=== PATIENT | male | born 1980 | race African-American/Black ===

== ENCOUNTER → 2019-05-28 | Outpatient (CLI) | payer OTHER ==
[2019-05-28 18:33] LABS: HCT 40.6 % (39.0-53.0); HGB 12.8 gm/dL (13.0-17.5); Hypochromasia Slight; MCH 25.4 pg (25.0-35.0); MCHC 31.5 g/dL (31.0-37.0); MCV 80.6 fL (80.0-100.0); Mean Platelet Volume 7.9; Platelet Count 157 k/uL (150-450); RBC 5.04 m/uL (4.30-5.90); RDW 15.6 % (11.5-15.5); WBC 9.8 k/uL (3.8-10.6)
[2019-05-28 18:41] LABS: Albumin 4.3 g/dL (3.5-5.0); Calcium 9.7 mg/dL (8.4-10.2); Potassium 4.4 mmol/L (3.5-5.1); Total Bilirubin 0.4 mg/dL (0.2-1.3); Total Protein 7.7 g/dL (6.3-8.2)
== END | disposition home or self-care (01) ==
LOC: RADXRMAIN 17:43
PROVIDERS: ATTEND Family Medicine
DX: I10 Essential (primary) hypertension (principal)
CPT/HCPCS: 80053; 85027

== ENCOUNTER → 2019-06-06 | Outpatient (CLI) | payer OTHER ==
[2019-06-07 00:27] LABS: African American GFR (CKD) 20.9 (60.0-200.0); Albumin 4.1 g/dL (3.80-4.90); Albumin/Globulin Ratio 1.46 (1.60-3.17); Anion Gap 10.1 mmol/L (4.00-12.00); Carbon Dioxide 28.9 mmol/L (21.6-31.8); Globulin 2.8 g/dL (1.6-3.3); Potassium 4.2 mmol/L (3.5-5.5); Total Bilirubin 0.3 mg/dL (0.2-1.2); Total Protein 6.9 g/dL (6.2-8.2)
== END | disposition home or self-care (01) ==
LOC: LABWHC1 16:53
PROVIDERS: ATTEND Family Medicine
DX: I12.9 Hypertensive chronic kidney disease with stage 1 through stage 4 chronic kidney disease, or unspecified chronic kidney disease (principal); N18.4 Chronic kidney disease, stage 4 (severe)
CPT/HCPCS: 36415; 80053

== ENCOUNTER 2021-06-01 04:24 | Inpatient (IN) | payer MEDICARE, OTHER ==
[2021-06-01] MEDS ORDERED: NITROGLYCERIN-D5W PMX 50 MG in DEXTROSE/WATER 1 250ML.BAG IV ONE (04:45)
[2021-06-01] MEDS ORDERED: hydrALAZINE HCL 20 MG/ML 1 ML VIAL IVP STA ×2 (04:50→07:28)
--- NOTE | 2021-06-01 04:56 | ED ---
Chest Pain HPI - General Chief Complaint: Chest Pain Stated Complaint: Chest Pain Time Seen by Provider: 06/01/21 04:32 Source: patient Mode of arrival: ambulatory Limitations: no limitations - History of Present Illness Initial Comments: This patient is a 40-year-old man who presents to be evaluated for substernal chest pressure and dyspnea. The patient states that he has noticed the pain going back up to a couple weeks. Shortness of breath is been getting worse over the past day or so. Patient states she is a dialysis patient dialyzing Sunday W and Sunday. His last dialysis session was one week ago today. MD Complaint: chest pain Onset/Timin -: week(s) Onset: during rest Pain Location: substernal Pain Radiation: none Severity: moderate Quality: heaviness Consistency: constant Improves With: nothing Worsens With: nothing Anginal Symptoms: dyspnea - Related Data Home Medications Medication Instructions Recorded Confirmed Carvedilol [Coreg] 12.5 mg PO DAILY 06/01/21 06/01/21 Folic Acid 1 mg PO DAILY 06/01/21 06/01/21 Losartan [Cozaar] 25 mg PO DAILY 06/01/21 06/01/21 Sevelamer [Renvela] 800 mg PO DIRECTED 06/01/21 06/01/21 hydrALAZINE HCL [Apresoline] 50 mg PO DAILY 06/01/21 06/01/21 Allergies Allergy/AdvReac Type Severity Reaction Status Date / Time amlodipine Allergy Rash/Hives/ Verified 06/01/21 06:40 Itchy Review of Systems ROS Statement: Those systems with pertinent positive or pertinent negative responses have been documented in the HPI. ROS Other: All systems not noted in ROS Statement are negative. Constitutional: Denies: fever, chills Respiratory: Reports: as per HPI, dyspnea. Denies: cough, hemoptysis Cardiovascular: Reports: as per HPI, chest pain, orthopnea, edema. Denies: palpitations, syncope Gastrointestinal: Denies: abdominal pain, nausea, vomiting, diarrhea Musculoskeletal: Denies: back pain Skin: Denies: rash Neurological: Denies: headache, weakness, paresthesias EKG Findings - EKG Results: EKG: interpreted by ERMD, sinus rhythm, normal axis EKG shows: tachycardia (Rate 116 bpm) - AZ, Pacemaker, Normal: Myocardial infarction: anterior AZ (old age or indeterminate) (Possible old anterior infarct.) Past Medical History Past Medical History: Dialysis, Hypertension History of Any Multi-Drug Resistant Organisms: None Reported Past Surgical History: No Surgical Hx Reported Past Psychological History: No Psychological Hx Reported Smoking Status: Never smoker Past Alcohol Use History: Abuse, Daily, Heavy Past Drug Use History: None Reported General Exam Limitations: no limitations General appearance: alert, in distress Head exam: Present: atraumatic, normocephalic Eye exam: Present: normal appearance ENT exam: Present: mucous membranes dry Neck exam: Present: normal inspection, full ROM Respiratory exam: Present: respiratory distress, rales. Absent: wheezes, rhonchi, accessory muscle use Cardiovascular Exam: Present: normal rhythm, tachycardia, gallop. Absent: systolic murmur, diastolic murmur, rubs GI/Abdominal exam: Present: soft. Absent: distended, tenderness, guarding, rebound, rigid Extremities exam: Present: normal inspection, normal capillary refill, pedal edema. Absent: calf tenderness Back exam: Present: normal inspection. Absent: CVA tenderness (L) Neurological exam: Present: alert Skin exam: Present: warm, dry, intact, normal color. Absent: rash Course Vital Signs 06/01/21 06/01/21 06/01/21 04:28 05:00 05:15 Temperature 98 F Pulse Rate 120 H 111 H 112 H Respiratory 32 H 26 H Rate Blood Pressure 228/150 187/121 188/125 O2 Sat by Pulse 98 98 100 Oximetry 06/01/21 06/01/21 06/01/21 05:30 05:45 05:58 Temperature Pulse Rate 112 H 108 H Respiratory 26 H 30 H 30 H Rate Blood Pressure 191/120 177/114 O2 Sat by Pulse 100 100 Oximetry 06/01/21 06/01/21 06/01/21 06:00 06:15 06:30 Temperature Pulse Rate 109 H 113 H 89 Respiratory 21 20 20 Rate Blood Pressure 172/105 167/85 176/108 O2 Sat by Pulse Oximetry 06/01/21 06/01/21 06:35 07:28 Temperature Pulse Rate 109 H 107 H Respiratory 18 20 Rate Blood Pressure 170/109 162/103 O2 Sat by Pulse 100 Oximetry Disposition Clinical Impression: Elevated troponin, Hypertensive urgency, End stage renal disease, Alcohol intoxication Disposition: ADMITTED IP TO THIS HOSP Condition: Fair Is patient prescribed a controlled substance at d/c from ED?: No
[2021-06-01 05:21] LABS: Basophils % (A) 0 %; Eosinophils # (A) 0.1 k/uL (0-0.7); Eosinophils % (A) 1 %; HCT 37.5 % (39.0-53.0); HGB 11.5 gm/dL (13.0-17.5); Hypochromasia Moderate; Lymphocytes # (A) 2.7 k/uL (1.0-4.8); Lymphocytes % (A) 30 %; MCH 25.3 pg (25.0-35.0); MCHC 30.6 g/dL (31.0-37.0); MCV 82.5 fL (80.0-100.0); Monocytes # (A) 0.5 k/uL (0-1.0); Monocytes % (A) 6 %; Neutrophils # (A) 5.4 k/uL (1.3-7.7); Neutrophils % (A) 61 %; Platelet Count 187 k/uL (150-450); RBC 4.54 m/uL (4.30-5.90); RDW 15.4 % (11.5-15.5); WBC 8.9 k/uL (3.8-10.6)
[2021-06-01 05:22] LABS: Potassium 5.3 mmol/L (3.5-5.1)
[2021-06-01 05:24] LABS: Albumin 4.4 g/dL (3.5-5.0); Calcium 8.6 mg/dL (8.4-10.2); Total Bilirubin 0.7 mg/dL (0.2-1.3); Total Protein 8.1 g/dL (6.3-8.2)
--- NOTE | 2021-06-01 05:26 | XR ---
EXAMINATION TYPE: XR chest 1V portable DATE OF EXAM: 06/01/2021 COMPARISON: NONE HISTORY: Short of breath TECHNIQUE: Single view FINDINGS: There is no heart failure nor confluent pneumonic infiltrate. Costophrenic angles are clear . There are chest leads. Bony thorax is intact. IMPRESSION: No active cardiopulmonary disease.
[2021-06-01 05:33] LABS: Partial Thromboplastin Time 25.4 sec (22.0-30.0)
[2021-06-01] MEDS ORDERED: MORPHINE SULFATE 4 MG/ML SYRINGE IV STA (05:47)
[2021-06-01] MEDS ORDERED: NITROGLYCERIN SL TABS 0.4 MG TAB SUBLINGUAL PRN (07:02)
[2021-06-01] MEDS ORDERED: MORPHINE SULFATE 4 MG/ML SYRINGE IV PRN (07:02)
[2021-06-01] MEDS: hydrALAZINE HCL 50 MG TAB PO SCH (07:58)
[2021-06-01] MEDS: SEVELAMER 800 MG TAB PO SCH ×3 (08:20→18:15)
[2021-06-01] MEDS: carvediloL 12.5 MG TAB PO SCH (08:20)
[2021-06-01] MEDS: FOLIC ACID 1 MG TAB PO SCH (08:20)
--- NOTE | 2021-06-01 08:55 | P.HPIM ---
History of Present Illness H&P Date: 06/01/21 HISTORY OF PRESENT ILLNESS This is a 40-year-old male patient with past medical history of hypertension, end-stage renal disease on hemodialysis Sunday and Sunday. His last hemodialysis session was May 23. Patient started binge drinking on mostly with vodka and he had last intake yesterday morning. Patient has been missing some of his counseling meetings. He also complains of lower extremity edema bilaterally and a little pain in his legs. No shakiness noted. He complains of headache, chest pain that comes and goes without radiation. Patient presented to [facility] emergency center for evaluation. Patient was found to be afebrile, heart rate 120s, respiratory rate 32, initial blood pressure 228/150. This morning blood pressure remains elevated at 162/103. Heart rate is in the low 100s. WBC 8.9, hemoglobin 11.5, platelet count 187. INR 1.0. Sodium 143, potassium 5.3, chloride 107, CO2 19, BUN 62 creatinine 9.98. Glucose 118. Lactic acid 2.5. Total bilirubin 0.7, AST 53, ALT 17, a phosphatase 107. Troponin 0.242. Serum alcohol level 233. Chest x-ray rate reveals no acute cardio pulmonary disease. Patient was started on nitroglycerin drip and received 1 dose of IV hydralazine on the home medications will be resumed, consult in place with nephrology, pulmonary medicine and cardiology REVIEW OF SYSTEMS Constitutional: No fever, no chills, no night sweats. Reports weight change. No weakness, fatigue or lethargy. No daytime sleepiness. EENT: Reports headache. No blurred vision or double vision, no loss of vision. No loss of Hearing, no ringing in the ears, no dizziness. No nasal drainage or congestion. No epistaxis. No sore throat. Lungs: No shortness of breath, cough, no sputum production. No wheezing. Cardiovascular: Reports chest pain, no lower extremity edema. No palpitations. No paroxysmal nocturnal dyspnea. No orthopnea. No lightheadedness or dizz iness. No syncopal episodes. Abdominal: No abdominal pain. No nausea, reports vomiting. No diarrhea. No constipation. No bloody or tarry stools. No loss of appetite. Genitourinary: No dysuria, increased frequency, urgency. No urinary retention. Musculoskeletal: No myalgias. No muscle weakness, no gait dysfunction, no frequent falls. No back pain. No neck pain. Integumentary: No wounds, no lesions. No rash or pruritus. No unusual bruising. No change in hair or nails. Neurologic: No aphasia. No facial droop. No change in mentation. No head injury. No headache. No paralysis. No paresthesia. Psychiatric: Reports depression. Reports anxiety. No mood swings. Endocrine: No abnormal blood sugars. Reports weight change. No excessive sweating or thirst. No cold intolerance. MEDICAL HISTORY End-stage renal disease on hemodialysis Hypertension Paroxysmal atrial fibrillation, single episode Secondary hyperparathyroidism Diabetes mellitus type 2 SURGICAL HISTORY AV fistula right upper extremity SOCIAL HISTORY Patient is a nonsmoker, history of alcohol abuse and patient has been binging since last . FAMILY HISTORY Father at age 36 from a motor vehicle accident. Mother at age 37 from breast cancer. Patient has a brother that at 26 from a gunshot wound. PHYSICAL EXAMINATION Gen: This is a morbidly obese black male sitting in a chair in the emergency center, appears to be in no acute distress. Friend is at bedside HEENT: Head is atraumatic, normocephalic. Pupils equal, round. Sclerae is anicteric. NECK: Supple. No JVD. No lymphadenopathy. No thyromegaly. LUNGS: Clear to auscultation. No wheezes or rhonchi. No intercostal retractions. HEART: First heart sound is depressed, second heart sound is normal, 2/6 syst olic ejection murmur at the left sternal border, no S3, no S4. ABDOMEN: Soft. Bowel sounds are present. No masses. No tenderness. EXTREMITIES: No pedal edema. No calf tenderness. Dorsalis pedis +2 bilaterally. NEUROLOGICAL: Patient is awake, alert and oriented x3. Cranial nerves 2 through 12 are grossly intact. ASSESSMENT AND PLAN 1. Acute hypertensive emergency. Patient was started on nitroglycerin drip in the emergency center, we will resume his home medications and plan to wean off nitroglycerin drip. Patient resumed on Coreg 12.5 mg daily, losartan 25 mg d aily. 2. End-stage renal disease on hemodialysis Sunday. Patient has missed 3 dialysis treatments. Consult with nephrology for dialysis today. 3. Chest pain most likely secondary to fluid overload from missed dialysis. Cardiology consult. 4. Alcohol abuse. Last intake was yesterday morning. Monitor closely for DTs. 5. Morbid obesity with BMI of 41. 6. Metabolic acidosis secondary to renal failure. 7. Secondary hyperparathyroidism. Continue Renvela. 8. GI prophylaxis. Protonix. 9. DVT prophylaxis. Heparin subcu. Patient will be admitted to the hospital for a minimum of 2 night stay. DISCHARGE PLAN Home. Impression and plan of care have been directed as dictated by the signing physician. Daylin Iverson nurse practitioner acting as scribe for signing physician. Past Medical History Past Medical History: Dialysis, Hypertension History of Any Multi-Drug Resistant Organisms: None Reported Past Surgical History: No Surgical Hx Reported Past Psychological History: No Psychological Hx Reported Smoking Status: Never smoker Past Alcohol Use History: Abuse, Daily, Heavy Past Drug Use History: None Reported - Past Family History Father Additional Family Medical History / Comment(s): Father in a MVA. Mother Family Medical History: Cancer Additional Family Medical History / Comment(s): Mother from breast cancer. Medications and Allergies Home Medications Medication Instructions Recorded Confirmed Type Carvedilol [Coreg] 12.5 mg PO DAILY 06/01/21 06/01/21 History Folic Acid 1 mg PO DAILY 06/01/21 06/01/21 History Losartan [Cozaar] 25 mg PO DAILY 06/01/21 06/01/21 History Sevelamer [Renvela] 800 mg PO DIRECTED 06/01/21 06/01/21 History hydrALAZINE HCL [Apresoline] 50 mg PO DAILY 06/01/21 06/01/21 History Allergies Allergy/AdvReac Type Severity Reaction Status Date / Time amlodipine Allergy Rash/Hives/ Verified 06/01/21 06:40 Itchy Physical Exam Vitals: Vital Signs Temp Pulse Resp BP Pulse Ox 06/01/21 07:28 107 H 20 162/103 100 06/01/21 06:35 109 H 18 170/109 06/01/21 06:30 89 20 176/108 06/01/21 06:15 113 H 20 167/85 06/01/21 06:00 109 H 21 172/105 06/01/21 05:58 30 H 06/01/21 05:45 108 H 30 H 177/114 100 06/01/21 05:30 112 H 26 H 191/120 100 06/01/21 05:15 112 H 26 H 188/125 100 06/01/21 05:00 111 H 187/121 98 06/01/21 04:28 98 F 120 H 32 H 228/150 98 Intake and Output 05/31/21 06/01/21 06/01/21 22:59 06:59 14:59 Intake Total 14.525 11.7 Balance 14.525 11.7 Intake: Intake, IV Titration 14.525 11.7 Amount Nitroglycerin-D5w Pmx 50 14.525 11.7 mg In Dextrose/Water 1 250ml.bag @ 20 MCG/MIN 6 mls/hr IV .Q24H ONE Rx#: [id number] Other: Weight 127.006 kg Results CBC & Chem 7: 06/01/21 04:38 06/01/21 04:38 Labs: Abnormal Lab Results - Last 24 Hours (Table) 06/01/21 06/01/21 06/01/21 Range/Units 04:38 04:38 04:38 Hgb 11.5 L (13.0-17.5) gm/dL Hct 37.5 L (39.0-53.0) % MCHC 30.6 L (31.0-37.0) g/dL Potassium 5.3 H (3.5-5.1) mmol/L Carbon Dioxide 19 L (22-30) mmol/L BUN 62 H (9-20) mg/dL Creatinine 9.98 H* (0.66-1.25) mg/dL Glucose 118 H (74-99) mg/dL Plasma Lactic Acid George 2.5 H* (0.7-2.0) mmol/L Troponin I (0.000-0.034) ng/mL Serum Alcohol mg/dL 06/01/21 06/01/21 Range/Units 04:38 06:05 Hgb (13.0-17.5) gm/dL Hct (39.0-53.0) % MCHC (31.0-37.0) g/dL Potassium (3.5-5.1) mmol/L Carbon Dioxide (22-30) mmol/L BUN (9-20) mg/dL Creatinine (0.66-1.25) mg/dL Glucose (74-99) mg/dL Plasma Lactic Acid George (0.7-2.0) mmol/L Troponin I 0.242 H* (0.000-0.034) ng/mL Serum Alcohol 233 H* mg/dL
[2021-06-01] MEDS ORDERED: LOSARTAN 25 MG TAB PO SCH (09:00)
[2021-06-01] MEDS ORDERED: hydrALAZINE HCL 50 MG TAB PO SCH ×2 (09:00→22:00)
--- NOTE | 2021-06-01 10:25 | P.NPCON ---
History of Present Illness - Reason for Consult end stage renal disease - History of Present Illness Reason for consultation: End-stage renal disease History of present illness: Patient is a 40-year-old male seen in renal consultation for end-stage renal disease. He is maintained on hemodialysis on Sunday schedule. Right upper extremity AV fistula. Patient missed the last 2 treatments of hemodialysis. Patient states his last he's been binge drinking vodka. Yesterday evening he developed chest pain which didn't improve overnight and came to the hospital. No vomiting or diarrhea. Blood pressure was high on admission but most recent reading was 114/51. He does make urine. Chest x-ray showed no evidence of fluid overload. Patient's serum alcohol level was 233. Lactic acid level was also high. Vital signs are stable. General: The patient appeared well nourished and normally developed. HEENT: Head exam is unremarkable. LUNGS: Breath sounds decreased. HEART: Rate and Rhythm are regular. ABDOMEN: Soft, obese. EXTREMITITES: No edema. Past Medical History Past Medical History: Dialysis, Hypertension History of Any Multi-Drug Resistant Organisms: None Reported Past Surgical History: No Surgical Hx Reported Past Psychological History: No Psychological Hx Reported Smoking Status: Never smoker Past Alcohol Use History: Abuse, Daily, Heavy Past Drug Use History: None Reported Medications and Allergies Home Medications Medication Instructions Recorded Confirmed Type Carvedilol [Coreg] 12.5 mg PO DAILY 06/01/21 06/01/21 History Folic Acid 1 mg PO DAILY 06/01/21 06/01/21 History Losartan [Cozaar] 25 mg PO DAILY 06/01/21 06/01/21 History Sevelamer [Renvela] 800 mg PO DIRECTED 06/01/21 06/01/21 History hydrALAZINE HCL [Apresoline] 50 mg PO DAILY 06/01/21 06/01/21 History Allergies Allergy/AdvReac Type Severity Reaction Status Date / Time amlodipine Allergy Rash/Hives/ Verified 06/01/21 06:40 Itchy Physical Exam Vitals: Vital Signs Temp Pulse Resp BP Pulse Ox 06/01/21 09:45 81 22 114/51 95 06/01/21 08:22 110 H 24 146/99 96 06/01/21 07:28 107 H 20 162/103 100 06/01/21 06:35 109 H 18 170/109 06/01/21 06:30 89 20 176/108 06/01/21 06:15 113 H 20 167/85 06/01/21 06:00 109 H 21 172/105 06/01/21 05:58 30 H 06/01/21 05:45 108 H 30 H 177/114 100 06/01/21 05:30 112 H 26 H 191/120 100 06/01/21 05:15 112 H 26 H 188/125 100 06/01/21 05:00 111 H 187/121 98 06/01/21 04:28 98 F 120 H 32 H 228/150 98 Intake and Output 05/31/21 06/01/21 06/01/21 22:59 06:59 14:59 Intake Total 14.525 46.175 Balance 14.525 46.175 Intake: Intake, IV Titration 14.525 46.175 Amount Nitroglycerin-D5w Pmx 50 14.525 46.175 mg In Dextrose/Water 1 250ml.bag @ 20 MCG/MIN 6 mls/hr IV .Q24H ONE Rx#: [id number] Other: Weight 127.006 kg Results - Lab Results Most recent lab results Calcium 8.6 mg/dL (8.4-10.2) 06/01/21 04:38 06/01/21 04:38 06/01/21 04:38 Assessment and Plan Plan: Assessment: 1. End-stage renal disease maintained on hemodialysis on Sunday schedule. Rate approximately AV fistula. 2. Metabolic acidosis secondary to chronic kidney disease, lactic acidosis and missed hemodialysis treatments. 3. Mild hyperkalemia secondary to missed dialysis treatments. 4. Chronic kidney disease mineral bone disease maintained on Renvela. 5. Hypertension with chronic kidney disease. Now controlled. 6. Alcohol intoxication. Plan: Hemodialysis today. Hold losartan for systolic blood pressure less than 120 Thank you for the consultation. I will continue to follow the patient with you during his hospital stay.
--- NOTE | 2021-06-01 12:01 | P.CRDCN ---
History of Present Illness Consult date: 06/01/21 History of present illness: HISTORY OF PRESENT ILLNESS: This is a 40-year-old male with a past medical history significant for hypertension and end-stage renal disease on hemodialysis Sunday and Sunday. 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 We have been asked to see the patient in consultation for chest pain. Patient examined at the bedside. Patient reports she has been having left-sided chest pain for approximately 2 weeks. He denies any radiation of the pain. He denies any shortness of breath. Patient's blood pressure was found to be significantly elevated over 200 when he came to the hospital. Patient was started on a nitro drip. Patient's blood pressure has since improved. Patient does report he has not been taking his medications regularly. He also reports he has been missing dialysis sessions recently as well. Patient also reports he has been drinking Vodka at home. Patient's serum alcohol level was found to be 233 on admission. * EKG reveals sinus tachycardia * Chest xray negative for acute process * Laboratory data: WBC 8.9. Hemoglobin 11.5. Platelet count 187. Sodium 143. Potassium 5.3. BUN 62. Creatinine 9.98. Lactic acid 3.0. Troponin 0.242. 0.200. 0.193. * Current home cardiac medications include carvedilol 12.5 mg daily, hydralazine 50 mg daily and losartan 25 mg daily REVIEW OF SYSTEMS: At the time of my exam: CONSTITUTIONAL: Denies fever or chills. HEENT: Denies blurred vision, vision changes, or eye pain. Denies hemoptysis CARDIOVASCULAR: Denies chest pain. Denies orthopnea. Denies PND. Denies palpitations RESPIRATORY: Denies shortness of breath. GASTROINTESTINAL: Denies abdominal pain. Denies nausea or vomiting. HEMATOLOGIC: Denies bleeding disorders. GENITOURINARY: Denies any blood in urine. SKIN: Denies pruitis. Denies rash. PHYSICAL EXAM: VITAL SIGNS: Reviewed. GENERAL: Well-developed in no acute distress. HEENT: Head is normocephalic. Pupils are equal, round. Sclerae anicteric. Mucous membranes of the mouth are moist. Neck supple. No JVD or thyromegaly LUNGS: Respirations even and unlabored. Lungs diminished bilaterally. HEART: Regular rate and rhythm. S1 and S2 heard. ABDOMEN: Soft. Nondistended. Nontender. EXTREMITIES: Normal range of motion. No clubbing or cyanosis. Peripheral pulses intact. No lower extremity edema NEUROLOGIC: Awake and alert. Oriented x 3. ASSESSMENT: Chest pain, atypical End stage renal disease with hemodialysis on Sunday Noncompliance with hemodialysis Medication noncompliance Hypertensive urgency, since improved Abnormal troponins, secondary to end-stage renal disease, no evidence of acute coronary syndrome Acute alcohol intoxication PLAN: An acute coronary event has been ruled out Obtain 2D echo to assess cardiac structure and function Resume home cardiac medications Hemodialysis per nephrology Continue to monitor blood pressure Further recommendations pending patient's course Nurse practitioner note has been reviewed by physician. Signing provider agrees with the documented findings, assessment, and plan of care. Past Medical History Past Medical History: Dialysis, Hypertension History of Any Multi-Drug Resistant Organisms: None Reported Past Surgical History: No Surgical Hx Reported Past Psychological History: No Psychological Hx Reported Smoking Status: Never smoker Past Alcohol Use History: Abuse, Daily, Heavy Past Drug Use History: None Reported Medications and Allergies Home Medications Medication Instructions Recorded Confirmed Type Carvedilol [Coreg] 12.5 mg PO DAILY 06/01/21 06/01/21 History Folic Acid 1 mg PO DAILY 06/01/21 06/01/21 History Losartan [Cozaar] 25 mg PO DAILY 06/01/21 06/01/21 History Sevelamer [Renvela] 800 mg PO DIRECTED 06/01/21 06/01/21 History hydrALAZINE HCL [Apresoline] 50 mg PO DAILY 06/01/21 06/01/21 History Allergies Allergy/AdvReac Type Severity Reaction Status Date / Time amlodipine Allergy Rash/Hives/ Verified 06/01/21 06:40 Itchy Physical Exam Vitals: Vital Signs Temp Pulse Resp BP Pulse Ox 06/01/21 09:45 81 22 114/51 95 06/01/21 08:22 110 H 24 146/99 96 06/01/21 07:28 107 H 20 162/103 100 06/01/21 06:35 109 H 18 170/109 06/01/21 06:30 89 20 176/108 06/01/21 06:15 113 H 20 167/85 06/01/21 06:00 109 H 21 172/105 06/01/21 05:58 30 H 06/01/21 05:45 108 H 30 H 177/114 100 06/01/21 05:30 112 H 26 H 191/120 100 06/01/21 05:15 112 H 26 H 188/125 100 06/01/21 05:00 111 H 187/121 98 06/01/21 04:28 98 F 120 H 32 H 228/150 98 Intake and Output 05/31/21 06/01/21 06/01/21 22:59 06:59 14:59 Intake Total 14.525 46.175 Balance 14.525 46.175 Intake: Intake, IV Titration 14.525 46.175 Amount Nitroglycerin-D5w Pmx 50 14.525 46.175 mg In Dextrose/Water 1 250ml.bag @ 20 MCG/MIN 6 mls/hr IV .Q24H ONE Rx#: [id number] Other: Weight 127.006 kg Results 06/01/21 04:38 06/01/21 04:38 Cardiac Enzymes 06/01/21 06/01/21 06/01/21 Range/Units 04:38 04:38 07:44 AST 53 (17-59) U/L Troponin I 0.242 H* 0.200 H* (0.000-0.034) ng/mL 06/01/21 Range/Units 10:40 AST (17-59) U/L Troponin I 0.193 H* (0.000-0.034) ng/mL Coagulation 06/01/21 Range/Units 04:38 PT 11.0 (9.0-12.0) sec APTT 25.4 (22.0-30.0) sec CBC 06/01/21 Range/Units 04:38 WBC 8.9 (3.8-10.6) k/uL RBC 4.54 (4.30-5.90) m/uL Hgb 11.5 L (13.0-17.5) gm/dL Hct 37.5 L (39.0-53.0) % Plt Count 187 (150-450) k/uL Comprehensive Metabolic Panel 06/01/21 Range/Units 04:38 Sodium 143 (137-145) mmol/L Potassium 5.3 H (3.5-5.1) mmol/L Chloride 107 (98-107) mmol/L Carbon Dioxide 19 L (22-30) mmol/L BUN 62 H (9-20) mg/dL Creatinine 9.98 H* (0.66-1.25) mg/dL Glucose 118 H (74-99) mg/dL Calcium 8.6 (8.4-10.2) mg/dL AST 53 (17-59) U/L ALT 17 (4-49) U/L Alkaline Phosphatase 107 (38-126) U/L Total Protein 8.1 (6.3-8.2) g/dL Albumin 4.4 (3.5-5.0) g/dL Current Medications Generic Name Dose Route Start Last Admin Trade Name Freq PRN Reason Stop Dose Admin Carvedilol 12.5 mg 06/01/21 09:00 06/01/21 08:20 Carvedilol 12.5 Mg Tab PO 12.5 mg DAILY [facility] Administration Folic Acid 1 mg 06/01/21 09:00 06/01/21 08:20 Folic Acid 1 Mg Tab PO 1 mg DAILY [facility] Administration Losartan Potassium 25 mg 06/01/21 09:00 06/01/21 08:20 Losartan 25 Mg Tab PO 25 mg DAILY [facility] Administration Morphine Sulfate 4 mg 06/01/21 07:02 06/01/21 09:37 Morphine Sulfate 4 Mg/Ml Syringe IV 4 mg Q5M PRN Administration Chest Pain Nitroglycerin 0.4 mg 06/01/21 07:02 Nitroglycerin Sl Tabs 0.4 Mg Tab SUBLINGUAL Q5M PRN Chest Pain Sevelamer Carbonate 800 mg 06/01/21 08:00 06/01/21 08:20 Sevelamer 800 Mg Tab PO 800 mg TID-W/MEALS [facility] Administration Intake and Output 05/31/21 06/01/21 06/01/21 22:59 06:59 14:59 Intake Total 14.525 46.175 Balance 14.525 46.175 Intake: Intake, IV Titration 14.525 46.175 Amount Nitroglycerin-D5w Pmx 50 14.525 46.175 mg In Dextrose/Water 1 250ml.bag @ 20 MCG/MIN 6 mls/hr IV .Q24H ONE Rx#: [id number] Other: Weight 127.006 kg 06/01/21 04:38 06/01/21 04:38
--- NOTE | 2021-06-01 12:32 | P.CNPUL ---
History of Present Illness Consult date: 06/01/21 Reason for consult: chest pain History of present illness: 40-year-old -Iranian male patient, morbidly obese with a incisional disease due to hypertensive kidney disease/nephropathy. The patient has been on dialysis 3 times a week MW. The patient is less mydriasis session was on 05/23/2021. Since then, the patient has been binge drinking alcohol and his last intake of alcohol was yesterday morning. The patient has been also missing some of his counseling meetings. He urinates, he presented to [facility] department, having increased chest pain, hypertensive in acute hypertensive emergency, and he was also complaining of some limited shortness of breath and increased lower extremity edema. No altered mentation. No focal neurological deficit. He was found to be afebrile. He was tachycardic and tachypneic and the recent blood pressure was 228/150. He was started on nitroglycerin drip with subsequent improvement in his blood pressure. Chest x-ray showed some mild pulmonary vascular congestion and cardiomegaly. Nitroglycerin drip was initiated and it was running as high as 40 g per minute. The patient accordingly was admitted to the hospital. The initial white count is at 8.9 with a hemoglobin 11.5 and a platelet count of 187. Normal coagulation profile, BUN is 62 with a creatinine of 9.9, potassium level is at 5.3, lactic acid level of 3.0, glucose 118, troponins of 0.242, 0.2 and 0.193 respectively 3. Serum alcohol at time of admission was 233. EKG was noted and the patient had sinus tachycardia, old Q waves over the anterior leads along with some hyperacute T waves. No significant ST segment elevation or depression. By the time of my arrival to the emergency department, the patient was started on Cozaar 25 mg once a day Coreg 12.5 mg once a day. He was taken off the nitroglycerin drip. He was calm and comfortable. He denied having any active chest pain. He was also seen by cardiology. A 2-D echocardiogram was ordered. Home medications were resumed. Nephrology also saw the patient and patient will be started on hemodialysis today. His chest pain was labeled to be atypical by cardiology. No altered mentation. No agitation. No signs of any delirium tremens. Review of Systems Constitutional: Reports fatigue, Reports weakness, Reports weight gain Eyes: denies as per HPI, denies blurred vision, denies bulging eye, denies decreased vision, denies diplopia, denies discharge, denies dry eye, denies irritation, denies itching, denies pain, denies photophobia, denies loss of peripheral vision, denies loss of vision, denies tunnel vision/blind spots Ears: deny: decreased hearing, ear discharge, earache, tinnitus Ears, nose, mouth and throat: Reports as per HPI Breasts: absent: as per HPI, gynecomastia Cardiovascular: Reports chest pain, Reports decreased exercise tolerance Respiratory: Reports dyspnea Gastrointestinal: Reports as per HPI Genitourinary: Reports as per HPI Musculoskeletal: Reports as per HPI Musculoskeletal: bilateral: ankle swelling, absent: ankle pain, ankle stiffness Integumentary: Reports as per HPI Neurological: Reports as per HPI Psychiatric: Reports as per HPI Endocrine: Reports as per HPI Hematologic/Lymphatic: Reports as per HPI Allergic/Immunologic: Reports as per HPI Past Medical History Past Medical History: Dialysis, Hypertension, Renal Disease History of Any Multi-Drug Resistant Organisms: None Reported Past Surgical History: No Surgical Hx Reported Past Psychological History: No Psychological Hx Reported Smoking Status: Never smoker Past Alcohol Use History: Abuse, Daily, Heavy Past Drug Use History: None Reported Medications and Allergies Home Medications Medication Instructions Recorded Confirmed Type Carvedilol [Coreg] 12.5 mg PO DAILY 06/01/21 06/01/21 History Folic Acid 1 mg PO DAILY 06/01/21 06/01/21 History Losartan [Cozaar] 25 mg PO DAILY 06/01/21 06/01/21 History Sevelamer [Renvela] 800 mg PO DIRECTED 06/01/21 06/01/21 History hydrALAZINE HCL [Apresoline] 50 mg PO DAILY 06/01/21 06/01/21 History Allergies Allergy/AdvReac Type Severity Reaction Status Date / Time amlodipine Allergy Rash/Hives/ Verified 06/01/21 06:40 Itchy Physical Exam Vitals: Vital Signs Temp Pulse Resp BP Pulse Ox 06/01/21 09:45 81 22 114/51 95 06/01/21 08:22 110 H 24 146/99 96 06/01/21 07:28 107 H 20 162/103 100 06/01/21 06:35 109 H 18 170/109 06/01/21 06:30 89 20 176/108 06/01/21 06:15 113 H 20 167/85 06/01/21 06:00 109 H 21 172/105 06/01/21 05:58 30 H 06/01/21 05:45 108 H 30 H 177/114 100 06/01/21 05:30 112 H 26 H 191/120 100 06/01/21 05:15 112 H 26 H 188/125 100 06/01/21 05:00 111 H 187/121 98 06/01/21 04:28 98 F 120 H 32 H 228/150 98 Intake and Output 05/31/21 06/01/21 06/01/21 22:59 06:59 14:59 Intake Total 14.525 46.175 Balance 14.525 46.175 Intake: Intake, IV Titration 14.525 46.175 Amount Nitroglycerin-D5w Pmx 50 14.525 46.175 mg In Dextrose/Water 1 250ml.bag @ 20 MCG/MIN 6 mls/hr IV .Q24H ONE Rx#: [id number] Other: Weight 127.006 kg Gen. appearance, morbidly obese, comfortable no acute distress, BMI 41.3 Head exam was generally normal. There was no scleral icterus or corneal arcus. Mucous membranes were moist. HEENT: Head is atraumatic, normocephalic. Pupils equal, round. Sclerae is anicteric. NECK: Supple. No JVD. No lymphadenopathy. No thyromegaly. LUNGS: Clear to auscultation. No wheezes or rhonchi. No intercostal retractions. Cardiac exam revealed the PMI to be normally situated and sized. The rhythm was regular and no extrasystoles were noted during several minutes of auscultation. The first and second heart sounds were normal and physiologic splitting of the second heart sound was noted. There were no murmurs, rubs, clicks, or gallops. ABDOMEN: Soft. Bowel sounds are present. No masses. No tenderness. EXTREMITIES: No pedal edema. No calf tenderness. There is +1 pitting edema and there is no cyanosis or clubbing NEUROLOGICAL: Patient is awake, alert and oriented x3. Cranial nerves 2 through 12 are grossly intact. Results - Laboratory Findings CBC and BMP: 06/01/21 04:38 06/01/21 04:38 PT/INR, D-dimer PT 11.0 sec (9.0-12.0) 06/01/21 04:38 INR 1.0 (<1.2) 06/01/21 04:38 Abnormal lab findings: Abnormal Labs 06/01/21 06/01/21 06/01/21 04:38 04:38 04:38 Hgb 11.5 L Hct 37.5 L MCHC 30.6 L Potassium 5.3 H Carbon Dioxide 19 L BUN 62 H Creatinine 9.98 H* Glucose 118 H Plasma Lactic Acid George 2.5 H* Troponin I Serum Alcohol 06/01/21 06/01/21 06/01/21 04:38 06:05 07:44 Hgb Hct MCHC Potassium Carbon Dioxide BUN Creatinine Glucose Plasma Lactic Acid George Troponin I 0.242 H* 0.200 H* Serum Alcohol 233 H* 06/01/21 06/01/21 06/01/21 07:44 10:40 10:40 Hgb Hct MCHC Potassium Carbon Dioxide BUN Creatinine Glucose Plasma Lactic Acid George 4.8 H* 3.0 H* Troponin I 0.193 H* Serum Alcohol - Diagnostic Findings Chest x-ray: image reviewed Assessment and Plan Plan: 1 acute hypertensive urgency/emergency, improved and the patient was started on nitroglycerin drip in the emergency department and after starting his oral antihypertensive medication, the blood pressure normalizes and the patient is currently off the nitroglycerin drip. Hemodialysis to follow as the patient has missed hemodialysis for more than a week. 2 End stage renal disease on hemodialysis 3 times a week, his last hemodialysis session was on 05/23/2021 3 hypertension 4 chest pain, atypical with limited the troponin leaks, no acute ischemic changes on the EKG 5 alcoholism with acute alcohol intoxication 6 obesity with BMI of 41.3, possibility of obstructive sleep apnea 7 mild lactic acidosis Plan Proceed with hemodialysis Monitor blood pressure and resume Coreg and losartan Nitroglycerin drip has been discontinued 2-D echocardiogram Watch for any signs of delirium tremens We'll continue to follow
[2021-06-01] MEDS ORDERED: LIDOCAINE 1% INJ 10MG/ML (20 ML MDV) ONE (14:00)
[2021-06-01] MEDS: HEPARIN SODIUM,PORCINE/PF 5,000 UNIT/0.5 ML SYRINGE SQ SCH ×2 (18:04→23:06)
[2021-06-01] MEDS ORDERED: hydrALAZINE HCL 20 MG/ML 1 ML VIAL IVP PRN (20:31)
[2021-06-02] MEDS ORDERED: cloNIDine HCL 0.1 MG TAB PO STA (00:47)
[2021-06-02] MEDS: PANTOPRAZOLE 40 MG TABLET PO SCH (06:41)
[2021-06-02] MEDS: hydrALAZINE HCL 50 MG TAB PO SCH ×3 (06:42→21:42)
[2021-06-02] MEDS: SEVELAMER 800 MG TAB PO SCH ×3 (06:42→18:05)
[2021-06-02] MEDS: cloNIDine HCL 0.1 MG TAB PO SCH ×3 (08:53→21:42)
[2021-06-02] MEDS: FOLIC ACID 1 MG TAB PO SCH (08:53)
[2021-06-02] MEDS: HEPARIN SODIUM,PORCINE/PF 5,000 UNIT/0.5 ML SYRINGE SQ SCH ×3 (08:53→22:53)
[2021-06-02] MEDS: LOSARTAN 50 MG TAB PO SCH (08:53)
[2021-06-02] MEDS: carvediloL 12.5 MG TAB PO SCH (08:53)
[2021-06-02] MEDS ORDERED: LOSARTAN 25 MG TAB PO SCH (09:00)
[2021-06-02] MEDS ORDERED: ASPIRIN 325 MG TAB PO SCH (09:00)
[2021-06-02] MEDS ORDERED: LOSARTAN 50 MG TAB PO SCH (09:00)
--- NOTE | 2021-06-02 09:18 | P.PN ---
Subjective Patient is seen in follow-up for end-stage renal disease. He is maintained on hemodialysis on Sunday schedule. No problems with dialysis yesterday. Awake and alert. No active complaints. Vital signs are stable. General: The patient appeared well nourished and normally developed. HEENT: Head exam is unremarkable. LUNGS: Breath sounds decreased. HEART: Rate and Rhythm are regular. ABDOMEN: Soft, obese. EXTREMITITES: No edema. Objective - Vital Signs Vital signs: Vital Signs Temp 98.0 F 06/02/21 07:40 Pulse 89 06/02/21 07:40 Resp 16 06/02/21 07:40 BP 184/96 06/02/21 07:40 Pulse Ox 100 06/02/21 08:07 Intake & Output 06/01/21 06/02/21 06/02/21 18:59 06:59 18:59 Intake Total 346.175 10 Output Total 1500 Balance -1153.825 10 Weight 127.006 kg 133.4 kg Intake: IV 10 0.9 10 Intake, IV Titration 46.175 Amount Nitroglycerin-D5w Pmx 50 46.175 mg In Dextrose/Water 1 250ml.bag @ 20 MCG/MIN 6 mls/hr IV .Q24H ONE Rx#: [id number] Hemodialysis 300 Output: Hemodialysis 1500 Other: Voiding Method Toilet # Voids 0 1 # Bowel Movements 0 - Labs CBC & Chem 7: 06/01/21 04:38 06/01/21 04:38 Labs: Abnormal Lab Results - Last 24 Hours (Table) 06/01/21 06/01/21 Range/Units 10:40 10:40 Plasma Lactic Acid George 3.0 H* (0.7-2.0) mmol/L Troponin I 0.193 H* (0.000-0.034) ng/mL Assessment and Plan Plan: Assessment: 1. End-stage renal disease maintained on hemodialysis on Sunday schedule. Has AV fistula. 2. Metabolic acidosis secondary to chronic kidney disease, lactic acidosis and missed hemodialysis treatments. Improved. 3. Mild hyperkalemia secondary to missed dialysis treatments. 4. Chronic kidney disease mineral bone disease maintained on Renvela. 5. Hypertension with chronic kidney disease. 6. Alcohol intoxication. Plan: Hemodialysis tomorrow. Antihypertensives adjusted. Hydralazine and clonidine added. Dose of losartan was also increased. Follow-up echocardiogram.
[2021-06-02 09:25] LABS: Chol/HDL Ratio 3.83 Ratio; LDL Cholesterol,Calculated 56.2 mg/dL (0.0-131.0)
--- NOTE | 2021-06-02 09:26 | P.PN ---
Subjective Progress Note Date: 06/02/21 HISTORY OF PRESENT ILLNESS This is a 40-year-old male patient with past medical history of hypertension, end-stage renal disease on hemodialysis Sunday and Sunday. His last hemodialysis session was May 23. Patient started binge drinking on mostly with vodka and he had last intake yesterday morning. Patient has been missing some of his counseling meetings. He also complains of lower extremity edema bilaterally and a little pain in his legs. No shakiness noted. He complains of headache, chest pain that comes and goes without radiation. Patient presented to [facility] emergency center for evaluation. Patient was found to be afebrile, heart rate 120s, respiratory rate 32, initial blood pressure 228/150. This morning blood pressure remains elevated at 162/103. Heart rate is in the low 100s. WBC 8.9, hemoglobin 11.5, platelet count 187. INR 1.0. Sodium 143, potassium 5.3, chloride 107, CO2 19, BUN 62 creatinine 9.98. Glucose 118. Lactic acid 2.5. Total bilirubin 0.7, AST 53, ALT 17, a phosphatase 107. Troponin 0.242. Serum alcohol level 233. Chest x-ray rate reveals no acute cardio pulmonary disease. Patient was started on nitroglycerin drip and received 1 dose of IV hydralazine on the home medications will be resumed, consult in place with nephrology, pulmonary medicine and cardiology 3/3: Patient is seen today on the cardiac stepdown unit. Patient is followed closely by nephrology and underwent hemodialysis yesterday. Patient states that he was having leg cramps during procedure, edema in the lower extremities is improved. Blood pressure is remaining high at 171/102. Patient is off nitroglycerin drip. Hydralazine was increased 100 mg 3 times daily and Losartan will be increased to 50 mg daily and clonidine 0.1 mg 3 times daily added. Lactic acid is 1.1. TSH 0.874. No indication of impending DTs. REVIEW OF SYSTEMS Constitutional: No fever, no chills, no night sweats. Reports weight change. No weakness, fatigue or lethargy. No daytime sleepiness. EENT: Reports headache. No blurred vision or double vision, no loss of vision. No loss of Hearing, no ringing in the ears, no dizziness. No nasal drainage or congestion. No epistaxis. No sore throat. Lungs: No shortness of breath, cough, no sputum production. No wheezing. Cardiovascular: Reports chest pain, no lower extremity edema. No palpitations. No paroxysmal nocturnal dyspnea. No orthopnea. No lightheadedness or dizziness. No syncopal episodes. Abdominal: No abdominal pain. No nausea, reports vomiting. No diarrhea. No constipation. No bloody or tarry stools. No loss of appetite. Genitourinary: No dysuria, increased frequency, urgency. No urinary retention. Musculoskeletal: No myalgias. No muscle weakness, no gait dysfunction, no frequent falls. No back pain. No neck pain. Integumentary: No wounds, no lesions. No rash or pruritus. No unusual bruising. No change in hair or nails. Neurologic: No aphasia. No facial droop. No change in mentation. No head injury. No headache. No paralysis. No paresthesia. Psychiatric: Reports depression. Reports anxiety. No mood swings. Endocrine: No abnormal blood sugars. Reports weight change. No excessive sweating or thirst. No cold intolerance. PHYSICAL EXAMINATION Gen: This is a morbidly obese black male sitting in a chair, appears to be in no acute distress. HEENT: Head is atraumatic, normocephalic. Pupils equal, round. Sclerae is anicteric. NECK: Supple. No JVD. No lymphadenopathy. No thyromegaly. LUNGS: Clear to auscultation. No wheezes or rhonchi. No intercostal retractions. HEART: First heart sound is depressed, second heart sound is normal, 2/6 systolic ejection murmur at the left sternal border, no S3, no S4. ABDOMEN: Soft. Bowel sounds are present. No masses. No tenderness. EXTREMITIES: 1+ pedal edema. No calf tenderness. Dorsalis pedis +2 bilaterally. NEUROLOGICAL: Patient is awake, alert and oriented x3. Cranial nerves 2 through 12 are grossly intact. ASSESSMENT AND PLAN 1. Acute hypertensive emergency. Patient continued on Coreg 12.5 mg daily, losartan increased to 50 mg daily, hydralazine increased to 100 mg 3 times daily, clonidine 0.1 mg 3 times daily added. 2. End-stage renal disease on hemodialysis Sunday. Patient has missed 3 dialysis treatments. Consult with nephrology for dialysis today. 3. Chest pain most likely secondary to fluid overload from missed dialysis. Cardiology consult. 4. Alcohol abuse. Last intake was yesterday morning. Monitor closely for DTs. 5. Morbid obesity with BMI of 41. 6. Metabolic acidosis secondary to renal failure. 7. Secondary hyperparathyroidism. Continue Renvela. 8. GI prophylaxis. Protonix. 9. DVT prophylaxis. Heparin subcu. DISCHARGE PLAN Home. Impression and plan of care have been directed as dictated by the signing physician. Daylin Iverson nurse practitioner acting as scribe for signing physician. Objective - Vital Signs Vital signs: Vital Signs Temp 98.5 F 06/02/21 04:00 Pulse 60 06/02/21 04:00 Resp 18 06/02/21 04:00 BP 171/102 06/02/21 04:00 Pulse Ox 98 06/02/21 05:27 Intake & Output 06/01/21 06/02/21 06/02/21 18:59 06:59 18:59 Intake Total 346.175 10 Output Total 1500 Balance -1153.825 10 Weight 127.006 kg 133.4 kg Intake: IV 10 0.9 10 Intake, IV Titration 46.175 Amount Nitroglycerin-D5w Pmx 50 46.175 mg In Dextrose/Water 1 250ml.bag @ 20 MCG/MIN 6 mls/hr IV .Q24H ONE Rx#: [id number] Hemodialysis 300 Output: Hemodialysis 1500 Other: Voiding Method Toilet # Voids 0 1 # Bowel Movements 0 - Labs CBC & Chem 7: 06/01/21 04:38 06/01/21 04:38 Labs: Abnormal Lab Results - Last 24 Hours (Table) 06/01/21 06/01/21 06/01/21 Range/Units 07:44 07:44 10:40 Plasma Lactic Acid George 4.8 H* (0.7-2.0) mmol/L Troponin I 0.200 H* 0.193 H* (0.000-0.034) ng/mL 06/01/21 Range/Units 10:40 Plasma Lactic Acid George 3.0 H* (0.7-2.0) mmol/L Troponin I (0.000-0.034) ng/mL
--- NOTE | 2021-06-02 10:00 | ECHOF ---
Referral Reason:lv function MEASUREMENTS -------- HEIGHT: 172.7 cm WEIGHT: 131.5 kg BP: RVIDd: 3.9 cm (< 3.3) IVSd: 2.0 cm (0.6 - 1.1) LVIDd: 5.3 cm (3.9 - 5.3) LVPWd: 2.1 cm (0.6 - 1.1) IVSs: 2.2 cm LVIDs: 3.6 cm LVPWs: 2.4 cm LA Diam: 4.6 cm (2.7 - 3.8) Ao Diam: 3.4 cm (2.0 - 3.7) AV Cusp: 2.4 cm (1.5 - 2.6) LA Diam: 4.9 cm (2.7 - 3.8) MV EXCURSION: 17.570 mm (> 18.000) MV EF SLOPE: 67 mm/s (70 - 150) EPSS: 1.0 cm MV E Francisco Javier: 1.14 m/s MV DecT: 212 ms MV A Francisco Javier: 0.63 m/s MV E/A Ratio: 1.82 RAP: 5.00 mmHg RVSP: 78.97 mmHg FINDINGS -------- Sinus rhythm. Morbid Obesity The left ventricular size is normal. There is severe concentric left ventricular hypertrophy. Ove rall left ventricular systolic function is low-normal with, an EF between 50 - 55 %. The right ventricle is moderately enlarged. The left atrium is moderately dilated. The right atrial size is normal. There is mild aortic valve sclerosis. There is no evidence of aortic regurgitation. Mild mitral regurgitation is present. Moderate tricuspid regurgitation present. There is moderate to severe pulmonary hypertension. The right ventricular systolic pressure, as measured by Doppler, is 78.97mmHg. Trace/mild (physiologic) pulmonic regurgitation. There is no pericardial effusion. CONCLUSIONS -------- 1. Morbid Obesity 2. The left ventricular size is normal. 3. There is severe concentric left ventricular hypertrophy. 4. Overall left ventricular systolic function is low-normal with, an EF between 50 - 55 %. 5. The right ventricle is moderately enlarged. 6. The left atrium is moderately dilated. 7. The right atrial size is normal. 8. There is mild aortic valve sclerosis. 9. Mild mitral regurgitation is present. 10. Moderate tricuspid regurgitation present. 11. There is moderate to severe pulmonary hypertension. 12. The right ventricular systolic pressure, as measured by Doppler, is 78.97mmHg. 13. Trace/mild (physiologic) pulmonic regurgitation. 14. There is no pericardial effusion. NUCLEAR WASTE MANAGEMENT ENGINEER: Lay Ellsworth RDCS
--- NOTE | 2021-06-02 13:09 | P.PN ---
Subjective Progress Note Date: 06/02/21 HISTORY OF PRESENT ILLNESS: This is a 40-year-old male with a past medical history significant for hypertension and end-stage renal disease on hemodialysis Sunday and Sunday. Patient does not follow with a independent living instructor. We have been asked to see the patient in consultation for chest pain. Patient examined at the bedside. Patient reports she has been having left-sided chest pain for approximately 2 weeks. He denies any radiation of the pain. He denies any shortness of breath. Patient's blood pressure was found to be significantly elevated over 200 when he came to the hospital. Patient was started on a nitro drip. Patient's blood pressure has since improved. Patient does report he has not been taking his medications regularly. He also reports he has been missing dialysis sessions recently as well. Patient also reports he has been drinking Vodka at home. Patient's serum alcohol level was found to be 233 on admission. * EKG reveals sinus tachycardia * Chest xray negative for acute process * Laboratory data: WBC 8.9. Hemoglobin 11.5. Platelet count 187. Sodium 143. Potassium 5.3. BUN 62. Creatinine 9.98. Lactic acid 3.0. Troponin 0.242. 0.200. 0.193. * Current home cardiac medications include carvedilol 12.5 mg daily, hydralazine 50 mg daily and losartan 25 mg daily 06/02/2021 Patient examined at the bedside. Patient denies chest pain or pressure. Denies shortness of breath. Echocardiogram completed revealing ejection fraction 50- 55%, mild MR, moderate TR, moderate to severe pulmonary hypertension. Patient underwent dialysis yesterday. BP elevated this morning. I drowsing and losartan were increased per internal medicine. Patient was also added on Catapres. Telemetry reveals sinus pauses around 2-3 seconds. Patient did have a longer pause of 7 seconds. Per nursing, the patient stated he was sleeping at this time and denied any symptoms. PHYSICAL EXAM: VITAL SIGNS: Reviewed. GENERAL: Well-developed in no acute distress. HEENT: Head is normocephalic. Pupils are equal, round. Sclerae anicteric. Mucous membranes of the mouth are moist. Neck supple. No JVD or thyromegaly LUNGS: Respirations even and unlabored. Lungs diminished bilaterally. HEART: Regular rate and rhythm. S1 and S2 heard. ABDOMEN: Soft. Nondistended. Nontender. EXTREMITIES: Normal range of motion. No clubbing or cyanosis. Peripheral pulses intact. Trace lower extremity edema NEUROLOGIC: Awake and alert. Oriented x 3. ASSESSMENT: Chest pain, atypical End stage renal disease with hemodialysis on Sunday Noncompliance with hemodialysis Medication noncompliance Hypertensive urgency, since improved Abnormal troponins, secondary to end-stage renal disease, no evidence of acute coronary syndrome Acute alcohol intoxication PLAN: Continue to monitor BP Continue current BP medications Decrease Coreg to 6.25mg Continue telemetry monitoring to assess for further sinus pauses Further recommendations pending patient's course Nurse practitioner note has been reviewed by physician. Signing provider agrees with the documented findings, assessment, and plan of care. Objective - Vital Signs Vital signs: Vital Signs Temp 97.6 F 06/02/21 11:48 Pulse 77 06/02/21 11:48 Resp 16 06/02/21 11:48 BP 147/88 06/02/21 11:48 Pulse Ox 97 06/02/21 11:48 Intake & Output 06/01/21 06/02/21 06/02/21 18:59 06:59 18:59 Intake Total 346.175 10 760 Output Total 1500 Balance -1153.825 10 760 Weight 127.006 kg 133.4 kg Intake: IV 10 0.9 10 Intake, IV Titration 46.175 Amount Nitroglycerin-D5w Pmx 50 46.175 mg In Dextrose/Water 1 250ml.bag @ 20 MCG/MIN 6 mls/hr IV .Q24H ONE Rx#: [id number] Oral 760 Hemodialysis 300 Output: Hemodialysis 1500 Other: Voiding Method Toilet Toilet # Voids 0 1 1 # Bowel Movements 0 - Labs CBC & Chem 7: 06/01/21 04:38 06/01/21 04:38 Labs: Abnormal Lab Results - Last 24 Hours (Table) 06/01/21 Range/Units 10:40 Triglycerides 266.00 H (0.00-149.00) mg/dL VLDL Cholesterol, Calc 53.20 H (5.00-40.00) mg/dL HDL Cholesterol 38.60 L (40.00-60.00) mg/dL
--- NOTE | 2021-06-02 15:47 | P.PN ---
Subjective Progress Note Date: 06/02/21 40-year-old -[place] male patient, morbidly obese with a incisional disease due to hypertensive kidney disease/nephropathy. The patient has been on dialysis 3 times a week MWF. The patient is less mydriasis session was on 05/23/2021. Since then, the patient has been binge drinking alcohol and his last intake of alcohol was yesterday morning. The patient has been also missing some of his counseling meetings. He urinates, he presented to [facility] department, having increased chest pain, hypertensive in acute hypertensive emergency, and he was also complaining of some limited shortness of breath and increased lower extremity edema. No altered mentation. No focal neurological deficit. He was found to be afebrile. He was tachycardic and tachypneic and the recent blood pressure was 228/150. He was started on nitroglycerin drip with subsequent improvement in his blood pressure. Chest x-ray showed some mild pulmonary vascular congestion and cardiomegaly. Nitroglycerin drip was initiated and it was running as high as 40 g per minute. The patient accordingly was admitted to the hospital. The initial white count is at 8.9 with a hemoglobin 11.5 and a platelet count of 187. Normal coagulation profile, BUN is 62 with a creatinine of 9.9, potassium level is at 5.3, lactic acid level of 3.0, glucose 118, troponins of 0.242, 0.2 and 0.193 respectively 3. Serum alcohol at time of admission was 233. EKG was noted and the patient had sinus tachycardia, old Q waves over the anterior leads along with some hyperacute T waves. No significant ST segment elevation or depression. By the time of my arrival to the emergency department, the patient was started on Cozaar 25 mg once a day Coreg 12.5 mg once a day. He was taken off the nitroglycerin drip. He was calm and comfortable. He denied having any active chest pain. He was also seen by cardiology. A 2-D echocardiogram was ordered. Home medications were resumed. Nephrology also saw the patient and patient will be started on hemodialysis today. His chest pain was labeled to be atypical by cardiology. No altered mentation. No agitation. No signs of any delirium tremens. 06/02/2021, the patient's free of any chest pain. The patient is on a medical floor rule out oxygen. Underwent hemodialysis yesterday and a second session will be done tomorrow. BP was noted to be elevated and the appropriate blood p ressure medication adjustments were done. The patient was started hydralazine 100 mg 3 times a day and her losartan dose has been increased up to 50 mg and the patient was started on clonidine 0.1 mg 3 times a day. He denies having any chest pain. No signs of any confusion or delirium tremens. No signs of any alcohol withdrawal symptoms. No nausea. No vomiting. No diarrhea. No abdominal pain. No chest pain. His blood work from today is essentially pending. Meanwhile, the patient's lactic acid level is down to 1.1. Objective - Vital Signs Vital signs: Vital Signs Temp 97.6 F 06/02/21 11:48 Pulse 77 06/02/21 11:48 Resp 16 06/02/21 11:48 BP 147/88 06/02/21 11:48 Pulse Ox 97 06/02/21 11:48 Intake & Output 06/01/21 06/02/21 06/02/21 18:59 06:59 18:59 Intake Total 346.175 10 880 Output Total 1500 Balance -1153.825 10 880 Weight 127.006 kg 133.4 kg Intake: IV 10 0.9 10 Intake, IV Titration 46.175 Amount Nitroglycerin-D5w Pmx 50 46.175 mg In Dextrose/Water 1 250ml.bag @ 20 MCG/MIN 6 mls/hr IV .Q24H ONE Rx#: [id number] Oral 880 Hemodialysis 300 Output: Hemodialysis 1500 Other: Voiding Method Toilet Toilet # Voids 0 1 1 # Bowel Movements 0 - Exam Gen. appearance, morbidly obese, comfortable no acute distress, BMI 41.3 Head exam was generally normal. There was no scleral icterus or corneal arcus. Mucous membranes were moist. HEENT: Head is atraumatic, normocephalic. Pupils equal, round. Sclerae is anicteric. NECK: Supple. No JVD. No lymphadenopathy. No thyromegaly. LUNGS: Clear to auscultation. No wheezes or rhonchi. No intercostal retractions. Cardiac exam revealed the PMI to be normally situated and sized. The rhythm was regular and no extrasystoles were noted during several minutes of auscultation. The first and second heart sounds were normal and physiologic splitting of the second heart sound was noted. There were no murmurs, rubs, clicks, or gallops. ABDOMEN: Soft. Bowel sounds are present. No masses. No tenderness. EXTREMITIES: No pedal edema. No calf tenderness. There is +1 pitting edema and there is no cyanosis or clubbing NEUROLOGICAL: Patient is awake, alert and oriented x3. Cranial nerves 2 through 12 are grossly intact. - Labs CBC & Chem 7: 06/01/21 04:38 06/01/21 04:38 Labs: Abnormal Lab Results - Last 24 Hours (Table) 06/01/21 Range/Units 10:40 Triglycerides 266.00 H (0.00-149.00) mg/dL VLDL Cholesterol, Calc 53.20 H (5.00-40.00) mg/dL HDL Cholesterol 38.60 L (40.00-60.00) mg/dL Assessment and Plan Plan: 1 acute hypertensive urgency/emergency, improved and the patient was started on nitroglycerin drip in the emergency department and after starting his oral antihypertensive medication, the blood pressure normalizes and the patient is currently off the nitroglycerin drip. Hemodialysis to follow as the patient has missed hemodialysis for more than a week. The patient underwent hemodialysis yesterday. No hemodialysis for today. Blood pressure is under better control although still elevated. After having some good results of the blood pressure lowering, this morning the blood pressure is elevated and appropriate blood p ressure medication adjustment was done. Hemodialysis to follow tomorrow. 2 End stage renal disease on hemodialysis 3 times a week, his last hemodialysis session was on 05/23/2021 3 hypertension, see above 4 chest pain, atypical with limited the troponin leaks, no acute ischemic changes on the EKG, free of any chest pain 5 alcoholism with acute alcohol intoxication 6 obesity with BMI of 41.3, possibility of obstructive sleep apnea 7 mild lactic acidosis 8 hypertensive heart disease with severe concentric LVH 9 severe pulmonary hypertension secondary to above Plan Proceed with hemodialysis in a.m. Monitor blood pressure and resume Coreg and losartan Increase his dose of losartan 200 mg and start the patient from the 0.4 mg 3 times a day and start the patient on hydralazine 100 mg 3 times a day 2-D echocardiogram, the patient has ejection fraction of 50-55%. There is severe hypertensive heart disease with concentric LVH and severe degree of pulmonary hypertension which is secondary pulmonary hypertension related to hypertensive heart disease with a PA pressure estimated to be around 78 mmHg. Watch for any signs of delirium tremens We'll continue to follow
[2021-06-02] MEDS: MELATONIN 3 MG TABLET PO SCH (22:03)
[2021-06-03] MEDS: SEVELAMER 800 MG TAB PO SCH ×3 (06:28→18:37)
[2021-06-03] MEDS: PANTOPRAZOLE 40 MG TABLET PO SCH (06:28)
[2021-06-03] MEDS: cloNIDine HCL 0.1 MG TAB PO SCH ×3 (09:26→20:20)
[2021-06-03] MEDS: carvediloL 6.25 MG TAB PO SCH (09:26)
[2021-06-03] MEDS: LOSARTAN 50 MG TAB PO SCH (09:26)
[2021-06-03] MEDS: hydrALAZINE HCL 50 MG TAB PO SCH ×3 (09:26→20:21)
[2021-06-03] MEDS: HEPARIN SODIUM,PORCINE/PF 5,000 UNIT/0.5 ML SYRINGE SQ SCH ×3 (09:26→16:25)
[2021-06-03] MEDS: FOLIC ACID 1 MG TAB PO SCH (09:26)
[2021-06-03 09:28] LABS: Basophils % (A) 0 %; Eosinophils # (A) 0.2 k/uL (0-0.7); Eosinophils % (A) 2 %; HCT 37.9 % (39.0-53.0); HGB 11.4 gm/dL (13.0-17.5); Hypochromasia Marked; Lymphocytes # (A) 2.1 k/uL (1.0-4.8); Lymphocytes % (A) 24 %; MCH 25.4 pg (25.0-35.0); MCHC 30.2 g/dL (31.0-37.0); MCV 84.2 fL (80.0-100.0); Mean Platelet Volume 8.8; Monocytes # (A) 0.7 k/uL (0-1.0); Monocytes % (A) 8 %; Neutrophils # (A) 5.7 k/uL (1.3-7.7); Neutrophils % (A) 64 %; Platelet Count 141 k/uL (150-450); RBC 4.51 m/uL (4.30-5.90); RDW 15.1 % (11.5-15.5)
[2021-06-03 09:43] LABS: Albumin 3.7 g/dL (3.5-5.0); Calcium 8.1 mg/dL (8.4-10.2); Potassium 4.8 mmol/L (3.5-5.1); Total Bilirubin 0.8 mg/dL (0.2-1.3); Total Protein 7.3 g/dL (6.3-8.2)
--- NOTE | 2021-06-03 11:55 | P.PN ---
Subjective Patient is seen in follow-up for end-stage renal disease. He is maintained on hemodialysis on Sunday schedule. Tolerating dialysis well. Awake and alert. No active complaints. Vital signs are stable. General: The patient appeared well nourished and normally developed. HEENT: Head exam is unremarkable. LUNGS: Breath sounds decreased. HEART: Rate and Rhythm are regular. ABDOMEN: Soft, obese. EXTREMITITES: No edema. Objective - Vital Signs Vital signs: Vital Signs Temp 98.3 F 06/03/21 09:19 Pulse 84 06/03/21 11:50 Resp 16 06/03/21 11:50 BP 128/80 06/03/21 11:50 Pulse Ox 99 06/03/21 11:50 Intake & Output 06/02/21 06/03/21 06/03/21 18:59 06:59 18:59 Intake Total 1000 900 120 Balance 1000 900 120 Intake: Oral 1000 900 120 Other: Voiding Method Toilet Toilet Toilet # Voids 1 1 - Labs CBC & Chem 7: 06/03/21 09:00 06/03/21 09:00 Labs: Abnormal Lab Results - Last 24 Hours (Table) 06/03/21 06/03/21 Range/Units 09:00 09:00 Hgb 11.4 L (13.0-17.5) gm/dL Hct 37.9 L (39.0-53.0) % MCHC 30.2 L (31.0-37.0) g/dL Plt Count 141 L (150-450) k/uL Carbon Dioxide 20 L (22-30) mmol/L BUN 72 H (9-20) mg/dL Creatinine 9.22 H* (0.66-1.25) mg/dL Glucose 102 H (74-99) mg/dL Calcium 8.1 L (8.4-10.2) mg/dL Assessment and Plan Plan: Assessment: 1. End-stage renal disease maintained on hemodialysis on Sunday schedule. Has AV fistula. 2. Metabolic acidosis secondary to chronic kidney disease, lactic acidosis and missed hemodialysis treatments. Improved. 3. Mild hyperkalemia secondary to missed dialysis treatments. Improved postdialysis. 4. Chronic kidney disease mineral bone disease maintained on Renvela. 5. Hypertension with chronic kidney disease. 6. Alcohol intoxication. 7. Chronic diastolic CHF with moderate tricuspid regurgitation and moderate to severe pulmonary hypertension. Plan: Currently seen while undergoing hemodialysis. Next treatment on Sunday.
[2021-06-03] MEDS ORDERED: LIDOCAINE 1% INJ 10MG/ML (20 ML MDV) ONE (14:00)
[2021-06-03] MEDS ORDERED: HEPARIN SODIUM 1,000 UN/ML (10ML VL) ONE (14:00)
--- NOTE | 2021-06-03 14:03 | P.PN ---
<Diane Jha - Last Filed: 06/03/21 13:55> Subjective Progress Note Date: 06/03/21 Principal diagnosis: Acute hypertensive urgency/emergency 40-year-old -[place] male patient, morbidly obese with a incisional disease due to hypertensive kidney disease/nephropathy. The patient has been on dialysis 3 times a week MW. The patient is less mydriasis session was on 05/23/2021. Since then, the patient has been binge drinking alcohol and his last intake of alcohol was yesterday morning. The patient has been also missing some of his counseling meetings. He urinates, he presented to [facility] department, having increased chest pain, hypertensive in acute hypertensive emergency, and he was also complaining of some limited shortness of breath and increased lower extremity edema. No altered mentation. No focal neurological deficit. He was found to be afebrile. He was tachycardic and tachypneic and the recent blood pressure was 228/150. He was started on nitroglycerin drip with subsequent improvement in his blood pressure. Chest x-ray showed some mild pulmonary vascular congestion and cardiomegaly. Nitroglycerin drip was initiated and it was running as high as 40 g per minute. The patient accordingly was admitted to the hospital. The initial white count is at 8.9 with a hemoglobin 11.5 and a platelet count of 187. Normal coagulation profile, BUN is 62 with a creatinine of 9.9, potassium level is at 5.3, lactic acid level of 3.0, glucose 118, troponins of 0.242, 0.2 and 0.193 respectively 3. Serum alcohol at time of admission was 233. EKG was noted and the patient had sinus tachycardia, old Q waves over the anterior leads along with some hyperacute T waves. No significant ST segment elevation or depression. By the time of my arrival to the emergency department, the patient was started on Cozaar 25 mg once a day Coreg 12.5 mg once a day. He was taken off the nitroglycerin drip. He was calm and comfortable. He denied having any active chest pain. He was also seen by cardiology. A 2-D echocardiogram was ordered. Home medications were resumed. Nephrology also saw the patient and patient will be started on hemodialysis today. His chest pain was labeled to be atypical by cardiology. No altered mentation. No agitation. No signs of any delirium tremens. 06/02/2021, the patient's free of any chest pain. The patient is on a medical floor rule out oxygen. Underwent hemodialysis yesterday and a second session will be done tomorrow. BP was noted to be elevated and the appropriate blood pressure medication adjustments were done. The patient was started hydralazine 100 mg 3 times a day and her losartan dose has been increased up to 50 mg and the patient was started on clonidine 0.1 mg 3 times a day. He denies having any chest pain. No signs of any confusion or delirium tremens. No signs of any alcohol withdrawal symptoms. No nausea. No vomiting. No diarrhea. No abdominal pain. No chest pain. His blood work from today is essentially pending. Meanwhile, the patient's lactic acid level is down to 1.1. The patient is seen today 06/03/2021 in follow-up on the selective care unit. He is currently sitting up in chair at time. Plan is for hemodialysis again today. Maintaining good O2 saturations in the high 90s on room air. He's been afebrile. Hemodynamically stable. Blood pressure has improved and currently 12 8/80. White count 9.0. Hemoglobin 11.4. Platelets 141. Sodium 138. Potassium 4.8. Bicarb 20. BUN 72. Creatinine 9.2. Blood glucose 102. He is continued on Cozaar, Coreg, Catapres and a hydralazine. His appetite is good. No complaints of chest discomfort, dizziness or lightheadedness. He is on heparin for DVT prophylaxis. Objective - Vital Signs Vital signs: Vital Signs Temp 98.3 F 06/03/21 09:19 Pulse 84 06/03/21 11:50 Resp 16 06/03/21 11:50 BP 128/80 06/03/21 11:50 Pulse Ox 99 06/03/21 11:50 Intake & Output 06/02/21 06/03/21 06/03/21 18:59 06:59 18:59 Intake Total 1000 900 120 Balance 1000 900 120 Intake: Oral 1000 900 120 Other: Voiding Method Toilet Toilet Toilet # Voids 1 1 - Exam GENERAL EXAM: Alert, very pleasant 40-year-old gentleman, on room air, comfortable in no apparent distress. HEAD: Normocephalic. EYES: Normal reaction of pupils, equal size. NOSE: Clear with pink turbinates. THROAT: No erythema or exudates. NECK: No masses, no JVD. CHEST: No chest wall deformity. LUNGS: Equal air entry with no crackles, wheeze, rhonchi or dullness. CVS: S1 and S2 normal with no audible murmur, regular rhythm. ABDOMEN: No hepatosplenomegaly, normal bowel sounds, no guarding or rigidity. SPINE: No scoliosis or deformity SKIN: No rashes CENTRAL NERVOUS SYSTEM: No focal deficits, tone is normal in all 4 extremities. EXTREMITIES: Right upper extremity AV shunt. There is 1+ peripheral edema. No clubbing, no cyanosis. Peripheral pulses are intact. - Labs CBC & Chem 7: 06/03/21 09:00 06/03/21 09:00 Labs: Abnormal Lab Results - Last 24 Hours (Table) 06/03/21 06/03/21 Range/Units 09:00 09:00 Hgb 11.4 L (13.0-17.5) gm/dL Hct 37.9 L (39.0-53.0) % MCHC 30.2 L (31.0-37.0) g/dL Plt Count 141 L (150-450) k/uL Carbon Dioxide 20 L (22-30) mmol/L BUN 72 H (9-20) mg/dL Creatinine 9.22 H* (0.66-1.25) mg/dL Glucose 102 H (74-99) mg/dL Calcium 8.1 L (8.4-10.2) mg/dL Assessment and Plan Assessment: 1 acute hypertensive urgency/emergency, improved and the patient was started on nitroglycerin drip in the emergency department and after starting his oral antihypertensive medication, the blood pressure normalizes and the patient is currently off the nitroglycerin drip. Hemodialysis to follow as the patient has missed hemodialysis for more than a week. The patient underwent hemodialysis yesterday. No hemodialysis for today. Blood pressure is under better control although still elevated. After having some good results of the blood pressure lowering, this morning the blood pressure is elevated and appropriate blood pressure medication adjustment was done. Hemodialysis to follow tomorrow. 2 End stage renal disease on hemodialysis 3 times a week, his last hemodialysis session was on 05/23/2021 3 hypertension, see above 4 chest pain, atypical with limited the troponin leaks, no acute ischemic changes on the EKG, free of any chest pain 5 alcoholism with acute alcohol intoxication 6 obesity with BMI of 41.3, possibility of obstructive sleep apnea 7 mild lactic acidosis 8 hypertensive heart disease with severe concentric LVH 9 severe pulmonary hypertension secondary to above Plan: The patient was seen and evaluated Plan is for hemodialysis today Blood pressure improved Continue the current treatment plan Cleared for discharge from the pulmonary standpoint I, the cosigning physician, performed a history & physical examination of the patient. Lungs sounds are clear. Maintaining good O2 saturations in the 90s on room air. I discussed the assessment and plan of care with my nurse practitio joey, Diane Jha. I attest to the above note as dictated by her. I have personally seen and examined the patient, performed the documentation and the assessment and plan as written. Number of minutes spent on the visit: 10. <Lacey Hernandez - Last Filed: 06/03/21 15:29> Objective - Vital Signs Vital signs: Vital Signs Temp 98 F 06/03/21 14:00 Pulse 84 06/03/21 14:00 Resp 18 06/03/21 14:00 BP 121/81 06/03/21 14:00 Pulse Ox 99 06/03/21 11:50 Intake & Output 06/02/21 06/03/21 06/03/21 18:59 06:59 18:59 Intake Total 1000 900 420 Output Total 1500 Balance 1000 900 -1080 Intake: Oral 1000 900 120 Hemodialysis 300 Output: Hemodialysis 1500 Other: Voiding Method Toilet Toilet Toilet # Voids 1 1 - Labs CBC & Chem 7: 06/03/21 09:00 06/03/21 09:00 Labs: Abnormal Lab Results - Last 24 Hours (Table) 06/03/21 06/03/21 Range/Units 09:00 09:00 Hgb 11.4 L (13.0-17.5) gm/dL Hct 37.9 L (39.0-53.0) % MCHC 30.2 L (31.0-37.0) g/dL Plt Count 141 L (150-450) k/uL Carbon Dioxide 20 L (22-30) mmol/L BUN 72 H (9-20) mg/dL Creatinine 9.22 H* (0.66-1.25) mg/dL Glucose 102 H (74-99) mg/dL Calcium 8.1 L (8.4-10.2) mg/dL Assessment and Plan Assessment: I have personally seen and examined the patient and reviewed the documentation. I performed a joint evaluation with the nurse practitioner in this evaluation was done more than 15 minutes. I fully agree with the documentation above and the plan of CARE.
[2021-06-03] MEDS: MELATONIN 3 MG TABLET PO SCH (20:20)
[2021-06-04] MEDS: HEPARIN SODIUM,PORCINE/PF 5,000 UNIT/0.5 ML SYRINGE SQ SCH ×2 (01:20→07:58)
[2021-06-04] MEDS ORDERED: ACETAMINOPHEN TAB 325 MG TAB PO PRN (02:55)
[2021-06-04] MEDS: SEVELAMER 800 MG TAB PO SCH ×2 (06:29→11:31)
[2021-06-04] MEDS: PANTOPRAZOLE 40 MG TABLET PO SCH (06:29)
[2021-06-04 07:55] VITALS: TEMP 98.2
[2021-06-04] MEDS: LOSARTAN 50 MG TAB PO SCH (07:57)
[2021-06-04] MEDS: FOLIC ACID 1 MG TAB PO SCH (07:58)
[2021-06-04] MEDS: carvediloL 6.25 MG TAB PO SCH (07:58)
[2021-06-04] MEDS: cloNIDine HCL 0.1 MG TAB PO SCH (07:58)
--- NOTE | 2021-06-04 09:26 | P.PN ---
Subjective Patient is seen in follow-up for end-stage renal disease. He is maintained on hemodialysis on Sunday schedule. No problems with dialysis yesterday. Awake and alert. No active complaints. Vital signs are stable. General: The patient appeared well nourished and normally developed. HEENT: Head exam is unremarkable. LUNGS: Breath sounds decreased. HEART: Rate and Rhythm are regular. ABDOMEN: Soft, obese. EXTREMITITES: No edema. Objective - Vital Signs Vital signs: Vital Signs Temp 98.2 F 06/04/21 07:50 Pulse 86 06/04/21 07:50 Resp 19 06/04/21 07:50 BP 136/86 06/04/21 07:50 Pulse Ox 99 06/04/21 08:31 Intake & Output 06/03/21 06/04/21 06/04/21 18:59 06:59 18:59 Intake Total 1080 260 Output Total 1500 Balance -420 260 Intake: Oral 780 260 Hemodialysis 300 Output: Hemodialysis 1500 Other: Voiding Method Toilet Toilet # Voids 1 1 - Labs CBC & Chem 7: 06/03/21 09:00 06/03/21 09:00 Labs: Abnormal Lab Results - Last 24 Hours (Table) 06/03/21 06/03/21 Range/Units 09:00 09:00 Hgb 11.4 L (13.0-17.5) gm/dL Hct 37.9 L (39.0-53.0) % MCHC 30.2 L (31.0-37.0) g/dL Plt Count 141 L (150-450) k/uL Carbon Dioxide 20 L (22-30) mmol/L BUN 72 H (9-20) mg/dL Creatinine 9.22 H* (0.66-1.25) mg/dL Glucose 102 H (74-99) mg/dL Calcium 8.1 L (8.4-10.2) mg/dL Assessment and Plan Plan: Assessment: 1. End-stage renal disease maintained on hemodialysis on Sunday schedule. Has AV fistula. 2. Metabolic acidosis secondary to chronic kidney disease, lactic acidosis and missed hemodialysis treatments. Expect further improvement postdialysis. 3. Mild hyperkalemia secondary to missed dialysis treatments. Improved postdialysis. 4. Chronic kidney disease mineral bone disease maintained on Renvela. 5. Hypertension with chronic kidney disease. Stable. 6. Alcohol intoxication. 7. Chronic diastolic CHF with moderate tricuspid regurgitation and moderate to severe pulmonary hypertension. Plan: Hemodialysis Sunday. Possible discharge home today.
[2021-06-04 09:32] LABS: Albumin 3.6 g/dL (3.5-5.0); Calcium 7.9 mg/dL (8.4-10.2); Potassium 4.7 mmol/L (3.5-5.1); Total Bilirubin 0.6 mg/dL (0.2-1.3); Total Protein 7.2 g/dL (6.3-8.2)
[2021-06-04 09:33] LABS: Basophils % (A) 0 %; Eosinophils # (A) 0.2 k/uL (0-0.7); Eosinophils % (A) 2 %; HCT 38.2 % (39.0-53.0); HGB 11.6 gm/dL (13.0-17.5); Hypochromasia Marked; Lymphocytes # (A) 1.6 k/uL (1.0-4.8); Lymphocytes % (A) 19 %; MCH 25.5 pg (25.0-35.0); MCHC 30.3 g/dL (31.0-37.0); Mean Platelet Volume 9.3; Monocytes # (A) 0.4 k/uL (0-1.0); Monocytes % (A) 5 %; Neutrophils # (A) 5.9 k/uL (1.3-7.7); Neutrophils % (A) 71 %; Platelet Count 136 k/uL (150-450); RBC 4.55 m/uL (4.30-5.90); RDW 15.2 % (11.5-15.5); WBC 8.3 k/uL (3.8-10.6)
--- NOTE | 2021-06-04 10:05 | P.PN ---
Subjective Progress Note Date: 06/03/21 Progress Note Date: 06/02/21 HISTORY OF PRESENT ILLNESS This is a 40-year-old male patient with past medical history of hypertension, end-stage renal disease on hemodialysis Sunday and Sunday. His last hemodialysis session was May 23. Patient started binge drinking on mostly with vodka and he had last intake yesterday morning. Patient has been missing some of his counseling meetings. He also complains of lower extremity edema bilaterally and a little pain in his legs. No shakiness noted. He complains of headache, chest pain that comes and goes without radiation. Patient presented to [facility] emergency center for evaluation. Patient was found to be afebrile, heart rate 120s, respiratory rate 32, initial blood pressure 228/150. This morning blood pressure remains elevated at 162/103. Heart rate is in the low 100s. WBC 8.9, hemoglobin 11.5, platelet count 187. INR 1.0. Sodium 143, potassium 5.3, chloride 107, CO2 19, BUN 62 creatinine 9.98. Glucose 118. Lactic acid 2.5. Total bilirubin 0.7, AST 53, ALT 17, a phosphatase 107. Troponin 0.242. Serum alcohol level 233. Chest x-ray rate reveals no acute cardio pulmonary disease. Patient was started on nitroglycerin drip and received 1 dose of IV hydralazine on the home medications will be resumed, consult in place with nephrology, p [facility] medicine and cardiology 33: Patient is seen today on the cardiac stepdown unit. Patient is followed closely by nephrology and underwent hemodialysis yesterday. Patient states that he was having leg cramps during procedure, edema in the lower extremities is improved. Blood pressure is remaining high at 171/102. Patient is off nitroglycerin drip. Hydralazine was increased 100 mg 3 times daily and Losartan will be increased to 50 mg daily and clonidine 0.1 mg 3 times daily added. L actic acid is 1.1. TSH 0.874. No indication of impending DTs. 3: Patient sitting up in a journal (today, he is eating his dinner, he denies any chest pain, he continues to be somewhat short of breath, he denies any abdominal pain, nausea vomiting or diarrhea, his blood pressures much better, I will give the patient hospital for another 24 hours, but he can be discharged home tomorrow morning, but he follows with dialysis on Sunday and follow-up with me after that. REVIEW OF SYSTEMS Constitutional: No fever, no chills, no night sweats. Reports weight change. No weakness, fatigue or lethargy. No daytime sleepiness. HEENT: Reports headache. No blurred vision or double vision, no loss of vision. No loss of Hearing, no ringing in the ears, no dizziness. No nasal drainage or congestion. No epistaxis. No sore throat. Lungs: No shortness of breath, cough, no sputum production. No wheezing. Cardiovascular: Reports chest pain, no lower extremity edema. No palpitations. No paroxysmal nocturnal dyspnea. No orthopnea. No lightheadedness or dizziness. No syncopal episodes. Abdominal: No abdominal pain. No nausea, reports vomiting. No diarrhea. No c onstipation. No bloody or tarry stools. No loss of appetite. Genitourinary: No dysuria, increased frequency, urgency. No urinary retention. Musculoskeletal: No myalgias. No muscle weakness, no gait dysfunction, no frequent falls. No back pain. No neck pain. Integumentary: No wounds, no lesions. No rash or pruritus. No unusual bruising. No change in hair or nails. Neurologic: No aphasia. No facial droop. No change in mentation. No head injury. No headache. No paralysis. No paresthesia. Psychiatric: Reports depression. Reports anxiety. No mood swings. Endocrine: No abnormal blood sugars. Reports weight change. No excessive sweating or thirst. No cold intolerance. PHYSICAL EXAMINATION Gen: This is a morbidly obese black male sitting in a chair, appears to be in no acute distress. HEENT: Head is atraumatic, normocephalic. Pupils equal, round. Sclerae is anicteric. NECK: Supple. No JVD. No lymphadenopathy. No thyromegaly. LUNGS: Clear to auscultation. No wheezes or rhonchi. No intercostal retractions. HEART: First heart sound is depressed, second heart sound is normal, 2/6 systolic ejection murmur at the left sternal border, no S3, no S4. ABDOMEN: Soft. Bowel sounds are present. No masses. No tenderness. EXTREMITIES: 1+ pedal edema. No calf tenderness. Dorsalis pedis +2 bilaterally. NEUROLOGICAL: Patient is awake, alert and oriented x3. Cranial nerves 2 through 12 are grossly intact. ASSESSMENT AND PLAN 1. Acute hypertensive emergency. Patient continued on Coreg 12.5 mg daily, losartan increased to 50 mg daily, hydralazine increased to 100 mg 3 times daily, clonidine 0.1 mg 3 times daily added. 2. End-stage renal disease on hemodialysis Sunday. Patient has missed 3 dialysis treatments. Consult with nephrology for dialysis today. 3. Chest pain most likely secondary to fluid overload from missed dialysis. Cardiology consult. 4. Alcohol abuse. Last intake was yesterday morning. Monitor closely for DTs. 5. Morbid obesity with BMI of 41. 6. Metabolic acidosis secondary to renal failure. 7. Secondary hyperparathyroidism. Continue Renvela. 8. GI prophylaxis. Protonix. 9. DVT prophylaxis. Heparin subcu. DISCHARGE PLAN Home in AM Objective - Vital Signs Vital signs: Vital Signs Temp 98.2 F 06/03/21 00:00 Pulse 78 06/03/21 03:43 Resp 18 06/03/21 03:43 BP 149/87 06/03/21 03:43 Pulse Ox 100 06/03/21 03:43 Intake & Output 06/02/21 06/03/21 06/03/21 18:59 06:59 18:59 Intake Total 1000 900 Balance 1000 900 Intake: Oral 1000 900 Other: Voiding Method Toilet Toilet # Voids 1 1 - Labs CBC & Chem 7: 06/04/21 08:32 06/04/21 08:32 Labs: Abnormal Lab Results - Last 24 Hours (Table) 06/01/21 Range/Units 10:40 Triglycerides 266.00 H (0.00-149.00) mg/dL VLDL Cholesterol, Calc 53.20 H (5.00-40.00) mg/dL HDL Cholesterol 38.60 L (40.00-60.00) mg/dL
--- NOTE | 2021-06-04 10:06 | P.DS ---
Providers Date of admission: 06/01/21 07:02 Expected date of discharge: 06/04/21 Attending physician: Pamela Granados Consults: 06/01/21 07:02 Consult Physician Urgent Consulting Provider: Dawood Osorio Consult Reason/Comments: Dialysis patient Do you want consulting provider notified?: Yes 06/01/21 07:06 Consult Physician Routine Consulting Provider: Kishore Quinones Consult Reason/Comments: elevated troponin Do you want consulting provider notified?: Yes 06/01/21 07:29 Consult Physician Routine Consulting Provider: Lacey Hernandez Consult Reason/Comments: hypertensive urgency Do you want consulting provider notified?: Yes Primary care physician: Pamela Granados [facility] Course: HISTORY OF PRESENT ILLNESS This is a 40-year-old male patient with past medical history of hypertension, end-stage renal disease on hemodialysis Sunday and Sunday. His last hemodialysis session was May 23. Patient started binge drinking on mostly with vodka and he had last intake yesterday morning. Patient has been missing some of his counseling meetings. He also complains of lower extremity edema bilaterally and a little pain in his legs. No shakiness noted. He complains of headache, chest pain that comes and goes without radiation. Patient presented to [facility] emergency center for evaluation. Patient was found to be afebrile, heart rate 120s, respiratory rate 32, initial blood pressure 228/150. This morning blood pressure remains elevated at 162/103. Heart rate is in the low 100s. WBC 8.9, hemoglobin 11.5, platelet count 187. INR 1.0. Sodium 143, potassium 5.3, chloride 107, CO2 19, BUN 62 creatinine 9.98. Glucose 118. Lactic acid 2.5. Total bilirubin 0.7, AST 53, ALT 17, a phosphatase 107. Troponin 0.242. Serum alcohol level 233. Chest x-ray rate reveals no acute cardio pulmonary disease. Patient was started on nitroglycerin drip and received 1 dose of IV hydralazine on the home medications will be resumed, consult in place with nephrology, pulmonary medicine and cardiology /3: Patient is seen today on the cardiac stepdown unit. Patient is followed closely by nephrology and underwent hemodialysis yesterday. Patient states that he was having leg cramps during procedure, edema in the lower extremities is improved. Blood pressure is remaining high at 171/102. Patient is off nitroglycerin drip. Hydralazine was increased 100 mg 3 times daily and Losartan will be increased to 50 mg daily and clonidine 0.1 mg 3 times daily added. Lactic acid is 1.1. TSH 0.874. No indication of impending DTs. 3: Patient sitting up in a journal (today, he is eating his dinner, he denies any chest pain, he continues to be somewhat short of breath, he denies any abdominal pain, nausea vomiting or diarrhea, his blood pressures much better, I will give the patient hospital for another 24 hours, but he can be discharged home tomorrow morning, but he follows with dialysis on Sunday and follow-up with me after that. Discharge diagnoses: 1. Acute hypertensive emergency. 2. End-stage renal disease on hemodialysis Sunday. 3. Chest pain most likely secondary to fluid overload from missed dialysis. 4. Alcohol abuse. 5. Morbid obesity with BMI of 41. 6. Metabolic acidosis secondary to renal failure. 7. Secondary hyperparathyroidism. Patient Condition at Discharge: Fair Plan - Discharge Summary Discharge Rx Participant: No New Discharge Prescriptions: No Action hydrALAZINE HCL [Apresoline] 50 mg PO DAILY Folic Acid 1 mg PO DAILY Sevelamer [Renvela] 800 mg PO DIRECTED Losartan [Cozaar] 25 mg PO DAILY Carvedilol [Coreg] 12.5 mg PO DAILY Discharge Medication List Carvedilol [Coreg] 12.5 mg PO DAILY 06/01/21 [History] Folic Acid 1 mg PO DAILY 06/01/21 [History] Losartan [Cozaar] 25 mg PO DAILY 06/01/21 [History] Sevelamer [Renvela] 800 mg PO DIRECTED 06/01/21 [History] hydrALAZINE HCL [Apresoline] 50 mg PO DAILY 06/01/21 [History] Follow up Appointment(s)/Referral(s): Pamela Granados MD [Primary Care Provider] - 1-2 days
[2021-06-04 11:29] VITALS: BP 143/89; PULSE 75; RESP 20
--- NOTE | 2021-06-04 13:52 | P.PN ---
<Diane Jha - Last Filed: 06/04/21 13:49> Subjective Progress Note Date: 06/04/21 Principal diagnosis: Acute hypertensive urgency/emergency 40-year-old -[place] Citizen male patient, morbidly obese with a incisional disease due to hypertensive kidney disease/nephropathy. The patient has been on dialysis 3 times a week MW. The patient is less mydriasis session was on 05/23/2021. Since then, the patient has been binge drinking alcohol and his last intake of alcohol was yesterday morning. The patient has been also missing some of his counseling meetings. He urinates, he presented to [facility] department, having increased chest pain, hypertensive in acute hypertensive emergency, and he was also complaining of some limited shortness of breath and increased lower extremity edema. No altered mentation. No focal neurological deficit. He was found to be afebrile. He was tachycardic and tachypneic and the recent blood pressure was 228/150. He was started on nitroglycerin drip with subsequent improvement in his blood pressure. Chest x-ray showed some mild pulmonary vascular congestion and cardiomegaly. Nitroglycerin drip was initiated and it was running as high as 40 g per minute. The patient accordingly was admitted to the hospital. The initial white count is at 8.9 with a hemoglobin 11.5 and a platelet count of 187. Normal coagulation profile, BUN is 62 with a creatinine of 9.9, potassium level is at 5.3, lactic acid level of 3.0, glucose 118, troponins of 0.242, 0.2 and 0.193 respectively 3. Serum alcohol at time of admission was 233. EKG was noted and the patient had sinus tachycardia, old Q waves over the anterior leads along with some hyperacute T waves. No significant ST segment elevation or depression. By the time of my arrival to the emergency department, the patient was started on Cozaar 25 mg once a day Coreg 12.5 mg once a day. He was taken off the nitroglycerin drip. He was calm and comfortable. He denied having any active chest pain. He was also seen by cardiology. A 2-D echocardiogram was ordered. Home medications were resumed. Nephrology also saw the patient and patient will be started on hemodialysis today. His chest pain was labeled to be atypical by cardiology. No altered mentation. No agitation. No signs of any delirium tremens. 06/02/2021, the patient's free of any chest pain. The patient is on a medical floor rule out oxygen. Underwent hemodialysis yesterday and a second session will be done tomorrow. BP was noted to be elevated and the appropriate blood pressure medication adjustments were done. The patient was started hydralazine 100 mg 3 times a day and her losartan dose has been increased up to 50 mg and the patient was started on clonidine 0.1 mg 3 times a day. He denies having any chest pain. No signs of any confusion or delirium tremens. No signs of any alcohol withdrawal symptoms. No nausea. No vomiting. No diarrhea. No abdominal pain. No chest pain. His blood work from today is essentially pending. Meanwhile, the patient's lactic acid level is down to 1.1. The patient is seen today 06/03/2021 in follow-up on the selective care unit. He is currently sitting up in chair at time. Plan is for hemodialysis again today. Maintaining good O2 saturations in the high 90s on room air. He's been afebrile. Hemodynamically stable. Blood pressure has improved and currently 12 8/80. White count 9.0. Hemoglobin 11.4. Platelets 141. Sodium 138. Potassium 4.8. Bicarb 20. BUN 72. Creatinine 9.2. Blood glucose 102. He is continued on Cozaar, Coreg, Catapres and a hydralazine. His appetite is good. No complaints of chest discomfort, dizziness or lightheadedness. He is on heparin for DVT prophylaxis. The patient is seen today 06/04/2021 in follow-up on the selective care unit. Sitting up at the bedside. Awake and alert in no acute distress. He denies any worsening shortness of breath, cough and congestion. He is maintaining good O2 saturations in the 90s on room air. He's been afebrile. Hemodynamically stable. He did receive hemodialysis yesterday. White count 8.3. Hemoglobin 11.6. Platelets 136. Sodium 139. Potassium 4.7. BUN 54. Creatinine 7.18. He is continued on Coreg, Catapres, Apresoline, Cozaar. Heparin for DVT prophylaxis. Objective - Vital Signs Vital signs: Vital Signs Temp 98.2 F 06/04/21 07:50 Pulse 75 06/04/21 11:27 Resp 20 06/04/21 11:27 BP 143/89 06/04/21 11:27 Pulse Ox 99 06/04/21 11:27 Intake & Output 06/03/21 06/04/21 06/04/21 18:59 06:59 18:59 Intake Total 1080 260 Output Total 1500 Balance -420 260 Intake: Oral 780 260 Hemodialysis 300 Output: Hemodialysis 1500 Other: Voiding Method Toilet Toilet Toilet # Voids 1 1 - Exam GENERAL EXAM: Alert, very pleasant 40-year-old gentleman, on room air, comfortable in no apparent distress. HEAD: Normocephalic. EYES: Normal reaction of pupils, equal size. NOSE: Clear with pink turbinates. THROAT: No erythema or exudates. NECK: No masses, no JVD. CHEST: No chest wall deformity. LUNGS: Equal air entry with no crackles, wheeze, rhonchi or dullness. CVS: S1 and S2 normal with no audible murmur, regular rhythm. ABDOMEN: No hepatosplenomegaly, normal bowel sounds, no guarding or rigidity. SPINE: No scoliosis or deformity SKIN: No rashes CENTRAL NERVOUS SYSTEM: No focal deficits, tone is normal in all 4 extremities. EXTREMITIES: Right upper extremity AV shunt. There is 1+ peripheral edema. No clubbing, no cyanosis. Peripheral pulses are intact. - Labs CBC & Chem 7: 06/04/21 08:32 06/04/21 08:32 Labs: Abnormal Lab Results - Last 24 Hours (Table) 06/04/21 06/04/21 Range/Units 08:32 08:32 Hgb 11.6 L (13.0-17.5) gm/dL Hct 38.2 L (39.0-53.0) % MCHC 30.3 L (31.0-37.0) g/dL Plt Count 136 L (150-450) k/uL BUN 54 H (9-20) mg/dL Creatinine 7.18 H* (0.66-1.25) mg/dL Calcium 7.9 L (8.4-10.2) mg/dL Assessment and Plan Assessment: 1 acute hypertensive urgency/emergency, improved and the patient was started on nitroglycerin drip in the emergency department and after starting his oral antihypertensive medication, the blood pressure normalizes and the patient is currently off the nitroglycerin drip. Hemodialysis to follow as the patient has missed hemodialysis for more than a week. The patient underwent hemodialysis yesterday. No hemodialysis for today. 2 End stage renal disease on hemodialysis 3 times a week, his last outpatient hemodialysis session was on 05/23/2021 3 hypertension, see above 4 chest pain, atypical with limited the troponin leaks, no acute ischemic changes on the EKG, free of any chest pain 5 alcoholism with acute alcohol intoxication 6 obesity with BMI of 41.3, possibility of obstructive sleep apnea 7 mild lactic acidosis 8 hypertensive heart disease with severe concentric LVH 9 severe pulmonary hypertension secondary to above Plan: The patient was seen and evaluated Stable from the pulmonary standpoint Educated regarding the importance of medication and hemodialysis compliance Educated regarding the importance of alcohol moderation/cessation Home once cleared by medicine I have personally seen and examined the patient, performed the documentation and the assessment and plan as written. Number of minutes spent on the visit: 10. <Lacey Hernandez - Last Filed: 06/04/21 14:42> Objective - Vital Signs Vital signs: Vital Signs Temp 98.2 F 06/04/21 07:50 Pulse 75 06/04/21 11:27 Resp 20 06/04/21 11:27 BP 143/89 06/04/21 11:27 Pulse Ox 99 06/04/21 11:27 Intake & Output 06/03/21 06/04/21 06/04/21 18:59 06:59 18:59 Intake Total 1080 260 Output Total 1500 Balance -420 260 Intake: Oral 780 260 Hemodialysis 300 Output: Hemodialysis 1500 Other: Voiding Method Toilet Toilet Toilet # Voids 1 1 - Labs CBC & Chem 7: 06/04/21 08:32 06/04/21 08:32 Labs: Abnormal Lab Results - Last 24 Hours (Table) 06/04/21 06/04/21 Range/Units 08:32 08:32 Hgb 11.6 L (13.0-17.5) gm/dL Hct 38.2 L (39.0-53.0) % MCHC 30.3 L (31.0-37.0) g/dL Plt Count 136 L (150-450) k/uL BUN 54 H (9-20) mg/dL Creatinine 7.18 H* (0.66-1.25) mg/dL Calcium 7.9 L (8.4-10.2) mg/dL Assessment and Plan Assessment: I have personally seen and examined the patient and reviewed the documentation. I performed a joint evaluation with the nurse practitioner in this evaluation was done more than 15 minutes. I fully agree with the documentation above and the plan of care.
--- NOTE | 2021-06-04 13:54 | P.PN ---
Subjective Progress Note Date: 06/04/21 The patient states he's been doing well and has no current complaints. He rested well overnight. No chest pain or chest pressure. No difficulty breathing. No orthopnea, palpitations, dizziness, lightheadedness. GENERAL: Well-appearing, well-nourished and in no acute distress. NECK: Supple without JVD or thyromegaly. LUNGS: Breath sounds clear to auscultation bilaterally. Respiration equal and unlabored. No wheezes, rales or rhonchi. HEART: Regular rate and rhythm without murmurs, rubs or gallops. S1 and S2 heard. EXTREMITIES: Normal range of motion. Mild bilateral lower extremity edema. No clubbing or cyanosis. Peripheral pulses intact and strong. VITALS: Blood pressure 136/86, pulse 86, respiratory rate 19, temperature 98.2F, SpO2 99% on room air TELEMETRY: Sinus rhythm. No additional pulses overnight LABS: WBC 8.3, hemoglobin 11.6, hematocrit 30.2, platelet 136, sodium 139, potassium 4.7, BUN 54, creatinine 7.18, AST 35, ALT 14 IMPRESSION: Chest discomfort, resolved Hypertension, improved on current regimen End-stage renal disease, on dialysis Nighttime bradycardia, recommend sleep apnea assessment Obesity History of noncompliance Abnormal troponins, not indicative of ACS PLAN: Patient may be discharged from the cardiac standpoint Recommend sleep study Follow-up with Dr. Wood outpatient thereafter I am dictating on behalf of Dr Jayden Wood's history/physical and assessment/plan.asym Objective - Vital Signs Vital signs: Vital Signs Temp 98.2 F 06/04/21 07:50 Pulse 85 06/04/21 09:57 Resp 19 06/04/21 09:57 BP 136/86 06/04/21 07:50 Pulse Ox 99 06/04/21 08:31 Intake & Output 06/03/21 06/04/21 06/04/21 18:59 06:59 18:59 Intake Total 1080 260 Output Total 1500 Balance -420 260 Intake: Oral 780 260 Hemodialysis 300 Output: Hemodialysis 1500 Other: Voiding Method Toilet Toilet Toilet # Voids 1 1 - Labs CBC & Chem 7: 06/04/21 08:32 06/04/21 08:32 Labs: Abnormal Lab Results - Last 24 Hours (Table) 06/04/21 06/04/21 Range/Units 08:32 08:32 Hgb 11.6 L (13.0-17.5) gm/dL Hct 38.2 L (39.0-53.0) % MCHC 30.3 L (31.0-37.0) g/dL Plt Count 136 L (150-450) k/uL BUN 54 H (9-20) mg/dL Creatinine 7.18 H* (0.66-1.25) mg/dL Calcium 7.9 L (8.4-10.2) mg/dL
== END 2021-06-04 14:21 | disposition home or self-care (01) | DRG 304 ==
LOC: EC 04:24 → 3SCARD 07:02
PROVIDERS: ADMIT Internal Medicine; ATTEND Internal Medicine
PROC: 5A1D70Z Performance of Urinary Filtration, Intermittent, Less than 6 Hours Per Day (ICD-10-PCS; principal; 2021-06-01)
DX: I16.1 Hypertensive emergency (principal); N18.6 End stage renal disease; E87.2 Acidosis; I50.32 Chronic diastolic (congestive) heart failure; N25.81 Secondary hyperparathyroidism of renal origin; Z68.41 Body mass index [BMI] 40.0-44.9, adult; E83.9 Disorder of mineral metabolism, unspecified; F10.229 Alcohol dependence with intoxication, unspecified; R77.8 Other specified abnormalities of plasma proteins; Y90.7 Blood alcohol level of 200-239 mg/100 ml; I48.0 Paroxysmal atrial fibrillation; I13.2 Hypertensive heart and chronic kidney disease with heart failure and with stage 5 chronic kidney disease, or end stage renal disease; E66.01 Morbid (severe) obesity due to excess calories; E87.5 Hyperkalemia; I27.20 Pulmonary hypertension, unspecified; I07.1 Rheumatic tricuspid insufficiency; R25.2 Cramp and spasm; Z80.3 Family history of malignant neoplasm of breast; Z79.899 Other long term (current) drug therapy; Z91.14 Patient's other noncompliance with medication regimen; Z91.15 Patient's noncompliance with renal dialysis; Z91.19 Patient's noncompliance with other medical treatment and regimen; Z99.2 Dependence on renal dialysis
CPT/HCPCS: 36415; 71045; 80053; 80061; 80320; 83605; 83880; 84443; 84484; 85025; 85610; 85730; 90935; 93005; 93306; 94760; 96365; 96366; 96375; 96376; 99285

== ENCOUNTER 2022-11-29 23:56 | Emergency (ER) | payer MEDICARE, OTHER ==
[2022-11-30] MEDS ORDERED: HYDROmorphone 1 MG/ML 1 ML SYRINGE IVP STA (00:24)
--- NOTE | 2022-11-30 00:31 | ED ---
Abdominal Pain HPI - General Chief Complaint: Abdominal Pain Stated Complaint: Abdominal Pain Time Seen by Provider: 11/30/22 00:06 Source: patient, RN notes reviewed Mode of arrival: wheelchair Limitations: no limitations - History of Present Illness Initial Comments: This is a 42-year-old male who presents to the emergency department for abdominal pain. States that this started 5 days ago. It began in the center of his abdomen and has been radiating down towards his groin. Denies any pain in the testicles. He tried taking Pepto-Bismol and Gas-X with no relief in symptoms. Denies any associated nausea or vomiting. Also denies any diarrhea or constipation. He is on hemodialysis Sunday, Sunday, and Sunday. He has tried taking Tylenol, which is not effectively manage his pain. Denies any fevers, chills, sore throat, cough, dyspnea, chest pain, palpitations, nausea, vomiting, diarrhea, back pain, or headaches. MD Complaint: abdominal pain Onset/Timin -: days(s) - Related Data Home Medications Medication Instructions Recorded Confirmed Folic Acid 1 mg PO DAILY 06/01/21 06/01/21 Previous Rx's Medication Instructions Recorded Losartan [Cozaar] 50 mg PO DAILY #90 tab 06/04/21 Sevelamer [Renvela] 800 mg PO TID-W/MEALS #90 tab 06/04/21 carvediloL [Coreg] 6.25 mg PO DAILY #30 tab 06/04/21 cloNIDine HCL [Catapres] 0.1 mg PO TID #90 tab 06/04/21 hydrALAZINE HCL [Apresoline] 100 mg PO TID #90 tab 06/04/21 Amoxic-Pot Clav 875-125Mg 1 tab PO Q12HR 10 Days #20 tab 11/30/22 [Augmentin 875-125] HYDROcodone/APAP 7.5-325MG [Ar[place] 1 tab PO Q6HR PRN 3 Days #12 tab 11/30/22 7.5-325] Allergies Allergy/AdvReac Type Severity Reaction Status Date / Time amlodipine Allergy Rash/Hives/ Verified 06/01/21 06:40 Itchy Review of Systems ROS Statement: Those systems with pertinent positive or pertinent negative responses have been documented in the HPI. ROS Other: All systems not noted in ROS Statement are negative. Past Medical History Past Medical History: Dialysis, Hypertension Additional Past Medical History / Comment(s): ESRD with hemodialysis M/W/F, mineral bone disease, alcohol abuse. History of Any Multi-Drug Resistant Organisms: None Reported Past Surgical History: No Surgical Hx Reported Additional Past Surgical History / Comment(s): R upper arm AV fistula Past Anesthesia/Blood Transfusion Reactions: No Reported Reaction Past Psychological History: No Psychological Hx Reported Smoking Status: Never smoker Past Alcohol Use History: Abuse, Daily, Heavy Past Drug Use History: None Reported - Past Family History Father Additional Family Medical History / Comment(s): Father in a MVA. Mother Family Medical History: Cancer Additional Family Medical History / Comment(s): Mother from breast cancer. General Exam Limitations: no limitations General appearance: alert, in no apparent distress Head exam: Present: atraumatic, normocephalic, normal inspection Respiratory exam: Present: normal lung sounds bilaterally. Absent: respiratory distress, wheezes, rales, rhonchi, stridor Cardiovascular Exam: Present: regular rate, normal rhythm, normal heart sounds. Absent: systolic murmur, diastolic murmur, rubs, gallop, clicks GI/Abdominal exam: Present: soft, tenderness (diffuse), normal bowel sounds. Absent: distended Neurological exam: Present: alert, oriented X3, CN II-XII intact Psychiatric exam: Present: normal affect, normal mood Skin exam: Present: warm, dry, intact, normal color. Absent: rash Course Vital Signs 11/30/22 11/30/22 11/30/22 00:00 01:30 02:20 Temperature 97.6 F 99.2 F 98.2 F Pulse Rate 77 76 79 Respiratory 16 16 18 Rate Blood Pressure 163/92 157/95 174/115 O2 Sat by Pulse 99 98 99 Oximetry Medical Decision Making - Medical Decision Making This is a 42-year-old male who presents to the emergency department for abdominal pain. Was pt. sent in by a medical professional or institution? @ -No Did you speak to anyone other than the patient for history? @ -No Did you review nursing and triage notes? @ -Yes, and I agree, it is accurate with regards to the patient's symptoms. Were old charts reviewed? @ -No Differential Diagnosis? @ -Differential Abdominal Pain Men: Appendicitis, cholecystitis, diverticulosis, ischemic bowel, pancreatitis, hepatitis, UTI, gastroenteritis, AAA, incarcerated hernia, bowel obstruction, constipation, inflammatory bowel, hepatitis, peptic ulcer disease, splenic infarction, perforated viscus, testicular torsion, this is not meant to be an all-inclusive list EKG interpreted by me (3pts min.)? @ -Not obtained X-rays interpreted by me (1pt min.)? @ -Not obtained CT interpreted by me (1pt min.)? @ -Computed tomography scan of the abdomen and pelvis obtained. My interpretation identifies bowel wall thickening of the sigmoid colon. U/S interpreted by me (1pt. min.)? @ -Not obtained What testing was considered but not performed? (CT, X-rays, U/S, labs)? Why? @ -None What meds were considered but not given? Why? @ -None Did you discuss the management of the patient with other professionals? @ -No Did you reconcile home meds? @ -No Was smoking cessation discussed for >3mins.? @ -No Was critical care preformed (if so, how long)? @ -No Were there social determinants of health that impacted care today? How? ([place] elessness, low income, unemployed, alcoholism, drug addiction, transportation, low edu. Level, literacy, decrease access to med. care, senior living, rehab)? @ -No Was there de-escalation of care discussed even if they declined? (Discuss DNR or withdrawal of care, Hospice)? @ -No What co-morbidities impacted this encounter? (DM, HTN, Smoking, COPD, CAD, Cancer, CVA, Hep., AIDS, mental health diagnosis, sleep apnea, morbid obesity)? @ -Renal failure on dialysis, HTN, morbid obesity Was patient admitted / discharged? @ -Discharged. Lab work obtained revealing leukocytosis. Creatinine is also critically elevated, which is consistent with the patient's known history of renal disease. Lab work was otherwise nonactionable. Computed tomography scan of the abdomen and pelvis obtained revealing findings consistent with moderate to severe acute sigmoid diverticulitis. There is no evidence for perforation, abscess, or fistula formation. Findings reviewed with the patient. His pain was well controlled in the emergency department. Given his comorbidities and the severity of the diverticulitis, I did offer admission. However, the patient states that he is comfortable with discharge home at this time. Pain was also well controlled in the emergency department. Prescription for Augmentin provided with dosing instructions reviewed. Given that he is unable to take NSAIDs, and Tylenol has not been effectively managing his pain, he was also given a prescription for Arlington. Advised to take this sparingly when his pain is most severe and otherwise take Tylenol. He is also instructed to have close follow up with his PCP and very strict return parameters were reviewed. Undiagnosed new problem with uncertain prognosis? @ -None Drug Therapy requiring intensive monitoring for toxicity (Heparin, Nitro, Ins ulin, Cardizem)? @ -None Were any procedures done? @ -None Diagnosis/symptom? @ -Sigmoid diverticulitis Acute, or Chronic, or Acute on Chronic? @ -Acute Uncomplicated (without systemic symptoms) or Complicated (systemic symptoms)? @ -Uncomplicated Side effects of treatment? @ -None Exacerbation, Progression, or Severe Exacerbation] @ -Not applicable Poses a threat to life or bodily function? @ -No Return precautions reviewed in depth, the patient is instructed to return to the emergency department with any new, worsening, or concerning symptoms. Patient verbalized understanding. This case was discussed in detail with the attending ED physician, Dr. Kelly. Presentation, findings, and treatment plan discussed in detail as well. - Lab Data Result diagrams: 11/30/22 00:59 11/30/22 00:59 Lab Results 11/30/22 11/30/22 11/30/22 Range/Units 00:59 00:59 00:59 WBC 12.8 H (3.8-10.6) k/uL RBC 4.14 L (4.30-5.90) m/uL Hgb 11.1 L (13.0-17.5) gm/dL Hct 35.4 L (39.0-53.0) % MCV 85.4 (80.0-100.0) fL MCH 26.7 (25.0-35.0) pg MCHC 31.3 (31.0-37.0) g/dL RDW 16.5 H (11.5-15.5) % Plt Count 223 (150-450) k/uL MPV 9.0 Neutrophils % 78 % Lymphocytes % 13 % Monocytes % 4 % Eosinophils % 2 % Basophils % 0 % Neutrophils # 10.0 H (1.3-7.7) k/uL Lymphocytes # 1.7 (1.0-4.8) k/uL Monocytes # 0.5 (0-1.0) k/uL Eosinophils # 0.3 (0-0.7) k/uL Basophils # 0.0 (0-0.2) k/uL Hypochromasia Moderate Anisocytosis Slight Sodium 138 (137-145) mmol/L Potassium 4.3 (3.5-5.1) mmol/L Chloride 95 L (98-107) mmol/L Carbon Dioxide 28 (22-30) mmol/L Anion Gap 15 mmol/L BUN 38 H (9-20) mg/dL Creatinine 9.34 H* (0.66-1.25) mg/dL Est GFR (CKD-EPI)AfAm 7 (>60 ml/min/1.73 sqM) Est GFR (CKD-EPI)NonAf 6 (>60 ml/min/1.73 sqM) Glucose 96 (74-99) mg/dL Plasma Lactic Acid George 1.2 (0.7-2.0) mmol/L Calcium 9.2 (8.4-10.2) mg/dL Total Bilirubin 0.7 (0.2-1.3) mg/dL AST 29 (17-59) U/L ALT 14 (4-49) U/L Alkaline Phosphatase 66 (38-126) U/L Total Protein 8.0 (6.3-8.2) g/dL Albumin 4.4 (3.5-5.0) g/dL Amylase 89 (30-110) U/L Lipase 136 (23-300) U/L - Radiology Data Radiology results: report reviewed, image reviewed Disposition Clinical Impression: Diverticulitis Disposition: HOME SELF-CARE Instructions (If sedation given, give patient instructions): Diverticulitis (ED) Additional Instructions: Return to the emergency department with any new, worsening, or concerning symptoms. Take the antibiotic as prescribed for 10 days. You can take the Arlington up to every 6 hours as needed for pain relief. Try to take this sparingly when your pain is the most severe and otherwise take Tylenol. Follow up with your primary care provider in 1-2 days. Prescriptions: Amoxic-Pot Clav 875-125Mg [Augmentin 875-125] 1 tab PO Q12HR 10 Days #20 tab HYDROcodone/APAP 7.5-325MG [[place] 7.5-325] 1 tab PO Q6HR PRN 3 Days #12 tab PRN Reason: Pain Is patient prescribed a controlled substance at d/c from ED?: Yes When asked, does pt state using other controlled substances?: No If prescribed controlled substance>3 days was MAPS reviewed?: Prescribed <3 Days Referrals: Pamela Granados MD [Primary Care Provider] - 1-2 days
[2022-11-30 01:08] LABS: Anisocytosis Slight; Basophils % (A) 0 %; Eosinophils # (A) 0.3 k/uL (0-0.7); Eosinophils % (A) 2 %; HCT 35.4 % (39.0-53.0); HGB 11.1 gm/dL (13.0-17.5); Hypochromasia Moderate; Lymphocytes # (A) 1.7 k/uL (1.0-4.8); Lymphocytes % (A) 13 %; MCH 26.7 pg (25.0-35.0); MCHC 31.3 g/dL (31.0-37.0); MCV 85.4 fL (80.0-100.0); Monocytes # (A) 0.5 k/uL (0-1.0); Monocytes % (A) 4 %; Neutrophils % (A) 78 %; Platelet Count 223 k/uL (150-450); RBC 4.14 m/uL (4.30-5.90); RDW 16.5 % (11.5-15.5); WBC 12.8 k/uL (3.8-10.6)
[2022-11-30 01:23] LABS: ALT 14 U/L (4-49); AST 29 U/L (17-59); African American GFR (CKD) 7 (>60 ml/min/1.73 sqM); Albumin 4.4 g/dL (3.5-5.0); Alkaline Phosphatase 66 U/L (38-126); Amylase 89 U/L (30-110); Anion Gap 15 mmol/L; Blood Urea Nitrogen 38 mg/dL (9-20); Calcium 9.2 mg/dL (8.4-10.2); Carbon Dioxide 28 mmol/L (22-30); Chloride 95 mmol/L (98-107); Glucose 96 mg/dL (74-99); Lipase 136 U/L (23-300); Non-African American GFR(CKD) 6 (>60 ml/min/1.73 sqM); Potassium 4.3 mmol/L (3.5-5.1); Sodium 138 mmol/L (137-145); Total Bilirubin 0.7 mg/dL (0.2-1.3)
--- NOTE | 2022-11-30 01:30 | CT ---
EXAM: CT Abdomen and Pelvis Without Intravenous Contrast CLINICAL HISTORY: ITS.REASON CT Reason: abdominal pain, acute, nonlocalized TECHNIQUE: Axial computed tomography images of the abdomen and pelvis without intravenous contrast. CTDI is 28.1 mGy and DLP is 1780.9 mGy-cm. This CT exam was performed using one or more of the following dose reduction techniques: automated exposure control, adjustment of the mA and/or kV according to patient size, and/or use of iterative reconstruction technique. Moderate limited detail due to body habitus. COMPARISON: None. FINDINGS: Lung bases: Clear. Mild to moderate cardiomegaly. Liver: Fatty. Gallbladder and bile ducts: Normal gallbladder. No ductal dilation. Pancreas: No ductal dilation. Spleen: Unremarkable. Adrenals: Unremarkable. Kidneys and ureters: No stones or hydronephrosis. Left lower pole hypodensity, probable cyst. Stomach and bowel: Moderate to severe mesenteric edema and wall thickening of the midline sigmoid colon associated with diverticulosis, compatible with acute diverticulitis. Edema inseparable from the dome of the bladder. No obstruction. Appendix: Normal. Intraperitoneal space: No free air or fluid. Bones/joints: No acute fracture. Soft tissues: Unremarkable. Vasculature: No aortic aneurysm. Lymph nodes: No enlarged lymph nodes. Bladder: Fairly collapsed. Wall thickening, concerning for cystitis, given that there is adjacent edema from acute diverticulitis. No bladder air to suggest a fistula. Reproductive: Unremarkable as visualized. IMPRESSION: 1. Moderate to severe, acute sigmoid diverticulitis. 2. Bladder wall thickening, with adjacent acute diverticulitis, concerning for cystitis. Correlate clinically. 3. No perforation, abscess or fistula. <MYCVCSECTION> Communications: 11/30/22 01:55 Verify Receipt Verified receipt with Dr. Aguirre on 11/30 01:55 (-04:00)
[2022-11-30] MEDS ORDERED: ACET/COD 300 MG/30 MG STARTER PACK 6 TAB BTL PO STA (01:53)
[2022-11-30] MEDS ORDERED: AMOXIC-POT CLAV 875MG STARTER PACK 2 TAB BTL PO STA (01:53)
[2022-11-30] MEDS ORDERED: HYDROcodone/APAP 10-325MG 1 EACH TAB PO ONE (01:53)
[2022-11-30] MEDS ORDERED: HYDROmorphone 0.5 MG/0.5 ML SYRINGE IVP STA (01:55)
[2022-11-30 02:23] VITALS: BP 174/115; PULSE 79; RESP 18; TEMP 98.2
== END 2022-11-30 02:31 | disposition home or self-care (01) ==
LOC: EC 23:56
DX: K57.32 Diverticulitis of large intestine without perforation or abscess without bleeding (principal); I12.0 Hypertensive chronic kidney disease with stage 5 chronic kidney disease or end stage renal disease; N18.6 End stage renal disease; Z99.2 Dependence on renal dialysis; Z88.8 Allergy status to other drugs, medicaments and biological substances
CPT/HCPCS: 36415; 80053; 82150; 83605; 83690; 85025; 74176; 99284; 96374; 96376; J1170 ×2

== ENCOUNTER 2023-02-20 10:25 | Day surgery (SDC) | payer MEDICARE, OTHER ==
[2023-02-15 12:39] VITALS: BMI 42.0
[~2023-02-20 10:25] MED LIST: ACETAMINOPHEN TAB 500 MG TAB PO PRN; HEPARIN SODIUM,PORCINE/PF 5,000 UNIT/0.5 ML SYRINGE SQ PRN; HYDROmorphone 0.5 MG/0.5 ML SYRINGE IVP PRN; LACTATED RINGERS 1,000 ML IV SCH; ceFAZolin 3 GM in SODIUM CHLORIDE 0.9% 100 ML IVPB PRN; fentaNYL (PF) 50 MCG/ML 2 ML AMP IV PRN
[2023-02-20] MEDS ORDERED: SODIUM CHLORIDE 0.9% 1,000 ML IV ONE (10:37)
[2023-02-20] MEDS ORDERED: ONDANSETRON 4 MG/2 ML VIAL ONE (10:56)
[2023-02-20 11:30] LABS: Basophils % (A) 0 %; Eosinophils # (A) 0.3 k/uL (0-0.7); Eosinophils % (A) 3 %; HCT 37.1 % (39.0-53.0); HGB 11.7 gm/dL (13.0-17.5); Hypochromasia Slight; Lymphocytes # (A) 2.1 k/uL (1.0-4.8); Lymphocytes % (A) 26 %; MCH 26.6 pg (25.0-35.0); MCHC 31.4 g/dL (31.0-37.0); MCV 84.8 fL (80.0-100.0); Mean Platelet Volume 8.4; Monocytes # (A) 0.4 k/uL (0-1.0); Monocytes % (A) 5 %; Neutrophils # (A) 4.9 k/uL (1.3-7.7); Neutrophils % (A) 62 %; Platelet Count 206 k/uL (150-450); RBC 4.37 m/uL (4.30-5.90); RDW 15.4 % (11.5-15.5); WBC 7.9 k/uL (3.8-10.6)
[2023-02-20 11:44] LABS: ALT 12 U/L (4-49); AST 32 U/L (17-59); African American GFR (CKD) 7 (>60 ml/min/1.73 sqM); Albumin 4.2 g/dL (3.5-5.0); Alkaline Phosphatase 52 U/L (38-126); Anion Gap 11 mmol/L; Blood Urea Nitrogen 33 mg/dL (9-20); Calcium 9.7 mg/dL (8.4-10.2); Carbon Dioxide 29 mmol/L (22-30); Chloride 100 mmol/L (98-107); Glucose 101 mg/dL (74-99); Non-African American GFR(CKD) 6 (>60 ml/min/1.73 sqM); Potassium 4.6 mmol/L (3.5-5.1); Sodium 140 mmol/L (137-145); Total Bilirubin 0.6 mg/dL (0.2-1.3); Total Protein 7.6 g/dL (6.3-8.2)
[2023-02-20] MEDS ORDERED: DEXAMETHASONE SOD PHOSPHATE 4 MG/ML 1 ML VIAL IVP ONE (11:52)
[2023-02-20] MEDS ORDERED: fentaNYL (PF) 50 MCG/ML 2 ML AMP ONE (12:30)
[2023-02-20] MEDS ORDERED: PROPOFOL 10 MG/ML 20 ML VIAL IV ONE (12:30)
[2023-02-20] MEDS ORDERED: LIDOCAINE 1% INJ 10MG/ML (20 ML MDV) ONE (12:30)
[2023-02-20] MEDS ORDERED: MIDAZOLAM 2 MG/2 ML VIAL ONE (12:30)
[2023-02-20] MEDS ORDERED: LIDOCAINE 4% LTA KIT (4 ML) TOPICAL ONE (12:30)
[2023-02-20] MEDS ORDERED: SUCCINYLCHOLINE CHLORIDE 200 MG/10 ML VIAL IV ONE (12:30)
--- NOTE | 2023-02-20 12:39 | P.GSHP ---
History of Present Illness H&P Date: 02/20/23 Chief Complaint: Renal failure 42-year-old male with kidney failure. Currently on hemodialysis. Here today for hemodialysis catheter placement. No known hernias. No prior abdominal surgeries. Past Medical History Past Medical History: Dialysis, Hypertension, Renal Disease Additional Past Medical History / Comment(s): ESRD with hemodialysis M/W/F, mineral bone disease History of Any Multi-Drug Resistant Organisms: None Reported Past Surgical History: No Surgical Hx Reported Additional Past Surgical History / Comment(s): R upper arm AV fistula Past Anesthesia/Blood Transfusion Reactions: No Reported Reaction Past Psychological History: No Psychological Hx Reported Additional Psychological History / Comment(s): . Smoking Status: Former smoker Past Alcohol Use History: None Reported, Occasional Additional Past Alcohol Use History / Comment(s): Pt started smoking in 2000 and quit in 2020. past hx of alcohol abuse-approximately a fifth of vodka a day-pt now drinks occasionally Past Drug Use History: Marijuana - Past Family History Father Additional Family Medical History / Comment(s): Father in a MVA. Mother Family Medical History: Cancer Additional Family Medical History / Comment(s): Mother from breast cancer. Medications and Allergies Home Medications Medication Instructions Recorded Confirmed Type Folic Acid 1 mg PO DAILY 06/01/21 02/20/23 History Losartan [Cozaar] 50 mg PO DAILY #90 tab 06/04/21 02/20/23 Rx Sevelamer [Renvela] 800 mg PO TID-W/MEALS #90 tab 06/04/21 02/20/23 Rx carvediloL [Coreg] 6.25 mg PO DAILY #30 tab 06/04/21 02/20/23 Rx cloNIDine HCL [Catapres] 0.1 mg PO TID #90 tab 06/04/21 02/20/23 Rx hydrALAZINE HCL [Apresoline] 100 mg PO TID #90 tab 06/04/21 02/20/23 Rx Allergies Allergy/AdvReac Type Severity Reaction Status Date / Time amlodipine Allergy Rash/Hives/ Verified 02/20/23 10:39 Itchy Surgical - Exam Vital Signs Temp Pulse Resp BP Pulse Ox 97.5 F L 71 18 166/101 96 02/20/23 10:46 02/20/23 10:46 02/20/23 10:46 02/20/23 10:46 02/20/23 10:46 Physical exam: General: Well-developed, well-nourished HEENT: Normocephalic, sclerae nonicteric Abdomen: Nontender, nondistended Extremities: No edema Neuro: Alert and oriented Results - Labs 02/20/23 11:15 02/20/23 11:15 Abnormal Lab Results - Last 24 Hours (Table) 02/20/23 02/20/23 Range/Units 11:15 11:15 Hgb 11.7 L (13.0-17.5) gm/dL Hct 37.1 L (39.0-53.0) % BUN 33 H (9-20) mg/dL Creatinine 9.13 H* (0.66-1.25) mg/dL Glucose 101 H (74-99) mg/dL Diabetes panel 02/20/23 Range/Units 11:15 Sodium 140 (137-145) mmol/L Potassium 4.6 (3.5-5.1) mmol/L Chloride 100 (98-107) mmol/L Carbon Dioxide 29 (22-30) mmol/L BUN 33 H (9-20) mg/dL Creatinine 9.13 H* (0.66-1.25) mg/dL Glucose 101 H (74-99) mg/dL Calcium 9.7 (8.4-10.2) mg/dL AST 32 (17-59) U/L ALT 12 (4-49) U/L Alkaline Phosphatase 52 (38-126) U/L Total Protein 7.6 (6.3-8.2) g/dL Albumin 4.2 (3.5-5.0) g/dL Calcium panel 02/20/23 Range/Units 11:15 Calcium 9.7 (8.4-10.2) mg/dL Albumin 4.2 (3.5-5.0) g/dL Pituitary panel 02/20/23 Range/Units 11:15 Sodium 140 (137-145) mmol/L Potassium 4.6 (3.5-5.1) mmol/L Chloride 100 (98-107) mmol/L Carbon Dioxide 29 (22-30) mmol/L BUN 33 H (9-20) mg/dL Creatinine 9.13 H* (0.66-1.25) mg/dL Glucose 101 H (74-99) mg/dL Calcium 9.7 (8.4-10.2) mg/dL Adrenal panel 02/20/23 Range/Units 11:15 Sodium 140 (137-145) mmol/L Potassium 4.6 (3.5-5.1) mmol/L Chloride 100 (98-107) mmol/L Carbon Dioxide 29 (22-30) mmol/L BUN 33 H (9-20) mg/dL Creatinine 9.13 H* (0.66-1.25) mg/dL Glucose 101 H (74-99) mg/dL Calcium 9.7 (8.4-10.2) mg/dL Total Bilirubin 0.6 (0.2-1.3) mg/dL AST 32 (17-59) U/L ALT 12 (4-49) U/L Alkaline Phosphatase 52 (38-126) U/L Total Protein 7.6 (6.3-8.2) g/dL Albumin 4.2 (3.5-5.0) g/dL Assessment and Plan (1) End stage renal disease Narrative/Plan: Will proceed with peritoneal dialysis catheter insertion at this time. Risks of bleeding, infection, fluid leak, hernia, peritonitis, bowel injury reviewed. Patient understands and wishes to proceed. Current Visit: No Status: Acute Code(s): N18.6 - END STAGE RENAL DISEASE SNOMED Code(s): 00938909
[2023-02-20] MEDS ORDERED: BUPIVACAINE (PF) 0.25% 30 ML VIAL SQ ONE (12:57)
[2023-02-20] MEDS ORDERED: MINERAL OIL 1 APPLIC/ML OIL MISCELLANE ONE (12:58)
[2023-02-20] MEDS ORDERED: HYDROcodone/APAP 5-325MG 1 EACH TAB PO PRN (13:42)
[2023-02-20] MEDS ORDERED: NALOXONE 0.4 MG/ML 1 ML VIAL IV PRN (13:42)
--- NOTE | 2023-02-20 13:46 | P.OP ---
Date of Procedure: 02/20/23 Procedure(s) Performed: PREOPERATIVE DIAGNOSIS: Renal failure POSTOPERATIVE DIAGNOSIS: Same PROCEDURE: Peritoneal dialysis catheter insertion SURGEON: Sandra EBL: Minimal ANESTHESIA: Sedation plus local COMPLICATIONS: None OPERATIVE PROCEDURE: The patient was placed in the operative table in the supine position. The abdomen was prepped and draped in usual sterile fashion. A small vertical incision was made in the left periumbilical location. Dissection down through the subcutaneous tissues took place using electrocautery. The anterior rectus was divided vertically using the scalpel. The rectus was bluntly. The posterior rectus was visualized. An 0 Vicryl pursestring was placed. A small opening in the posterior rectus fascia and peritoneum took place using a Metzenbaum scissors. There were no adhesions to the suture that was placed. The pigtail catheter was advanced into the pelvis over a stylette. No resistance was met. The inner cuff was secured to the fascia using the 0 Vicryl pursestring that was placed. The catheter was tunneled to an exit site in the right lateral lower quadrant. The catheter was connected to the 1 L bag of saline and approximated 800 mL of saline was easily introduced into the peritoneal cavity. The fluid was then allowed to evacuate. The majority of the fluid was returned. The anterior rectus fascia was then reapproximated using a running 0 Vicryl stitch. The subcutaneous tissues reprepped using 3-0 Vicryl sutures and the skin using 4-0 Monocryl sutures. The outpatient dialysis adapter was applied to the end of the catheter. Sterile dressings were then applied after skin glue was placed over the incision. DISPOSITION: Stable to recovery room
[2023-02-20 13:47] VITALS: TEMP 97
[2023-02-20] MEDS ORDERED: hydrALAZINE HCL 20 MG/ML 1 ML VIAL IVP ONE (14:13)
[2023-02-20] MEDS ORDERED: HYDROcodone/APAP 5-325MG 1 EACH TAB PO ONE (14:36)
[2023-02-20 14:45] VITALS: RESP 18
[2023-02-20 15:14] VITALS: BP 152/97; PULSE 75
== END 2023-02-20 15:23 | disposition home or self-care (01) ==
LOC: OR 10:25
PROVIDERS: ATTEND Surgery
DX: I12.0 Hypertensive chronic kidney disease with stage 5 chronic kidney disease or end stage renal disease (principal); N18.6 End stage renal disease; F12.90 Cannabis use, unspecified, uncomplicated; Z99.2 Dependence on renal dialysis; Z87.891 Personal history of nicotine dependence; Z88.8 Allergy status to other drugs, medicaments and biological substances
CPT/HCPCS: 80053; 85025; 49421; J0360; J1100; J0690; J2405; J1644; J0665

== ENCOUNTER 2023-02-27 10:05 | Emergency (ER) | payer MEDICARE, OTHER ==
--- NOTE | 2023-02-27 10:17 | ED ---
General Adult HPI - General Source: patient, RN notes reviewed Mode of arrival: ambulatory Limitations: no limitations <Jame Lott - Last Filed: 02/27/23 10:16> <Harshad Kelly - Last Filed: 02/27/23 16:02> - General Stated complaint: pd cath keeps bleeding out Time Seen by Provider: 02/27/23 10:16 - History of Present Illness Initial comments: 42-year-old male presents emergency Department with chief complaint of bleeding from his peritoneal dialysis catheter region. He states this was placed by Dr. Flores last week. Patient states that he contacted and then they told him it should not be bleeding at this point. (Jame Lott) Dictation was produced using [employer] dictation software. please excuse any grammatical, word or spelling errors. Chief Complaint: 42-year-old male presents with postoperative bleeding History of Present Illness: Is a 42-year-old male last week he had operative procedure for implantation of peritoneal dialysis catheter. He states that after the procedure he noted there was some bleeding around the exit area of the catheter. Complains of induration and pain over the lower umbilical area. Denies any fever. No nausea vomiting diarrhea. He was having persistent bleeding from the site and home health care nurse told him he should follow come to the ER for evaluation of bleeding. The ROS documented in this emergency department record has been reviewed and confirmed by me. Those systems with pertinent positive or negative responses have been documented in the HPI. All other systems are other negative and/or noncontributory. (Harshad Kelly) - Related Data Home Medications Medication Instructions Recorded Confirmed Calcium Acetate [Phoslo] 667 mg PO BID PRN 02/27/23 02/27/23 Folic Acid 1 mg PO DAILY 02/27/23 02/27/23 Folic Acid/Vit B Complex and C 0.8 mg PO DAILY 02/27/23 02/27/23 [Minda-Jeremiah Tablet] Lidocaine-Prilocaine Cream [Emla 1 applic TOPICAL DAILY PRN 02/27/23 02/27/23 Cream 2.5%/2.5%] carvediloL [Coreg] 6.25 mg PO BID 02/27/23 02/27/23 cloNIDine HCL [Catapres] 0.1 mg PO BID 02/27/23 02/27/23 hydrALAZINE HCL [Apresoline] 100 mg PO TID 02/27/23 02/27/23 levOCARNitine 330 mg PO BID PRN 02/27/23 02/27/23 Previous Rx's Medication Instructions Recorded Losartan [Cozaar] 50 mg PO DAILY #90 tab 06/04/21 Allergies Allergy/AdvReac Type Severity Reaction Status Date / Time amlodipine Allergy Rash/Hives/ Verified 02/27/23 15:44 Itchy Review of Systems ROS Other: All systems not noted in ROS Statement are negative. <Jame Lott - Last Filed: 02/27/23 10:16> ROS Other: All systems not noted in ROS Statement are negative. <Harshad Kelly - Last Filed: 02/27/23 16:02> ROS Statement: Those systems with pertinent positive or pertinent negative responses have been documented in the HPI. Past Medical History Past Medical History: Dialysis, Hypertension, Renal Disease Additional Past Medical History / Comment(s): ESRD with hemodialysis M/W/F, mineral bone disease History of Any Multi-Drug Resistant Organisms: None Reported Past Surgical History: No Surgical Hx Reported Additional Past Surgical History / Comment(s): R upper arm AV fistula Past Anesthesia/Blood Transfusion Reactions: No Reported Reaction Past Psychological History: No Psychological Hx Reported Additional Psychological History / Comment(s): . Smoking Status: Former smoker Past Alcohol Use History: None Reported, Occasional Additional Past Alcohol Use History / Comment(s): Pt started smoking in 2000 and quit in 2020. past hx of alcohol abuse-approximately a fifth of vodka a day-pt now drinks occasionally Past Drug Use History: Marijuana - Past Family History Father Additional Family Medical History / Comment(s): Father in a MVA. Mother Family Medical History: Cancer Additional Family Medical History / Comment(s): Mother from breast cancer. <Jame Lott - Last Filed: 02/27/23 10:16> General Exam <Jame Lott - Last Filed: 02/27/23 10:16> <Harshad Kelly - Last Filed: 02/27/23 16:02> - General Exam Comments Initial Comments: Visual Physical Exam Vital signs reviewed General: Well-appearing, nontoxic, no acute distress. Head: Normocephalic, atraumatic Eyes: PERRLA, EOMI ENT: Airway patent Chest: Nonlabored breathing Skin: No visual rash, normal skin tone Neuro: Alert and oriented 3 Musculoskeletal: No gross abnormalities (Jame Lott) PHYSICAL EXAM: General Impression: Alert and oriented x3, not in acute distress HEENT: Normocephalic atraumatic, extra-ocular movements intact, pupils equal and reactive to light bilaterally, mucous membranes moist. Cardiovascular: Heart regular rate and rhythm Chest: Able to complete full sentences, no retractions, no tachypnea Abdomen: abdomen soft, mild induration and erythema along a 5 x 5 cm area below the umbilicus near a surgical wound. He does appear to be some oozing coming from the catheter exit site, non-distended, no organomegaly Musculoskeletal: Pulses present and equal in all extremities, no peripheral edema Motor: no focal deficits noted Neurological: CN II-XII grossly intact, no focal motor or sensory deficits noted Skin: Intact with no visualized rashes Psych: Normal affect and mood (Harshad Kelly) Course Vital Signs 02/27/23 10:33 Temperature 98.0 F Pulse Rate 88 Respiratory 18 Rate Blood Pressure 184/126 O2 Sat by Pulse 98 Oximetry Medical Decision Making <Jame Lott - Last Filed: 02/27/23 10:16> - Lab Data Result diagrams: 02/27/23 14:39 02/27/23 10:42 <Harshad Kelly - Last Filed: 02/27/23 16:02> - Medical Decision Making I completed the quick note portion of this chart signed Jame Lott PA-C (Jame Lott) Was pt. sent in by a medical professional or institution ([facility], [facility]AC[facility], urgent care, hospital, or care home...) When possible be specific @ -No Did you speak to anyone other than the patient for history (EMS, parent, family, police, friend...)? What history was obtained from this source @ -No Did you review nursing and triage notes (agree or disagree)? Why? @ -I reviewed and agree with nursing and triage notes Were old charts reviewed (outside hosp., previous admission, EMS record, old EKG, old radiological studies, urgent care reports/EKG's, care home records)? Report findings @ -No old charts were reviewed Differential Diagnosis (chest pain, altered mental status, abdominal pain women, abdominal pain men, vaginal bleeding, musculoskeletal, weakness, fever, dyspnea, syncope, headache, dizziness, GI bleed, back pain, seizure, CVA, palpatations, mental health)? @ -Differential Abdominal Pain Men: Appendicitis, cholecystitis, diverticulosis, ischemic bowel, pancreatitis, hepatitis, UTI, gastroenteritis, AAA, incarcerated hernia, bowel obstruction, constipation, inflammatory bowel, hepatitis, peptic ulcer disease, splenic infarction, perforated viscus, testicular torsion, this is not meant to be an al l-inclusive list EKG interpreted by me (3pts min.). @ -None done X-rays interpreted by me (1pt min.). @ -None done CT interpreted by me (1pt min.). @ -Computed tomography scan of the abdomen and pelvis shows subcutaneous hematoma U/S interpreted by me (1pt. min.). @ -None done What testing was considered but not performed or refused? (CT, X-rays, U/S, labs)? Why? @ -None What meds were considered but not given or refused? Why? @ -None Did you discuss the management of the patient with other professionals (professionals i.e. , PA, PHARMACIST CRITICAL CARE, lab, RT, psych nurse, social work therapist, receiving checker, teacher, drug abuse resistance education officer, patient case coordinator)? Give summary @ -Patient case was discussed with primary surgeon, Dr. Flores states that he wants to follow-up the patient on . Dr. Flores reviewed the films Was smoking cessation discussed for >3mins.? @ -No Was critical care preformed (if so, how long)? @ -No Were there social determinants of health that impacted care today? How? (Homelessness, low income, unemployed, alcoholism, drug addiction, pérez sportation, low edu. Level, literacy, decrease access to med. care, snf, rehab)? @ -No Was there de-escalation of care discussed even if they declined (Discuss DNR or withdrawal of care, Hospice)? DNR status @ -No What co-morbidities impacted this encounter? (DM, HTN, Smoking, COPD, CAD, Cancer, CVA, ARF, Chemo, Hep., AIDS, mental health diagnosis, sleep apnea, morbid obesity)? @ -None Was patient admitted / discharged? Hospital course, mention meds given and route, prescriptions, significant lab abnormalities, going to OR and other pertinent info. @ -42 yo Male presents emergency department for postoperative bleeding. He does have some very non-active bleeding coming from the cutaneous site where the catheter exits the skin. Vital signs stable. Labs unremarkable. Patient has no GI symptoms. Imaging study shows hematoma subcutaneously. Case discussed with surgeon who requests patient follow-up on . Patient agreeable plan. Undiagnosed new problem with uncertain prognosis? @ -No Drug Therapy requiring intensive monitoring for toxicity (Heparin, Nitro, Insulin, Cardizem)? @ -No Were any procedures done? @ -No Diagnosis/symptom? Acute, or Chronic, or Acute on Chronic? Uncomplicated (without systemic symptoms) or Complicated (systemic symptoms)? @ -Postoperative hematoma Side effects of treatment? @ -No Exacerbation, Progression, or Severe Exacerbation? @ -No Poses a threat to life or bodily function? How? (Chest pain, [place], [place], pneumonia, PE, COPD, DKA, ARF, appy, cholecystitis, CVA, Diverticulitis, Homicidal, Suicidal, threat to staff... and all critical care pts) @ -No (Harshad Kelly) - Lab Data Lab Results 02/27/23 02/27/23 02/27/23 Range/Units 10:42 10:42 14:26 WBC (3.8-10.6) k/uL RBC (4.30-5.90) m/uL Hgb (13.0-17.5) gm/dL Hct (39.0-53.0) % MCV (80.0-100.0) fL MCH (25.0-35.0) pg MCHC (31.0-37.0) g/dL RDW (11.5-15.5) % Plt Count (150-450) k/uL MPV Neutrophils % % Lymphocytes % % Monocytes % % Eosinophils % % Basophils % % Neutrophils # (1.3-7.7) k/uL Lymphocytes # (1.0-4.8) k/uL Monocytes # (0-1.0) k/uL Eosinophils # (0-0.7) k/uL Basophils # (0-0.2) k/uL Hypochromasia PT 11.1 (10.0-12.5) sec INR 1.0 (<1.2) APTT 26.8 (22.0-30.0) sec Sodium 141 (137-145) mmol/L Potassium 5.9 H (3.5-5.1) mmol/L Chloride 101 (98-107) mmol/L Carbon Dioxide 24 (22-30) mmol/L Anion Gap 16 mmol/L BUN 66 H (9-20) mg/dL Creatinine 10.91 H* (0.66-1.25) mg/dL Est GFR (CKD-EPI)AfAm 6 (>60 ml/min/1.73 sqM) Est GFR (CKD-EPI)NonAf 5 (>60 ml/min/1.73 sqM) Glucose 87 (74-99) mg/dL Calcium 9.8 (8.4-10.2) mg/dL Total Bilirubin 0.9 (0.2-1.3) mg/dL AST 38 (17-59) U/L ALT 13 (4-49) U/L Alkaline Phosphatase 60 (38-126) U/L Total Protein 8.0 (6.3-8.2) g/dL Albumin 4.5 (3.5-5.0) g/dL Lipase 127 (23-300) U/L Blood Type O Positive Blood Type Recheck No Previous Record Bld Type Recheck Status CABO Indicated Antibody Screen NEGATIVE Spec Expiration Date 03/02/2023 - 234102/27/23 Range/Units 14:39 WBC 9.6 (3.8-10.6) k/uL RBC 4.10 L (4.30-5.90) m/uL Hgb 11.0 L (13.0-17.5) gm/dL Hct 35.0 L (39.0-53.0) % MCV 85.4 (80.0-100.0) fL MCH 26.8 (25.0-35.0) pg MCHC 31.4 (31.0-37.0) g/dL RDW 15.5 (11.5-15.5) % Plt Count 218 (150-450) k/uL MPV 8.5 Neutrophils % 67 % Lymphocytes % 23 % Monocytes % 5 % Eosinophils % 3 % Basophils % 0 % Neutrophils # 6.4 (1.3-7.7) k/uL Lymphocytes # 2.2 (1.0-4.8) k/uL Monocytes # 0.5 (0-1.0) k/uL Eosinophils # 0.3 (0-0.7) k/uL Basophils # 0.0 (0-0.2) k/uL Hypochromasia Moderate PT (10.0-12.5) sec INR (<1.2) APTT (22.0-30.0) sec Sodium (137-145) mmol/L Potassium (3.5-5.1) mmol/L Chloride (98-107) mmol/L Carbon Dioxide (22-30) mmol/L Anion Gap mmol/L BUN (9-20) mg/dL Creatinine (0.66-1.25) mg/dL Est GFR (CKD-EPI)AfAm (>60 ml/min/1.73 sqM) Est GFR (CKD-EPI)NonAf (>60 ml/min/1.73 sqM) Glucose (74-99) mg/dL Calcium (8.4-10.2) mg/dL Total Bilirubin (0.2-1.3) mg/dL AST (17-59) U/L ALT (4-49) U/L Alkaline Phosphatase (38-126) U/L Total Protein (6.3-8.2) g/dL Albumin (3.5-5.0) g/dL Lipase (23-300) U/L Blood Type Blood Type Recheck Bld Type Recheck Status Antibody Screen Spec Expiration Date Disposition <Jame Lott - Last Filed: 02/27/23 10:16> Is patient prescribed a controlled substance at d/c from ED?: No Time of Disposition: 16:01 <Harshad Kelly - Last Filed: 02/27/23 16:02> Clinical Impression: Post-op bleeding Disposition: HOME SELF-CARE Condition: Fair Instructions (If sedation given, give patient instructions): Peritoneal Dialysis Catheter Care (ED) Referrals: Rajendra Flores MD [Medical Doctor] - 1-2 days
[2023-02-27 11:02] VITALS: RESP 18; TEMP 98
[2023-02-27 14:49] LABS: Basophils % (A) 0 %; Eosinophils # (A) 0.3 k/uL (0-0.7); Eosinophils % (A) 3 %; Hypochromasia Moderate; Lymphocytes # (A) 2.2 k/uL (1.0-4.8); Lymphocytes % (A) 23 %; MCH 26.8 pg (25.0-35.0); MCHC 31.4 g/dL (31.0-37.0); MCV 85.4 fL (80.0-100.0); Mean Platelet Volume 8.5; Monocytes # (A) 0.5 k/uL (0-1.0); Monocytes % (A) 5 %; Neutrophils # (A) 6.4 k/uL (1.3-7.7); Neutrophils % (A) 67 %; Platelet Count 218 k/uL (150-450); RDW 15.5 % (11.5-15.5); WBC 9.6 k/uL (3.8-10.6)
[2023-02-27 15:06] LABS: Partial Thromboplastin Time 26.8 sec (22.0-30.0); Prothrombin Time 11.1 sec (10.0-12.5)
[2023-02-27 15:10] LABS: ALT 13 U/L (4-49); AST 38 U/L (17-59); African American GFR (CKD) 6 (>60 ml/min/1.73 sqM); Albumin 4.5 g/dL (3.5-5.0); Alkaline Phosphatase 60 U/L (38-126); Anion Gap 16 mmol/L; Blood Urea Nitrogen 66 mg/dL (9-20); Calcium 9.8 mg/dL (8.4-10.2); Carbon Dioxide 24 mmol/L (22-30); Chloride 101 mmol/L (98-107); Glucose 87 mg/dL (74-99); Lipase 127 U/L (23-300); Non-African American GFR(CKD) 5 (>60 ml/min/1.73 sqM); Potassium 5.9 mmol/L (3.5-5.1); Sodium 141 mmol/L (137-145); Total Bilirubin 0.9 mg/dL (0.2-1.3)
--- NOTE | 2023-02-27 15:28 | CT ---
EXAMINATION TYPE: CT abdomen pelvis wo con DATE OF EXAM: 02/27/2023 COMPARISON: 11/30/2022 HISTORY: post op bleeding, abdominal pain CT DLP: 1310.40 mGycm Examination of the solid and hollow viscera is limited given the lack of contrast. FINDINGS: LUNG BASES: No evidence for nodule. No evidence for infiltrate. There appears to be cardiomegaly. LIVER/GB: The gallbladder is unremarkable. No space-occupying hepatic lesion. PANCREAS: No pancreatic mass identified. No inflammatory process seen. SPLEEN: No evidence for splenomegaly. No intrasplenic lesions seen. ADRENALS: No adrenal nodules identified. No evidence for thickening. KIDNEYS: No evidence for renal mass. No nephrolithiasis. No hydronephrosis. BOWEL: Postoperative changes within the pelvis. Correlate surgical history. Drainage catheter is note d to enter the left anterior abdominal wall and coiled distally adjacent to the urinary bladder. At t he entrance of the drainage catheter through the left rectus abdominis musculature there is anterior hematoma noted measuring 7.1 x 5.4 x 6.9 cm. No intra-abdominal hemorrhage seen. No abnormal collecti on evident at this time. Lymph nodes: No evidence for adenopathy greater than 1 cm. Abdominal aorta: Atheromatous changes seen. No evidence for aneurysm. Genital organs: No significant abnormality. Other: No significant abnormality. IMPRESSION: 1.Drainage catheter is noted to enter the left anterior abdominal wall and coiled distally adjacent t o the urinary bladder. At the entrance of the drainage catheter through the left rectus abdominis mus culature there is anterior hematoma noted measuring 7.1 x 5.4 x 6.9 cm. No intra-abdominal hemorrhage seen. 2. Postoperative changes within the pelvis.
[2023-02-27 17:07] VITALS: BP 164/84; PULSE 84
== END 2023-02-27 16:43 | disposition home or self-care (01) ==
LOC: EC 10:05
DX: K91.840 Postprocedural hemorrhage of a digestive system organ or structure following a digestive system procedure (principal); I12.0 Hypertensive chronic kidney disease with stage 5 chronic kidney disease or end stage renal disease; N18.6 End stage renal disease; F12.90 Cannabis use, unspecified, uncomplicated; Z99.2 Dependence on renal dialysis; Z88.8 Allergy status to other drugs, medicaments and biological substances; Z87.891 Personal history of nicotine dependence; Z79.899 Other long term (current) drug therapy
CPT/HCPCS: 36415; 74176; 80053; 83690; 85025; 85610; 85730; 86850; 86900; 86901; 99284

== ENCOUNTER 2023-03-02 10:18 | Day surgery (SDC) | payer MEDICARE, OTHER ==
[2023-03-01 13:03] VITALS: BMI 42.0
[~2023-03-02 10:18] MED LIST changes: -HYDROmorphone 0.5 MG/0.5 ML SYRINGE IVP PRN; -LACTATED RINGERS 1,000 ML IV SCH; +Pre Op ABX Message 1 EACH MISC MISCELLANE ONE; -ceFAZolin 3 GM in SODIUM CHLORIDE 0.9% 100 ML IVPB PRN; -fentaNYL (PF) 50 MCG/ML 2 ML AMP IV PRN
[2023-03-02] MEDS ORDERED: SODIUM CHLORIDE 0.9% 1,000 ML IV ONE ×2 (12:14)
[2023-03-02] MEDS ORDERED: ONDANSETRON 4 MG/2 ML VIAL ONE (12:17)
[2023-03-02] MEDS ORDERED: FAMOTIDINE 20 MG/2 ML VIAL IVP ONE (12:30)
[2023-03-02 12:44] LABS: ALT 15 U/L (4-49); AST 40 U/L (17-59); African American GFR (CKD) 7 (>60 ml/min/1.73 sqM); Albumin 4.2 g/dL (3.5-5.0); Anion Gap 12 mmol/L; Blood Urea Nitrogen 58 mg/dL (9-20); Calcium 9.3 mg/dL (8.4-10.2); Carbon Dioxide 26 mmol/L (22-30); Chloride 103 mmol/L (98-107); Glucose 98 mg/dL (74-99); Non-African American GFR(CKD) 6 (>60 ml/min/1.73 sqM); Potassium 5.9 mmol/L (3.5-5.1); Sodium 141 mmol/L (137-145); Total Bilirubin 0.7 mg/dL (0.2-1.3); Total Protein 7.6 g/dL (6.3-8.2)
[2023-03-02 12:45] LABS: Alkaline Phosphatase 48 U/L (38-126)
[2023-03-02] MEDS ORDERED: KETAMINE HCL IN 0.9 % NACL 50 MG/5 ML SYRINGE ONE (13:03)
[2023-03-02] MEDS ORDERED: MIDAZOLAM 2 MG/2 ML VIAL ONE (13:03)
[2023-03-02] MEDS ORDERED: PROPOFOL 10 MG/ML 20 ML VIAL IV ONE (13:03)
[2023-03-02] MEDS ORDERED: SODIUM CHLORIDE 0.9% 100 ML with ceFAZolin 3,000 MG IV ONE ×2 (13:08)
[2023-03-02] MEDS ORDERED: BUPIVACAINE (PF) 0.25% 30 ML VIAL SQ ONE ×3 (13:30)
[2023-03-02] MEDS ORDERED: NALOXONE 0.4 MG/ML 1 ML VIAL IV PRN (14:11)
[2023-03-02] MEDS ORDERED: HYDROcodone/APAP 5-325MG 1 EACH TAB PO PRN (14:11)
--- NOTE | 2023-03-02 14:16 | P.OP ---
Date of Procedure: 03/02/23 Procedure(s) Performed: PREOPERATIVE DIAGNOSIS: Abdominal wall/Incisional hematoma POSTOPERATIVE DIAGNOSIS: Same PROCEDURE: Evacuation abdominal wall hematoma with drain placement SURGEON: Sandra EBL: 75 mL ANESTHESIA: Local and sedation COMPLICATIONS: None OPERATIVE PROCEDURE: Patient placed in the operative table. The abdomen was prepped and draped sterilely. The dialysis catheter was prepped as well. The previous incision was re-incised after localizing. The subcutaneous tissues were divided bluntly. A hematoma was encountered and evacuated. I would estimate approximately 75 mL of old blood evacuated. No new bleeding was encountered. No active bleeding was seen. The patient's fascia closure with the previous 0 Vicryl looks like it had pulled through. This was reclosed using a #1 Vicryl stitch. A drain was then placed after irrigating that area. Cultures were first taken. The drain exited from the right midabdomen. This was sutured to the skin using a 3-0 nylon stitch. The subcutaneous tissues were closed using inverted 3-0 Vicryl sutures and the skin was closed using a running 4-0 nylon suture. Sterile dressings were applied. DISPOSITION: Stable to recovery room
[2023-03-02 14:32] VITALS: TEMP 97.6
[2023-03-02] MEDS ORDERED: HYDROmorphone 0.5 MG/0.5 ML SYRINGE IVP ONE (14:50)
[2023-03-02 16:15] VITALS: BP 143/89; PULSE 75; RESP 18
== END 2023-03-02 15:57 | disposition home or self-care (01) ==
LOC: OR 10:18
PROVIDERS: ATTEND Surgery
DX: S30.1XXA Contusion of abdominal wall, initial encounter (principal); I10 Essential (primary) hypertension; N18.9 Chronic kidney disease, unspecified; Z88.8 Allergy status to other drugs, medicaments and biological substances; Z87.891 Personal history of nicotine dependence; Z79.899 Other long term (current) drug therapy
CPT/HCPCS: 10140; 80053; 87070; 87205; 87075; J2250; J2405; J0690; J3490; J2704; J1170; J1644; J0665

== ENCOUNTER 2023-04-11 01:02 | Inpatient (IN) | payer MEDICARE, OTHER ==
[2023-04-11] MEDS ORDERED: NITROGLYCERIN OINT 1 INCH/GM PACKET TOPICAL STA (01:11)
[2023-04-11] MEDS ORDERED: NITROGLYCERIN SL TABS 0.4 MG TAB SUBLINGUAL STA (01:11)
[2023-04-11] MEDS ORDERED: hydrALAZINE HCL 20 MG/ML 1 ML VIAL IVP STA (01:12)
[2023-04-11] MEDS ORDERED: LORazepam 2 MG/ML INJ IV STA ×2 (02:22→03:10)
[2023-04-11] MEDS ORDERED: NITROGLYCERIN-D5W PMX 50 MG in DEXTROSE/WATER 1 250ML.BAG IV ONE (02:23)
[2023-04-11 02:24] LABS: Anisocytosis Slight; Basophils # (A) 0.1 k/uL (0-0.2); Basophils % (A) 1 %; Eosinophils # (A) 0.1 k/uL (0-0.7); Eosinophils % (A) 2 %; HCT 38.9 % (39.0-53.0); Hypochromasia Moderate; Lymphocytes # (A) 0.4 k/uL (1.0-4.8); Lymphocytes % (A) 6 %; MCH 27.1 pg (25.0-35.0); MCHC 30.9 g/dL (31.0-37.0); MCV 87.9 fL (80.0-100.0); Mean Platelet Volume 9.1; Monocytes # (A) 0.4 k/uL (0-1.0); Monocytes % (A) 5 %; Neutrophils # (A) 5.7 k/uL (1.3-7.7); Neutrophils % (A) 84 %; Platelet Count 150 k/uL (150-450); RBC 4.43 m/uL (4.30-5.90); RDW 16.6 % (11.5-15.5); WBC 6.8 k/uL (3.8-10.6)
[2023-04-11 02:32] LABS: ALT 21 U/L (4-49); AST 88 U/L (17-59); African American GFR (CKD) 8 (>60 ml/min/1.73 sqM); Albumin 4.8 g/dL (3.5-5.0); Alkaline Phosphatase 37 U/L (38-126); Anion Gap 20 mmol/L; Blood Urea Nitrogen 31 mg/dL (9-20); Calcium 9.1 mg/dL (8.4-10.2); Carbon Dioxide 24 mmol/L (22-30); Chloride 96 mmol/L (98-107); Glucose 90 mg/dL (74-99); Non-African American GFR(CKD) 7 (>60 ml/min/1.73 sqM); Sodium 140 mmol/L (137-145); Total Protein 8.7 g/dL (6.3-8.2)
[2023-04-11 02:33] LABS: Potassium 5.4 mmol/L (3.5-5.1)
[2023-04-11 02:41] LABS: NT-Pro-B-Type Natriuretic Pept 14500 pg/mL
[2023-04-11] MEDS ORDERED: IPRATROPIUM-ALBUTEROL 3 ML NEB INHALATION STA ×2 (02:43→03:46)
[2023-04-11] MEDS ORDERED: ALBUTEROL NEBULIZED 2.5 MG/3 ML INHALATION STA ×2 (02:43→03:47)
[2023-04-11] MEDS ORDERED: ETOMIDATE 2 MG/ML 10 ML VIAL IVP STA (03:06)
[2023-04-11] MEDS ORDERED: MORPHINE SULFATE 4 MG/ML SYRINGE IVP STA (03:11)
[2023-04-11] MEDS ORDERED: MIDAZOLAM 1 MG/ML 5 ML VIAL IV STA (03:15)
--- NOTE | 2023-04-11 03:15 | XR ---
EXAM: XR Chest, 2 Views CLINICAL HISTORY: ITS.REASON XR Reason: dyspnea TECHNIQUE: Frontal and lateral views of the chest. COMPARISON: No relevant prior studies available. FINDINGS: Lungs: No consolidation or mass. Pleural space: No effusion. Heart: Severe cardiomegaly. Bones/joints: No acute findings. Levoscoliosis IMPRESSION: No acute cardiopulmonary process.
[2023-04-11 04:07] LABS: ABG HCO3 27 mmol/L (21-25); ABG PCO2 55 mmHg (35-45); ABG PO2 362 mmHg (83-108); Allen Test Performed? Yes
[2023-04-11 04:08] LABS: ABG Base Excess 0.8 mmol/L; ABG TCO2 29 mmol/L (19-24)
[2023-04-11] MEDS ORDERED: ACETAMINOPHEN SUPPOSITORY 650 MG SUPP RECTAL STA (04:36)
[2023-04-11] MEDS ORDERED: LORazepam Vial 25 MG in DEXTROSE 5% IN WATER 244 ML IV SCH ×2 (04:45)
[2023-04-11 05:47] LABS: Glucose,Whole Blood 78 mg/dL (70-110)
[2023-04-11] MEDS ORDERED: OSELTAMIVIR 60 MG/10 ML ORAL SYRINGE OG-TUBE SCH (06:00)
[2023-04-11] MEDS: fentaNYL (PF). 1,000 MCG in SODIUM CHLORIDE 0.9% 80 ML IV SCH ×2 (06:00→17:51)
[2023-04-11] MEDS: SODIUM CHLORIDE 0.9% 1,000 ML IV SCH (06:01)
--- NOTE | 2023-04-11 06:20 | ED ---
SOB HPI - General Chief Complaint: Shortness of Breath Stated Complaint: KATHI Time Seen by Provider: 04/11/23 01:10 Source: patient, EMS Mode of arrival: EMS Limitations: no limitations - History of Present Illness Initial Comments: 's patient is a 42-year-old man brought by ambulance to evaluation of worsening shortness of breath. EMS reported the patient has asthma exacerbation. The patient states that he did have history of asthma as a child but he had not had any episodes of asthma since graduating high school. The patient does admit to history of dialysis. He states he has been dialyzing Sunday and Sunday and that his last appointment was on Sunday and was normal. He states the shortness of breath is been getting worse since after the game last night. It became much worse tonight. The patient was feeling sweaty at home. He has not noted fevers or chills. No chest pain. He has had mild list of cough with no sputum. He has not noted a change in urination he does continue to urinate. No change in bowel movements. No leg pain or swelling. MD Complaint: shortness of breath Onset/Timin -: hour(s) Severity scale (1-10): 0 Consistency: constant Improves With: oxygen Worsens With: nothing Known History Of: other (Kidney failure, on dialysis) Associated Symptoms: denies other symptoms Treatments Prior to Arrival: oxygen - Related Data Home Oxygen Therapy: No Home Medications Medication Instructions Recorded Confirmed Calcium Acetate [PhosLo] 667 mg PO BID PRN 02/27/23 04/11/23 Folic Acid 1 mg PO DAILY 02/27/23 04/11/23 Folic Acid/Vit B Complex and C 0.8 mg PO DAILY 02/27/23 04/11/23 [Minda-Jeremiah Tablet] Lidocaine-Prilocaine Cream [Emla 1 applic TOPICAL DAILY PRN 02/27/23 04/11/23 Cream 2.5%/2.5%] cloNIDine HCL [Catapres] 0.1 mg PO BID 02/27/23 04/11/23 hydrALAZINE HCL [Apresoline] 100 mg PO TID 02/27/23 04/11/23 levOCARNitine 330 mg PO BID PRN 02/27/23 04/11/23 Losartan [Cozaar] 50 mg PO DAILY 03/01/23 04/11/23 Previous Rx's Medication Instructions Recorded Aspirin 81 mg PO DAILY tab 04/17/23 Benzonatate [Tessalon Perles] 100 mg PO TID PRN #30 cap 04/17/23 Furosemide [Lasix] 60 mg PO BID #60 tab 04/17/23 LORazepam [Ativan] 0.5 mg PO BID PRN #6 tab 04/17/23 Losartan [Cozaar] 100 mg PO DAILY #60 tab 04/17/23 PARoxetine [Paxil] 10 mg PO DAILY #30 tab 04/17/23 carvediloL [Coreg*] 12.5 mg PO AC-BID #60 tab 04/17/23 Allergies Allergy/AdvReac Type Severity Reaction Status Date / Time amlodipine Allergy Rash/Hives/ Verified 04/11/23 08:26 Itchy Review of Systems ROS Statement: Those systems with pertinent positive or pertinent negative responses have been documented in the HPI. ROS Other: All systems not noted in ROS Statement are negative. Constitutional: Denies: chills, weakness Respiratory: Reports: dyspnea. Denies: cough, wheezes, hemoptysis Cardiovascular: Reports: orthopnea. Denies: chest pain, palpitations, edema, syncope Gastrointestinal: Denies: abdominal pain, nausea, vomiting, diarrhea Genitourinary: Denies: dysuria, hematuria Musculoskeletal: Denies: back pain Skin: Denies: rash Neurological: Denies: headache, weakness, numbness Psychiatric: Reports: anxiety Past Medical History Past Medical History: Dialysis, Hypertension, Renal Disease Additional Past Medical History / Comment(s): Hematoma around "belly button area", pt wanting to transition to peritoneal dialysis from hemodialysis,ESRD with hemodialysis M/W/F for 4Hrs, mineral bone disease History of Any Multi-Drug Resistant Organisms: None Reported Past Surgical History: No Surgical Hx Reported Additional Past Surgical History / Comment(s): R upper arm AV fistula,Peritoneal dialysis catheter insertion on 02-20-23 Past Anesthesia/Blood Transfusion Reactions: No Reported Reaction Past Psychological History: No Psychological Hx Reported Smoking Status: Current every day smoker Past Alcohol Use History: None Reported, Occasional Past Drug Use History: Marijuana - Past Family History Father Additional Family Medical History / Comment(s): Father in a MVA. Mother Family Medical History: Cancer Additional Family Medical History / Comment(s): Mother from breast cancer. General Exam Limitations: no limitations General appearance: alert, anxious, in distress Head exam: Present: atraumatic, normocephalic Eye exam: Present: normal appearance. Absent: scleral icterus, conjunctival injection Neck exam: Present: normal inspection Respiratory exam: Present: respiratory distress, wheezes. Absent: rales, rhonchi, stridor, accessory muscle use, decreased breath sounds Cardiovascular Exam: Present: regular rate, normal rhythm, gallop. Absent: systolic murmur, diastolic murmur GI/Abdominal exam: Present: soft. Absent: distended, tenderness, guarding, rebound, rigid, mass Extremities exam: Present: normal inspection, normal capillary refill, other (Right arm dialysis graft with thrill). Absent: pedal edema, calf tenderness Back exam: Present: normal inspection. Absent: CVA tenderness (R), CVA tenderness (L) Neurological exam: Present: alert Skin exam: Present: warm, dry, intact, normal color. Absent: rash Course Vital Signs 04/11/23 04/11/23 04/11/23 01:02 02:23 02:32 Temperature 100.4 F H Pulse Rate 89 103 H Respiratory 22 30 H Rate Blood Pressure 184/124 242/160 O2 Sat by Pulse 88 L 93 L Oximetry Fraction of 100 Inspired Oxygen (FIO2) 04/11/23 04/11/23 04/11/23 02:45 02:51 03:06 Temperature Pulse Rate 108 H 105 H Respiratory 30 H Rate Blood Pressure 170/90 O2 Sat by Pulse 95 Oximetry Fraction of 100 Inspired Oxygen (FIO2) 04/11/23 04/11/23 04/11/23 03:49 03:52 04:09 Temperature Pulse Rate 105 H 105 H Respiratory 22 Rate Blood Pressure 165/88 O2 Sat by Pulse 100 Oximetry Fraction of 50 Inspired Oxygen (FIO2) 04/11/23 04/11/23 04:26 05:19 Temperature 102.9 F H Pulse Rate 89 88 Respiratory 22 22 Rate Blood Pressure 105/64 134/68 O2 Sat by Pulse 95 95 Oximetry Fraction of Inspired Oxygen (FIO2) Procedures - Intubation Sedative: Etomidate Paralytic: Succinylcholine Laryngoscope: Cristela Size: 3 ET Tube Size: 8 ET Tube Uncuffed: No Tube Secured Depth (cm): 22 Tube Secured Location: lips Tube Placement Confirmation: visualized tube passing through cords, equal breath sounds bilaterally, no breath sounds over epigastrium, confirmation by capnometry Patient Tolerated Procedure: no complications Intubation Complications: none Medical Decision Making - Medical Decision Making Patient is a 42-year-old man with history of end-stage renal disease on hemodialysis, presenting with worsening respiratory status. The patient does have marked hypertension and has a gallop. His initial x-ray not overtly manifesting heart failure though there is cardiomegaly, by my interpretation. Glycerin is ordered but when the patient was in x-ray he became acutely more dyspneic. We did start nitroglycerin drip, morphine ordered, Ativan ordered, but patient continued to become more dyspneic and anxious. After discussion of risks and benefits, patient states she is feeling tired and intubation recommended. Patient is moved to the resuscitation room where he was intubated without complication, see the note. The patient then began to have a rapid response to nitroglycerin and sedative medication and his blood pressure began to improve. Case discussed with Dr. Roberta rosenberg and intensive care consult placed. A she will also have consultation to nephrology and cardiology. Chest x-ray is obtained post intubation and does show ET tube placement, no pneumothorax. gastric tube present. My interpretation Was pt. sent in by a medical professional or institution (, PA, TRIM CREW SUPERVISOR, urgent care, hospital, or jail...) When possible be specific @ -[No] Did you speak to anyone other than the patient for history (EMS, parent, family, police, friend...)? What history was obtained from this source @ -[No] Did you review nursing and triage notes (agree or disagree)? Why? @ -[I reviewed and agree with nursing and triage notes] Were old charts reviewed (outside hosp., previous admission, EMS record, old EKG, old radiological studies, urgent care reports/EKG's, jail records)? Report findings @ -[yes, old charts were reviewed] Differential Diagnosis (chest pain, altered mental status, abdominal pain women, abdominal pain men, vaginal bleeding, weakness, fever, dyspnea, syncope, headache, dizziness, GI bleed, back pain, seizure, CVA, palpatations, mental health, musculoskeletal)? @ -[Differential Dyspnea: Coronary syndrome, arrhythmia, tamponade, asthma, COPD, pulmonary embolism, pneumonia, pneumothorax, pulmonary effusion, anaphylaxis, diabetic ketoacidosis, flailed chest, pulmonary contusion, diaphragmatic rupture, anemia, neuromuscular, this is not meant to be an all-inclusive list. EKG interpreted by me (3pts min.). @ -[I interpreted As above] X-rays interpreted by me (1pt min.). @ -[I interpreted as above CT interpreted by me (1pt min.). @ -[None done] U/S interpreted by me (1pt. min.). @ -[None done] What testing was considered but not performed or refused? (CT, X-rays, U/S, labs)? Why? @ -[None] What meds were considered but not given or refused? Why? @ -[None] Did you discuss the management of the patient with other professionals (professionals i.e. , PA, TRIM CREW SUPERVISOR, lab, RT, psych nurse, psychosocial rehabilitation counselor, sales support administrator, teacher, air crew officer, bottle caser)? Give summary @ -[The case is discussed with the admitting physician and also with the pulmonology and nephrology consultants and treatment recommendations are incorporated. Was smoking cessation discussed for >3mins.? @ -[No] Was critical care preformed (if so, how long)? @ -[Yes, 45 minutes Were there social determinants of health that impacted care today? How? (Homelessness, low income, unemployed, alcoholism, drug addiction, transporta tion, low edu. Level, literacy, decrease access to med. care, [place] [facility], rehab)? @ -[No] Was there de-escalation of care discussed even if they declined (Discuss DNR or withdrawal of care, Hospice)? DNR status @ -[No] What co-morbidities impacted this encounter? (DM, HTN, Smoking, COPD, CAD, Cancer, CVA, ARF, Chemo, Hep., AIDS, mental health diagnosis, sleep apnea, morbid obesity)? @ -[None] Was patient admitted / discharged? Hospital course, mention meds given and route, prescriptions, significant lab abnormalities, going to OR and other pertinent info. @ -[Patient admitted, see the note above. Undiagnosed new problem with uncertain prognosis? @ -[No] Drug Therapy requiring intensive monitoring for toxicity (Heparin, Nitro, Insulin, Cardizem)? @ -[No] Were any procedures done? @ -[Endotracheal intubation performed by myself, see the note Diagnosis/symptom? @ -[Dyspnea. Hypoxic respiratory failure Hypertensive urgency End-stage kidney disease with fluid overload. Influenza A Possible developing withdrawal syndrome Acute, or Chronic, or Acute on Chronic? @ -[Acute dyspnea Acute on chronic hypertension and kidney condition Uncomplicated (without systemic symptoms) or Complicated (systemic symptoms)? @ -[Complicated by severe dyspnea Side effects of treatment? @ -[No] Exacerbation, Progression, or Severe Exacerbation? @ -[No] Poses a threat to life or bodily function? How? (Chest pain, USA, DC, pneumonia, PE, COPD, DKA, ARF, appy, cholecystitis, CVA, Diverticulitis, Homicidal, Suicidal, threat to staff... and all critical care pts) @ -[Yes respiratory failure represents significant risk of morbidity and m ortality. - Lab Data Result diagrams: 04/16/23 14:07 04/17/23 05:52 Lab Results 04/11/23 04/11/23 04/11/23 Range/Units 01:25 01:57 01:57 WBC 6.8 (3.8-10.6) k/uL RBC 4.43 (4.30-5.90) m/uL Hgb 12.0 L (13.0-17.5) gm/dL Hct 38.9 L (39.0-53.0) % MCV 87.9 (80.0-100.0) fL MCH 27.1 (25.0-35.0) pg MCHC 30.9 L (31.0-37.0) g/dL RDW 16.6 H (11.5-15.5) % Plt Count 150 (150-450) k/uL MPV 9.1 Neutrophils % 84 % Lymphocytes % 6 % Monocytes % 5 % Eosinophils % 2 % Basophils % 1 % Neutrophils # 5.7 (1.3-7.7) k/uL Lymphocytes # 0.4 L (1.0-4.8) k/uL Monocytes # 0.4 (0-1.0) k/uL Eosinophils # 0.1 (0-0.7) k/uL Basophils # 0.1 (0-0.2) k/uL Hypochromasia Moderate Anisocytosis Slight Sample Site ABG pH (7.35-7.45) ABG pCO2 (35-45) mmHg ABG pO2 (83-108) mmHg ABG HCO3 (21-25) mmol/L ABG Total CO2 (19-24) mmol/L ABG O2 Saturation (94-97) % ABG Base Excess mmol/L Kristian Test FiO2 % Sodium 140 (137-145) mmol/L Potassium 5.4 H (3.5-5.1) mmol/L Chloride 96 L (98-107) mmol/L Carbon Dioxide 24 (22-30) mmol/L Anion Gap 20 mmol/L BUN 31 H (9-20) mg/dL Creatinine 8.79 H* (0.66-1.25) mg/dL Est GFR (CKD-EPI)AfAm 8 (>60 ml/min/1.73 sqM) Est GFR (CKD-EPI)NonAf 7 (>60 ml/min/1.73 sqM) Glucose 90 (74-99) mg/dL Calcium 9.1 (8.4-10.2) mg/dL Total Bilirubin 1.0 (0.2-1.3) mg/dL AST 88 H (17-59) U/L ALT 21 (4-49) U/L Alkaline Phosphatase 37 L (38-126) U/L Troponin I (0.000-0.034) ng/mL NT-Pro-B Natriuret Pep 74381 pg/mL Total Protein 8.7 H (6.3-8.2) g/dL Albumin 4.8 (3.5-5.0) g/dL Influenza Type A (PCR) Detected A (Not Detectd) Influenza Type B (PCR) Not Detected (Not Detectd) RSV (PCR) Not Detected (Not Detectd) SARS-CoV-2 (PCR) Not Detected (Not Detectd) 04/11/23 04/11/23 Range/Units 01:57 03:57 WBC (3.8-10.6) k/uL RBC (4.30-5.90) m/uL Hgb (13.0-17.5) gm/dL Hct (39.0-53.0) % MCV (80.0-100.0) fL MCH (25.0-35.0) pg MCHC (31.0-37.0) g/dL RDW (11.5-15.5) % Plt Count (150-450) k/uL MPV Neutrophils % % Lymphocytes % % Monocytes % % Eosinophils % % Basophils % % Neutrophils # (1.3-7.7) k/uL Lymphocytes # (1.0-4.8) k/uL Monocytes # (0-1.0) k/uL Eosinophils # (0-0.7) k/uL Basophils # (0-0.2) k/uL Hypochromasia Anisocytosis Sample Site lrad ABG pH 7.30 L (7.35-7.45) ABG pCO2 55 H (35-45) mmHg ABG pO2 362 H (83-108) mmHg ABG HCO3 27 H (21-25) mmol/L ABG Total CO2 29 H (19-24) mmol/L ABG O2 Saturation 100.0 H (94-97) % ABG Base Excess 0.8 mmol/L Kristian Test Yes FiO2 100 % Sodium (137-145) mmol/L Potassium (3.5-5.1) mmol/L Chloride (98-107) mmol/L Carbon Dioxide (22-30) mmol/L Anion Gap mmol/L BUN (9-20) mg/dL Creatinine (0.66-1.25) mg/dL Est GFR (CKD-EPI)AfAm (>60 ml/min/1.73 sqM) Est GFR (CKD-EPI)NonAf (>60 ml/min/1.73 sqM) Glucose (74-99) mg/dL Calcium (8.4-10.2) mg/dL Total Bilirubin (0.2-1.3) mg/dL AST (17-59) U/L ALT (4-49) U/L Alkaline Phosphatase (38-126) U/L Troponin I 0.079 H* (0.000-0.034) ng/mL NT-Pro-B Natriuret Pep pg/mL Total Protein (6.3-8.2) g/dL Albumin (3.5-5.0) g/dL Influenza Type A (PCR) (Not Detectd) Influenza Type B (PCR) (Not Detectd) RSV (PCR) (Not Detectd) SARS-CoV-2 (PCR) (Not Detectd) - EKG Data -: EKG Interpreted by Me EKG shows normal: sinus rhythm, axis (Normal), intervals, QRS complexes Rate: normal (Rate 88 bpm) Interpretation: nonspecific ST-T wave changes Critical Care Time Critical Care Time: Yes (45 minutes) Disposition Clinical Impression: Elevated troponin, Hypertensive urgency, End stage renal disease, Influenza A Disposition: ADMITTED IP TO THIS HOSP Condition: Critical
--- NOTE | 2023-04-11 06:30 | XR ---
EXAM: XR Chest, 1 View CLINICAL HISTORY: tube placement TECHNIQUE: Frontal view of the chest. COMPARISON: April 11, 2023 FINDINGS: Lungs: Unremarkable. No acute infiltration, atelectasis or mass. Pleural space: Unremarkable. No pneumothorax or pleural fluid. Heart: Heart appears enlarged. Mediastinum: Unremarkable. Normal mediastinal contour. Bones/joints: No acute findings. Tubes, lines and devices: Interval placement of an endotracheal tube with the tip measuring 4.3 cm above the per on the image. Gastric tube placed into stomach. IMPRESSION: 1. Interval placement of an endotracheal tube with the tip measuring 4.3 cm above the per on the image. 2. Gastric tube placed into stomach.
[2023-04-11] MEDS ORDERED: NALOXONE 0.4 MG/ML 1 ML VIAL IV PRN (06:42)
--- NOTE | 2023-04-11 06:42 | P.CNPUL ---
History of Present Illness Consult date: 04/11/23 Requesting physician: Richard De La Rosa Reason for consult: other Chief complaint: Acute hypoxemic and hypercapnic respiratory failure requiring intubation History of present illness: I am seeing this patient in new consultation today 04/11/2023 in the emergency room trauma [place] 1 after presenting with acute shortness of breath eventually requiring intubation by the ER physician and admission to the intensive care unit.. Patient is a 42-year-old male -[place] male with past medical history significant for end-stage renal disease and hemodialysis ([facility] schedule), hypertension, obesity, alcoholism. Patient is currently intubated on mechanical ventilator. History obtained mostly from chart review. We're unable to get a hold of the patient's family at this time. Apparently, the patient presented to the emergency room early this morning and was in respiratory distress. Attempt was made to put the patient on BiPAP, however, he did not tolerate this. He was eventually intubated by the ER physician. He was also severely hypertensive on arrival, and started on a nitroglycerin infusion. Patient reportedly has not missed any sessions of hemodialysis. Normally maintained on Sunday schedule. Currently, the patient is intubated on mechanical ventilator. He is sedated on propofol which is infusing at 50 mcg/kg/m. He is occasionally synchronous with the ventilator. He does not follow any commands. Postintubation chest x-ray shows the endotracheal tube approximately 3 cm above the per. There is an orogastric tube coursing below the diaphragm, could be advanced 5-10 cm. There is cardiomegaly and vascular congestion. No significant focal infiltrates. Postintubation ABG shows pO2 of 362, pCO2 of 55, pH of 7.3. Appropriate ventilator changes were made. Current settings are assist control, respiratory rate 26, total in 500, FiO2 of 50%, PEEP of 5. Peak airway pressures are 32 and static airway pressure is 25. No significant secretions. Patient did test positive for influenza A on arrival. CBC on admission: WBC count of 6.8, hemoglobin 12, hematocrit 38.9, platelets 150. BMP on admission: Sodium 140, potassium 5.4, chloride 96, serum bicarb 24, BUN 31, creatinine 8.79, glucose 90. Troponin elevated at 0.079. NT proBNP 14,500. He does have right upper arm fistula with positive thrill and bruit. He does have an indwelling urinary catheter with minimal amount of urine. Patient also has what appears to be a peritoneal dialysis catheter. Abdomen is soft and nondistended. Patient is afebrile with a T-max of 103F. Blood pressure is still fairly hypertensive, currently nitroglycerin is infusing at 25 mcg/m. Prognosis is guarded. He will be monitored in the intensive care unit once bed available. Review of Systems ROS unobtainable: due to endotracheal tube Past Medical History Past Medical History: Dialysis, Hypertension, Renal Disease Additional Past Medical History / Comment(s): Hematoma around "belly button are a", pt wanting to transition to peritoneal dialysis from hemodialysis,ESRD with hemodialysis M/W/F for 4Hrs, mineral bone disease History of Any Multi-Drug Resistant Organisms: None Reported Past Surgical History: No Surgical Hx Reported Additional Past Surgical History / Comment(s): R upper arm AV fistula,Peritoneal dialysis catheter insertion on 02-20-23 Past Anesthesia/Blood Transfusion Reactions: No Reported Reaction Past Psychological History: No Psychological Hx Reported Smoking Status: Current every day smoker Past Alcohol Use History: None Reported, Occasional Past Drug Use History: Marijuana - Past Family History Father Additional Family Medical History / Comment(s): Father in a MVA. Mother Family Medical History: Cancer Additional Family Medical History / Comment(s): Mother from breast cancer. Medications and Allergies Home Medications Medication Instructions Recorded Confirmed Type Calcium Acetate [Phoslo] 667 mg PO BID PRN 02/27/23 03/01/23 History Folic Acid/Vit B Complex and C 0.8 mg PO DAILY 02/27/23 03/01/23 History [Minda-Jeremiah Tablet] Lidocaine-Prilocaine Cream [Emla 1 applic TOPICAL DAILY PRN 02/27/23 03/01/23 History Cream 2.5%/2.5%] RX: Folic Acid 1 mg PO DAILY 02/27/23 03/01/23 History RX: carvediloL [Coreg] 6.25 mg PO BID 02/27/23 03/01/23 History RX: cloNIDine HCL [Catapres] 0.1 mg PO BID 02/27/23 03/01/23 History RX: levOCARNitine 330 mg PO BID PRN 02/27/23 03/01/23 History hydrALAZINE HCL [Apresoline] 100 mg PO TID 02/27/23 03/01/23 History RX: Losartan [Cozaar] 50 mg PO QAM 03/01/23 03/01/23 History HYDROcodone/APAP 5-325MG [[place] 1 tab PO Q6HR PRN 3 Days #10 tab 03/02/23 Rx 5-325] Allergies Allergy/AdvReac Type Severity Reaction Status Date / Time amlodipine Allergy Rash/Hives/ Verified 03/01/23 11:39 Itchy Physical Exam Vitals: Vital Signs Temp Pulse Resp BP Pulse Ox FiO2 04/11/23 05:19 88 22 134/68 95 04/11/23 04:26 102.9 F H 89 22 105/64 95 04/11/23 04:09 50 04/11/23 03:52 105 H 04/11/23 03:49 105 H 22 165/88 100 04/11/23 03:17 100 04/11/23 03:06 100 04/11/23 02:51 105 H 30 H 170/90 95 04/11/23 02:45 108 H 04/11/23 02:32 100 04/11/23 02:23 103 H 30 H 242/160 93 L 04/11/23 01:02 100.4 F H 89 22 184/124 88 L Intake and Output 04/10/23 04/10/23 04/11/23 14:59 22:59 06:59 Intake Total 78.125 Balance 78.125 Intake: Intake, IV Titration 78.125 Amount Nitroglycerin-D5w Pmx 50 31.750 mg In Dextrose/Water 1 250ml.bag @ 20 MCG/MIN 6 mls/hr IV .Q24H [facility] Rx#: [id number] propofoL 1,000 mg In 46.375 Empty Bag 1 bag @ 15 MCG/ KG/MIN 11.79 mls/hr IV . Q8H29M [facility] Rx#:[id number] Other: Weight 131 kg GENERAL EXAM: Sedated 42-year-old morbidly obese -[place] male, occasionally asynchronous with mechanical ventilator, currently not following any commands HEAD: Normocephalic and atraumatic EYES: Normal reaction of pupils, equal size. NOSE: Clear with pink turbinates. THROAT: No erythema or exudates. NECK: No masses, no JVD. CHEST: No chest wall deformity. LUNGS: Equal air entry with no crackles, wheeze, rhonchi or dullness. Intubated to the mechanical ventilator. CVS: S1 and S2 normal with no audible murmur, regular rhythm. No extra heart sounds ABDOMEN: Obese abdomen, no hepatosplenomegaly, active bowel sounds, no guarding or rigidity. Peritoneal dialysis catheter noted SPINE: No scoliosis or deformity SKIN: No rashes CENTRAL NERVOUS SYSTEM: Sedated on propofol. Not following any commands. No focal deficits, tone is flaccid in all 4 extremities.. EXTREMITIES: There is no peripheral edema, clubbing, or cyanosis. Peripheral pulses are intact. Right upper arm fistula/graft with positive thrill and bruit Results - Laboratory Findings CBC and BMP: 04/11/23 01:57 04/11/23 01:57 ABG ABG pH 7.30 (7.35-7.45) L 04/11/23 03:57 ABG pCO2 55 mmHg (35-45) H 04/11/23 03:57 ABG pO2 362 mmHg (83-108) H 04/11/23 03:57 ABG O2 Saturation 100.0 % (94-97) H 04/11/23 03:57 Abnormal lab findings: Abnormal Labs 04/11/23 04/11/23 04/11/23 01:25 01:57 01:57 Hgb 12.0 L Hct 38.9 L MCHC 30.9 L RDW 16.6 H Lymphocytes # 0.4 L ABG pH ABG pCO2 ABG pO2 ABG HCO3 ABG Total CO2 ABG O2 Saturation Potassium 5.4 H Chloride 96 L BUN 31 H Creatinine 8.79 H* AST 88 H Alkaline Phosphatase 37 L Troponin I Total Protein 8.7 H Influenza Type A (PCR) Detected A 04/11/23 04/11/23 01:57 03:57 Hgb Hct MCHC RDW Lymphocytes # ABG pH 7.30 L ABG pCO2 55 H ABG pO2 362 H ABG HCO3 27 H ABG Total CO2 29 H ABG O2 Saturation 100.0 H Potassium Chloride BUN Creatinine AST Alkaline Phosphatase Troponin I 0.079 H* Total Protein Influenza Type A (PCR) - Diagnostic Findings Chest x-ray: image reviewed Assessment and Plan Assessment: Acute hypoxemic respiratory failure requiring intubation to the mechanical ventilator, possibly multifactorial, secondary to acute influenza A infection and fluid overload. Chest x-ray demonstrates cardiomegaly with mild pulmonary vascular congestion. No focal consolidations are evidence of superimposed pneumonia. Acute hypertensive urgency/emergency, requiring nitroglycerin infusion End-stage renal disease, requiring hemodialysis 3 times a week. Patient also has a peritoneal dialysis catheter, unclear whether the patient is transitioning to hemodialysis. Elevated tropoinins, rule out NSTEMI History of alcoholism Morbid obesity, with a BMI 42.6 kg/m Plan: Patient's medications, labs, chest x-ray were reviewed. Continue on the mechanical ventilator with current settings. Add ventilator bundle. Propofol for sedation. May add fentanyl if trouble maintaining ventilator synchrony Start patient on Tamiflu, renal dosing Add emperic antibiotics, check procalcitonin level. Blood and sputum cultures are pending. Continue nitroglycerin infusion for hypertension We have reached out to nephrology, plan is for hemodialysis today Potassium level 5.4, no hyperacute T-waves or ECG changes. Cardiology also consulted Heparin for DVT prophylaxis and Protonix for GI prophylaxis. Overall prognosis is guarded related to above mentioned comorbidities. He will be monitored in the ICU. Time statement: I have personally seen and examined the patient, performed the documentation and the assessment and plan as written. Number of minutes spent on the visit:20 Time with Patient: Greater than 30
--- NOTE | 2023-04-11 06:52 | P.CRDCN ---
History of Present Illness Consult date: 04/11/23 Chief complaint: Shortness of breath History of present illness: The patient is a pleasant 42-year-old -[place] gentleman with a past med ical history significant for end stage renal disease currently the patient on hemodialysis and before that he was on peritoneal dialysis as well as systemic hypertension and obesity and obstructive sleep apnea as well as multiple comorbid conditions was admitted to the hospital with increasing shortness of breath and he was intubated in the emergency department. We are asked to see the patient as a bedside consult here in the intensive. Currently the patient is intubated and he is on mechanical ventilation. The history was taken from the chart as well as from the nurse taking care of the patient as well as from the family at bedside. Apparently the patient was experiencing increasing ashley rtness of breath for the last 24 hours with no associated chest pain or chest discomfort associated dizziness and lightheadedness or any feeling of heart racing or fluttering or any presyncope or syncope his pressure was extremely elevated when he presented to the emergency department and he was educated and asked to be intubated at that point. Currently he is on Nitrol drip with improvement in the blood pressure. He underwent further workup including troponin came in to be mildly elevated. EKG is in process to be done. The chest x-ray did not show any acute abnormalities. Nephrology consult was placed and the patient is in process to be seen. He was seen by our service in 2021 with a chest discomfort and at that point he underwent an echo which revealed normal LV systolic function with severe pulmonary hypertension and moderate tricuspid regurgitation. On examination today he is intubated. The blood pressure is 111/64 with a heart rate of 85 bpm and heart examination reveals r egular rhythm with distant heart sounds and chest examination revealed diminished breathing sounds bilaterally and no lower extremity edema noted the abdomen is soft and nontender Assessment Hypertension emergency Shortness of breath secondary to hypertension emergency End stage renal disease on dialysis History of noncompliance Obstructive sleep apnea Obesity Severe pulmonary hypertension Plan Wean the patient from nitroglycerin Reinitiate his oral blood pressure medications Obtain an echocardiogram was Doppler 2 more sets of serial cardiac enzymes 12 please EKG Further recommendation to follow Past Medical History Past Medical History: Dialysis, Hypertension, Renal Disease Additional Past Medical History / Comment(s): Hematoma around "belly button area", pt wanting to transition to peritoneal dialysis from hemodialysis,ESRD with hemodialysis M/W/F for 4Hrs, mineral bone disease History of Any Multi-Drug Resistant Organisms: None Reported Past Surgical History: No Surgical Hx Reported Additional Past Surgical History / Comment(s): R upper arm AV fistula,Peritoneal dialysis catheter insertion on 02-20-23 Past Anesthesia/Blood Transfusion Reactions: No Reported Reaction Past Psychological History: No Psychological Hx Reported Smoking Status: Current every day smoker Past Alcohol Use History: None Reported, Occasional Past Drug Use History: Marijuana - Past Family History Father Additional Family Medical History / Comment(s): Father in a MVA. Mother Family Medical History: Cancer Additional Family Medical History / Comment(s): Mother from breast cancer. Medications and Allergies Home Medications Medication Instructions Recorded Confirmed Type Calcium Acetate [Phoslo] 667 mg PO BID PRN 02/27/23 03/01/23 History Folic Acid 1 mg PO DAILY 02/27/23 03/01/23 History Folic Acid/Vit B Complex and C 0.8 mg PO DAILY 02/27/23 03/01/23 History [Minda-Jeremiah Tablet] Lidocaine-Prilocaine Cream [Emla 1 applic TOPICAL DAILY PRN 02/27/23 03/01/23 History Cream 2.5%/2.5%] carvediloL [Coreg] 6.25 mg PO BID 02/27/23 03/01/23 History cloNIDine HCL [Catapres] 0.1 mg PO BID 02/27/23 03/01/23 History hydrALAZINE HCL [Apresoline] 100 mg PO TID 02/27/23 03/01/23 History levOCARNitine 330 mg PO BID PRN 02/27/23 03/01/23 History Losartan [Cozaar] 50 mg PO QAM 03/01/23 03/01/23 History HYDROcodone/APAP 5-325MG [[place] 1 tab PO Q6HR PRN 3 Days #10 tab 03/02/23 Rx 5-325] Allergies Allergy/AdvReac Type Severity Reaction Status Date / Time amlodipine Allergy Rash/Hives/ Verified 03/01/23 11:39 Itchy Physical Exam Vitals: Vital Signs Temp Pulse Resp BP Pulse Ox FiO2 04/11/23 06:23 50 04/11/23 06:00 92 26 H 167/87 96 04/11/23 05:50 103 F H 87 26 H 145/68 99 50 04/11/23 05:19 88 22 134/68 95 04/11/23 04:26 102.9 F H 89 22 105/64 95 04/11/23 04:09 50 04/11/23 03:52 105 H 04/11/23 03:49 105 H 22 165/88 100 04/11/23 03:06 100 04/11/23 02:51 105 H 30 H 170/90 95 04/11/23 02:45 108 H 04/11/23 02:32 100 04/11/23 02:23 103 H 30 H 242/160 93 L 04/11/23 01:02 100.4 F H 89 22 184/124 88 L Intake and Output 04/10/23 04/10/23 04/11/23 14:59 22:59 06:59 Intake Total 98.125 Output Total 10 Balance 88.125 Intake: IV 20 Sodium Chloride 0.9% 1, 20 000 ml @ 20 mls/hr IV . Q24H [facility] Rx#:[id number] Intake, IV Titration 78.125 Amount Nitroglycerin-D5w Pmx 50 31.750 mg In Dextrose/Water 1 250ml.bag @ 20 MCG/MIN 6 mls/hr IV .Q24H [facility] Rx#: [id number] propofoL 1,000 mg In 46.375 Empty Bag 1 bag @ 15 MCG/ KG/MIN 11.79 mls/hr IV . Q8H29M [facility] Rx#:[id number] Output: Urine 10 Other: Weight 131 kg Results 04/11/23 01:57 04/11/23 01:57 Cardiac Enzymes 04/11/23 04/11/23 Range/Units 01:57 01:57 AST 88 H (17-59) U/L Troponin I 0.079 H* (0.000-0.034) ng/mL CBC 04/11/23 Range/Units 01:57 WBC 6.8 (3.8-10.6) k/uL RBC 4.43 (4.30-5.90) m/uL Hgb 12.0 L (13.0-17.5) gm/dL Hct 38.9 L (39.0-53.0) % Plt Count 150 (150-450) k/uL Comprehensive Metabolic Panel 04/11/23 Range/Units 01:57 Sodium 140 (137-145) mmol/L Potassium 5.4 H (3.5-5.1) mmol/L Chloride 96 L (98-107) mmol/L Carbon Dioxide 24 (22-30) mmol/L BUN 31 H (9-20) mg/dL Creatinine 8.79 H* (0.66-1.25) mg/dL Glucose 90 (74-99) mg/dL Calcium 9.1 (8.4-10.2) mg/dL AST 88 H (17-59) U/L ALT 21 (4-49) U/L Alkaline Phosphatase 37 L (38-126) U/L Total Protein 8.7 H (6.3-8.2) g/dL Albumin 4.8 (3.5-5.0) g/dL Current Medications Generic Name Dose Route Start Last Admin Trade Name Freq PRN Reason Stop Dose Admin Chlorhexidine Gluconate 15 ml 04/11/23 09:00 Chlorhexidine Gluconate 15 Ml Cup MUCOUS MEM BID [facility] Heparin Sodium (Porcine) 5,000 unit 04/11/23 08:00 Heparin Sodium,Porcine 5,000 Unit/Ml 1 Ml Vial SQ Q8HR [facility] Nitroglycerin/Dextrose 50 mg/ 250 mls @ 6 mls/hr 04/11/23 02:23 04/11/23 04:59 IV Solution IV 04/12/23 02:22 25 mcg/min .Q24H [facility] 7.5 mls/hr Titration Protocol 20 MCG/MIN Propofol 1,000 mg/ IV Solution 100 mls @ 11.79 mls/hr 04/11/23 03:15 04/11/23 04:45 IV 50 mcg/kg/min .Q8H29M [facility] 39.3 mls/hr Administration Protocol 15 MCG/KG/MIN Fentanyl Citrate 1,000 mcg/ 100 mls @ 6.55 mls/hr 04/11/23 03:45 04/11/23 06:00 Sodium Chloride IV 0.5 mcg/kg/hr .[id number] [facility] 6.55 mls/hr Administration Protocol 0.5 MCG/KG/HR Lorazepam 25 mg/ Dextrose/ 250 mls @ 0 mls/hr 04/11/23 04:45 Water IV .Q0M [facility] Protocol Per Protocol Sodium Chloride 1,000 mls @ 20 mls/hr 04/11/23 04:45 04/11/23 06:01 Saline 0.9% IV 20 mls/hr .Q24H [facility] Administration Acetaminophen 1,000 mg/ IV 100 mls @ 400 mls/hr 04/11/23 06:00 Solution IVPB 04/12/23 00:01 Q6HR [facility] Propofol 1,000 mg/ IV Solution 100 mls @ 11.79 mls/hr 04/11/23 06:30 IV .Q8H29M [facility] Protocol 15 MCG/KG/MIN Azithromycin 500 mg/ Sodium 250 mls @ 250 mls/hr 04/11/23 09:00 Chloride IVPB 04/13/23 09:59 DAILY [facility] Protocol Ceftriaxone Sodium 2 gm/ 50 mls @ 100 mls/hr 04/11/23 09:00 Sodium Chloride IVPB Q24HR [facility] Protocol Naloxone HCl 0.2 mg 04/11/23 06:42 Naloxone 0.4 Mg/Ml 1 Ml Vial IV Q2M PRN Opioid Reversal Oseltamivir Phosphate 30 mg 04/11/23 09:00 Oseltamivir 60 Mg/10 Ml Oral Syringe OG-TUBE 04/20/23 09:01 DAILY [facility] Protocol Pantoprazole Sodium 40 mg 04/11/23 09:00 Pantoprazole 40 Mg/10 Ml Vial IV DAILY [facility] Intake and Output 04/10/23 04/10/23 04/11/23 14:59 22:59 06:59 Intake Total 98.125 Output Total 10 Balance 88.125 Intake: IV 20 Sodium Chloride 0.9% 1, 20 000 ml @ 20 mls/hr IV . Q24H [facility] Rx#:[id number] Intake, IV Titration 78.125 Amount Nitroglycerin-D5w Pmx 50 31.750 mg In Dextrose/Water 1 250ml.bag @ 20 MCG/MIN 6 mls/hr IV .Q24H [facility] Rx#: [id number] propofoL 1,000 mg In 46.375 Empty Bag 1 bag @ 15 MCG/ KG/MIN 11.79 mls/hr IV . Q8H29M [facility] Rx#:[id number] Output: Urine 10 Other: Weight 131 kg Patient Weight 04/11/23 06:59 Weight 131 kg 04/11/23 01:57 04/11/23 01:57
[2023-04-11] MEDS: ACETAMINOPHEN IV (For NPO) 1,000 MG in EMPTY BAG 1 BAG IVPB SCH ×3 (07:07→20:12)
[2023-04-11] MEDS ORDERED: HEPARIN SODIUM,PORCINE 5,000 UNIT/ML 1 ML VIAL SQ SCH (08:00)
[2023-04-11] MEDS: IPRATROPIUM-ALBUTEROL 3 ML NEB INHALATION PRN (08:20)
[2023-04-11] MEDS: AZITHROMYCIN 500 MG in SODIUM CHLORIDE 0.9% 250 ML IVPB SCH (08:26)
[2023-04-11] MEDS: OSELTAMIVIR 60 MG/10 ML ORAL SYRINGE OG-TUBE SCH (08:26)
[2023-04-11] MEDS: CHLORHEXIDINE GLUCONATE 15 ML CUP MUCOUS MEM SCH ×2 (08:26→20:12)
[2023-04-11] MEDS: PANTOPRAZOLE 40 MG/10 ML VIAL IV SCH (08:27)
[2023-04-11] MEDS ORDERED: CISATRACURIUM 2 MG/ML 5 ML VIAL IV ONE (09:03)
--- NOTE | 2023-04-11 10:15 | XR ---
EXAMINATION TYPE: XR chest 1V confirm line plcmt DATE OF EXAM: 04/11/2023 COMPARISON: 04/11/2023 HISTORY: 42 year-old male post central line insertion TECHNIQUE: Single frontal view of the chest is obtained. FINDINGS: ET tube tip at the level of the medial clavicular heads. Left CVC tip at the lower SVC. NG tube courses below the diaphragm. Heart normal size. There is focal retrocardiac and left basilar op acity with blunted left costophrenic angle. Mild interstitial prominence is unchanged. No appreciable pneumothorax. IMPRESSION: 1. Left CVC tip at the lower SVC. 2. Small left effusion with adjacent atelectasis and/or consolidation.
--- NOTE | 2023-04-11 10:48 | PCN ---
PROCEDURE NOTE PROCEDURE: Left radial art line. DIRECTOR DESIGN: Dr. Dominguez. FIRST HISTORIC CLOTHING AND COSTUME MAKER: Dr. Diane Jha. PREOPERATIVE DIAGNOSES: Hypotension, administration of fluids, administration of vasopressors, frequent blood draws, and blood gas monitoring. POSTOPERATIVE DIAGNOSES: Hypotension, administration of fluids, administration of vasopressors, frequent blood draws, and blood gas monitoring. ARTERIAL LINE PLACEMENT: Indications: Hemodynamic monitoring. A time-out was completed verifying correct patient, procedure, site, positioning, and implant(s) or special equipment if applicable. Kristian's test was performed to ensure adequate perfusion. The patient's left wrist or left groin was prepped and draped in sterile fashion. 1% Lidocaine was used to anesthetize the area. An 18G Arrow arterial line was introduced into the radial artery. The catheter was threaded over the guide wire and the needle was removed with appropriate pulsatile blood return. Blood loss was minimal. The catheter was then sutured in place to the skin and a sterile dressing applied. Perfusion to the extremity distal to the point of catheter insertion was checked and found to be adequate. The patient tolerated the procedure well. The catheter was sutured in place. There was good blood return and waveform. The patient tolerated the procedure very well. A sterile dressing was applied by the nurse. There was no immediate complication. MMODL / IJN: [id number] /
[2023-04-11 10:55] LABS: Anisocytosis Slight; Basophils % (A) 0 %; Eosinophils % (A) 1 %; HCT 32.7 % (39.0-53.0); HGB 10.4 gm/dL (13.0-17.5); Hypochromasia Slight; Lymphocytes # (A) 0.7 k/uL (1.0-4.8); Lymphocytes % (A) 13 %; MCH 27.4 pg (25.0-35.0); MCHC 31.8 g/dL (31.0-37.0); MCV 86.2 fL (80.0-100.0); Mean Platelet Volume 9.7; Monocytes # (A) 0.4 k/uL (0-1.0); Monocytes % (A) 7 %; Neutrophils # (A) 4.4 k/uL (1.3-7.7); Neutrophils % (A) 77 %; Platelet Count 127 k/uL (150-450); RBC 3.79 m/uL (4.30-5.90); RDW 16.5 % (11.5-15.5); WBC 5.7 k/uL (3.8-10.6)
--- NOTE | 2023-04-11 11:03 | PCN ---
PROCEDURE NOTE PROCEDURE PERFORMED: Left internal jugular triple-lumen catheter. PREOPERATIVE DIAGNOSES: Hypotension, administration of pressors, fluid overload, renal failure. POSTOPERATIVE DIAGNOSES: Hypotension, administration of pressors, fluid overload, renal failure. BLENDER / COOK: Dr. Dominguez. SANDBLASTER PAINT SPRAYER: First web marketing assistant, Dr. Diane Jha. INDICATIONS: Hemodynamic monitoring/Intravenous access. A time-out was completed verifying correct patient, procedure, site, positioning, and implant(s) or special equipment if applicable. DESCRIPTION OF PROCEDURE: The patient was placed in a dependent position appropriate for triple lumen catheter placement based on the vein to be cannulated. The patient's left neck was prepped and draped in sterile fashion. 1% Lidocaine was used to anesthetize the surrounding skin area. A triple lumen 9F Cordis catheter was introduced into the left internal jugular vein using Seldinger technique. The catheter was threaded smoothly over the guide wire and appropriate blood return was obtained. Each lumen of the catheter was evacuated of air and flushed with sterile saline. We went via the posterior approach. Perfusion to the extremity distal to the point of catheter insertion was checked and found to be adequate. There was good blood return from all 3 ports. The catheter was sutured in place. A sterile dressing was applied by the nurse. The tip of the catheter was seen at the junction of the superior vena cava in right atrium. There was no immediate complication. Chest x-ray was ordered. The patient tolerated the procedure well without difficulty. MMODL / IJN: [id number] /
[2023-04-11 11:15] LABS: African American GFR (CKD) 7 (>60 ml/min/1.73 sqM); Alcohol <10 mg/dL; Anion Gap 16 mmol/L; Blood Urea Nitrogen 35 mg/dL (9-20); Calcium 8.4 mg/dL (8.4-10.2); Carbon Dioxide 23 mmol/L (22-30); Chloride 98 mmol/L (98-107); Glucose 87 mg/dL (74-99); Magnesium 1.7 mg/dL (1.6-2.3); Non-African American GFR(CKD) 6 (>60 ml/min/1.73 sqM); Potassium 4.2 mmol/L (3.5-5.1); Sodium 137 mmol/L (137-145)
[2023-04-11] MEDS: LOSARTAN 50 MG TAB PO SCH (11:39)
[2023-04-11] MEDS: carvediloL 6.25 MG TAB PO SCH ×2 (11:39→18:45)
[2023-04-11] MEDS: IPRATROPIUM-ALBUTEROL 3 ML NEB INHALATION SCH ×3 (11:43→19:40)
--- NOTE | 2023-04-11 11:45 | CA ---
Transthoracic Echo Report Name: Jeremy Vides Age: 42 Gender: M : 1980 Exam Date: 04/11/2023 08:45 Exam Location: [place] Echo Ht (in): 69 Wt (lb): 288 Ordering Physician: Kishore Quinones MD ([id number]) Attending/Referring Phys: Financial Engineer Jeff Davis Procedure CPT: Indications: HTN Emergency Cardiac Hx: Technical Quality: Fair Contrast 1: Total Dose (mL): Contrast 2: Total Dose (mL): MEASUREMENTS (Male / Female) Normal Values 2D ECHO LV Diastolic Diameter PLAX 4.6 cm 4.2 - 5.9 / 3.9 - 5.3 cm IVS Diastolic Thickness 1.6 cm 0.6 - 1.0 / 0.6 - 0.9 cm LVPW Diastolic Thickness 1.9 cm 0.6 - 1.0 / 0.6 - 0.9 cm LV Relative Wall Thickness 0.8 RV Internal Dim ED PLAX 3.6 cm LVOT Diameter 2.5 cm Aortic Root Diameter 3.4 cm LA Systolic Diameter LX 2.9 cm 3.0 - 4.0 / 2.7 - 3.8 cm DOPPLER AV Peak Velocity 146.4 cm/s AV Peak Gradient 8.6 mmHg AI Peak Velocity 357.5 cm/s AI Peak Gradient 51.1 mmHg AI Pressure Half Time 793.8 ms MV Peak Velocity 65.7 cm/s MV Peak Gradient 1.7 mmHg MV Mean Velocity 37.3 cm/s MV Mean Gradient 0.7 mmHg MV Velocity Time Integral 20.4 cm Mitral E Point Velocity 75.6 cm/s Mitral A Point Velocity 47.1 cm/s Mitral E to A Ratio 1.6 MV Deceleration Time 234.5 ms TR Peak Velocity 325.8 cm/s TR Peak Gradient 42.5 mmHg Right Ventricular Systolic Press 47.5 mmHg PV Peak Velocity 116.3 cm/s PV Peak Gradient 5.4 mmHg FINDINGS Left Ventricle Normal LV size. Moderate concentric LVH. Right Ventricle Normal right ventricular size. RVSP= 47mmHg. Right Atrium Normal right atrial size. Left Atrium Normal left atrial size. Mitral Valve Structurally normal mitral valve. No mitral stenosis. No mitral regurgitation. Aortic Valve Trileaflet aortic valve. Mild AI. Tricuspid Valve Structurally normal tricuspid valve. Modrate TR. Pulmonic Valve Pulmonic valve not well visualized. No pulmonic regurgitation. Pericardium Not well visualized however grossly normal. Aorta Normal size aortic root CONCLUSIONS Concentric left ventricular hypertrophy with normal LV function Moderate pulmonary hypertension Mild aortic regurgitation Moderate tricuspid regurgitation Previewed by: Dr. Jarrell Lopez MD (Electronically Signed) Final Date: 11 April 2023 11:45
--- NOTE | 2023-04-11 11:59 | P.NPCON ---
History of Present Illness - Reason for Consult end stage renal disease - History of Present Illness Patient is a 42-year-old male with end-stage renal disease on hemodialysis and is being switched to peritoneal dialysis. Patient is admitted to the hospital with complaints of shortness of breath. Patient had severe hypoxic respiratory failure and was eventually intubated. He is noted to have fever of 10 1F. Patient tested positive for influenza A. Blood pressure was significantly elevated with systolic in the 200 range on initial admission. Chest x-ray shows left basilar opacity and focal retrocardiac shadow. Currently seen in the ICU. Patient is on the vent. Review of Systems As per HPI Past Medical History Past Medical History: Dialysis, Hypertension, Renal Disease Additional Past Medical History / Comment(s): Hematoma around "belly button area", pt wanting to transition to peritoneal dialysis from hemodialysis,ESRD with hemodialysis M/W/F for 4Hrs, mineral bone disease History of Any Multi-Drug Resistant Organisms: None Reported Past Surgical History: No Surgical Hx Reported Additional Past Surgical History / Comment(s): R upper arm AV fistula,Peritoneal dialysis catheter insertion on 02-20-23 Past Anesthesia/Blood Transfusion Reactions: No Reported Reaction Past Psychological History: No Psychological Hx Reported Smoking Status: Current every day smoker Past Alcohol Use History: None Reported, Occasional Past Drug Use History: Marijuana - Past Family History Father Additional Family Medical History / Comment(s): Father in a MVA. Mother Family Medical History: Cancer Additional Family Medical History / Comment(s): Mother from breast cancer. Medications and Allergies Home Medications Medication Instructions Recorded Confirmed Type Calcium Acetate [Phoslo] 667 mg PO BID PRN 02/27/23 04/11/23 History Folic Acid 1 mg PO DAILY 02/27/23 04/11/23 History Folic Acid/Vit B Complex and C 0.8 mg PO DAILY 02/27/23 04/11/23 History [Minda-Jeremiah Tablet] Lidocaine-Prilocaine Cream [Emla 1 applic TOPICAL DAILY PRN 02/27/23 04/11/23 History Cream 2.5%/2.5%] carvediloL [Coreg] 6.25 mg PO BID 02/27/23 04/11/23 History cloNIDine HCL [Catapres] 0.1 mg PO BID 02/27/23 04/11/23 History hydrALAZINE HCL [Apresoline] 100 mg PO TID 02/27/23 04/11/23 History levOCARNitine 330 mg PO BID PRN 02/27/23 04/11/23 History Losartan [Cozaar] 50 mg PO DAILY 03/01/23 04/11/23 History HYDROcodone/APAP 5-325MG [[place] 1 tab PO Q6HR PRN 3 Days #10 tab 03/02/23 04/11/23 Rx 5-325] Allergies Allergy/AdvReac Type Severity Reaction Status Date / Time amlodipine Allergy Rash/Hives/ Verified 04/11/23 08:26 Itchy Physical Exam Vitals: Vital Signs Temp Pulse Resp BP Pulse Ox FiO2 04/11/23 11:51 83 04/11/23 11:49 50 04/11/23 11:43 80 04/11/23 10:30 80 26 H 100 04/11/23 10:15 80 26 H 100 04/11/23 10:00 80 26 H 100 04/11/23 09:45 77 26 H 100 04/11/23 09:30 76 26 H 115/64 99 04/11/23 09:15 75 26 H 110/68 100 04/11/23 09:00 78 26 H 116/69 99 04/11/23 08:45 76 26 H 118/70 100 04/11/23 08:30 78 26 H 133/95 95 04/11/23 08:20 81 04/11/23 08:15 80 26 H 105/68 98 04/11/23 08:13 80 04/11/23 08:00 101.5 F H 80 26 H 103/63 97 100 04/11/23 07:57 50 04/11/23 07:45 81 26 H 111/67 98 04/11/23 07:30 81 26 H 110/69 99 04/11/23 07:15 82 26 H 109/68 97 04/11/23 07:00 82 26 H 118/72 97 50 04/11/23 06:45 85 26 H 111/64 96 04/11/23 06:30 87 26 H 119/66 96 04/11/23 06:23 50 04/11/23 06:15 87 26 H 167/87 94 L 04/11/23 06:00 92 26 H 167/87 96 04/11/23 05:50 103 F H 87 26 H 145/68 99 50 04/11/23 05:19 88 22 134/68 95 04/11/23 04:26 102.9 F H 89 22 105/64 95 04/11/23 04:09 50 04/11/23 03:52 105 H 04/11/23 03:49 105 H 22 165/88 100 04/11/23 03:06 100 04/11/23 02:51 105 H 30 H 170/90 95 04/11/23 02:45 108 H 04/11/23 02:32 100 04/11/23 02:23 103 H 30 H 242/160 93 L 04/11/23 01:02 100.4 F H 89 22 184/124 88 L Intake and Output 04/10/23 04/11/23 04/11/23 22:59 06:59 14:59 Intake Total 112.500 347.33 Output Total 10 15 Balance 102.500 332.33 Intake: IV 20 60 Sodium Chloride 0.9% 1, 20 60 000 ml @ 20 mls/hr IV . Q24H [facility] Rx#:[id number] Intake, IV Titration 92.500 287.33 Amount Nitroglycerin-D5w Pmx 50 46.125 mg In Dextrose/Water 1 250ml.bag @ 20 MCG/MIN 6 mls/hr IV .Q24H [facility] Rx#: [id number] cefTRIAXone 2 gm In 100 Sodium Chloride 0.9% 50 ml @ 100 mls/hr IVPB Q24HR [facility] Rx#:[id number] propofoL 1,000 mg In 46.375 187.33 Empty Bag 1 bag @ 15 MCG/ KG/MIN 11.79 mls/hr IV . 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 Results - Lab Results Most recent lab results ABG pH 7.30 (7.35-7.45) L 04/11/23 03:57 ABG pCO2 55 mmHg (35-45) H 04/11/23 03:57 ABG pO2 362 mmHg (83-108) H 04/11/23 03:57 ABG HCO3 27 mmol/L (21-25) H 04/11/23 03:57 ABG O2 Saturation 100.0 % (94-97) H 04/11/23 03:57 Calcium 8.4 mg/dL (8.4-10.2) 04/11/23 10:08 Magnesium 1.7 mg/dL (1.6-2.3) 04/11/23 10:08 04/11/23 10:08 04/11/23 10:08 Assessment and Plan Assessment: 1. End-stage renal disease on hemodialysis and being switched to peritoneal dialysis as outpatient. At this time we will continue to maintain hemodialysis on a Sunday schedule. 2. Acute hypoxic respiratory failure associated with pneumonia and element of volume overload as well 3. Moderate pulmonary hypertension and moderate tricuspid regurgitation noted on echocardiogram 4. CK D mineral bone disorder 5. Influenza A infection Plan: Hemodialysis today with UF off 1-2 L as tolerated. Blood pressure is currently not too high with systolic noted in the 120 range. Continue antibiotics Continue current antihypertensive regimen Continue Tamiflu Thank you for the consultation. We will continue to follow the patient with you during his hospitalization.
[2023-04-11] MEDS ORDERED: DEXTROSE 50% SYRINGE 50 ML IVP ONE (12:51)
[2023-04-11 12:52] LABS: Glucose,Whole Blood 62 mg/dL (70-110)
[2023-04-11 13:18] LABS: Glucose,Whole Blood 141 mg/dL (70-110)
[2023-04-11] MEDS: hydrALAZINE HCL 50 MG TAB PO SCH ×3 (14:20→21:03)
[2023-04-11] MEDS ORDERED: HEPARIN SODIUM 1,000 UN/ML (10ML VL) IV ONE (15:02)
[2023-04-11] MEDS ORDERED: HEPARIN SODIUM 1,000 UN/ML (10ML VL) IV PRN (15:02)
[2023-04-11] MEDS: cloNIDine HCL 0.1 MG TAB PO SCH ×2 (15:41→21:03)
[2023-04-11 15:42] LABS: Hepatitis B Surface Antigen Nonreactive
[2023-04-11 16:00] LABS: Anisocytosis Slight; Basophils % (A) 0 %; Eosinophils % (A) 1 %; HCT 31.1 % (39.0-53.0); Hypochromasia Slight; Lymphocytes # (A) 0.6 k/uL (1.0-4.8); Lymphocytes % (A) 13 %; MCH 27.5 pg (25.0-35.0); MCV 85.9 fL (80.0-100.0); Mean Platelet Volume 10.3; Monocytes # (A) 0.5 k/uL (0-1.0); Monocytes % (A) 11 %; Neutrophils # (A) 3.5 k/uL (1.3-7.7); Neutrophils % (A) 72 %; Platelet Count 113 k/uL (150-450); RBC 3.62 m/uL (4.30-5.90); RDW 16.6 % (11.5-15.5); WBC 4.9 k/uL (3.8-10.6)
[2023-04-11 16:15] LABS: INR 1.1 (<1.2); Partial Thromboplastin Time 28.8 sec (22.0-30.0); Prothrombin Time 11.8 sec (10.0-12.5)
[2023-04-11] MEDS: HEPARIN SOD,PORK IN 0.45% NACL 25,000 UNIT in 0.45% NACL 1 250ML.BAG IV SCH (17:22)
[2023-04-11 18:25] LABS: Glucose,Whole Blood 97 mg/dL (70-110)
[2023-04-11 23:51] LABS: Glucose,Whole Blood 92 mg/dL (70-110)
[2023-04-12] MEDS: IPRATROPIUM-ALBUTEROL 3 ML NEB INHALATION SCH ×4 (00:01→11:40)
[2023-04-12] MEDS: ACETAMINOPHEN IV (For NPO) 1,000 MG in EMPTY BAG 1 BAG IVPB SCH (04:37)
[2023-04-12 04:42] LABS: Anisocytosis Slight; Basophils % (A) 1 %; Eosinophils % (A) 1 %; HCT 30.8 % (39.0-53.0); HGB 9.9 gm/dL (13.0-17.5); Hypochromasia Slight; Lymphocytes % (A) 26 %; MCH 27.5 pg (25.0-35.0); MCHC 32.2 g/dL (31.0-37.0); MCV 85.3 fL (80.0-100.0); Mean Platelet Volume 9.9; Monocytes # (A) 0.3 k/uL (0-1.0); Monocytes % (A) 7 %; Neutrophils # (A) 2.5 k/uL (1.3-7.7); Neutrophils % (A) 62 %; Platelet Count 111 k/uL (150-450); RBC 3.62 m/uL (4.30-5.90); RDW 16.6 % (11.5-15.5)
[2023-04-12 04:51] LABS: Appearance,Urine Clear (Clear); Bacteria,Urine Rare /hpf; Bilirubin,Urine Negative (Negative); Blood,Urine Large (Negative); Color,Urine Light Yellow; Glucose,Urine (UA) Negative (Negative); Ketones,Urine Negative (Negative); Leukocyte Esterase,Urine Trace (Negative); Nitrite,Urine Negative (Negative); Protein,Urine 2+ (Negative); RBC,Urine 8 /hpf (0-5); Specific Gravity,Urine 1.014 (1.001-1.035); Urobilinogen,Urine <2.0 mg/dL (<2.0); WBC,Urine 5 /hpf (0-5)
[2023-04-12 04:56] LABS: African American GFR (CKD) 8 (>60 ml/min/1.73 sqM); Anion Gap 13 mmol/L; Blood Urea Nitrogen 28 mg/dL (9-20); Carbon Dioxide 22 mmol/L (22-30); Chloride 95 mmol/L (98-107); Glucose 84 mg/dL (74-99); Non-African American GFR(CKD) 7 (>60 ml/min/1.73 sqM); Potassium 3.5 mmol/L (3.5-5.1); Sodium 130 mmol/L (137-145)
[2023-04-12] MEDS ORDERED: Potassium Replacement Protocol 1 EACH MISC MISCELLANE PRN (05:10)
[2023-04-12 05:15] LABS: INR 1.1 (<1.2); Partial Thromboplastin Time 51.9 sec (22.0-30.0); Prothrombin Time 11.4 sec (10.0-12.5)
[2023-04-12] MEDS: POTASSIUM CHLORIDE 20 MEQ in WATER FOR INJECTION 1 100ML.BAG IVPB SCH ×2 (05:27→09:39)
[2023-04-12] MEDS ORDERED: MAGNESIUM SULFATE-D5W PMX 1 GM in DEXTROSE/WATER 1 100ML.BAG IVPB ONE (05:57)
[2023-04-12] MEDS ORDERED: Magnesium Replacement Protocol 1 EACH MISC MISCELLANE PRN (05:57)
[2023-04-12 06:01] LABS: ABG Base Excess 1.8 mmol/L; ABG HCO3 25 mmol/L (21-25); ABG Oxygen Saturation 98.7 % (94-97); ABG PCO2 32 mmHg (35-45); ABG PO2 114 mmHg (83-108); ABG TCO2 26 mmol/L (19-24); Allen Test Performed? Yes
[2023-04-12 06:24] LABS: Glucose,Whole Blood 70 mg/dL (70-110)
[2023-04-12] MEDS ORDERED: DEXTROSE 50% SYRINGE 50 ML IVP ONE (06:25)
[2023-04-12] MEDS ORDERED: DEXTROSE 50% SYRINGE 50 ML IVP STA (06:27)
[2023-04-12] MEDS: fentaNYL (PF). 1,000 MCG in SODIUM CHLORIDE 0.9% 80 ML IV SCH (06:56)
--- NOTE | 2023-04-12 07:02 | P.PN ---
Subjective Progress Note Date: 04/12/23 Principal diagnosis: Hypertension emergency The patient is a pleasant 42-year-old -[place] gentleman with a past medical history significant for end stage renal disease currently the patient on hemodialysis and before that he was on peritoneal dialysis as well as systemic hypertension and obesity and obstructive sleep apnea as well as multiple comorbid conditions was admitted to the hospital with increasing shortness of breath and he was intubated in the emergency department. We are asked to see the patient as a bedside consult here in the intensive. Currently the patient is intubated and he is on mechanical ventilation. The history was taken from the chart as well as from the nurse taking care of the patient as well as from the family at bedside. Apparently the patient was experiencing increasing shortness of breath for the last 24 hours with no associated chest pain or chest discomfort associated dizziness and lightheadedness or any feeling of heart r acing or fluttering or any presyncope or syncope his pressure was extremely elevated when he presented to the emergency department and he was educated and asked to be intubated at that point. Currently he is on Nitrol drip with improvement in the blood pressure. He underwent further workup including troponin came in to be mildly elevated. EKG is in process to be done. The chest x-ray did not show any acute abnormalities. Nephrology consult was placed and the patient is in process to be seen. He was seen by our service in 2021 with a chest discomfort and at that point he underwent an echo which revealed normal LV systolic function with severe pulmonary hypertension and moderate tricuspid regurgitation. On examination today he is intubated. The blood pressure is 111/64 with a heart rate of 85 bpm and heart examination reveals regular rhythm with distant heart sounds and chest examination revealed diminished breathing sounds bilaterally and no lower extremity edema noted the abdomen is soft and nontender April [id number] The patient was seen and evaluated this morning. He still intubated on mechanical ventilation. His pressure has improved significantly and currently is not on any Nitrol drip. The troponin came in to be slightly elevated could be related to renal failure and elevated blood pressure he is on heparin I would continue heparin for a total of 48 hours and add aspirin to the current medical regimen. He comes be on a statin because of elevated liver function tests. I would consider adding statin once the liver function test improved. He is on beta court we'll continue that. The echo showed normal LV systolic function was moderate pulmonary hypertension and moderate tricuspid regurgitation. He underwent dialysis yesterday with removal of 1.5 L. The examination is remarkable for an intubated gentleman on mechanical ventilation with stable vi dmitri signs and diminished breathing sounds bilaterally and no edema in the lower extremities Assessment Hypertension emergency Shortness of breath secondary to hypertension emergency End stage renal disease on dialysis History of noncompliance Obstructive sleep apnea Obesity Severe pulmonary hypertension Elevated cardiac enzymes Plan Add aspirin to the current medical regimen Heparin to be continued for additional 24 hours and total of 48 hours The echo was reviewed and described above Consider adding statin once the liver function test improved Follow-up with the patient Objective - Vital Signs Vital signs: Vital Signs Temp 99.5 F 04/12/23 05:00 Pulse 67 04/12/23 05:00 Resp 26 H 04/12/23 05:00 BP 126/81 04/11/23 14:00 Pulse Ox 99 04/12/23 05:00 FiO2 50 04/12/23 05:00 Intake & Output 04/11/23 04/12/23 04/12/23 18:59 06:59 18:59 Intake Total 1980.481 806.135 Output Total 1859 110 Balance 121.481 696.135 Weight 132.7 kg Intake: IV 608 263 0.9 NS 18 33 ACETAMINOPHEN IV (For NPO 100 100 ) 1,000 mg In Empty Bag 1 bag @ 400 mls/hr IVPB Q6HR [facility] Rx#:[id number] Azithromycin 500 mg In 250 Sodium Chloride 0.9% 250 ml @ 250 mls/hr IVPB DAILY [facility] Rx#:[id number] Sodium Chloride 0.9% 1, 240 130 000 ml @ 20 mls/hr IV . Q24H [facility] Rx#:[id number] Intake, IV Titration 972.481 363.135 Amount ACETAMINOPHEN IV (For NPO 400 ) 1,000 mg In Empty Bag 1 bag @ 400 mls/hr IVPB Q6HR [facility] Rx#:[id number] cefTRIAXone 2 gm In 100 Sodium Chloride 0.9% 50 ml @ 100 mls/hr IVPB Q24HR [facility] Rx#:[id number] fentaNYL (PF). 1,000 mcg 85.151 85.696 In Sodium Chloride 0.9% 80 ml @ 0.5 MCG/KG/HR 6. 55 mls/hr IV .[id number] [facility] Rx#:[id number] propofoL 1,000 mg In 387.33 277.439 Empty Bag 1 bag @ 15 MCG/ KG/MIN 11.79 mls/hr IV . Q8H29M [facility] Rx#:[id number] Tube Feeding 90 Hemodialysis 400 Other 90 Output: Urine 159 110 Hemodialysis 1700 Other: Voiding Method Indwelling Catheter Indwelling Catheter ABP, PAP, CO, CI - Last Documented Arterial Blood Pressure 120/62 - Labs CBC & Chem 7: 04/12/23 04:00 04/12/23 04:00 Labs: Abnormal Lab Results - Last 24 Hours (Table) 04/11/23 04/11/23 04/11/23 Range/Units 08:45 10:08 10:08 RBC (4.30-5.90) m/uL Hgb (13.0-17.5) gm/dL Hct (39.0-53.0) % RDW (11.5-15.5) % Plt Count (150-450) k/uL Lymphocytes # (1.0-4.8) k/uL APTT (22.0-30.0) sec ABG pH (7.35-7.45) ABG pCO2 (35-45) mmHg ABG pO2 (83-108) mmHg ABG Total CO2 (19-24) mmol/L ABG O2 Saturation (94-97) % Sodium (137-145) mmol/L Chloride (98-107) mmol/L BUN 35 H (9-20) mg/dL Creatinine 9.94 H* (0.66-1.25) mg/dL POC Glucose (mg/dL) (70-110) mg/dL Calcium (8.4-10.2) mg/dL Troponin I 0.130 H* (0.000-0.034) ng/mL Procalcitonin 2.92 H (0.02-0.09) ng/mL Urine Protein (Negative) Urine Blood (Negative) Ur Leukocyte Esterase (Negative) Urine RBC (0-5) /hpf Urine Bacteria (None) /hpf Hep Bs Antibody (Negative) 04/11/23 04/11/23 04/11/23 Range/Units 10:08 10:08 12:10 RBC 3.79 L (4.30-5.90) m/uL Hgb 10.4 L (13.0-17.5) gm/dL Hct 32.7 L (39.0-53.0) % RDW 16.5 H (11.5-15.5) % Plt Count 127 L (150-450) k/uL Lymphocytes # 0.7 L (1.0-4.8) k/uL APTT (22.0-30.0) sec ABG pH (7.35-7.45) ABG pCO2 (35-45) mmHg ABG pO2 (83-108) mmHg ABG Total CO2 (19-24) mmol/L ABG O2 Saturation (94-97) % Sodium (137-145) mmol/L Chloride (98-107) mmol/L BUN (9-20) mg/dL Creatinine (0.66-1.25) mg/dL POC Glucose (mg/dL) (70-110) mg/dL Calcium (8.4-10.2) mg/dL Troponin I 0.179 H* (0.000-0.034) ng/mL Procalcitonin (0.02-0.09) ng/mL Urine Protein (Negative) Urine Blood (Negative) Ur Leukocyte Esterase (Negative) Urine RBC (0-5) /hpf Urine Bacteria (None) /hpf Hep Bs Antibody A (Negative) 04/11/23 04/11/23 04/11/23 Range/Units 12:50 13:14 15:25 RBC 3.62 L (4.30-5.90) m/uL Hgb 10.0 L (13.0-17.5) gm/dL Hct 31.1 L (39.0-53.0) % RDW 16.6 H (11.5-15.5) % Plt Count 113 L (150-450) k/uL Lymphocytes # 0.6 L (1.0-4.8) k/uL APTT (22.0-30.0) sec ABG pH (7.35-7.45) ABG pCO2 (35-45) mmHg ABG pO2 (83-108) mmHg ABG Total CO2 (19-24) mmol/L ABG O2 Saturation (94-97) % Sodium (137-145) mmol/L Chloride (98-107) mmol/L BUN (9-20) mg/dL Creatinine (0.66-1.25) mg/dL POC Glucose (mg/dL) 62 L 141 H (70-110) mg/dL Calcium (8.4-10.2) mg/dL Troponin I (0.000-0.034) ng/mL Procalcitonin (0.02-0.09) ng/mL Urine Protein (Negative) Urine Blood (Negative) Ur Leukocyte Esterase (Negative) Urine RBC (0-5) /hpf Urine Bacteria (None) /hpf Hep Bs Antibody (Negative) 04/11/23 04/12/23 04/12/23 Range/Units 23:45 04:00 04:00 RBC 3.62 L (4.30-5.90) m/uL Hgb 9.9 L (13.0-17.5) gm/dL Hct 30.8 L (39.0-53.0) % RDW 16.6 H (11.5-15.5) % Plt Count 111 L (150-450) k/uL Lymphocytes # (1.0-4.8) k/uL APTT 58.6 H (22.0-30.0) sec ABG pH (7.35-7.45) ABG pCO2 (35-45) mmHg ABG pO2 (83-108) mmHg ABG Total CO2 (19-24) mmol/L ABG O2 Saturation (94-97) % Sodium (137-145) mmol/L Chloride (98-107) mmol/L BUN (9-20) mg/dL Creatinine (0.66-1.25) mg/dL POC Glucose (mg/dL) (70-110) mg/dL Calcium (8.4-10.2) mg/dL Troponin I (0.000-0.034) ng/mL Procalcitonin (0.02-0.09) ng/mL Urine Protein 2+ H (Negative) Urine Blood Large H (Negative) Ur Leukocyte Esterase Trace H (Negative) Urine RBC 8 H (0-5) /hpf Urine Bacteria Rare H (None) /hpf Hep Bs Antibody (Negative) 04/12/23 04/12/23 04/12/23 Range/Units 04:00 04:00 05:58 RBC (4.30-5.90) m/uL Hgb (13.0-17.5) gm/dL Hct (39.0-53.0) % RDW (11.5-15.5) % Plt Count (150-450) k/uL Lymphocytes # (1.0-4.8) k/uL APTT 51.9 H (22.0-30.0) sec ABG pH 7.50 H (7.35-7.45) ABG pCO2 32 L (35-45) mmHg ABG pO2 114 H (83-108) mmHg ABG Total CO2 26 H (19-24) mmol/L ABG O2 Saturation 98.7 H (94-97) % Sodium 130 L (137-145) mmol/L Chloride 95 L (98-107) mmol/L BUN 28 H (9-20) mg/dL Creatinine 8.67 H* (0.66-1.25) mg/dL POC Glucose (mg/dL) (70-110) mg/dL Calcium 8.0 L (8.4-10.2) mg/dL Troponin I (0.000-0.034) ng/mL Procalcitonin (0.02-0.09) ng/mL Urine Protein (Negative) Urine Blood (Negative) Ur Leukocyte Esterase (Negative) Urine RBC (0-5) /hpf Urine Bacteria (None) /hpf Hep Bs Antibody (Negative) Microbiology - Last 24 Hours (Table) 04/11/23 03:39 Gram Stain - Preliminary Sputum
[2023-04-12] MEDS: CHLORHEXIDINE GLUCONATE 15 ML CUP MUCOUS MEM SCH (09:38)
[2023-04-12] MEDS: cloNIDine HCL 0.1 MG TAB PO SCH ×2 (09:38→21:00)
[2023-04-12] MEDS: hydrALAZINE HCL 50 MG TAB PO SCH ×3 (09:38→21:00)
[2023-04-12] MEDS: LOSARTAN 50 MG TAB PO SCH (09:38)
[2023-04-12] MEDS: carvediloL 6.25 MG TAB PO SCH (09:38)
[2023-04-12] MEDS: AZITHROMYCIN 500 MG in SODIUM CHLORIDE 0.9% 250 ML IVPB SCH (09:39)
[2023-04-12] MEDS: ASPIRIN 81 MG PO SCH (09:39)
[2023-04-12] MEDS: PANTOPRAZOLE 40 MG/10 ML VIAL IV SCH (09:40)
[2023-04-12] MEDS: OSELTAMIVIR 60 MG/10 ML ORAL SYRINGE OG-TUBE SCH (11:11)
[2023-04-12 11:44] LABS: Glucose,Whole Blood 83 mg/dL (70-110)
--- NOTE | 2023-04-12 11:51 | P.PN ---
Subjective Patient is seen for follow-up for end-stage renal disease. Status post hemodialysis yesterday with UF of 1.7 L. Blood pressure this morning was low. Sedation has been off. Patient remains on the vent FiO2 is at 50%. Objective - Vital Signs Vital signs: Vital Signs Temp 99.0 F 04/12/23 09:00 Pulse 68 04/12/23 11:48 Resp 26 H 04/12/23 11:48 BP 126/81 04/11/23 14:00 Pulse Ox 100 04/12/23 10:30 FiO2 50 04/12/23 11:33 Intake & Output 04/11/23 04/12/23 04/12/23 18:59 06:59 18:59 Intake Total 1980.481 979.135 838.692 Output Total 1859 130 105 Balance 121.481 849.135 733.692 Weight 132.7 kg 132.7 kg Intake: IV 608 276 449 0.9 NS 18 36 9 ACETAMINOPHEN IV (For NPO 100 100 ) 1,000 mg In Empty Bag 1 bag @ 400 mls/hr IVPB Q6HR [facility] Rx#:[id number] Azithromycin 500 mg In 250 250 Sodium Chloride 0.9% 250 ml @ 250 mls/hr IVPB DAILY [facility] Rx#:[id number] Potassium Chloride 20 meq 100 In Water For Injection 1 100ml.bag @ 50 mls/hr IVPB Q2H [facility] Rx#: [id number] Sodium Chloride 0.9% 1, 240 140 40 000 ml @ 20 mls/hr IV . Q24H [facility] Rx#:[id number] cefTRIAXone 2 gm In 50 Sodium Chloride 0.9% 50 ml @ 100 mls/hr IVPB Q24HR [facility] Rx#:[id number] Intake, IV Titration 972.481 513.135 279.692 Amount ACETAMINOPHEN IV (For NPO 400 ) 1,000 mg In Empty Bag 1 bag @ 400 mls/hr IVPB Q6HR [facility] Rx#:[id number] Magnesium Sulfate-D5w Pmx 100 1 gm In Dextrose/Water 1 100ml.bag @ 100 mls/hr IVPB ONCE [facility] Rx#: [id number] Potassium Chloride 20 meq 50 50 In Water For Injection 1 100ml.bag @ 50 mls/hr IVPB Q2H [facility] Rx#: [id number] cefTRIAXone 2 gm In 100 Sodium Chloride 0.9% 50 ml @ 100 mls/hr IVPB Q24HR [facility] Rx#:[id number] fentaNYL (PF). 1,000 mcg 85.151 85.696 In Sodium Chloride 0.9% 80 ml @ 0.5 MCG/KG/HR 6. 55 mls/hr IV .[id number] [facility] Rx#:[id number] propofoL 1,000 mg In 387.33 277.439 229.692 Empty Bag 1 bag @ 15 MCG/ KG/MIN 11.79 mls/hr IV . 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 - Labs CBC & Chem 7: 04/12/23 04:00 04/12/23 04:00 Labs: Abnormal Lab Results - Last 24 Hours (Table) 04/11/23 04/11/23 04/11/23 Range/Units 10:08 10:08 12:10 RBC (4.30-5.90) m/uL Hgb (13.0-17.5) gm/dL Hct (39.0-53.0) % RDW (11.5-15.5) % Plt Count (150-450) k/uL Lymphocytes # (1.0-4.8) k/uL APTT (22.0-30.0) sec ABG pH (7.35-7.45) ABG pCO2 (35-45) mmHg ABG pO2 (83-108) mmHg ABG Total CO2 (19-24) mmol/L ABG O2 Saturation (94-97) % Sodium (137-145) mmol/L Chloride (98-107) mmol/L BUN (9-20) mg/dL Creatinine (0.66-1.25) mg/dL POC Glucose (mg/dL) (70-110) mg/dL Calcium (8.4-10.2) mg/dL Troponin I 0.179 H* (0.000-0.034) ng/mL Procalcitonin 2.92 H (0.02-0.09) ng/mL Urine Protein (Negative) Urine Blood (Negative) Ur Leukocyte Esterase (Negative) Urine RBC (0-5) /hpf Urine Bacteria (None) /hpf Hep Bs Antibody A (Negative) 04/11/23 04/11/23 04/11/23 Range/Units 12:50 13:14 15:25 RBC 3.62 L (4.30-5.90) m/uL Hgb 10.0 L (13.0-17.5) gm/dL Hct 31.1 L (39.0-53.0) % RDW 16.6 H (11.5-15.5) % Plt Count 113 L (150-450) k/uL Lymphocytes # 0.6 L (1.0-4.8) k/uL APTT (22.0-30.0) sec ABG pH (7.35-7.45) ABG pCO2 (35-45) mmHg ABG pO2 (83-108) mmHg ABG Total CO2 (19-24) mmol/L ABG O2 Saturation (94-97) % Sodium (137-145) mmol/L Chloride (98-107) mmol/L BUN (9-20) mg/dL Creatinine (0.66-1.25) mg/dL POC Glucose (mg/dL) 62 L 141 H (70-110) mg/dL Calcium (8.4-10.2) mg/dL Troponin I (0.000-0.034) ng/mL Procalcitonin (0.02-0.09) ng/mL Urine Protein (Negative) Urine Blood (Negative) Ur Leukocyte Esterase (Negative) Urine RBC (0-5) /hpf Urine Bacteria (None) /hpf Hep Bs Antibody (Negative) 04/11/23 04/12/23 04/12/23 Range/Units 23:45 04:00 04:00 RBC 3.62 L (4.30-5.90) m/uL Hgb 9.9 L (13.0-17.5) gm/dL Hct 30.8 L (39.0-53.0) % RDW 16.6 H (11.5-15.5) % Plt Count 111 L (150-450) k/uL Lymphocytes # (1.0-4.8) k/uL APTT 58.6 H (22.0-30.0) sec ABG pH (7.35-7.45) ABG pCO2 (35-45) mmHg ABG pO2 (83-108) mmHg ABG Total CO2 (19-24) mmol/L ABG O2 Saturation (94-97) % Sodium (137-145) mmol/L Chloride (98-107) mmol/L BUN (9-20) mg/dL Creatinine (0.66-1.25) mg/dL POC Glucose (mg/dL) (70-110) mg/dL Calcium (8.4-10.2) mg/dL Troponin I (0.000-0.034) ng/mL Procalcitonin (0.02-0.09) ng/mL Urine Protein 2+ H (Negative) Urine Blood Large H (Negative) Ur Leukocyte Esterase Trace H (Negative) Urine RBC 8 H (0-5) /hpf Urine Bacteria Rare H (None) /hpf Hep Bs Antibody (Negative) 04/12/23 04/12/23 04/12/23 Range/Units 04:00 04:00 05:58 RBC (4.30-5.90) m/uL Hgb (13.0-17.5) gm/dL Hct (39.0-53.0) % RDW (11.5-15.5) % Plt Count (150-450) k/uL Lymphocytes # (1.0-4.8) k/uL APTT 51.9 H (22.0-30.0) sec ABG pH 7.50 H (7.35-7.45) ABG pCO2 32 L (35-45) mmHg ABG pO2 114 H (83-108) mmHg ABG Total CO2 26 H (19-24) mmol/L ABG O2 Saturation 98.7 H (94-97) % Sodium 130 L (137-145) mmol/L Chloride 95 L (98-107) mmol/L BUN 28 H (9-20) mg/dL Creatinine 8.67 H* (0.66-1.25) mg/dL POC Glucose (mg/dL) (70-110) mg/dL Calcium 8.0 L (8.4-10.2) mg/dL Troponin I (0.000-0.034) ng/mL Procalcitonin (0.02-0.09) ng/mL Urine Protein (Negative) Urine Blood (Negative) Ur Leukocyte Esterase (Negative) Urine RBC (0-5) /hpf Urine Bacteria (None) /hpf Hep Bs Antibody (Negative) Microbiology - Last 24 Hours (Table) 04/11/23 03:39 Gram Stain - Preliminary Sputum Assessment and Plan Assessment: 1. End-stage renal disease on hemodialysis and being switched to peritoneal dialysis as outpatient. At this time we will continue to maintain hemodialysis on a Sunday schedule. 2. Acute hypoxic respiratory failure associated with pneumonia and element of volume overload as well 3. Moderate pulmonary hypertension and moderate tricuspid regurgitation noted on echocardiogram 4. CK D mineral bone disorder 5. Influenza A infection Plan: Hemodialysis in a.m. Decrease blood pressure meds if blood pressure remains low.
--- NOTE | 2023-04-12 12:14 | XR ---
EXAMINATION TYPE: XR chest 1V portable DATE OF EXAM: 04/12/2023 Comparison: 04/11/2023 Clinical History: 42-year-old male Tube placement Findings: ET tube satisfactory. NG tube courses below the diaphragm. Heart upper limits of normal in size. Ther e may be a meniscus at the periphery of the left base suggesting underlying effusion. Mild interstiti al prominence may be technical from body habitus and portable technique. Left CVC tip at the lower SV C level. Impression: Appearance of a small left pleural effusion. Limited by portable technique and body habitus.
--- NOTE | 2023-04-12 12:20 | P.PN ---
Subjective Progress Note Date: 04/12/23 Principal diagnosis: Respiratory failure. I am seeing this patient in new consultation today 04/11/2023 in the emergency room trauma [facility] after presenting with acute shortness of breath eventually requiring intubation by the ER physician and admission to the intensive care unit.. Patient is a 42-year-old male -[place] male with past medical history significant for end-stage renal disease and hemodialysis ([facility] schedule), hypertension, obesity, alcoholism. Patient is currently intubated on mechanical ventilator. History obtained mostly from chart review. We're unable to get a hold of the patient's family at this time. Apparently, the patient presented to the emergency room early this morning and was in respiratory distress. Attempt was made to put the patient on BiPAP, however, he did not tolerate this. He was eventually intubated by the ER physician. He was also severely hypertensive on arrival, and started on a nitroglycerin infusion. Patient reportedly has not missed any sessions of hemodialysis. Normally maintained on Sunday schedule. Currently, the patient is intubated on mechanical ventilator. He is sedated on propofol which is infusing at 50 mcg/kg/m. He is occasionally synchronous with the ventilator. He does not follow any commands. Postintubation chest x-ray shows the endotracheal tube approximately 3 cm above the per. There is an orogastric tube coursing below the diaphragm, could be advanced 5-10 cm. There is cardiomegaly and vascular congestion. No significant focal infiltrates. Postintubation ABG shows pO2 of 362, pCO2 of 55, pH of 7.3. Appropriate ventilator changes were made. Current settings are assist control, respiratory rate 26, total in 500, FiO2 of 50%, PEEP of 5. Peak airway pressures are 32 and static airway pressure is 25. No significant secretions. Patient did test positive for influenza A on arrival. CBC on admission: WBC count of 6.8, hemoglobin 12, hematocrit 38.9, platelets 150. BMP on admission: Sodium 140, potassium 5.4, chloride 96, serum bicarb 24, BUN 31, creatinine 8.79, glucose 90. Troponin elevated at 0.079. NT proBNP 14,500. He does have right upper arm fistula with positive thrill and bruit. He does have an indwelling urinary catheter with minimal amount of urine. Patient also has what appears to be a peritoneal dialysis catheter. Abdomen is soft and nondistended. Patient is afebrile with a T-max of 103F. Blood pressure is still fairly hypertensive, currently nitroglycerin is infusing at 25 mcg/m. Prognosis is guarded. He will be monitored in the intensive care unit once bed available. Progress note dated 04/12/2023. 42-year-old black male seen in the intensive care unit, room 254. We placed a central line, and an arterial line yesterday. The patient remains on the mechanical ventilator. He had hemodialysis yesterday, was 1.3 L of fluid removed. He is on file assist control, rate 26, tidal volume 500, FiO2 50%, PEEP of 5. Blood gases show pO2 114, pCO2 32, and a pH is 7.50. These blood gases are consistent with a mild respiratory alkalosis. The patient's on fentanyl at 0.5 mcg/kg/h, propofol at 50 mics per kilogram per minute, and heparin via weightbase protocol. The patient's also getting saline at 20 mL an hour, and tube feedings with Nepro at 10 mL an hour. His pro-calcitonin level is 2.92. Today, the patient will have a daily interruption of sedation, and possibly, a spontaneous breathing trial. White count is 4, hemoglobin 9.9, hematocrit 30.8, and platelet count 111,000. PTT is 51.9. Sodium 1:30, potassium 3.5, chlorides 95, CO2 22, BUN 28, creatinine 8.67. Calcium is 8. Chest x-ray shows cardiomegaly, with a small left-sided pleural effusion. Objective - Vital Signs Vital signs: Vital Signs Temp 99.0 F 04/12/23 09:00 Pulse 69 04/12/23 11:55 Resp 26 H 04/12/23 11:55 BP 126/81 04/11/23 14:00 Pulse Ox 100 04/12/23 11:30 FiO2 50 04/12/23 11:58 Intake & Output 04/11/23 04/12/23 04/12/23 18:59 06:59 18:59 Intake Total 1980.481 979.135 842.556 Output Total 1859 130 105 Balance 121.481 849.135 737.556 Weight 132.7 kg 132.7 kg Intake: IV 608 276 449 0.9 NS 18 36 9 ACETAMINOPHEN IV (For NPO 100 100 ) 1,000 mg In Empty Bag 1 bag @ 400 mls/hr IVPB Q6HR [facility] Rx#:[id number] Azithromycin 500 mg In 250 250 Sodium Chloride 0.9% 250 ml @ 250 mls/hr IVPB DAILY [facility] Rx#:[id number] Potassium Chloride 20 meq 100 In Water For Injection 1 100ml.bag @ 50 mls/hr IVPB Q2H [facility] Rx#: [id number] Sodium Chloride 0.9% 1, 240 140 40 000 ml @ 20 mls/hr IV . Q24H [facility] Rx#:[id number] cefTRIAXone 2 gm In 50 Sodium Chloride 0.9% 50 ml @ 100 mls/hr IVPB Q24HR [facility] Rx#:[id number] Intake, IV Titration 972.481 513.135 283.556 Amount ACETAMINOPHEN IV (For NPO 400 ) 1,000 mg In Empty Bag 1 bag @ 400 mls/hr IVPB Q6HR [facility] Rx#:[id number] Magnesium Sulfate-D5w Pmx 100 1 gm In Dextrose/Water 1 100ml.bag @ 100 mls/hr IVPB ONCE ONE Rx#: [id number] Potassium Chloride 20 meq 50 50 In Water For Injection 1 100ml.bag @ 50 mls/hr IVPB Q2H [facility] Rx#: [id number] cefTRIAXone 2 gm In 100 Sodium Chloride 0.9% 50 ml @ 100 mls/hr IVPB Q24HR [facility] Rx#:[id number] fentaNYL (PF). 1,000 mcg 85.151 85.696 In Sodium Chloride 0.9% 80 ml @ 0.5 MCG/KG/HR 6. 55 mls/hr IV .[id number] [facility] Rx#:[id number] propofoL 1,000 mg In 387.33 277.439 233.556 Empty Bag 1 bag @ 15 MCG/ KG/MIN 11.79 mls/hr IV . Q8H29M [facility] Rx#:[id number] Tube Feeding 100 50 Hemodialysis 400 Other 90 60 Output: Urine 159 130 105 Hemodialysis 1700 Other: Voiding Method Indwelling Catheter Indwelling Catheter ABP, PAP, CO, CI - Last Documented Arterial Blood Pressure 89/53 - Exam No acute distress, sedated, with an orally placed endotracheal tube and NG tube. HEENT examination is grossly unremarkable. Neck supple. Full range of motion. No adenopathy thyromegaly or neck vein distention. Cardiovascular examination reveals regular rhythm rate. S1-S2 normal. No S3 or S4. No discernible murmur noted. Heart rate 69 bpm. Lungs reveal scattered bilateral rhonchi. No wheezes or crackles. Breath sounds equal bilaterally. Abdomen soft bowel sounds are heard. No masses or tenderness. Extremities are intact. No cyanosis clubbing or edema. Skin is without rash or lesion. Neurologic examination cannot be assessed at this time. - Labs CBC & Chem 7: 04/12/23 04:00 04/12/23 04:00 Labs: Abnormal Lab Results - Last 24 Hours (Table) 04/11/23 04/11/23 04/11/23 Range/Units 10:08 10:08 12:10 RBC (4.30-5.90) m/uL Hgb (13.0-17.5) gm/dL Hct (39.0-53.0) % RDW (11.5-15.5) % Plt Count (150-450) k/uL Lymphocytes # (1.0-4.8) k/uL APTT (22.0-30.0) sec ABG pH (7.35-7.45) ABG pCO2 (35-45) mmHg ABG pO2 (83-108) mmHg ABG Total CO2 (19-24) mmol/L ABG O2 Saturation (94-97) % Sodium (137-145) mmol/L Chloride (98-107) mmol/L BUN (9-20) mg/dL Creatinine (0.66-1.25) mg/dL POC Glucose (mg/dL) (70-110) mg/dL Calcium (8.4-10.2) mg/dL Troponin I 0.179 H* (0.000-0.034) ng/mL Procalcitonin 2.92 H (0.02-0.09) ng/mL Urine Protein (Negative) Urine Blood (Negative) Ur Leukocyte Esterase (Negative) Urine RBC (0-5) /hpf Urine Bacteria (None) /hpf Hep Bs Antibody A (Negative) 04/11/23 04/11/23 04/11/23 Range/Units 12:50 13:14 15:25 RBC 3.62 L (4.30-5.90) m/uL Hgb 10.0 L (13.0-17.5) gm/dL Hct 31.1 L (39.0-53.0) % RDW 16.6 H (11.5-15.5) % Plt Count 113 L (150-450) k/uL Lymphocytes # 0.6 L (1.0-4.8) k/uL APTT (22.0-30.0) sec ABG pH (7.35-7.45) ABG pCO2 (35-45) mmHg ABG pO2 (83-108) mmHg ABG Total CO2 (19-24) mmol/L ABG O2 Saturation (94-97) % Sodium (137-145) mmol/L Chloride (98-107) mmol/L BUN (9-20) mg/dL Creatinine (0.66-1.25) mg/dL POC Glucose (mg/dL) 62 L 141 H (70-110) mg/dL Calcium (8.4-10.2) mg/dL Troponin I (0.000-0.034) ng/mL Procalcitonin (0.02-0.09) ng/mL Urine Protein (Negative) Urine Blood (Negative) Ur Leukocyte Esterase (Negative) Urine RBC (0-5) /hpf Urine Bacteria (None) /hpf Hep Bs Antibody (Negative) 04/11/23 04/12/23 04/12/23 Range/Units 23:45 04:00 04:00 RBC 3.62 L (4.30-5.90) m/uL Hgb 9.9 L (13.0-17.5) gm/dL Hct 30.8 L (39.0-53.0) % RDW 16.6 H (11.5-15.5) % Plt Count 111 L (150-450) k/uL Lymphocytes # (1.0-4.8) k/uL APTT 58.6 H (22.0-30.0) sec ABG pH (7.35-7.45) ABG pCO2 (35-45) mmHg ABG pO2 (83-108) mmHg ABG Total CO2 (19-24) mmol/L ABG O2 Saturation (94-97) % Sodium (137-145) mmol/L Chloride (98-107) mmol/L BUN (9-20) mg/dL Creatinine (0.66-1.25) mg/dL POC Glucose (mg/dL) (70-110) mg/dL Calcium (8.4-10.2) mg/dL Troponin I (0.000-0.034) ng/mL Procalcitonin (0.02-0.09) ng/mL Urine Protein 2+ H (Negative) Urine Blood Large H (Negative) Ur Leukocyte Esterase Trace H (Negative) Urine RBC 8 H (0-5) /hpf Urine Bacteria Rare H (None) /hpf Hep Bs Antibody (Negative) 04/12/23 04/12/23 04/12/23 Range/Units 04:00 04:00 05:58 RBC (4.30-5.90) m/uL Hgb (13.0-17.5) gm/dL Hct (39.0-53.0) % RDW (11.5-15.5) % Plt Count (150-450) k/uL Lymphocytes # (1.0-4.8) k/uL APTT 51.9 H (22.0-30.0) sec ABG pH 7.50 H (7.35-7.45) ABG pCO2 32 L (35-45) mmHg ABG pO2 114 H (83-108) mmHg ABG Total CO2 26 H (19-24) mmol/L ABG O2 Saturation 98.7 H (94-97) % Sodium 130 L (137-145) mmol/L Chloride 95 L (98-107) mmol/L BUN 28 H (9-20) mg/dL Creatinine 8.67 H* (0.66-1.25) mg/dL POC Glucose (mg/dL) (70-110) mg/dL Calcium 8.0 L (8.4-10.2) mg/dL Troponin I (0.000-0.034) ng/mL Procalcitonin (0.02-0.09) ng/mL Urine Protein (Negative) Urine Blood (Negative) Ur Leukocyte Esterase (Negative) Urine RBC (0-5) /hpf Urine Bacteria (None) /hpf Hep Bs Antibody (Negative) Microbiology - Last 24 Hours (Table) 04/11/23 03:39 Gram Stain - Preliminary Sputum Assessment and Plan Assessment: Acute hypoxemic respiratory failure requiring intubation and mechanical ventilation 04/11/2023, likely multifactorial, secondary to acute influenza A infection and fluid overload. Acute influenza A infection. Acute hypertensive urgency/emergency. End-stage renal disease, requiring hemodialysis 3 times a week. Patient also has a peritoneal dialysis catheter, unclear whether the patient is transitioning to hemodialysis. Elevated tropoinins, rule out NSTEMI. History of alcoholism. Morbid obesity, with a BMI 42.6 kg/m. Plan: Plan dated 04/12/2023. Yesterday, we place an arterial line, and a central line. The arterial line was in the left radial artery, and a central line was in the left internal jugular vein. Currently, the patient remains on the mechanical ventilator. Yesterday, he did have hemodialysis was 1.3 L of fluid removed. He continues on propofol, fentanyl, and heparin. He does have tube feedings hanging. Today we will attempt a daily interruption of sedation and possibly a spontaneous breathing trial. The patient's pro-calcitonin level was 2.92. He remains on azithromycin, and Rocephin. Prognosis is guarded. Time with Patient: Greater than 30
[2023-04-12 12:39] LABS: ABG Base Excess -0.7 mmol/L; ABG HCO3 26 mmol/L (21-25); ABG Oxygen Saturation 98.3 % (94-97); ABG PCO2 53 mmHg (35-45); ABG PO2 122 mmHg (83-108); ABG TCO2 27 mmol/L (19-24)
[2023-04-12] MEDS ORDERED: LOSARTAN 50 MG TAB PO STA (13:00)
[2023-04-12] MEDS: LABETALOL 5 MG/ML VIAL MDV IVP PRN (13:41)
[2023-04-12 13:49] LABS: Amphetamine Screen,Urine Not Detected (NotDetected); Barbiturate Screen,Urine Not Detected (NotDetected); Benzodiazepines Screen,Urine Detected (NotDetected); Cocaine Screen,Urine Detected (NotDetected); Methadone Screen, Urine Not Detected (NotDetected); Opiate Screen,Urine Detected (NotDetected); Oxycodone Screen, Urine Not Detected (NotDetected); Phencyclidine Screen,Urine Not Detected (NotDetected); Tricyclic Antidepressant,Urine Not Detected (NotDetected); Urn Cannabinoid Scrn Not Detected (NotDetected)
[2023-04-12] MEDS: HEPARIN SOD,PORK IN 0.45% NACL 25,000 UNIT in 0.45% NACL 1 250ML.BAG IV SCH (16:50)
[2023-04-12] MEDS: carvediloL 12.5 MG TAB PO SCH (16:54)
[2023-04-12 20:01] LABS: Glucose,Whole Blood 85 mg/dL (70-110)
[2023-04-12] MEDS: SODIUM CHLORIDE 0.9% 1,000 ML IV SCH (21:00)
[2023-04-12 23:49] LABS: Glucose,Whole Blood 86 mg/dL (70-110)
[2023-04-13 04:22] LABS: Glucose,Whole Blood 91 mg/dL (70-110)
[2023-04-13 04:34] LABS: Anisocytosis Slight; Basophils % (A) 0 %; Eosinophils # (A) 0.1 k/uL (0-0.7); Eosinophils % (A) 1 %; HGB 10.8 gm/dL (13.0-17.5); Hypochromasia Moderate; Lymphocytes # (A) 1.3 k/uL (1.0-4.8); Lymphocytes % (A) 22 %; MCHC 30.8 g/dL (31.0-37.0); MCV 87.6 fL (80.0-100.0); Mean Platelet Volume 10.6; Monocytes # (A) 0.3 k/uL (0-1.0); Monocytes % (A) 5 %; Neutrophils # (A) 4.2 k/uL (1.3-7.7); Neutrophils % (A) 68 %; Platelet Count 105 k/uL (150-450); RDW 16.7 % (11.5-15.5); WBC 6.1 k/uL (3.8-10.6)
[2023-04-13 04:56] LABS: African American GFR (CKD) 6 (>60 ml/min/1.73 sqM); Anion Gap 20 mmol/L; Blood Urea Nitrogen 40 mg/dL (9-20); Calcium 8.7 mg/dL (8.4-10.2); Carbon Dioxide 20 mmol/L (22-30); Chloride 96 mmol/L (98-107); Glucose 87 mg/dL (74-99); Magnesium 2.4 mg/dL (1.6-2.3); Non-African American GFR(CKD) 6 (>60 ml/min/1.73 sqM); Potassium 4.4 mmol/L (3.5-5.1); Sodium 136 mmol/L (137-145)
[2023-04-13] MEDS: carvediloL 12.5 MG TAB PO SCH ×2 (06:45→17:40)
--- NOTE | 2023-04-13 07:24 | P.PN ---
Subjective Progress Note Date: 04/13/23 Principal diagnosis: Hypertension emergency The patient is a pleasant 42-year-old -[place] gentleman with a past medical history significant for end stage renal disease currently the patient on hemodialysis and before that he was on peritoneal dialysis as well as systemic hypertension and obesity and obstructive sleep apnea as well as multiple comorbid conditions was admitted to the hospital with increasing shortness of breath and he was intubated in the emergency department. We are asked to see the patient as a bedside consult here in the intensive. Currently the patient is intubated and he is on mechanical ventilation. The history was taken from the chart as well as from the nurse taking care of the patient as well as from the family at bedside. Apparently the patient was experiencing increasing shortness of breath for the last 24 hours with no associated chest pain or chest discomfort associated dizziness and lightheadedness or any feeling of heart r acing or fluttering or any presyncope or syncope his pressure was extremely elevated when he presented to the emergency department and he was educated and asked to be intubated at that point. Currently he is on Nitrol drip with improvement in the blood pressure. He underwent further workup including troponin came in to be mildly elevated. EKG is in process to be done. The chest x-ray did not show any acute abnormalities. Nephrology consult was placed and the patient is in process to be seen. He was seen by our service in 2021 with a chest discomfort and at that point he underwent an echo which revealed normal LV systolic function with severe pulmonary hypertension and moderate tricuspid regurgitation. On examination today he is intubated. The blood pressure is 111/64 with a heart rate of 85 bpm and heart examination reveals regular rhythm with distant heart sounds and chest examination revealed diminished breathing sounds bilaterally and no lower extremity edema noted the abdomen is soft and nontender April [id number] The patient was seen and evaluated this morning. He still intubated on mechanical ventilation. His pressure has improved significantly and currently is not on any Nitrol drip. The troponin came in to be slightly elevated could be related to renal failure and elevated blood pressure he is on heparin I would continue heparin for a total of 48 hours and add aspirin to the current medical regimen. He comes be on a statin because of elevated liver function tests. I would consider adding statin once the liver function test improved. He is on beta court we'll continue that. The echo showed normal LV systolic function was moderate pulmonary hypertension and moderate tricuspid regurgitation. He underwent dialysis yesterday with removal of 1.5 L. The examination is remarkable for an intubated gentleman on mechanical ventilation with stable vi dmitri signs and diminished breathing sounds bilaterally and no edema in the lower extremities 04/13/2023 The patient was seen and evaluated this morning. He was extubated. The pressure has been better. Currently he reports no pain in chest or shortness of breath. He is on aspirin. He is not on statin because of elevated liver function tests. The troponin was mildly elevated and likely secondary to renal failure for severe underlying coronary artery disease to be ruled out and the patient need to undergo a heart catheterization but unfortunately cannot lay flat and will consider doing that on Sunday was more fluid would be taking out by dialysis. Meanwhile continue the current medical regimen. The examination is remarkable for bilateral rhonchi. Assessment Hypertension emergency Shortness of breath secondary to hypertension emergency End stage renal disease on dialysis History of noncompliance Obstructive sleep apnea Obesity Severe pulmonary hypertension Elevated cardiac enzymes Plan Consider stopping the heparin at 48 hours exactly since it was started Continue aspirin Hold on statin to liver function test improved Proceed with coronary angiogram tentatively this coming Sunday Objective - Vital Signs Vital signs: Vital Signs Temp 98.1 F 04/13/23 03:00 Pulse 73 04/13/23 07:00 Resp 21 04/13/23 07:00 BP 160/89 04/13/23 06:30 Pulse Ox 96 04/13/23 07:00 FiO2 50 04/12/23 12:30 Intake & Output 04/12/23 04/13/23 04/13/23 18:59 06:59 18:59 Intake Total 1256.983 480 20 Output Total 470 800 Balance 786.983 -320 20 Weight 134.8 kg Intake: IV 589 240 20 0.9 NS 149 240 20 Azithromycin 500 mg In 250 Sodium Chloride 0.9% 250 ml @ 250 mls/hr IVPB DAILY [facility] Rx#:[id number] Potassium Chloride 20 meq 100 In Water For Injection 1 100ml.bag @ 50 mls/hr IVPB Q2H [facility] Rx#: [id number] Sodium Chloride 0.9% 1, 40 000 ml @ 20 mls/hr IV . Q24H [facility] Rx#:[id number] cefTRIAXone 2 gm In 50 Sodium Chloride 0.9% 50 ml @ 100 mls/hr IVPB Q24HR [facility] Rx#:[id number] Intake, IV Titration 557.983 Amount Heparin Sod,Pork in 0.45% 234.69 NaCl 25,000 unit In 0.45 % NaCl 1 250ml.bag @ 7. 634 UNITS/KG/HR 10.001 mls/hr IV .Q24H [facility] Rx#: [id number] Potassium Chloride 20 meq 50 In Water For Injection 1 100ml.bag @ 50 mls/hr IVPB Q2H [facility] Rx#: [id number] fentaNYL (PF). 1,000 mcg 39.737 In Sodium Chloride 0.9% 80 ml @ 0.5 MCG/KG/HR 6. 55 mls/hr IV .[id number] [facility] Rx#:[id number] propofoL 1,000 mg In 233.556 Empty Bag 1 bag @ 15 MCG/ KG/MIN 11.79 mls/hr IV . Q8H29M [facility] Rx#:[id number] Oral 240 Tube Feeding 50 Other 60 Output: Urine 470 800 Other: Voiding Method Indwelling Catheter Indwelling Catheter ABP, PAP, CO, CI - Last Documented Arterial Blood Pressure 139/70 - Labs CBC & Chem 7: 04/13/23 04:15 04/13/23 04:15 Labs: Abnormal Lab Results - Last 24 Hours (Table) 04/12/23 04/12/23 04/13/23 Range/Units 04:00 12:37 04:15 RBC 4.00 L (4.30-5.90) m/uL Hgb 10.8 L (13.0-17.5) gm/dL Hct 35.0 L (39.0-53.0) % MCHC 30.8 L (31.0-37.0) g/dL RDW 16.7 H (11.5-15.5) % Plt Count 105 L (150-450) k/uL APTT (22.0-30.0) sec ABG pH 7.30 L (7.35-7.45) ABG pCO2 53 H (35-45) mmHg ABG pO2 122 H (83-108) mmHg ABG HCO3 26 H (21-25) mmol/L ABG Total CO2 27 H (19-24) mmol/L ABG O2 Saturation 98.3 H (94-97) % Sodium (137-145) mmol/L Chloride (98-107) mmol/L Carbon Dioxide (22-30) mmol/L BUN (9-20) mg/dL Creatinine (0.66-1.25) mg/dL Magnesium (1.6-2.3) mg/dL Urine Opiates Screen Detected H (NotDetected) U Benzodiazepines Scrn Detected H (NotDetected) Urine Cocaine Screen Detected H (NotDetected) 04/13/23 04/13/23 Range/Units 04:15 04:15 RBC (4.30-5.90) m/uL Hgb (13.0-17.5) gm/dL Hct (39.0-53.0) % MCHC (31.0-37.0) g/dL RDW (11.5-15.5) % Plt Count (150-450) k/uL APTT 46.7 H (22.0-30.0) sec ABG pH (7.35-7.45) ABG pCO2 (35-45) mmHg ABG pO2 (83-108) mmHg ABG HCO3 (21-25) mmol/L ABG Total CO2 (19-24) mmol/L ABG O2 Saturation (94-97) % Sodium 136 L (137-145) mmol/L Chloride 96 L (98-107) mmol/L Carbon Dioxide 20 L (22-30) mmol/L BUN 40 H (9-20) mg/dL Creatinine 10.38 H* (0.66-1.25) mg/dL Magnesium 2.4 H (1.6-2.3) mg/dL Urine Opiates Screen (NotDetected) U Benzodiazepines Scrn (NotDetected) Urine Cocaine Screen (NotDetected) Microbiology - Last 24 Hours (Table) 04/11/23 10:13 Blood Culture - Preliminary Blood 04/11/23 10:13 Blood Culture - Preliminary Blood
--- NOTE | 2023-04-13 09:56 | P.PN ---
Subjective Progress Note Date: 04/13/23 Principal diagnosis: Respiratory failure. I am seeing this patient in new consultation today 04/11/2023 in the emergency room trauma [facility] 1 after presenting with acute shortness of breath eventually requiring intubation by the ER physician and admission to the intensive care unit.. Patient is a 42-year-old male -[place] male with past medical history significant for end-stage renal disease and hemodialysis ([facility] schedule), hypertension, obesity, alcoholism. Patient is currently intubated on mechanical ventilator. History obtained mostly from chart review. We're unable to get a hold of the patient's family at this time. Apparently, the patient presented to the emergency room early this morning and was in respiratory distress. Attempt was made to put the patient on BiPAP, however, he did not tolerate this. He was eventually intubated by the ER physician. He was also severely hypertensive on arrival, and started on a nitroglycerin infusion. Patient reportedly has not missed any sessions of hemodialysis. Normally maintained on Sunday schedule. Currently, the patient is intubated on mechanical ventilator. He is sedated on propofol which is infusing at 50 mcg/kg/m. He is occasionally synchronous with the ventilator. He does not follow any commands. Postintubation chest x-ray shows the endotracheal tube approximately 3 cm above the per. There is an orogastric tube coursing below the diaphragm, could be advanced 5-10 cm. There is cardiomegaly and vascular congestion. No significant focal infiltrates. Postintubation ABG shows pO2 of 362, pCO2 of 55, pH of 7.3. Appropriate ventilator changes were made. Current settings are assist control, respiratory rate 26, total in 500, FiO2 of 50%, PEEP of 5. Peak airway pressures are 32 and static airway pressure is 25. No significant secretions. Patient did test positive for influenza A on arrival. CBC on admission: WBC count of 6.8, hemoglobin 12, hematocrit 38.9, platelets 150. BMP on admission: Sodium 140, potassium 5.4, chloride 96, serum bicarb 24, BUN 31, creatinine 8.79, glucose 90. Troponin elevated at 0.079. NT proBNP 14,500. He does have right upper arm fistula with positive thrill and bruit. He does have an indwelling urinary catheter with minimal amount of urine. Patient also has what appears to be a peritoneal dialysis catheter. Abdomen is soft and nondistended. Patient is afebrile with a T-max of 103F. Blood pressure is still fairly hypertensive, currently nitroglycerin is infusing at 25 mcg/m. Prognosis is guarded. He will be monitored in the intensive care unit once bed available. Progress note dated 04/12/2023. 42-year-old black male seen in the intensive care unit, room 254. We placed a central line, and an arterial line yesterday. The patient remains on the mechanical ventilator. He had hemodialysis yesterday, was 1.3 L of fluid removed. He is on file assist control, rate 26, tidal volume 500, FiO2 50%, PEEP of 5. Blood gases show pO2 114, pCO2 32, and a pH is 7.50. These blood gases are consistent with a mild respiratory alkalosis. The patient's on fentanyl at 0.5 mcg/kg/h, propofol at 50 mics per kilogram per minute, and heparin via weightbase protocol. The patient's also getting saline at 20 mL an hour, and tube feedings with Nepro at 10 mL an hour. His pro-calcitonin level is 2.92. Today, the patient will have a daily interruption of sedation, and possibly, a spontaneous breathing trial. White count is 4, hemoglobin 9.9, hematocrit 30.8, and platelet count 111,000. PTT is 51.9. Sodium 1:30, potassium 3.5, chlorides 95, CO2 22, BUN 28, creatinine 8.67. Calcium is 8. Chest x-ray shows cardiomegaly, with a small left-sided pleural effusion. Progress note dated 04/13/2023. 42-year-old white male seen today in room 254, intensive care unit. The patient is sitting in a chair next to his hospital bed. He is on 3 L of oxygen. He is getting saline at 20 mL an hour and IV heparin. The patient was extubated successfully yesterday. Today is a dialysis today for the patient. White count 6.1, hemoglobin 10.8, hematocrit 35, and platelet count of 105,000. PTT is 46.7. Sodium 136, potassium 4.4, chlorides 96, CO2 20, anion gap 20, BUN 40, creatinine 10.4. Microbiology is currently negative. Chest x-ray shows cardiomegaly, and a small left-sided effusion. Objective - Vital Signs Vital signs: Vital Signs Temp 98.1 F 04/13/23 03:00 Pulse 73 04/13/23 07:00 Resp 21 04/13/23 07:00 BP 160/89 04/13/23 06:30 Pulse Ox 96 04/13/23 07:00 FiO2 50 04/12/23 12:30 Intake & Output 04/12/23 04/13/23 04/13/23 18:59 06:59 18:59 Intake Total 1256.983 480 20 Output Total 470 800 Balance 786.983 -320 20 Weight 134.8 kg 134.8 kg Intake: IV 589 240 20 0.9 NS 149 240 20 Azithromycin 500 mg In 250 Sodium Chloride 0.9% 250 ml @ 250 mls/hr IVPB DAILY [facility] Rx#:[id number] Potassium Chloride 20 meq 100 In Water For Injection 1 100ml.bag @ 50 mls/hr IVPB Q2H [facility] Rx#: [id number] Sodium Chloride 0.9% 1, 40 000 ml @ 20 mls/hr IV . Q24H [facility] Rx#:[id number] cefTRIAXone 2 gm In 50 Sodium Chloride 0.9% 50 ml @ 100 mls/hr IVPB Q24HR [facility] Rx#:[id number] Intake, IV Titration 557.983 Amount Heparin Sod,Pork in 0.45% 234.69 NaCl 25,000 unit In 0.45 % NaCl 1 250ml.bag @ 7. 634 UNITS/KG/HR 10.001 mls/hr IV .Q24H [facility] Rx#: [id number] Potassium Chloride 20 meq 50 In Water For Injection 1 100ml.bag @ 50 mls/hr IVPB Q2H [facility] Rx#: [id number] fentaNYL (PF). 1,000 mcg 39.737 In Sodium Chloride 0.9% 80 ml @ 0.5 MCG/KG/HR 6. 55 mls/hr IV .[id number] [facility] Rx#:[id number] propofoL 1,000 mg In 233.556 Empty Bag 1 bag @ 15 MCG/ KG/MIN 11.79 mls/hr IV . Q8H29M [facility] Rx#:[id number] Oral 240 Tube Feeding 50 Other 60 Output: Urine 470 800 Other: Voiding Method Indwelling Catheter Indwelling Catheter ABP, PAP, CO, CI - Last Documented Arterial Blood Pressure 139/70 - Exam No acute distress, awake and alert, currently on 3 L of oxygen. HEENT examination is grossly unremarkable. Neck supple. Full range of motion. No adenopathy thyromegaly or neck vein distention. Cardiovascular examination reveals regular rhythm rate. S1-S2 normal. No S3 or S4. No discernible murmur noted. Heart rate 73 bpm. Lungs reveal scattered bilateral rhonchi. No wheezes or crackles. Breath sounds equal bilaterally. Abdomen soft bowel sounds are heard. No masses or tenderness. Extremities are intact. No cyanosis clubbing or edema. Skin is without rash or lesion. Neurologic examination is brief but nonfocal. - Labs CBC & Chem 7: 04/13/23 04:15 04/13/23 04:15 Labs: Abnormal Lab Results - Last 24 Hours (Table) 04/12/23 04/12/23 04/13/23 Range/Units 04:00 12:37 04:15 RBC 4.00 L (4.30-5.90) m/uL Hgb 10.8 L (13.0-17.5) gm/dL Hct 35.0 L (39.0-53.0) % MCHC 30.8 L (31.0-37.0) g/dL RDW 16.7 H (11.5-15.5) % Plt Count 105 L (150-450) k/uL APTT (22.0-30.0) sec ABG pH 7.30 L (7.35-7.45) ABG pCO2 53 H (35-45) mmHg ABG pO2 122 H (83-108) mmHg ABG HCO3 26 H (21-25) mmol/L ABG Total CO2 27 H (19-24) mmol/L ABG O2 Saturation 98.3 H (94-97) % Sodium (137-145) mmol/L Chloride (98-107) mmol/L Carbon Dioxide (22-30) mmol/L BUN (9-20) mg/dL Creatinine (0.66-1.25) mg/dL Magnesium (1.6-2.3) mg/dL Urine Opiates Screen Detected H (NotDetected) U Benzodiazepines Scrn Detected H (NotDetected) Urine Cocaine Screen Detected H (NotDetected) 04/13/23 04/13/23 Range/Units 04:15 04:15 RBC (4.30-5.90) m/uL Hgb (13.0-17.5) gm/dL Hct (39.0-53.0) % MCHC (31.0-37.0) g/dL RDW (11.5-15.5) % Plt Count (150-450) k/uL APTT 46.7 H (22.0-30.0) sec ABG pH (7.35-7.45) ABG pCO2 (35-45) mmHg ABG pO2 (83-108) mmHg ABG HCO3 (21-25) mmol/L ABG Total CO2 (19-24) mmol/L ABG O2 Saturation (94-97) % Sodium 136 L (137-145) mmol/L Chloride 96 L (98-107) mmol/L Carbon Dioxide 20 L (22-30) mmol/L BUN 40 H (9-20) mg/dL Creatinine 10.38 H* (0.66-1.25) mg/dL Magnesium 2.4 H (1.6-2.3) mg/dL Urine Opiates Screen (NotDetected) U Benzodiazepines Scrn (NotDetected) Urine Cocaine Screen (NotDetected) Microbiology - Last 24 Hours (Table) 04/11/23 03:39 Gram Stain - Final Sputum Sputum Culture - Final 04/11/23 10:13 Blood Culture - Preliminary Blood 04/11/23 10:13 Blood Culture - Preliminary Blood Assessment and Plan Assessment: Acute hypoxemic respiratory failure requiring intubation and mechanical ventilation 04/11/2023, likely multifactorial, secondary to acute influenza A infection and fluid overload. S/P successful extubation, 04/12/2023. Acute influenza A infection. Acute hypertensive urgency/emergency. End-stage renal disease, requiring hemodialysis 3 times a week. Patient also has a peritoneal dialysis catheter, unclear whether the patient is transitioning to hemodialysis. Elevated tropoinins, rule out NSTEMI. History of alcoholism. Morbid obesity, with a BMI 42.6 kg/m. Plan: Plan dated 04/12/2023. Yesterday, we place an arterial line, and a central line. The arterial line was in the left radial artery, and a central line was in the left internal jugular vein. Currently, the patient remains on the mechanical ventilator. Yesterday, he did have hemodialysis was 1.3 L of fluid removed. He continues on propofol, fentanyl, and heparin. He does have tube feedings hanging. Today we will attempt a daily interruption of sedation and possibly a spontaneous breathing trial. The patient's pro-calcitonin level was 2.92. He remains on azithromycin, and Rocephin. Prognosis is guarded. Plan dated 04/13/2023. The patient was successfully extubated yesterday. He is currently on 3 L. Sitting at the bedside. Today's today for hemodialysis. The patient continues on IV heparin. He is getting saline at 20 mL an hour. Labs, x-rays, and medications are all reviewed. The patient apparently is going to have a cardiac catheterization, sometime over the next few days. No additional recommendations are made. He continues on antibiotics. His pro-calcitonin level was 2.92. Prognosis is guarded. We will continue to follow the patient, and make recommendations. Time with Patient: Greater than 30
[2023-04-13] MEDS: AZITHROMYCIN 500 MG in SODIUM CHLORIDE 0.9% 250 ML IVPB SCH (10:47)
[2023-04-13] MEDS: fentaNYL (PF). 1,000 MCG in SODIUM CHLORIDE 0.9% 80 ML IV SCH (10:48)
[2023-04-13] MEDS: ASPIRIN 81 MG PO SCH (10:55)
[2023-04-13] MEDS: PANTOPRAZOLE 40 MG/10 ML VIAL IV SCH (10:55)
[2023-04-13] MEDS: OSELTAMIVIR 60 MG/10 ML ORAL SYRINGE OG-TUBE SCH (10:55)
--- NOTE | 2023-04-13 11:59 | P.PN ---
Subjective Patient is seen for follow-up for end-stage renal disease. Patient was extubated yesterday He is currently sitting out of bed. Patient is comfortable. Scheduled for hemodialysis today. No significant complaints. Tolerating oral intake. Objective - Vital Signs Vital signs: Vital Signs Temp 98.1 F 04/13/23 03:00 Pulse 72 04/13/23 11:00 Resp 30 H 04/13/23 11:00 BP 160/89 04/13/23 10:30 Pulse Ox 100 04/13/23 11:00 FiO2 50 04/12/23 12:30 Intake & Output 04/12/23 04/13/23 04/13/23 18:59 06:59 18:59 Intake Total 1256.983 480 660 Output Total 470 800 0 Balance 786.983 -320 660 Weight 134.8 kg 134.8 kg Intake: IV 589 240 420 0.9 NS 149 240 100 Azithromycin 500 mg In 250 250 Sodium Chloride 0.9% 250 ml @ 250 mls/hr IVPB DAILY [facility] Rx#:[id number] Potassium Chloride 20 meq 100 In Water For Injection 1 100ml.bag @ 50 mls/hr IVPB Q2H [facility] Rx#: [id number] Sodium Chloride 0.9% 1, 40 20 000 ml @ 20 mls/hr IV . Q24H [facility] Rx#:[id number] cefTRIAXone 2 gm In 50 50 Sodium Chloride 0.9% 50 ml @ 100 mls/hr IVPB Q24HR [facility] Rx#:[id number] Intake, IV Titration 557.983 Amount Heparin Sod,Pork in 0.45% 234.69 NaCl 25,000 unit In 0.45 % NaCl 1 250ml.bag @ 7. 634 UNITS/KG/HR 10.001 mls/hr IV .Q24H [facility] Rx#: [id number] Potassium Chloride 20 meq 50 In Water For Injection 1 100ml.bag @ 50 mls/hr IVPB Q2H [facility] Rx#: [id number] fentaNYL (PF). 1,000 mcg 39.737 In Sodium Chloride 0.9% 80 ml @ 0.5 MCG/KG/HR 6. 55 mls/hr IV .[id number] [facility] Rx#:[id number] propofoL 1,000 mg In 233.556 Empty Bag 1 bag @ 15 MCG/ KG/MIN 11.79 mls/hr IV . Q8H29M [facility] Rx#:[id number] Oral 240 240 Tube Feeding 50 Other 60 Output: Urine 470 800 0 Other: Voiding Method Indwelling Catheter Indwelling Catheter ABP, PAP, CO, CI - Last Documented Arterial Blood Pressure 117/72 - Exam Patient is awake, comfortable, alert oriented 3. Examination of the heart S1 and S2 Examination lungs shows decreased breath sounds bilateral bases Abdomen is soft nontender Examination of lower extremities shows trace edema [employer] exam is grossly intact - Labs CBC & Chem 7: 04/13/23 04:15 04/13/23 04:15 Labs: Abnormal Lab Results - Last 24 Hours (Table) 04/12/23 04/12/23 04/13/23 Range/Units 04:00 12:37 04:15 RBC 4.00 L (4.30-5.90) m/uL Hgb 10.8 L (13.0-17.5) gm/dL Hct 35.0 L (39.0-53.0) % MCHC 30.8 L (31.0-37.0) g/dL RDW 16.7 H (11.5-15.5) % Plt Count 105 L (150-450) k/uL APTT (22.0-30.0) sec ABG pH 7.30 L (7.35-7.45) ABG pCO2 53 H (35-45) mmHg ABG pO2 122 H (83-108) mmHg ABG HCO3 26 H (21-25) mmol/L ABG Total CO2 27 H (19-24) mmol/L ABG O2 Saturation 98.3 H (94-97) % Sodium (137-145) mmol/L Chloride (98-107) mmol/L Carbon Dioxide (22-30) mmol/L BUN (9-20) mg/dL Creatinine (0.66-1.25) mg/dL Magnesium (1.6-2.3) mg/dL Urine Opiates Screen Detected H (NotDetected) U Benzodiazepines Scrn Detected H (NotDetected) Urine Cocaine Screen Detected H (NotDetected) 04/13/23 04/13/23 Range/Units 04:15 04:15 RBC (4.30-5.90) m/uL Hgb (13.0-17.5) gm/dL Hct (39.0-53.0) % MCHC (31.0-37.0) g/dL RDW (11.5-15.5) % Plt Count (150-450) k/uL APTT 46.7 H (22.0-30.0) sec ABG pH (7.35-7.45) ABG pCO2 (35-45) mmHg ABG pO2 (83-108) mmHg ABG HCO3 (21-25) mmol/L ABG Total CO2 (19-24) mmol/L ABG O2 Saturation (94-97) % Sodium 136 L (137-145) mmol/L Chloride 96 L (98-107) mmol/L Carbon Dioxide 20 L (22-30) mmol/L BUN 40 H (9-20) mg/dL Creatinine 10.38 H* (0.66-1.25) mg/dL Magnesium 2.4 H (1.6-2.3) mg/dL Urine Opiates Screen (NotDetected) U Benzodiazepines Scrn (NotDetected) Urine Cocaine Screen (NotDetected) Microbiology - Last 24 Hours (Table) 04/11/23 03:39 Gram Stain - Final Sputum Sputum Culture - Final 04/11/23 10:13 Blood Culture - Preliminary Blood 04/11/23 10:13 Blood Culture - Preliminary Blood Assessment and Plan Assessment: 1. End-stage renal disease on hemodialysis and being switched to peritoneal dialysis as outpatient. At this time we will continue to maintain hemodialysis on a Sunday schedule. 2. Acute hypoxic respiratory failure associated with pneumonia and element of volume overload as well. Status post extubation 3. Moderate pulmonary hypertension and moderate tricuspid regurgitation noted on echocardiogram 4. CK D mineral bone disorder 5. Influenza A infection Plan: Hemodialysis today with UF of about 1-2 L Hold antihypertensive medications predialysis as blood pressure is on the lower side.
--- NOTE | 2023-04-13 12:09 | XR ---
EXAMINATION TYPE: XR chest 1V portable DATE OF EXAM: 04/13/2023 Comparison: 04/12/2023 Clinical History: 42-year-old male tube placement Findings: Interval extubation and removal of NG tube. Left CVC tip remains in place, catheter tip lower SVC. He art remains borderline to mildly enlarged. Mild interstitial density is similar to slightly improved. Left base remains underpenetrated and not well assessed. No other diana consolidation. Impression: Mild interstitial density is similar to slightly improved. Left base remains underpenetrated and not well assessed.
[2023-04-13 12:19] LABS: Glucose,Whole Blood 99 mg/dL (70-110)
[2023-04-13] MEDS: hydrALAZINE HCL 50 MG TAB PO SCH ×3 (13:36→20:35)
[2023-04-13] MEDS: cloNIDine HCL 0.1 MG TAB PO SCH ×2 (13:37→20:35)
[2023-04-13] MEDS: LOSARTAN 50 MG TAB PO SCH (16:19)
[2023-04-13] MEDS: IPRATROPIUM-ALBUTEROL 3 ML NEB INHALATION PRN (17:34)
[2023-04-13 18:17] LABS: Glucose,Whole Blood 91 mg/dL (70-110)
[2023-04-13] MEDS ORDERED: LOPERAMIDE 2 MG CAP PO PRN (18:17)
[2023-04-13] MEDS: HEPARIN SOD,PORK IN 0.45% NACL 25,000 UNIT in 0.45% NACL 1 250ML.BAG IV SCH (19:06)
[2023-04-13] MEDS: SODIUM CHLORIDE 0.9% 1,000 ML IV SCH (19:30)
[2023-04-14] MEDS: IPRATROPIUM-ALBUTEROL 3 ML NEB INHALATION PRN ×7 (00:07→23:55)
[2023-04-14 00:23] LABS: Glucose,Whole Blood 112 mg/dL (70-110)
[2023-04-14 05:25] LABS: Glucose,Whole Blood 95 mg/dL (70-110)
[2023-04-14 06:03] LABS: African American GFR (CKD) 8 (>60 ml/min/1.73 sqM); Anion Gap 15 mmol/L; Blood Urea Nitrogen 34 mg/dL (9-20); Calcium 8.4 mg/dL (8.4-10.2); Carbon Dioxide 25 mmol/L (22-30); Chloride 95 mmol/L (98-107); Glucose 92 mg/dL (74-99); Non-African American GFR(CKD) 7 (>60 ml/min/1.73 sqM); Potassium 4.2 mmol/L (3.5-5.1); Sodium 135 mmol/L (137-145)
[2023-04-14 06:06] LABS: Anisocytosis Slight; Basophils % (A) 1 %; Eosinophils # (A) 0.1 k/uL (0-0.7); Eosinophils % (A) 2 %; HCT 32.7 % (39.0-53.0); HGB 10.4 gm/dL (13.0-17.5); Hypochromasia Moderate; Lymphocytes # (A) 1.2 k/uL (1.0-4.8); Lymphocytes % (A) 25 %; MCH 27.5 pg (25.0-35.0); MCHC 31.8 g/dL (31.0-37.0); MCV 86.6 fL (80.0-100.0); Mean Platelet Volume 10.2; Monocytes # (A) 0.5 k/uL (0-1.0); Monocytes % (A) 11 %; Neutrophils # (A) 2.7 k/uL (1.3-7.7); Neutrophils % (A) 58 %; Platelet Count 114 k/uL (150-450); RBC 3.78 m/uL (4.30-5.90); RDW 16.4 % (11.5-15.5); WBC 4.6 k/uL (3.8-10.6)
[2023-04-14] MEDS: carvediloL 12.5 MG TAB PO SCH ×2 (06:10→17:32)
[2023-04-14 06:30] LABS: Poikilocytosis (M) Present
--- NOTE | 2023-04-14 08:50 | P.PN ---
Subjective Progress Note Date: 04/14/23 Principal diagnosis: Hypertension emergency The patient is a pleasant 42-year-old -[place] gentleman with a past medical history significant for end stage renal disease currently the patient on hemodialysis and before that he was on peritoneal dialysis as well as systemic hypertension and obesity and obstructive sleep apnea as well as multiple comorbid conditions was admitted to the hospital with increasing shortness of breath and he was intubated in the emergency department. We are asked to see the patient as a bedside consult here in the intensive. Currently the patient is intubated and he is on mechanical ventilation. The history was taken from the chart as well as from the nurse taking care of the patient as well as from the family at bedside. Apparently the patient was experiencing increasing shortness of breath for the last 24 hours with no associated chest pain or chest discomfort associated dizziness and lightheadedness or any feeling of heart r acing or fluttering or any presyncope or syncope his pressure was extremely elevated when he presented to the emergency department and he was educated and asked to be intubated at that point. Currently he is on Nitrol drip with improvement in the blood pressure. He underwent further workup including troponin came in to be mildly elevated. EKG is in process to be done. The chest x-ray did not show any acute abnormalities. Nephrology consult was placed and the patient is in process to be seen. He was seen by our service in 2021 with a chest discomfort and at that point he underwent an echo which revealed normal LV systolic function with severe pulmonary hypertension and moderate tricuspid regurgitation. On examination today he is intubated. The blood pressure is 111/64 with a heart rate of 85 bpm and heart examination reveals regular rhythm with distant heart sounds and chest examination revealed diminished breathing sounds bilaterally and no lower extremity edema noted the abdomen is soft and nontender April 122023 The patient was seen and evaluated this morning. He still intubated on mechanical ventilation. His pressure has improved significantly and currently is not on any Nitrol drip. The troponin came in to be slightly elevated could be related to renal failure and elevated blood pressure he is on heparin I would continue heparin for a total of 48 hours and add aspirin to the current medical regimen. He comes be on a statin because of elevated liver function tests. I would consider adding statin once the liver function test improved. He is on beta court we'll continue that. The echo showed normal LV systolic function was moderate pulmonary hypertension and moderate tricuspid regurgitation. He underwent dialysis yesterday with removal of 1.5 L. The examination is remarkable for an intubated gentleman on mechanical ventilation with stable vi dmitri signs and diminished breathing sounds bilaterally and no edema in the lower extremities 04/13/2023 The patient was seen and evaluated this morning. He was extubated. The pressure has been better. Currently he reports no pain in chest or shortness of breath. He is on aspirin. He is not on statin because of elevated liver function tests. The troponin was mildly elevated and likely secondary to renal failure for severe underlying coronary artery disease to be ruled out and the patient need to undergo a heart catheterization but unfortunately cannot lay flat and will consider doing that on Sunday was more fluid would be taking out by dialysis. Meanwhile continue the current medical regimen. The examination is remarkable for bilateral rhonchi. April 142023 The patient was seen and evaluated this morning. He is asymptomatic beside cough appeared to be unproductive for any sputum but no pain in the chest and no shortness of breath. The pressure appeared to be under good control on the current medical regimen. He is on aspirin and he is on beta court which we will continue. I am going to obtain liver function tests and start the patient on statin if the liver function tests are back to normal. Beside that he is off heparin. He needs to undergo a heart catheterization on Sunday. The examination is remarkable for regular rhythm with distant heart sounds and b ilateral rhonchi noted. Assessment Hypertension emergency Shortness of breath secondary to hypertension emergency End stage renal disease on dialysis History of noncompliance Obstructive sleep apnea Obesity Severe pulmonary hypertension Elevated cardiac enzymes Plan Continue the current medical regimen including aspirin and beta court Obtain liver function tests and start the patient on statin if the liver function tests are back to normal Then the lead planning to undergo a heart catheterization on Sunday Objective - Vital Signs Vital signs: Vital Signs Temp 99.8 F H 04/14/23 00:00 Pulse 68 04/14/23 07:53 Resp 13 04/14/23 07:00 BP 140/77 04/13/23 19:09 Pulse Ox 96 04/14/23 07:00 FiO2 50 04/12/23 12:30 Intake & Output 04/13/23 04/14/23 04/14/23 18:59 06:59 18:59 Intake Total 6680.030 6777 20 Output Total 0 500 Balance 7843.610 9872 20 Weight 134.8 kg 134.3 kg Intake: IV 560 240 20 0.9 NS 240 240 20 Azithromycin 500 mg In 250 Sodium Chloride 0.9% 250 ml @ 250 mls/hr IVPB DAILY [facility] Rx#:[id number] Sodium Chloride 0.9% 1, 20 000 ml @ 20 mls/hr IV . Q24H [facility] Rx#:[id number] cefTRIAXone 2 gm In 50 Sodium Chloride 0.9% 50 ml @ 100 mls/hr IVPB Q24HR [facility] Rx#:[id number] Intake, IV Titration 221.689 Amount Heparin Sod,Pork in 0.45% 221.689 NaCl 25,000 unit In 0.45 % NaCl 1 250ml.bag @ 7. 634 UNITS/KG/HR 10.001 mls/hr IV .Q24H [facility] Rx#: [id number] Oral 240 Hemodialysis 1500 Output: Urine 0 Hemodialysis 500 Other: # Voids 1 0 0 # Bowel Movements 1 1 ABP, PAP, CO, CI - Last Documented Arterial Blood Pressure 131/64 - Labs CBC & Chem 7: 04/14/23 05:24 04/14/23 05:24 Labs: Abnormal Lab Results - Last 24 Hours (Table) 04/13/23 04/14/23 04/14/23 Range/Units 04:15 00:22 05:24 RBC 3.78 L (4.30-5.90) m/uL Hgb 10.4 L (13.0-17.5) gm/dL Hct 32.7 L (39.0-53.0) % RDW 16.4 H (11.5-15.5) % Plt Count 114 L (150-450) k/uL Sodium (137-145) mmol/L Chloride (98-107) mmol/L BUN (9-20) mg/dL Creatinine (0.66-1.25) mg/dL POC Glucose (mg/dL) 112 H (70-110) mg/dL Phosphorus 7.4 H (2.5-4.5) mg/dL 04/14/23 Range/Units 05:24 RBC (4.30-5.90) m/uL Hgb (13.0-17.5) gm/dL Hct (39.0-53.0) % RDW (11.5-15.5) % Plt Count (150-450) k/uL Sodium 135 L (137-145) mmol/L Chloride 95 L (98-107) mmol/L BUN 34 H (9-20) mg/dL Creatinine 8.64 H* (0.66-1.25) mg/dL POC Glucose (mg/dL) (70-110) mg/dL Phosphorus (2.5-4.5) mg/dL Microbiology - Last 24 Hours (Table) 04/11/23 10:13 Blood Culture - Preliminary Blood 04/11/23 10:13 Blood Culture - Preliminary Blood 04/11/23 03:39 Gram Stain - Final Sputum Sputum Culture - Final
[2023-04-14] MEDS: SODIUM CHLORIDE 0.9% 1,000 ML IV SCH (09:05)
[2023-04-14] MEDS: HEPARIN SODIUM,PORCINE 5,000 UNIT/ML 1 ML VIAL SQ SCH ×2 (09:12→20:01)
[2023-04-14] MEDS: ASPIRIN 81 MG PO SCH (09:12)
[2023-04-14] MEDS: hydrALAZINE HCL 50 MG TAB PO SCH ×3 (09:12→20:01)
[2023-04-14] MEDS: cloNIDine HCL 0.1 MG TAB PO SCH ×2 (09:12→20:01)
[2023-04-14] MEDS: LOSARTAN 50 MG TAB PO SCH (09:13)
[2023-04-14] MEDS: OSELTAMIVIR 60 MG/10 ML ORAL SYRINGE OG-TUBE SCH (09:13)
[2023-04-14] MEDS: PANTOPRAZOLE 40 MG/10 ML VIAL IV SCH (09:14)
--- NOTE | 2023-04-14 10:14 | P.PN ---
Subjective Patient is seen for follow-up for end-stage renal disease. Overall feeling better. Status post hemodialysis yesterday with UF of 500 mL. Complaining of cough. No shortness of breath. Objective - Vital Signs Vital signs: Vital Signs Temp 99.8 F H 04/14/23 00:00 Pulse 68 04/14/23 07:53 Resp 13 04/14/23 07:00 BP 140/77 04/13/23 19:09 Pulse Ox 96 04/14/23 07:00 FiO2 50 04/12/23 12:30 Intake & Output 04/13/23 04/14/23 04/14/23 18:59 06:59 18:59 Intake Total 8168.066 7320 20 Output Total 0 500 Balance 9544.560 7060 20 Weight 134.8 kg 134.3 kg Intake: IV 560 240 20 0.9 NS 240 240 20 Azithromycin 500 mg In 250 Sodium Chloride 0.9% 250 ml @ 250 mls/hr IVPB DAILY [facility] Rx#:[id number] Sodium Chloride 0.9% 1, 20 000 ml @ 20 mls/hr IV . Q24H [facility] Rx#:[id number] cefTRIAXone 2 gm In 50 Sodium Chloride 0.9% 50 ml @ 100 mls/hr IVPB Q24HR [facility] Rx#:[id number] Intake, IV Titration 221.689 Amount Heparin Sod,Pork in 0.45% 221.689 NaCl 25,000 unit In 0.45 % NaCl 1 250ml.bag @ 7. 634 UNITS/KG/HR 10.001 mls/hr IV .Q24H [facility] Rx#: [id number] Oral 240 Hemodialysis 1500 Output: Urine 0 Hemodialysis 500 Other: # Voids 1 0 0 # Bowel Movements 1 1 ABP, PAP, CO, CI - Last Documented Arterial Blood Pressure 131/64 - Exam Patient is awake, comfortable, alert oriented 3. Examination of the heart S1 and S2 Examination lungs shows decreased breath sounds bilateral bases Abdomen is soft nontender Examination of lower extremities shows no edema [employer] exam is grossly intact - Labs CBC & Chem 7: 04/14/23 05:24 04/14/23 05:24 Labs: Abnormal Lab Results - Last 24 Hours (Table) 04/13/23 04/14/23 04/14/23 Range/Units 04:15 00:22 05:24 RBC 3.78 L (4.30-5.90) m/uL Hgb 10.4 L (13.0-17.5) gm/dL Hct 32.7 L (39.0-53.0) % RDW 16.4 H (11.5-15.5) % Plt Count 114 L (150-450) k/uL Sodium (137-145) mmol/L Chloride (98-107) mmol/L BUN (9-20) mg/dL Creatinine (0.66-1.25) mg/dL POC Glucose (mg/dL) 112 H (70-110) mg/dL Phosphorus 7.4 H (2.5-4.5) mg/dL 04/14/23 Range/Units 05:24 RBC (4.30-5.90) m/uL Hgb (13.0-17.5) gm/dL Hct (39.0-53.0) % RDW (11.5-15.5) % Plt Count (150-450) k/uL Sodium 135 L (137-145) mmol/L Chloride 95 L (98-107) mmol/L BUN 34 H (9-20) mg/dL Creatinine 8.64 H* (0.66-1.25) mg/dL POC Glucose (mg/dL) (70-110) mg/dL Phosphorus (2.5-4.5) mg/dL Microbiology - Last 24 Hours (Table) 04/11/23 10:13 Blood Culture - Preliminary Blood 04/11/23 10:13 Blood Culture - Preliminary Blood 04/11/23 03:39 Gram Stain - Final Sputum Sputum Culture - Final Assessment and Plan Assessment: 1. End-stage renal disease on hemodialysis and being switched to peritoneal dialysis as outpatient. At this time we will continue to maintain hemodialysis on a Sunday schedule. 2. Acute hypoxic respiratory failure associated with pneumonia and element of volume overload as well. Status post extubation 3. Moderate pulmonary hypertension and moderate tricuspid regurgitation noted on echocardiogram 4. CK D mineral bone disorder 5. Influenza A infection Plan: Hemodialysis on 04/16/2023 with UF about 1-2 L as tolerated
--- NOTE | 2023-04-14 11:19 | P.PN ---
Subjective Progress Note Date: 04/14/23 Principal diagnosis: Respiratory failure. I am seeing this patient in new consultation today 04/11/2023 in the emergency room trauma [facility] after presenting with acute shortness of breath eventually requiring intubation by the ER physician and admission to the intensive care unit.. Patient is a 42-year-old male -[place] male with past medical history significant for end-stage renal disease and hemodialysis ([facility] schedule), hypertension, obesity, alcoholism. Patient is currently intubated on mechanical ventilator. History obtained mostly from chart review. We're unable to get a hold of the patient's family at this time. Apparently, the patient presented to the emergency room early this morning and was in respiratory distress. Attempt was made to put the patient on BiPAP, however, he did not tolerate this. He was eventually intubated by the ER physician. He was also severely hypertensive on arrival, and started on a nitroglycerin infusion. Patient reportedly has not missed any sessions of hemodialysis. Normally maintained on Sunday schedule. Currently, the patient is intubated on mechanical ventilator. He is sedated on propofol which is infusing at 50 mcg/kg/m. He is occasionally synchronous with the ventilator. He does not follow any commands. Postintubation chest x-ray shows the endotracheal tube approximately 3 cm above the per. There is an orogastric tube coursing below the diaphragm, could be advanced 5-10 cm. There is cardiomegaly and vascular congestion. No significant focal infiltrates. Postintubation ABG shows pO2 of 362, pCO2 of 55, pH of 7.3. Appropriate ventilator changes were made. Current settings are assist control, respiratory rate 26, total in 500, FiO2 of 50%, PEEP of 5. Peak airway pressures are 32 and static airway pressure is 25. No significant secretions. Patient did test positive for influenza A on arrival. CBC on admission: WBC count of 6.8, hemoglobin 12, hematocrit 38.9, platelets 150. BMP on admission: Sodium 140, potassium 5.4, chloride 96, serum bicarb 24, BUN 31, creatinine 8.79, glucose 90. Troponin elevated at 0.079. NT proBNP 14,500. He does have right upper arm fistula with positive thrill and bruit. He does have an indwelling urinary catheter with minimal amount of urine. Patient also has what appears to be a peritoneal dialysis catheter. Abdomen is soft and nondistended. Patient is afebrile with a T-max of 103F. Blood pressure is still fairly hypertensive, currently nitroglycerin is infusing at 25 mcg/m. Prognosis is guarded. He will be monitored in the intensive care unit once bed available. Progress note dated 04/12/2023. 42-year-old black male seen in the intensive care unit, room 254. We placed a central line, and an arterial line yesterday. The patient remains on the mechanical ventilator. He had hemodialysis yesterday, was 1.3 L of fluid removed. He is on file assist control, rate 26, tidal volume 500, FiO2 50%, PEEP of 5. Blood gases show pO2 114, pCO2 32, and a pH is 7.50. These blood gases are consistent with a mild respiratory alkalosis. The patient's on fentanyl at 0.5 mcg/kg/h, propofol at 50 mics per kilogram per minute, and heparin via weightbase protocol. The patient's also getting saline at 20 mL an hour, and tube feedings with Nepro at 10 mL an hour. His pro-calcitonin level is 2.92. Today, the patient will have a daily interruption of sedation, and possibly, a spontaneous breathing trial. White count is 4, hemoglobin 9.9, hematocrit 30.8, and platelet count 111,000. PTT is 51.9. Sodium 1:30, potassium 3.5, chlorides 95, CO2 22, BUN 28, creatinine 8.67. Calcium is 8. Chest x-ray shows cardiomegaly, with a small left-sided pleural effusion. Progress note dated 04/13/2023. 42-year-old white male seen today in room 254, intensive care unit. The patient is sitting in a chair next to his hospital bed. He is on 3 L of oxygen. He is getting saline at 20 mL an hour and IV heparin. The patient was extubated successfully yesterday. Today is a dialysis today for the patient. White count 6.1, hemoglobin 10.8, hematocrit 35, and platelet count of 105,000. PTT is 46.7. Sodium 136, potassium 4.4, chlorides 96, CO2 20, anion gap 20, BUN 40, creatinine 10.4. Microbiology is currently negative. Chest x-ray shows cardiomegaly, and a small left-sided effusion. Progress note dated 04/14/2023. 42-year-old black male seen today in room 254. The patient is doing reasonably well. He sitting in a chair next to his hospital bed. He is on 2 L of oxygen by nasal cannula. He is getting saline at KVO, but I told the nurse he can be discontinued. He had hemodialysis yesterday, and 1.5 L of fluid was removed. He is going for a cardiac catheterization on April 16. Currently, the patient denies any shortness of breath, cough, wheezing, chest tightness, or phlegm production. He also denies any chest pain or pressure. White count is 4.6, hemoglobin 10.4, hematocrit 32.7, and platelet count was 114,000. Sodium 135, potassium 4.2, chlorides 95, CO2 25, BUN 34, creatinine 8.64. Calcium is 8.4. Chest x-ray from yesterday is a bit improved. Objective - Vital Signs Vital signs: Vital Signs Temp 99.8 F H 04/14/23 00:00 Pulse 72 04/14/23 11:13 Resp 15 04/14/23 10:00 BP 140/77 04/13/23 19:09 Pulse Ox 97 04/14/23 09:00 FiO2 50 04/12/23 12:30 Intake & Output 04/13/23 04/14/23 04/14/23 18:59 06:59 18:59 Intake Total 6915.508 2698 130 Output Total 0 500 Balance 0266.798 2072 130 Weight 134.8 kg 134.3 kg Intake: IV 560 240 130 0.9 NS 240 240 80 Azithromycin 500 mg In 250 Sodium Chloride 0.9% 250 ml @ 250 mls/hr IVPB DAILY [facility] Rx#:[id number] Sodium Chloride 0.9% 1, 20 000 ml @ 20 mls/hr IV . Q24H [facility] Rx#:[id number] cefTRIAXone 2 gm In 50 50 Sodium Chloride 0.9% 50 ml @ 100 mls/hr IVPB Q24HR [facility] Rx#:[id number] Intake, IV Titration 221.689 Amount Heparin Sod,Pork in 0.45% 221.689 NaCl 25,000 unit In 0.45 % NaCl 1 250ml.bag @ 7. 634 UNITS/KG/HR 10.001 mls/hr IV .Q24H [facility] Rx#: [id number] Oral 240 Hemodialysis 1500 Output: Urine 0 Hemodialysis 500 Other: # Voids 1 0 0 # Bowel Movements 1 1 ABP, PAP, CO, CI - Last Documented Arterial Blood Pressure 141/66 - Exam No acute distress, awake and alert, currently on 2 L of oxygen. HEENT examination is grossly unremarkable. Neck supple. Full range of motion. No adenopathy thyromegaly or neck vein distention. Cardiovascular examination reveals regular rhythm rate. S1-S2 normal. No S3 or S4. No discernible murmur noted. Heart rate 72 bpm. Lungs reveal scattered bilateral rhonchi. No wheezes or crackles. Breath sounds equal bilaterally. 2 L saturation is 97%. Abdomen soft bowel sounds are heard. No masses or tenderness. Extremities are intact. No cyanosis clubbing or edema. Skin is without rash or lesion. Neurologic examination is brief but nonfocal. - Labs CBC & Chem 7: 04/14/23 05:24 04/14/23 05:24 Labs: Abnormal Lab Results - Last 24 Hours (Table) 04/13/23 04/14/23 04/14/23 Range/Units 04:15 00:22 05:24 RBC 3.78 L (4.30-5.90) m/uL Hgb 10.4 L (13.0-17.5) gm/dL Hct 32.7 L (39.0-53.0) % RDW 16.4 H (11.5-15.5) % Plt Count 114 L (150-450) k/uL Sodium (137-145) mmol/L Chloride (98-107) mmol/L BUN (9-20) mg/dL Creatinine (0.66-1.25) mg/dL POC Glucose (mg/dL) 112 H (70-110) mg/dL Phosphorus 7.4 H (2.5-4.5) mg/dL 04/14/23 Range/Units 05:24 RBC (4.30-5.90) m/uL Hgb (13.0-17.5) gm/dL Hct (39.0-53.0) % RDW (11.5-15.5) % Plt Count (150-450) k/uL Sodium 135 L (137-145) mmol/L Chloride 95 L (98-107) mmol/L BUN 34 H (9-20) mg/dL Creatinine 8.64 H* (0.66-1.25) mg/dL POC Glucose (mg/dL) (70-110) mg/dL Phosphorus (2.5-4.5) mg/dL Microbiology - Last 24 Hours (Table) 04/11/23 10:13 Blood Culture - Preliminary Blood 04/11/23 10:13 Blood Culture - Preliminary Blood 04/11/23 03:39 Gram Stain - Final Sputum Sputum Culture - Final Assessment and Plan Assessment: Acute hypoxemic respiratory failure requiring intubation and mechanical ventilation 04/11/2023, likely multifactorial, secondary to acute influenza A infection and fluid overload. S/P successful extubation, 04/12/2023. Acute influenza A infection. Acute hypertensive urgency/emergency. End-stage renal disease, requiring hemodialysis 3 times a week. Patient also has a peritoneal dialysis catheter, unclear whether the patient is transitioning to hemodialysis. Elevated tropoinins, rule out NSTEMI. History of alcoholism. Morbid obesity, with a BMI 42.6 kg/m. Plan: Plan dated 04/12/2023. Yesterday, we place an arterial line, and a central line. The arterial line was in the left radial artery, and a central line was in the left internal jugular vein. Currently, the patient remains on the mechanical ventilator. Yesterday, he did have hemodialysis was 1.3 L of fluid removed. He continues on propofol, fentanyl, and heparin. He does have tube feedings hanging. Today we will attempt a daily interruption of sedation and possibly a spontaneous breathing trial. The patient's pro-calcitonin level was 2.92. He remains on azithromycin, and Rocephin. Prognosis is guarded. Plan dated 04/13/2023. The patient was successfully extubated yesterday. He is currently on 3 L. Sitting at the bedside. Today's today for hemodialysis. The patient continues on IV heparin. He is getting saline at 20 mL an hour. Labs, x-rays, and medications are all reviewed. The patient apparently is going to have a cardiac catheterization, sometime over the next few days. No additional recommendations are made. He continues on antibiotics. His pro-calcitonin level was 2.92. Prognosis is guarded. We will continue to follow the patient, and make recommendations. Plan dated 04/14/2023. The patient is seen today in room 254. He sitting in a chair next to his hospital bed. He continues on 2 L of oxygen by nasal cannula. He had hemodialysis yesterday, April 13, and 1.5 L of fluid was removed. The patient is scheduled for cardiac catheterization on April 16. The patient's getting saline at KVO, but I told the nurse that she could discontinue it. Labs, x- rays, medications are reviewed. Prognosis is guarded. All cultures are thus far negative. Time with Patient: Less than 30
[2023-04-14 11:33] LABS: Glucose,Whole Blood 116 mg/dL (70-110)
[2023-04-14 13:07] LABS: ALT 20 U/L (4-49); AST 90 U/L (17-59)
--- NOTE | 2023-04-14 16:32 | P.HPIM ---
History of Present Illness H&P Date: 04/11/23 Chief Complaint: Acute Vent-de[endent respiratory failure HISTORY OF PRESENT ILLNESS: This is a 42-year-old -Greek gentleman with a previous medical history significant for hypertension and hypertensive cardio vascular disease, hyperlipidemia, diabetes mellitus type 2, end-stage renal disease on hemodialysis Sunday and Sunday, patient presented to the emergency department at [facility] because is not feeling well for the past 24 hours prior to admission associated with the increased headache fever or chills not able to breathe very well, patient was found to have an exudative hypertension he was seen in emergency department and initially was started on that was her drip, the patient became quite confused and combative at the patient ended up getting intubated at the scene the in the emergency department, and he was admitted to the intensive care unit, patient was seen in consultation by ICU/pulmonary care, he was also seen in consultation by cardiology as well as nephrology for hemodialysis, patient troponin came back slightly elevated, patient was ruled out for non-ST elevation MA this is a type II MA due to myocardial injury due to underlying respiratory failure because of the accelerated hypertension as well as influenza type A. REVIEW OF SYSTEMS: Constitutional: No documented fever, no chills, no night sweats. No weight change. No weakness, fatigue or lethargy. No daytime sleepiness. EENT: No headache. No blurred vision or double vision, no loss of vision. No loss of Hearing, no ringing in the ears, no dizziness. No nasal drainage or congestion. No epistaxis. No sore throat. Lungs: positive for shortness of breath, positive for cough, no sputum production. positive for wheezing. Reports dyspnea with activity. Cardiovascular: No chest pain, no lower extremity edema. No palpitations. No paroxysmal nocturnal dyspnea. No orthopnea. No lightheadedness or dizziness. No syncopal episodes. Abdominal: Reports abdominal pain. No nausea, vomiting. positive for diarrhea. No constipation. No bloody or tarry stools reports loss of appetite. Genitourinary: No dysuria, increased frequency, urgency. No urinary retention. Musculoskeletal: No myalgias. No muscle weakness, no gait dysfunction, no frequent falls. No back pain. No neck pain. Integumentary: No wounds, no lesions. No rash or pruritus. No unusual bruising. No change in hair or nails. Neurologic: No aphasia. No facial droop. No change in mentation. No head injury. No headache. No paralysis. No paresthesia. Psychiatric: No depression. No anxiety. No mood swings. Endocrine: No abnormal blood sugars. No weight change. PAST MEDICAL HISTORY: Hypertension and hypertensive cardio vascular disease. Hyperlipidemia. Diabetes mellitus type 2. ALLERGIC rhinitis. End-stage renal disease on hemodialysis Chronic alcohol use and dependence. Polysubstance abuse. PAST SURGICAL HISTORY: Joshua catheter placement and removal SOCIAL HISTORY: Patient drinks alcohol on a regular basis, he drinks at least a fifth every day, he uses cocaine as well, he does smoke tobacco. FAMILY HISTORY: Father at age 36 recurrent accident, mother at age of 37 from breast cancer, patient had one brother who at age of 36 from gunshot wound PHYSICAL EXAMINATION: General: 42-year-old -Greek gentleman laying down in bed currently intubated HEENT: Head is atraumatic, normocephalic, pupils were equal round there is an ET tube in place and oral gastric tube in place. Neck: Supple, no JVP, normal carotid upstroke bilaterally, no lymphadenopathy. Chest: Decreased breath sounds at the bases, few rhonchi, minimal expiratory wheezes, no chest wall tenderness, no intercostal retractions. Heart: First heart sound is normal, second heart sound normal irregularly irregular, tachycardic. Abdomen: Soft, nontender, nondistended, positive bowel sounds. Extremities: There is no edema no calf tenderness DP +2 bilaterally. Neurologic examination: Patient is sedated on the ventilator. ASSESSMENT AND PLAN: 1. Acute hypoxemic vent dependent respiratory failure due to combination of influenza A as well as x-rays of hypertension with acute diastolic heart failure. Patient is being treated, he is currently on FiO2 of 50%, PEEP of 5, monitor the patient oxidation very well, continue current treatment plan as per ICU/primary care and cardiology, continue the patient on his current treatment plan. We will follow the patient with a was appropriately tolerating as well, continue also Tamiflu 30 mg per orogastric tube once every day. Continue patient on ceftriaxone 1 g IV piggyback every 24 hours. 2. Accelerated hypertension with hypertensive encephalopathy. Continue patient on carvedilol 12.5 mg orally twice every day, continue losartan 100 mg every day, clonidine 0.1 mg twice every day and hydralazine 100 mg orally 3 times every day, monitor the patient blood pressure very closely, add labetalol 10 mg IV push every 4 hours as needed for systolic blood pressure greater than or equal to 160 mg of mercury monitor the patient blood pressure very closely. 3. Mixed hyperlipidemia. Restart the patient back and his atorvastatin 40 mg once every day. 4. End-stage renal disease on hemodialysis. Continue with dialysis as per nephrology. 5. Diabetes mellitus type 2. Continue patient on sliding scale insulin. 6. Chronic alcohol use and dependence. We will monitor for DTs. 7. Polysubstance abuse. urine drug screening was positive for cocaine. We'll discuss with the patient when he is more awake. 8. DVT prophylaxis. Heparin 5000 units subcutaneously every 12 hours. 9. GI prophylaxis. Continue patient on Protonix 40 mg IV push every 24 hours. 10. Admitted to inpatient. Estimated length of stay 2 midnights. 11. Full code. Past Medical History Past Medical History: Dialysis, Hypertension, Renal Disease Additional Past Medical History / Comment(s): Hematoma around "belly button area", pt wanting to transition to peritoneal dialysis from hemodialysis,ESRD with hemodialysis M/W/F for 4Hrs, mineral bone disease History of Any Multi-Drug Resistant Organisms: None Reported Past Surgical History: No Surgical Hx Reported Additional Past Surgical History / Comment(s): R upper arm AV fistula,Peritoneal dialysis catheter insertion on 02-20-23 Past Anesthesia/Blood Transfusion Reactions: No Reported Reaction Past Psychological History: No Psychological Hx Reported Smoking Status: Current every day smoker Past Alcohol Use History: None Reported, Occasional Past Drug Use History: Marijuana - Past Family History Father Additional Family Medical History / Comment(s): Father in a MVA. Mother Family Medical History: Cancer Additional Family Medical History / Comment(s): Mother from breast cancer. Medications and Allergies Home Medications Medication Instructions Recorded Confirmed Type Calcium Acetate [Phoslo] 667 mg PO BID PRN 02/27/23 04/11/23 History Folic Acid 1 mg PO DAILY 02/27/23 04/11/23 History Folic Acid/Vit B Complex and C 0.8 mg PO DAILY 02/27/23 04/11/23 History [Minda-Jeremiah Tablet] Lidocaine-Prilocaine Cream [Emla 1 applic TOPICAL DAILY PRN 02/27/23 04/11/23 History Cream 2.5%/2.5%] carvediloL [Coreg] 6.25 mg PO BID 02/27/23 04/11/23 History cloNIDine HCL [Catapres] 0.1 mg PO BID 02/27/23 04/11/23 History hydrALAZINE HCL [Apresoline] 100 mg PO TID 02/27/23 04/11/23 History levOCARNitine 330 mg PO BID PRN 02/27/23 04/11/23 History Losartan [Cozaar] 50 mg PO DAILY 03/01/23 04/11/23 History HYDROcodone/APAP 5-325MG [[place] 1 tab PO Q6HR PRN 3 Days #10 tab 03/02/2304/02 Rx 5-325] Allergies Allergy/AdvReac Type Severity Reaction Status Date / Time amlodipine Allergy Rash/Hives/ Verified 04/11/23 08:26 Itchy Physical Exam Vitals: Vital Signs Temp Pulse Pulse Resp BP BP Pulse Ox 04/11/23 19:00 79 26 H 100 04/11/23 18:00 77 26 H 82 L 04/11/23 17:00 81 26 H 04/11/23 16:07 79 04/11/23 16:01 77 04/11/23 16:00 102.2 F H 78 26 H 100 04/11/23 15:58 04/11/23 15:00 74 26 H 100 04/11/23 14:00 100.6 F H 80 72 26 H 126/81 100 04/11/23 13:00 80 26 H 100 04/11/23 12:00 100.5 F H 86 26 H 100 04/11/23 11:51 83 04/11/23 11:49 04/11/23 11:43 80 04/11/23 11:00 76 26 H 100 04/11/23 10:30 80 26 H 100 04/11/23 10:15 80 26 H 100 04/11/23 10:00 80 26 H 100 04/11/23 09:45 77 26 H 100 04/11/23 09:30 76 26 H 115/64 99 04/11/23 09:15 75 26 H 110/68 100 04/11/23 09:00 78 26 H 116/69 99 04/11/23 08:45 76 26 H 118/70 100 04/11/23 08:30 78 26 H 133/95 95 04/11/23 08:20 81 04/11/23 08:15 80 26 H 105/68 98 04/11/23 08:13 80 04/11/23 08:00 101.5 F H 80 26 H 103/63 97 04/11/23 07:57 04/11/23 07:45 81 26 H 111/67 98 04/11/23 07:30 81 26 H 110/69 99 04/11/23 07:15 82 26 H 109/68 97 04/11/23 07:00 82 26 H 118/72 97 04/11/23 06:45 85 26 H 111/64 96 04/11/23 06:30 87 26 H 119/66 96 04/11/23 06:23 04/11/23 06:15 87 26 H 167/87 94 L 04/11/23 06:00 92 26 H 167/87 96 04/11/23 05:50 103 F H 87 26 H 145/68 99 04/11/23 05:19 88 22 134/68 95 04/11/23 04:26 102.9 F H 89 22 105/64 95 04/11/23 04:09 04/11/23 03:52 105 H 04/11/23 03:49 105 H 22 165/88 100 04/11/23 03:06 04/11/23 02:51 105 H 30 H 170/90 95 04/11/23 02:45 108 H 04/11/23 02:32 04/11/23 02:23 103 H 30 H 242/160 93 L 04/11/23 01:02 100.4 F H 89 22 184/124 88 L FiO2 04/11/23 19:00 04/11/23 18:00 04/11/23 17:00 04/11/23 16:07 04/11/23 16:01 04/11/23 16:00 50 04/11/23 15:58 50 04/11/23 15:00 04/11/23 14:00 50 04/11/23 13:00 04/11/23 12:00 50 04/11/23 11:51 04/11/23 11:49 50 04/11/23 11:43 04/11/23 11:00 04/11/23 10:30 04/11/23 10:15 04/11/23 10:00 04/11/23 09:45 04/11/23 09:30 04/11/23 09:15 04/11/23 09:00 04/11/23 08:45 04/11/23 08:30 04/11/23 08:20 04/11/23 08:15 04/11/23 08:13 04/11/23 08:00 100 04/11/23 07:57 50 04/11/23 07:45 04/11/23 07:30 04/11/23 07:15 04/11/23 07:00 50 04/11/23 06:45 04/11/23 06:30 04/11/23 06:23 50 04/11/23 06:15 04/11/23 06:00 04/11/23 05:50 50 04/11/23 05:19 04/11/23 04:26 04/11/23 04:09 50 04/11/23 03:52 04/11/23 03:49 04/11/23 03:06 100 04/11/23 02:51 04/11/23 02:45 04/11/23 02:32 100 04/11/23 02:23 04/11/23 01:02 Intake and Output 04/11/23 04/11/23 04/11/23 06:59 14:59 22:59 Intake Total 244.060 0994.538 486.943 Output Total 10 1821 48 Balance 102.500 -404.462 438.943 Intake: IV 20 166 465 0.9 NS 6 15 ACETAMINOPHEN IV (For NPO 100 ) 1,000 mg In Empty Bag 1 bag @ 400 mls/hr IVPB Q6HR [facility] Rx#:[id number] Azithromycin 500 mg In 250 Sodium Chloride 0.9% 250 ml @ 250 mls/hr IVPB DAILY [facility] Rx#:[id number] Sodium Chloride 0.9% 1, 20 160 100 000 ml @ 20 mls/hr IV . Q24H [facility] Rx#:[id number] Intake, IV Titration 92.500 850.538 21.943 Amount ACETAMINOPHEN IV (For NPO 400 ) 1,000 mg In Empty Bag 1 bag @ 400 mls/hr IVPB Q6HR [facility] Rx#:[id number] Nitroglycerin-D5w Pmx 50 46.125 mg In Dextrose/Water 1 250ml.bag @ 20 MCG/MIN 6 mls/hr IV .Q24H [facility] Rx#: [id number] cefTRIAXone 2 gm In 100 Sodium Chloride 0.9% 50 ml @ 100 mls/hr IVPB Q24HR [facility] Rx#:[id number] fentaNYL (PF). 1,000 mcg 63.208 21.943 In Sodium Chloride 0.9% 80 ml @ 0.5 MCG/KG/HR 6. 55 mls/hr IV .[id number] [facility] Rx#:[id number] propofoL 1,000 mg In 46.375 287.33 Empty Bag 1 bag @ 15 MCG/ KG/MIN 11.79 mls/hr IV . Q8H29M [facility] Rx#:[id number] Hemodialysis 400 Output: Urine 10 121 48 Hemodialysis 1700 Other: Voiding Method Indwelling Catheter Indwelling Catheter Weight 131 kg ABP, PAP, CO, CI - Last 8 Hours Arterial Blood Pressure 164/76 Arterial Blood Pressure 118/70 Arterial Blood Pressure 116/65 Arterial Blood Pressure 98/59 Arterial Blood Pressure 95/56 Arterial Blood Pressure 105/57 Arterial Blood Pressure 141/76 Arterial Blood Pressure 142/89 Results CBC & Chem 7: 04/14/23 05:24 04/14/23 05:24 Labs: Abnormal Lab Results - Last 24 Hours (Table) 04/11/23 04/11/23 04/11/23 Range/Units 01:25 01:57 01:57 RBC (4.30-5.90) m/uL Hgb 12.0 L (13.0-17.5) gm/dL Hct 38.9 L (39.0-53.0) % MCHC 30.9 L (31.0-37.0) g/dL RDW 16.6 H (11.5-15.5) % Plt Count (150-450) k/uL Lymphocytes # 0.4 L (1.0-4.8) k/uL ABG pH (7.35-7.45) ABG pCO2 (35-45) mmHg ABG pO2 (83-108) mmHg ABG HCO3 (21-25) mmol/L ABG Total CO2 (19-24) mmol/L ABG O2 Saturation (94-97) % Potassium 5.4 H (3.5-5.1) mmol/L Chloride 96 L (98-107) mmol/L BUN 31 H (9-20) mg/dL Creatinine 8.79 H* (0.66-1.25) mg/dL POC Glucose (mg/dL) (70-110) mg/dL AST 88 H (17-59) U/L Alkaline Phosphatase 37 L (38-126) U/L Troponin I (0.000-0.034) ng/mL Total Protein 8.7 H (6.3-8.2) g/dL Hep Bs Antibody (Negative) Influenza Type A (PCR) Detected A (Not Detectd) 04/11/23 04/11/23 04/11/23 Range/Units 01:57 03:57 08:45 RBC (4.30-5.90) m/uL Hgb (13.0-17.5) gm/dL Hct (39.0-53.0) % MCHC (31.0-37.0) g/dL RDW (11.5-15.5) % Plt Count (150-450) k/uL Lymphocytes # (1.0-4.8) k/uL ABG pH 7.30 L (7.35-7.45) ABG pCO2 55 H (35-45) mmHg ABG pO2 362 H (83-108) mmHg ABG HCO3 27 H (21-25) mmol/L ABG Total CO2 29 H (19-24) mmol/L ABG O2 Saturation 100.0 H (94-97) % Potassium (3.5-5.1) mmol/L Chloride (98-107) mmol/L BUN (9-20) mg/dL Creatinine (0.66-1.25) mg/dL POC Glucose (mg/dL) (70-110) mg/dL AST (17-59) U/L Alkaline Phosphatase (38-126) U/L Troponin I 0.079 H* 0.130 H* (0.000-0.034) ng/mL Total Protein (6.3-8.2) g/dL Hep Bs Antibody (Negative) Influenza Type A (PCR) (Not Detectd) 04/11/23 04/11/23 04/11/23 Range/Units 10:08 10:08 10:08 RBC 3.79 L (4.30-5.90) m/uL Hgb 10.4 L (13.0-17.5) gm/dL Hct 32.7 L (39.0-53.0) % MCHC (31.0-37.0) g/dL RDW 16.5 H (11.5-15.5) % Plt Count 127 L (150-450) k/uL Lymphocytes # 0.7 L (1.0-4.8) k/uL ABG pH (7.35-7.45) ABG pCO2 (35-45) mmHg ABG pO2 (83-108) mmHg ABG HCO3 (21-25) mmol/L ABG Total CO2 (19-24) mmol/L ABG O2 Saturation (94-97) % Potassium (3.5-5.1) mmol/L Chloride (98-107) mmol/L BUN 35 H (9-20) mg/dL Creatinine 9.94 H* (0.66-1.25) mg/dL POC Glucose (mg/dL) (70-110) mg/dL AST (17-59) U/L Alkaline Phosphatase (38-126) U/L Troponin I (0.000-0.034) ng/mL Total Protein (6.3-8.2) g/dL Hep Bs Antibody A (Negative) Influenza Type A (PCR) (Not Detectd) 04/11/23 04/11/23 04/11/23 Range/Units 12:10 12:50 13:14 RBC (4.30-5.90) m/uL Hgb (13.0-17.5) gm/dL Hct (39.0-53.0) % MCHC (31.0-37.0) g/dL RDW (11.5-15.5) % Plt Count (150-450) k/uL Lymphocytes # (1.0-4.8) k/uL ABG pH (7.35-7.45) ABG pCO2 (35-45) mmHg ABG pO2 (83-108) mmHg ABG HCO3 (21-25) mmol/L ABG Total CO2 (19-24) mmol/L ABG O2 Saturation (94-97) % Potassium (3.5-5.1) mmol/L Chloride (98-107) mmol/L BUN (9-20) mg/dL Creatinine (0.66-1.25) mg/dL POC Glucose (mg/dL) 62 L 141 H (70-110) mg/dL AST (17-59) U/L Alkaline Phosphatase (38-126) U/L Troponin I 0.179 H* (0.000-0.034) ng/mL Total Protein (6.3-8.2) g/dL Hep Bs Antibody (Negative) Influenza Type A (PCR) (Not Detectd) 04/11/23 Range/Units 15:25 RBC 3.62 L (4.30-5.90) m/uL Hgb 10.0 L (13.0-17.5) gm/dL Hct 31.1 L (39.0-53.0) % MCHC (31.0-37.0) g/dL RDW 16.6 H (11.5-15.5) % Plt Count 113 L (150-450) k/uL Lymphocytes # 0.6 L (1.0-4.8) k/uL ABG pH (7.35-7.45) ABG pCO2 (35-45) mmHg ABG pO2 (83-108) mmHg ABG HCO3 (21-25) mmol/L ABG Total CO2 (19-24) mmol/L ABG O2 Saturation (94-97) % Potassium (3.5-5.1) mmol/L Chloride (98-107) mmol/L BUN (9-20) mg/dL Creatinine (0.66-1.25) mg/dL POC Glucose (mg/dL) (70-110) mg/dL AST (17-59) U/L Alkaline Phosphatase (38-126) U/L Troponin I (0.000-0.034) ng/mL Total Protein (6.3-8.2) g/dL Hep Bs Antibody (Negative) Influenza Type A (PCR) (Not Detectd) Microbiology - Last 24 Hours (Table) 04/11/23 03:39 Gram Stain - Preliminary Sputum Thrombosis Risk Factor Assmnt - Choose All That Apply Any of the Below Risk Factors Present?: Yes Each Factor Represents 1 point: Medical pt on bed rest, Obesity (BMI >25) Thrombosis Risk Factor Assessment Total Risk Factor Score: 2 Thrombosis Risk Factor Assessment Level: Low Risk
--- NOTE | 2023-04-14 16:37 | P.PN ---
Subjective Progress Note Date: 04/12/23 HISTORY OF PRESENT ILLNESS: This is a 42-year-old -[place] gentleman with a previous medical history significant for hypertension and hypertensive cardio vascular disease, hyperlipidemia, diabetes mellitus type 2, end-stage renal disease on hemodialysis Sunday and Sunday, patient presented to the emergency department at [facility] because is not feeling well for the past 24 h ours prior to admission associated with the increased headache fever or chills not able to breathe very well, patient was found to have an exudative hypertension he was seen in emergency department and initially was started on that was her drip, the patient became quite confused and combative at the patient ended up getting intubated at the scene the in the emergency department, and he was admitted to the intensive care unit, patient was seen in consultation by ICU/pulmonary care, he was also seen in consultation by cardiology as well as nephrology for hemodialysis, patient troponin came back slightly elevated, patient was ruled out for non-ST elevation CO this is a type II CO due to myocardial injury due to underlying respiratory failure because of the accelerated hypertension as well as influenza type A. 04/12: Patient continues to be intubated in the intensive care unit, he is requi ring about 50% of FiO2 at this time, he does appear to be hypertensive as well, added labetalol 10 mg push every 4 hours, his losartan. 200 mg daily Coreg 12.5 mg twice every day hydralazine 100 mg daily times every day and clonidine twice every day, monitor the patient blood pressure very closely when his intensive care unit, he has been getting empiric antibiotic treatment in the form of ceftriaxone as well as also Tamiflu 30 mg per orogastric tube once every day for the influenza type A, we will monitor patient very closely, I spoke with his fiance who was at the bedside about his prognosis and we will continue to wean the patient off the ventilator. REVIEW OF SYSTEMS: Constitutional: No documented fever, no chills, no night sweats. No weight change. No weakness, fatigue or lethargy. No daytime sleepiness. EENT: No headache. No blurred vision or double vision, no loss of vision. No loss of Hearing, no ringing in the ears, no dizziness. No nasal drainage or congestion. No epistaxis. No sore throat. Lungs: positive for shortness of breath, positive for cough, no sputum production. positive for wheezing. Reports dyspnea with activity. Cardiovascular: No chest pain, no lower extremity edema. No palpitations. No paroxysmal nocturnal dyspnea. No orthopnea. No lightheadedness or dizziness. No syncopal episodes. Abdominal: Reports abdominal pain. No nausea, vomiting. positive for diarrhea. No constipation. No bloody or tarry stools reports loss of appetite. Genitourinary: No dysuria, increased frequency, urgency. No urinary retention. Musculoskeletal: No myalgias. No muscle weakness, no gait dysfunction, no frequent falls. No back pain. No neck pain. Integumentary: No wounds, no lesions. No rash or pruritus. No unusual bruising. No change in hair or nails. Neurologic: No aphasia. No facial droop. No change in mentation. No head injury. No headache. No paralysis. No paresthesia. Psychiatric: No depression. No anxiety. No mood swings. Endocrine: No abnormal blood sugars. No weight change. PHYSICAL EXAMINATION: General: 42-year-old -[place] gentleman laying down in bed currently intubated HEENT: Head is atraumatic, normocephalic, pupils were equal round there is an ET tube in place and oral gastric tube in place. Neck: Supple, no JVP, normal carotid upstroke bilaterally, no lymphadenopathy. Chest: Decreased breath sounds at the bases, few rhonchi, minimal expiratory wheezes, no chest wall tenderness, no intercostal retractions. Heart: First heart sound is normal, second heart sound normal irregularly irregular, tachycardic. Abdomen: Soft, nontender, nondistended, positive bowel sounds. Extremities: There is no edema no calf tenderness DP +2 bilaterally. Neurologic examination: Patient is sedated on the ventilator. ASSESSMENT AND PLAN: 1. Acute hypoxemic vent dependent respiratory failure due to combination of influenza A as well as x-rays of hypertension with acute diastolic heart failure. Patient is being treated, he is currently on FiO2 of 50%, PEEP of 5, monitor the patient oxidation very well, continue current treatment plan as per ICU/primary care and cardiology, continue the patient on his current treatment plan. We will follow the patient with a was appropriately tolerating as well, continue also Tamiflu 30 mg per orogastric tube once every day. Continue patient on ceftriaxone 1 g IV piggyback every 24 hours. 2. Accelerated hypertension with hypertensive encephalopathy. Continue patient on carvedilol 12.5 mg orally twice every day, continue losartan 100 mg every day, clonidine 0.1 mg twice every day and hydralazine 100 mg orally 3 times every day, monitor the patient blood pressure very closely, add labetalol 10 mg IV push every 4 hours as needed for systolic blood pressure greater than or equal to 160 mg of mercury monitor the patient blood pressure very closely. 3. Mixed hyperlipidemia. Restart the patient back and his atorvastatin 40 mg once every day. 4. End-stage renal disease on hemodialysis. Continue with dialysis as per nephrology. 5. Diabetes mellitus type 2. Continue patient on sliding scale insulin. 6. Chronic alcohol use and dependence. We will monitor for DTs. 7. Polysubstance abuse. urine drug screening was positive for cocaine. We'll discuss with the patient when he is more awake. 8. DVT prophylaxis. Heparin 5000 units subcutaneously every 12 hours. 9. GI prophylaxis. Continue patient on Protonix 40 mg IV push every 24 hours. 10. Guarded prognosis. Objective - Vital Signs Vital signs: Vital Signs Temp 99.8 F H 04/14/23 00:00 Pulse 70 04/14/23 15:22 Resp 23 04/14/23 14:00 BP 141/85 04/14/23 12:00 Pulse Ox 98 04/14/23 12:00 FiO2 50 04/12/23 12:30 Intake & Output 04/13/23 04/14/23 04/14/23 18:59 06:59 18:59 Intake Total 8661.379 0435 130 Output Total 0 500 Balance 6643.613 9654 130 Weight 134.8 kg 134.3 kg Intake: IV 560 240 130 0.9 NS 240 240 80 Azithromycin 500 mg In 250 Sodium Chloride 0.9% 250 ml @ 250 mls/hr IVPB DAILY [facility] Rx#:[id number] Sodium Chloride 0.9% 1, 20 000 ml @ 20 mls/hr IV . Q24H [facility] Rx#:[id number] cefTRIAXone 2 gm In 50 50 Sodium Chloride 0.9% 50 ml @ 100 mls/hr IVPB Q24HR [facility] Rx#:[id number] Intake, IV Titration 221.689 Amount Heparin Sod,Pork in 0.45% 221.689 NaCl 25,000 unit In 0.45 % NaCl 1 250ml.bag @ 7. 634 UNITS/KG/HR 10.001 mls/hr IV .Q24H [facility] Rx#: [id number] Oral 240 Hemodialysis 1500 Output: Urine 0 Hemodialysis 500 Other: # Voids 1 0 0 # Bowel Movements 1 1 ABP, PAP, CO, CI - Last Documented Arterial Blood Pressure 141/66 - Labs CBC & Chem 7: 04/14/23 05:24 04/14/23 05:24 Labs: Abnormal Lab Results - Last 24 Hours (Table) 04/14/23 04/14/23 04/14/23 Range/Units 00:22 05:24 05:24 RBC 3.78 L (4.30-5.90) m/uL Hgb 10.4 L (13.0-17.5) gm/dL Hct 32.7 L (39.0-53.0) % RDW 16.4 H (11.5-15.5) % Plt Count 114 L (150-450) k/uL Sodium 135 L (137-145) mmol/L Chloride 95 L (98-107) mmol/L BUN 34 H (9-20) mg/dL Creatinine 8.64 H* (0.66-1.25) mg/dL POC Glucose (mg/dL) 112 H (70-110) mg/dL AST 90 H (17-59) U/L 04/14/23 Range/Units 11:31 RBC (4.30-5.90) m/uL Hgb (13.0-17.5) gm/dL Hct (39.0-53.0) % RDW (11.5-15.5) % Plt Count (150-450) k/uL Sodium (137-145) mmol/L Chloride (98-107) mmol/L BUN (9-20) mg/dL Creatinine (0.66-1.25) mg/dL POC Glucose (mg/dL) 116 H (70-110) mg/dL AST (17-59) U/L Microbiology - Last 24 Hours (Table) 04/11/23 10:13 Blood Culture - Preliminary Blood 04/11/23 10:13 Blood Culture - Preliminary Blood
[2023-04-14 20:06] LABS: Glucose,Whole Blood 83 mg/dL (70-110)
[2023-04-14] MEDS: MELATONIN 3 MG TABLET PO SCH (23:29)
[2023-04-15 04:03] LABS: Glucose,Whole Blood 105 mg/dL (70-110)
[2023-04-15] MEDS: carvediloL 12.5 MG TAB PO SCH ×2 (04:59→17:52)
[2023-04-15] MEDS ORDERED: LORazepam 0.5 MG TAB PO STA (05:38)
[2023-04-15] MEDS ORDERED: LORazepam 0.5 MG TAB PO PRN (06:16)
[2023-04-15] MEDS: LABETALOL 5 MG/ML VIAL MDV IVP PRN (07:07)
[2023-04-15] MEDS: cloNIDine HCL 0.1 MG TAB PO SCH ×2 (08:34→19:33)
[2023-04-15] MEDS: ASPIRIN 81 MG PO SCH (08:34)
[2023-04-15] MEDS: LOSARTAN 50 MG TAB PO SCH (08:34)
[2023-04-15] MEDS: PARoxetine 10 MG TAB PO SCH (08:35)
[2023-04-15] MEDS: HEPARIN SODIUM,PORCINE 5,000 UNIT/ML 1 ML VIAL SQ SCH ×2 (08:35→19:33)
[2023-04-15] MEDS: PANTOPRAZOLE 40 MG/10 ML VIAL IV SCH (08:35)
[2023-04-15] MEDS: hydrALAZINE HCL 50 MG TAB PO SCH ×3 (08:35→19:33)
[2023-04-15] MEDS: OSELTAMIVIR 60 MG/10 ML ORAL SYRINGE OG-TUBE SCH (08:35)
[2023-04-15] MEDS: IPRATROPIUM-ALBUTEROL 3 ML NEB INHALATION PRN ×3 (08:46→20:13)
[2023-04-15] MEDS ORDERED: FUROSEMIDE 10 MG/ML 10 ML VIAL IV STA (10:35)
--- NOTE | 2023-04-15 10:55 | P.PN ---
Subjective Patient is seen for follow-up for end-stage renal disease. Appears short of breath today Scheduled for hemodialysis in a.m. Possible cardiac catheterization in a.m. Objective - Vital Signs Vital signs: Vital Signs Temp 98.1 F 04/15/23 04:00 Pulse 72 04/15/23 08:58 Resp 16 04/15/23 04:00 BP 158/103 04/15/23 04:00 Pulse Ox 99 04/15/23 04:00 FiO2 50 04/12/23 12:30 Intake & Output 04/14/23 04/15/23 04/15/23 18:59 06:59 18:59 Intake Total 130 Output Total 200 350 Balance -70 -350 Weight 128.4 kg Intake: IV 130 0.9 NS 80 cefTRIAXone 2 gm In 50 Sodium Chloride 0.9% 50 ml @ 100 mls/hr IVPB Q24HR [facility] Rx#:[id number] Output: Urine 200 350 Other: # Voids 1 ABP, PAP, CO, CI - Last Documented Arterial Blood Pressure 141/66 - Exam Patient is awake, comfortable, alert oriented 3. Examination of the heart S1 and S2 Examination lungs shows decreased breath sounds bilateral bases Abdomen is soft nontender Examination of lower extremities shows no edema [employer] exam is grossly intact - Labs CBC & Chem 7: 04/14/23 05:24 04/14/23 05:24 Labs: Abnormal Lab Results - Last 24 Hours (Table) 04/14/23 04/14/23 Range/Units 05:24 11:31 Sodium 135 L (137-145) mmol/L Chloride 95 L (98-107) mmol/L BUN 34 H (9-20) mg/dL Creatinine 8.64 H* (0.66-1.25) mg/dL POC Glucose (mg/dL) 116 H (70-110) mg/dL AST 90 H (17-59) U/L Microbiology - Last 24 Hours (Table) 04/11/23 10:13 Blood Culture - Preliminary Blood 04/11/23 10:13 Blood Culture - Preliminary Blood Assessment and Plan Assessment: 1. End-stage renal disease on hemodialysis and being switched to peritoneal dialysis as outpatient. At this time we will continue to maintain hemodialysis on a Sunday schedule. 2. Acute hypoxic respiratory failure associated with pneumonia and element of volume overload as well. Status post extubation 3. Moderate pulmonary hypertension and moderate tricuspid regurgitation noted on echocardiogram 4. CK D mineral bone disorder 5. Influenza A infection 6. Elevated cardiac enzymes, scheduled for cardiac catheterization tomorrow Plan: Hemodialysis in a.m. with UF of about 2-2.5 L Add IV Lasix Coordinate hemodialysis post cardiac catheterization.
--- NOTE | 2023-04-15 11:32 | P.PN ---
Subjective Progress Note Date: 04/15/23 Principal diagnosis: Respiratory failure. I am seeing this patient in new consultation today 04/11/2023 in the emergency room trauma [facility] 1 after presenting with acute shortness of breath eventually requiring intubation by the ER physician and admission to the intensive care unit.. Patient is a 42-year-old male -Mexican male with past medical history significant for end-stage renal disease and hemodialysis ([facility] schedule), hypertension, obesity, alcoholism. Patient is currently intubated on mechanical ventilator. History obtained mostly from chart review. We're unable to get a hold of the patient's family at this time. Apparently, the patient presented to the emergency room early this morning and was in respiratory distress. Attempt was made to put the patient on BiPAP, however, he did not tolerate this. He was eventually intubated by the ER physician. He was also severely hypertensive on arrival, and started on a nitroglycerin infusion. Patient reportedly has not missed any sessions of hemodialysis. Normally maintained on Sunday schedule. Currently, the patient is intubated on mechanical ventilator. He is sedated on propofol which is infusing at 50 mcg/kg/m. He is occasionally synchronous with the ventilator. He does not follow any commands. Postintubation chest x-ray shows the endotracheal tube approximately 3 cm above the per. There is an orogastric tube coursing below the diaphragm, could be advanced 5-10 cm. There is cardiomegaly and vascular congestion. No significant focal infiltrates. Postintubation ABG shows pO2 of 362, pCO2 of 55, pH of 7.3. Appropriate ventilator changes were made. Current settings are assist control, respiratory rate 26, total in 500, FiO2 of 50%, PEEP of 5. Peak airway pressures are 32 and static airway pressure is 25. No significant secretions. Patient did test positive for influenza A on arrival. CBC on admission: WBC count of 6.8, hemoglobin 12, hematocrit 38.9, platelets 150. BMP on admission: Sodium 140, potassium 5.4, chloride 96, serum bicarb 24, BUN 31, creatinine 8.79, glucose 90. Troponin elevated at 0.079. NT proBNP 14,500. He does have right upper arm fistula with positive thrill and bruit. He does have an indwelling urinary catheter with minimal amount of urine. Patient also has what appears to be a peritoneal dialysis catheter. Abdomen is soft and nondistended. Patient is afebrile with a T-max of 103F. Blood pressure is still fairly hypertensive, currently nitroglycerin is infusing at 25 mcg/m. Prognosis is guarded. He will be monitored in the intensive care unit once bed available. Progress note dated 04/12/2023. 42-year-old black male seen in the intensive care unit, room 254. We placed a central line, and an arterial line yesterday. The patient remains on the mechanical ventilator. He had hemodialysis yesterday, was 1.3 L of fluid removed. He is on file assist control, rate 26, tidal volume 500, FiO2 50%, PEEP of 5. Blood gases show pO2 114, pCO2 32, and a pH is 7.50. These blood gases are consistent with a mild respiratory alkalosis. The patient's on fentanyl at 0.5 mcg/kg/h, propofol at 50 mics per kilogram per minute, and heparin via weightbase protocol. The patient's also getting saline at 20 mL an hour, and tube feedings with Nepro at 10 mL an hour. His pro-calcitonin level is 2.92. Today, the patient will have a daily interruption of sedation, and possibly, a spontaneous breathing trial. White count is 4, hemoglobin 9.9, hematocrit 30.8, and platelet count 111,000. PTT is 51.9. Sodium 1:30, potassium 3.5, chlorides 95, CO2 22, BUN 28, creatinine 8.67. Calcium is 8. Chest x-ray shows cardiomegaly, with a small left-sided pleural effusion. Progress note dated 04/13/2023. 42-year-old white male seen today in room 254, intensive care unit. The patient is sitting in a chair next to his hospital bed. He is on 3 L of oxygen. He is getting saline at 20 mL an hour and IV heparin. The patient was extubated successfully yesterday. Today is a dialysis today for the patient. White count 6.1, hemoglobin 10.8, hematocrit 35, and platelet count of 105,000. PTT is 46.7. Sodium 136, potassium 4.4, chlorides 96, CO2 20, anion gap 20, BUN 40, creatinine 10.4. Microbiology is currently negative. Chest x-ray shows cardiomegaly, and a small left-sided effusion. Progress note dated 04/14/2023. 42-year-old black male seen today in room 254. The patient is doing reasonably well. He sitting in a chair next to his hospital bed. He is on 2 L of oxygen by nasal cannula. He is getting saline at KVO, but I told the nurse he can be discontinued. He had hemodialysis yesterday, and 1.5 L of fluid was removed. He is going for a cardiac catheterization on April 16. Currently, the patient denies any shortness of breath, cough, wheezing, chest tightness, or phlegm production. He also denies any chest pain or pressure. White count is 4.6, hemoglobin 10.4, hematocrit 32.7, and platelet count was 114,000. Sodium 135, potassium 4.2, chlorides 95, CO2 25, BUN 34, creatinine 8.64. Calcium is 8.4. Chest x-ray from yesterday is a bit improved. Progress note dated 04/15/2023. 42-year-old black male seen today in room 254. The patient's doing well. He is currently just on room air. No IV fluids. The patient is scheduled to have a cardiac cath tomorrow, April 16. The patient is a 3 S. overflow patient. No new labs today. The patient denies any shortness of breath, cough, wheezing, chest tightness, chest pressure, phlegm production, palpitations, etc. Objective - Vital Signs Vital signs: Vital Signs Temp 98.1 F 04/15/23 04:00 Pulse 72 04/15/23 08:58 Resp 16 04/15/23 04:00 BP 158/103 04/15/23 04:00 Pulse Ox 99 04/15/23 04:00 FiO2 50 04/12/23 12:30 Intake & Output 04/14/23 04/15/23 04/15/23 18:59 06:59 18:59 Intake Total 130 Output Total 200 350 Balance -70 -350 Weight 128.4 kg Intake: IV 130 0.9 NS 80 cefTRIAXone 2 gm In 50 Sodium Chloride 0.9% 50 ml @ 100 mls/hr IVPB Q24HR [facility] Rx#:[id number] Output: Urine 200 350 Other: # Voids 1 ABP, PAP, CO, CI - Last Documented Arterial Blood Pressure 141/66 - Exam No acute distress, awake and alert, currently on room air. HEENT examination is grossly unremarkable. Neck supple. Full range of motion. No adenopathy thyromegaly or neck vein distention. Cardiovascular examination reveals regular rhythm rate. S1-S2 normal. No S3 or S4. No discernible murmur noted. Heart rate 70 bpm. Lungs reveal scattered bilateral rhonchi. No wheezes or crackles. Breath sounds equal bilaterally. Room air saturation is 99%. Abdomen soft bowel sounds are heard. No masses or tenderness. Extremities are intact. No cyanosis clubbing or edema. Skin is without rash or lesion. Neurologic examination is brief but nonfocal. - Labs CBC & Chem 7: 04/14/23 05:24 04/14/23 05:24 Labs: Abnormal Lab Results - Last 24 Hours (Table) 04/14/23 04/14/23 Range/Units 05:24 11:31 Sodium 135 L (137-145) mmol/L Chloride 95 L (98-107) mmol/L BUN 34 H (9-20) mg/dL Creatinine 8.64 H* (0.66-1.25) mg/dL POC Glucose (mg/dL) 116 H (70-110) mg/dL AST 90 H (17-59) U/L Microbiology - Last 24 Hours (Table) 04/11/23 10:13 Blood Culture - Preliminary Blood 04/11/23 10:13 Blood Culture - Preliminary Blood Assessment and Plan Assessment: Acute hypoxemic respiratory failure requiring intubation and mechanical ventilation 04/11/2023, likely multifactorial, secondary to acute influenza A infection and fluid overload. S/P successful extubation, 04/12/2023. Acute influenza A infection. Acute hypertensive urgency/emergency. End-stage renal disease, requiring hemodialysis 3 times a week. Patient also has a peritoneal dialysis catheter, unclear whether the patient is transitioning to hemodialysis. Elevated tropoinins, rule out NSTEMI. History of alcoholism. Morbid obesity, with a BMI 42.6 kg/m. Plan: Plan dated 04/12/2023. Yesterday, we place an arterial line, and a central line. The arterial line was in the left radial artery, and a central line was in the left internal jugular vein. Currently, the patient remains on the mechanical ventilator. Yesterday, he did have hemodialysis was 1.3 L of fluid removed. He continues on propofol, fentanyl, and heparin. He does have tube feedings hanging. Today we will attempt a daily interruption of sedation and possibly a spontaneous breathing trial. The patient's pro-calcitonin level was 2.92. He remains on azithromycin, and Rocephin. Prognosis is guarded. Plan dated 04/13/2023. The patient was successfully extubated yesterday. He is currently on 3 L. Sitting at the bedside. Today's today for hemodialysis. The patient continues on IV heparin. He is getting saline at 20 mL an hour. Labs, x-rays, and medications are all reviewed. The patient apparently is going to have a cardiac catheterization, sometime over the next few days. No additional recommendations are made. He continues on antibiotics. His pro-calcitonin level was 2.92. Prognosis is guarded. We will continue to follow the patient, and make recommendations. Plan dated 04/14/2023. The patient is seen today in room 254. He sitting in a chair next to his hospital bed. He continues on 2 L of oxygen by nasal cannula. He had hemodialysis yesterday, April 13, and 1.5 L of fluid was removed. The patient is scheduled for cardiac catheterization on April 16. The patient's getting saline at KVO, but I told the nurse that she could discontinue it. Labs, x- rays, medications are reviewed. Prognosis is guarded. All cultures are thus far negative. Plan dated 04/15/2023. The patient appears to be doing relatively well. He is resting comfortably in room 254, intensive care unit. The patient is scheduled to have a cardiac catheterization tomorrow, April 16. Labs, x-rays, medications are all reviewed. The patient denies any shortness of breath, cough, wheezing, chest tightness, or phlegm production. The patient also denies any chest pain or pressure, palpitations, etc. We will continue to follow and make recommendations along the way. Tomorrow's is also a hemodialysis day. Time with Patient: Less than 30
--- NOTE | 2023-04-15 12:24 | P.PN ---
Subjective Progress Note Date: 04/13/23 HISTORY OF PRESENT ILLNESS: This is a 42-year-old -German gentleman with a previous medical history significant for hypertension and hypertensive cardio vascular disease, hyperlipidemia, diabetes mellitus type 2, end-stage renal disease on hemodialysis Sunday and Sunday, patient presented to the emergency department at [facility] because is not feeling well for the past 24 h ours prior to admission associated with the increased headache fever or chills not able to breathe very well, patient was found to have an exudative hypertension he was seen in emergency department and initially was started on that was her drip, the patient became quite confused and combative at the patient ended up getting intubated at the scene the in the emergency department, and he was admitted to the intensive care unit, patient was seen in consultation by ICU/pulmonary care, he was also seen in consultation by cardiology as well as nephrology for hemodialysis, patient troponin came back slightly elevated, patient was ruled out for non-ST elevation MA this is a type II MA due to myocardial injury due to underlying respiratory failure because of the accelerated hypertension as well as influenza type A. 04/12: Patient continues to be intubated in the intensive care unit, he is requi ring about 50% of FiO2 at this time, he does appear to be hypertensive as well, added labetalol 10 mg push every 4 hours, his losartan. 200 mg daily Coreg 12.5 mg twice every day hydralazine 100 mg daily times every day and clonidine twice every day, monitor the patient blood pressure very closely when his intensive care unit, he has been getting empiric antibiotic treatment in the form of ceftriaxone as well as also Tamiflu 30 mg per orogastric tube once every day for the influenza type A, we will monitor patient very closely, I spoke with his fiance who was at the bedside about his prognosis and we will continue to wean the patient off the ventilator. 04/13: Patient is sitting up in chair getting ready for HD, appears a bit edgy, he continues to have coughing and minimal phlegm poduction, BP much better with adjusting medications, we will continue to monitor very closely, does not a ppears at risk for DT's. REVIEW OF SYSTEMS: Constitutional: No documented fever, no chills, no night sweats. No weight change. No weakness, fatigue or lethargy. No daytime sleepiness. EENT: No headache. No blurred vision or double vision, no loss of vision. No loss of Hearing, no ringing in the ears, no dizziness. No nasal drainage or congestion. No epistaxis. No sore throat. Lungs: positive for shortness of breath, positive for cough, no sputum production. positive for wheezing. Reports dyspnea with activity. Cardiovascular: No chest pain, no lower extremity edema. No palpitations. No paroxysmal nocturnal dyspnea. No orthopnea. No lightheadedness or dizziness. No syncopal episodes. Abdominal: Reports abdominal pain. No nausea, vomiting. positive for diarrhea. No constipation. No bloody or tarry stools reports loss of appetite. Genitourinary: No dysuria, increased frequency, urgency. No urinary retention. Musculoskeletal: No myalgias. No muscle weakness, no gait dysfunction, no frequent falls. No back pain. No neck pain. Integumentary: No wounds, no lesions. No rash or pruritus. No unusual bruising. No change in hair or nails. Neurologic: No aphasia. No facial droop. No change in mentation. No head injury. No headache. No paralysis. No paresthesia. Psychiatric: No depression. No anxiety. No mood swings. Endocrine: No abnormal blood sugars. No weight change. PHYSICAL EXAMINATION: General: 42-year-old -German sitting up in chair with minimal distress HEENT: Head is atraumatic, normocephalic, pupils were equal round reactive to l ight and accommodations, extra -Occular muscle movements were intact Neck: Supple, no JVP, normal carotid upstroke bilaterally, no lymphadenopathy. Chest: Decreased breath sounds at the bases, few rhonchi, minimal expiratory wheezes, no chest wall tenderness, no intercostal retractions. Heart: First heart sound is normal, second heart sound normal there is BAYRON 2/6 located at he left sternal border Abdomen: Soft, nontender, nondistended, positive bowel sounds. Extremities: There is no edema no calf tenderness DP +2 bilaterally. Neurologic examination: Patient is awake , alert and oriented X 3 CNII-XII are grossly intact, muscle power 5/5 i bilateral upper and lower extremities. ASSESSMENT AND PLAN: 1. Acute hypoxemic vent dependent respiratory failure due to combination of influenza A as well as Accelerated hypertension with acute diastolic heart failure. patient has been extubated successfully . we will continue with aggresive pulmonary toilettng, we will continue with Oxygen support and duoneb Q2 h, we will continue with Roephin 1 gr IVPB daily 2. Accelerated hypertension with hypertensive encephalopathy. Continue patient on carvedilol 12.5 mg orally twice every day, continue losartan 100 mg every day, clonidine 0.1 mg twice every day and hydralazine 100 mg orally 3 times every day, monitor the patient blood pressure very closely, add labetalol 10 mg IV push every 4 hours as needed for systolic blood pressure greater than or equal to 160 mg of mercury monitor the patient blood pressure very closely. 3. Mixed hyperlipidemia. Restart the patient back and his atorvastatin 40 mg once every day. 4. End-stage renal disease on hemodialysis. Continue with dialysis as per nephrology. 5. Diabetes mellitus type 2. Continue patient on sliding scale insulin. 6. Chronic alcohol use and dependence. we will start Lorazeam 0.5 mg po bid prn 7. Polysubstance abuse. urine drug screening was positive for cocaine.we will start Paxil 10 mg po daily 8. Anxiety. we will start Paxil 10 mg po daily and Lorazepam 0.5 mg po bid. 9. DVT prophylaxis. Heparin 5000 units subcutaneously every 12 hours. 10. GI prophylaxis. Continue patient on Protonix 40 mg IV push every 24 hours. 11. Guarded prognosis. Objective - Vital Signs Vital signs: Vital Signs Temp 98.1 F 04/15/23 04:00 Pulse 72 04/15/23 08:58 Resp 16 04/15/23 04:00 BP 158/103 04/15/23 04:00 Pulse Ox 99 04/15/23 04:00 FiO2 50 04/12/23 12:30 Intake & Output 04/14/23 04/15/23 04/15/23 18:59 06:59 18:59 Intake Total 130 Output Total 200 350 Balance -70 -350 Weight 128.4 kg Intake: IV 130 0.9 NS 80 cefTRIAXone 2 gm In 50 Sodium Chloride 0.9% 50 ml @ 100 mls/hr IVPB Q24HR [facility] Rx#:[id number] Output: Urine 200 350 Other: # Voids 1 ABP, PAP, CO, CI - Last Documented Arterial Blood Pressure 141/66 - Labs CBC & Chem 7: 04/14/23 05:24 04/14/23 05:24 Labs: Abnormal Lab Results - Last 24 Hours (Table) 04/14/23 Range/Units 05:24 Sodium 135 L (137-145) mmol/L Chloride 95 L (98-107) mmol/L BUN 34 H (9-20) mg/dL Creatinine 8.64 H* (0.66-1.25) mg/dL AST 90 H (17-59) U/L Microbiology - Last 24 Hours (Table) 04/11/23 10:13 Blood Culture - Preliminary Blood 04/11/23 10:13 Blood Culture - Preliminary Blood
--- NOTE | 2023-04-15 12:29 | P.PN ---
Subjective Progress Note Date: 04/14/23 HISTORY OF PRESENT ILLNESS: This is a 42-year-old -Tu[place] gentleman with a previous medical history significant for hypertension and hypertensive cardio vascular disease, hyperlipidemia, diabetes mellitus type 2, end-stage renal disease on hemodialysis Sunday and Sunday, patient presented to the emergency department at [facility] because is not feeling well for the past 24 h ours prior to admission associated with the increased headache fever or chills not able to breathe very well, patient was found to have an exudative hypertension he was seen in emergency department and initially was started on that was her drip, the patient became quite confused and combative at the patient ended up getting intubated at the scene the in the emergency department, and he was admitted to the intensive care unit, patient was seen in consultation by ICU/pulmonary care, he was also seen in consultation by cardiology as well as nephrology for hemodialysis, patient troponin came back slightly elevated, patient was ruled out for non-ST elevation AR this is a type II AR due to myocardial injury due to underlying respiratory failure because of the accelerated hypertension as well as influenza type A. 04/12: Patient continues to be intubated in the intensive care unit, he is requi ring about 50% of FiO2 at this time, he does appear to be hypertensive as well, added labetalol 10 mg push every 4 hours, his losartan. 200 mg daily Coreg 12.5 mg twice every day hydralazine 100 mg daily times every day and clonidine twice every day, monitor the patient blood pressure very closely when his intensive care unit, he has been getting empiric antibiotic treatment in the form of ceftriaxone as well as also Tamiflu 30 mg per orogastric tube once every day for the influenza type A, we will monitor patient very closely, I spoke with his fiance who was at the bedside about his prognosis and we will continue to wean the patient off the ventilator. 04/13: Patient is sitting up in chair getting ready for HD, appears a bit edgy, he continues to have coughing and minimal phlegm poduction, BP much better with adjusting medications, we will continue to monitor very closely, does not a ppears at risk for DT's. 04/14: patient has been getting more edgy and anxious according to the nursing staff, he is insomnic and he is affraid of his anxiety, initially recommended Melatonin which did nothing for him, therefore he was started on PAxil 10 mg po daily last night and added Lorazepam 0.5 mg po bid, we ill continu to monitor patient very closely, no signs of DT's, and this is likely related to his polysubstance abuse , we will need to refer him t aircraft electrical systems specialist due to his chronic medial issues REVIEW OF SYSTEMS: Constitutional: No documented fever, no chills, no night sweats. No weight change. positive for weakness, fatigue or lethargy. No daytime sleepiness. EENT: No headache. No blurred vision or double vision, no loss of vision. No loss of Hearing, no ringing in the ears, no dizziness. No nasal drainage or congestion. No epistaxis. No sore throat. Lungs: positive for shortness of breath, positive for cough, no sputum production. positive for wheezing. Reports dyspnea with activity. Cardiovascular: No chest pain, no lower extremity edema. No palpitations. No paroxysmal nocturnal dyspnea. No orthopnea. No lightheadedness or dizziness. No syncopal episodes. Abdominal: Reports abdominal pain. No nausea, vomiting. positive for diarrhea. No constipation. No bloody or tarry stools reports loss of appetite. Genitourinary: No dysuria, increased frequency, urgency. No urinary retention. Musculoskeletal: No myalgias. No muscle weakness, no gait dysfunction, no frequent falls. No back pain. No neck pain. Integumentary: No wounds, no lesions. No rash or pruritus. No unusual bruising. No change in hair or nails. Neurologic: No aphasia. No facial droop. No change in mentation. No head injury. No headache. No paralysis. No paresthesia. Psychiatric: No depression. positive for anxiety, restless Endocrine: No abnormal blood sugars. No weight change. PHYSICAL EXAMINATION: General: 42-year-old -[place] sitting up in chair with minimal distress HEENT: Head is atraumatic, normocephalic, pupils were equal round reactive to light and accommodations, extra -Occular muscle movements were intact Neck: Supple, no JVP, normal carotid upstroke bilaterally, no lymphadenopathy. Chest: Decreased breath sounds at the bases, few rhonchi, minimal expiratory wheezes, no chest wall tenderness, no intercostal retractions. Heart: First heart sound is normal, second heart sound normal there is BAYRON 2/6 located at he left sternal border Abdomen: Soft, nontender, nondistended, positive bowel sounds. Extremities: There is no edema no calf tenderness DP +2 bilaterally. Neurologic examination: Patient is awake , alert and oriented X 3 CNII-XII are grossly intact, muscle power 5/5 i bilateral upper and lower extremities. ASSESSMENT AND PLAN: 1. Acute hypoxemic vent dependent respiratory failure due to combination of influenza A as well as Accelerated hypertension with acute diastolic heart failure. patient has been extubated successfully . we will continue with aggresive pulmonary toilettng, we will continue with Oxygen support and duoneb Q2 h, we will continue with Roephin 1 gr IVPB daily 2. Accelerated hypertension with hypertensive encephalopathy. Continue patient on carvedilol 12.5 mg orally twice every day, continue losartan 100 mg every day, clonidine 0.1 mg twice every day and hydralazine 100 mg orally 3 times every day, monitor the patient blood pressure very closely, add labetalol 10 mg IV push every 4 hours as needed for systolic blood pressure greater than or equal to 160 mg of mercury monitor the patient blood pressure very closely. 3. Mixed hyperlipidemia. Restart the patient back and his atorvastatin 40 mg once every day. 4. End-stage renal disease on hemodialysis. Continue with dialysis as per nephrology. 5. Diabetes mellitus type 2. Continue patient on sliding scale insulin. 6. Chronic alcohol use and dependence. we will start Lorazeam 0.5 mg po bid prn 7. Polysubstance abuse. urine drug screening was positive for cocaine.we will start Paxil 10 mg po daily 8. Anxiety. we will start Paxil 10 mg po daily and Lorazepam 0.5 mg po bid. 9. DVT prophylaxis. Heparin 5000 units subcutaneously every 12 hours. 10. GI prophylaxis. Continue patient on Protonix 40 mg IV push every 24 hours. 11. Guarded prognosis. Objective - Vital Signs Vital signs: Vital Signs Temp 98.1 F 04/15/23 04:00 Pulse 72 04/15/23 08:58 Resp 16 04/15/23 04:00 BP 158/103 04/15/23 04:00 Pulse Ox 99 04/15/23 04:00 FiO2 50 04/12/23 12:30 Intake & Output 04/14/23 04/15/23 04/15/23 18:59 06:59 18:59 Intake Total 130 Output Total 200 350 Balance -70 -350 Weight 128.4 kg Intake: IV 130 0.9 NS 80 cefTRIAXone 2 gm In 50 Sodium Chloride 0.9% 50 ml @ 100 mls/hr IVPB Q24HR [facility] Rx#:[id number] Output: Urine 200 350 Other: # Voids 1 ABP, PAP, CO, CI - Last Documented Arterial Blood Pressure 141/66 - Labs CBC & Chem 7: 04/14/23 05:24 04/14/23 05:24 Labs: Abnormal Lab Results - Last 24 Hours (Table) 04/14/23 Range/Units 05:24 AST 90 H (17-59) U/L Microbiology - Last 24 Hours (Table) 04/11/23 10:13 Blood Culture - Preliminary Blood 04/11/23 10:13 Blood Culture - Preliminary Blood
--- NOTE | 2023-04-15 13:02 | P.PN ---
Subjective Progress Note Date: 04/15/23 HISTORY OF PRESENT ILLNESS: This is a 42-year-old -[place] gentleman with a previous medical history significant for hypertension and hypertensive cardio vascular disease, hyperlipidemia, diabetes mellitus type 2, end-stage renal disease on hemodialysis Sunday and Sunday, patient presented to the emergency department at [facility] because is not feeling well for the past 24 h ours prior to admission associated with the increased headache fever or chills not able to breathe very well, patient was found to have an exudative hypertension he was seen in emergency department and initially was started on that was her drip, the patient became quite confused and combative at the patient ended up getting intubated at the scene the in the emergency department, and he was admitted to the intensive care unit, patient was seen in consultation by ICU/pulmonary care, he was also seen in consultation by cardiology as well as nephrology for hemodialysis, patient troponin came back slightly elevated, patient was ruled out for non-ST elevation ID this is a type II ID due to myocardial injury due to underlying respiratory failure because of the accelerated hypertension as well as influenza type A. 04/12: Patient continues to be intubated in the intensive care unit, he is requi ring about 50% of FiO2 at this time, he does appear to be hypertensive as well, added labetalol 10 mg push every 4 hours, his losartan. 200 mg daily Coreg 12.5 mg twice every day hydralazine 100 mg daily times every day and clonidine twice every day, monitor the patient blood pressure very closely when his intensive care unit, he has been getting empiric antibiotic treatment in the form of ceftriaxone as well as also Tamiflu 30 mg per orogastric tube once every day for the influenza type A, we will monitor patient very closely, I spoke with his fiance who was at the bedside about his prognosis and we will continue to wean the patient off the ventilator. 04/13: Patient is sitting up in chair getting ready for HD, appears a bit edgy, he continues to have coughing and minimal phlegm poduction, BP much better with adjusting medications, we will continue to monitor very closely, does not a ppears at risk for DT's. 04/14: patient has been getting more edgy and anxious according to the nursing staff, he is insomnic and he is affraid of his anxiety, initially recommended Melatonin which did nothing for him, therefore he was started on PAxil 10 mg po daily last night and added Lorazepam 0.5 mg po bid, we ill continu to monitor patient very closely, no signs of DT's, and this is likely related to his polysubstance abuse , we will need to refer him t client success specialist due to his chronic medial issues 04/15: Patient is better today, less restless, slept after the dose of Loraepam, we will continue with current treatment plan, asked for Psych evaluation but they were either not interested or short handed in any regard he appears better with this regimen , we will continue with HD and aggressive pulmonary toiletting, we will continue with Duoneb and monitor in hospital REVIEW OF SYSTEMS: Constitutional: No documented fever, no chills, no night sweats. No weight change. positive for weakness, fatigue or lethargy. No daytime sleepiness. EENT: No headache. No blurred vision or double vision, no loss of vision. No loss of Hearing, no ringing in the ears, no dizziness. No nasal drainage or congestion. No epistaxis. No sore throat. Lungs: positive for shortness of breath, positive for cough, no sputum production. positive for wheezing. Reports dyspnea with activity. Cardiovascular: No chest pain, no lower extremity edema. No palpitations. No paroxysmal nocturnal dyspnea. No orthopnea. No lightheadedness or dizziness. No syncopal episodes. Abdominal: Reports abdominal pain. No nausea, vomiting. positive for diarrhea. No constipation. No bloody or tarry stools reports loss of appetite. Genitourinary: No dysuria, increased frequency, urgency. No urinary retention. Musculoskeletal: No myalgias. No muscle weakness, no gait dysfunction, no freq uent falls. No back pain. No neck pain. Integumentary: No wounds, no lesions. No rash or pruritus. No unusual bruising. No change in hair or nails. Neurologic: No aphasia. No facial droop. No change in mentation. No head injury. No headache. No paralysis. No paresthesia. Psychiatric: No depression. positive for anxiety, restless Endocrine: No abnormal blood sugars. No weight change. PHYSICAL EXAMINATION: General: 42-year-old -[place]anish sitting up in chair with minimal distress HEENT: Head is atraumatic, normocephalic, pupils were equal round reactive to light and accommodations, extra -Occular muscle movements were intact Neck: Supple, no JVP, normal carotid upstroke bilaterally, no lymphadenopathy. Chest: Decreased breath sounds at the bases, few rhonchi, minimal expiratory wheezes, no chest wall tenderness, no intercostal retractions. Heart: First heart sound is normal, second heart sound normal there is BAYRON 2/6 located at he left sternal border Abdomen: Soft, nontender, nondistended, positive bowel sounds. Extremities: There is no edema no calf tenderness DP +2 bilaterally. Neurologic examination: Patient is awake , alert and oriented X 3 CNII-XII are grossly intact, muscle power 5/5 i bilateral upper and lower extremities. ASSESSMENT AND PLAN: 1. Acute hypoxemic vent dependent respiratory failure due to combination of influenza A as well as Accelerated hypertension with acute diastolic heart failure. patient has been extubated successfully . we will continue with aggresive pulmonary toilettng, we will continue with Oxygen support and duoneb Q2 h, we will continue with Roephin 1 gr IVPB daily 2. Accelerated hypertension with hypertensive encephalopathy. Continue patient on carvedilol 12.5 mg orally twice every day, continue losartan 100 mg every day, clonidine 0.1 mg twice every day and hydralazine 100 mg orally 3 times every day, monitor the patient blood pressure very closely, add labetalol 10 mg IV push every 4 hours as needed for systolic blood pressure greater than or equal to 160 mg of mercury monitor the patient blood pressure very closely. 3. Mixed hyperlipidemia. Restart the patient back and his atorvastatin 40 mg once every day. 4. End-stage renal disease on hemodialysis. Continue with dialysis as per nephrology. 5. Diabetes mellitus type 2. Continue patient on sliding scale insulin. 6. Chronic alcohol use and dependence. we will start Lorazeam 0.5 mg po bid prn 7. Polysubstance abuse. urine drug screening was positive for cocaine.we will start Paxil 10 mg po daily 8. Anxiety. we will start Paxil 10 mg po daily and Lorazepam 0.5 mg po bid. 9. DVT prophylaxis. Heparin 5000 units subcutaneously every 12 hours. 10. GI prophylaxis. Continue patient on Protonix 40 mg IV push every 24 hours. 11. Guarded prognosis. Objective - Vital Signs Vital signs: Vital Signs Temp 98.1 F 04/15/23 04:00 Pulse 72 04/15/23 08:58 Resp 16 04/15/23 04:00 BP 158/103 04/15/23 04:00 Pulse Ox 99 04/15/23 04:00 FiO2 50 04/12/23 12:30 Intake & Output 04/14/23 04/15/23 04/15/23 18:59 06:59 18:59 Intake Total 130 Output Total 200 350 Balance -70 -350 Weight 128.4 kg Intake: IV 130 0.9 NS 80 cefTRIAXone 2 gm In 50 Sodium Chloride 0.9% 50 ml @ 100 mls/hr IVPB Q24HR [facility] Rx#:[id number] Output: Urine 200 350 Other: # Voids 1 ABP, PAP, CO, CI - Last Documented Arterial Blood Pressure 141/66 - Labs CBC & Chem 7: 04/14/23 05:24 04/14/23 05:24 Labs: Abnormal Lab Results - Last 24 Hours (Table) 04/14/23 Range/Units 05:24 AST 90 H (17-59) U/L Microbiology - Last 24 Hours (Table) 04/11/23 10:13 Blood Culture - Preliminary Blood 04/11/23 10:13 Blood Culture - Preliminary Blood
--- NOTE | 2023-04-15 13:33 | P.PN ---
Subjective Progress Note Date: 04/15/23 Principal diagnosis: Hypertension emergency The patient is a pleasant 42-year-old -[place] gentleman with a past medical history significant for end stage renal disease currently the patient on hemodialysis and before that he was on peritoneal dialysis as well as systemic hypertension and obesity and obstructive sleep apnea as well as multiple comorbid conditions was admitted to the hospital with increasing shortness of breath and he was intubated in the emergency department. We are asked to see the patient as a bedside consult here in the intensive. Currently the patient is intubated and he is on mechanical ventilation. The history was taken from the chart as well as from the nurse taking care of the patient as well as from the family at bedside. Apparently the patient was experiencing increasing shortness of breath for the last 24 hours with no associated chest pain or chest discomfort associated dizziness and lightheadedness or any feeling of heart r acing or fluttering or any presyncope or syncope his pressure was extremely elevated when he presented to the emergency department and he was educated and asked to be intubated at that point. Currently he is on Nitrol drip with improvement in the blood pressure. He underwent further workup including troponin came in to be mildly elevated. EKG is in process to be done. The chest x-ray did not show any acute abnormalities. Nephrology consult was placed and the patient is in process to be seen. He was seen by our service in 2021 with a chest discomfort and at that point he underwent an echo which revealed normal LV systolic function with severe pulmonary hypertension and moderate tricuspid regurgitation. On examination today he is intubated. The blood pressure is 111/64 with a heart rate of 85 bpm and heart examination reveals regular rhythm with distant heart sounds and chest examination revealed diminished breathing sounds bilaterally and no lower extremity edema noted the abdomen is soft and nontender April 122023 The patient was seen and evaluated this morning. He still intubated on mechanical ventilation. His pressure has improved significantly and currently is not on any Nitrol drip. The troponin came in to be slightly elevated could be related to renal failure and elevated blood pressure he is on heparin I would continue heparin for a total of 48 hours and add aspirin to the current medical regimen. He comes be on a statin because of elevated liver function tests. I would consider adding statin once the liver function test improved. He is on beta court we'll continue that. The echo showed normal LV systolic function was moderate pulmonary hypertension and moderate tricuspid regurgitation. He underwent dialysis yesterday with removal of 1.5 L. The examination is remarkable for an intubated gentleman on mechanical ventilation with stable vi dmitri signs and diminished breathing sounds bilaterally and no edema in the lower extremities 04/13/2023 The patient was seen and evaluated this morning. He was extubated. The pressure has been better. Currently he reports no pain in chest or shortness of breath. He is on aspirin. He is not on statin because of elevated liver function tests. The troponin was mildly elevated and likely secondary to renal failure for severe underlying coronary artery disease to be ruled out and the patient need to undergo a heart catheterization but unfortunately cannot lay flat and will consider doing that on Sunday was more fluid would be taking out by dialysis. Meanwhile continue the current medical regimen. The examination is remarkable for bilateral rhonchi. April 142023 The patient was seen and evaluated this morning. He is asymptomatic beside cough appeared to be unproductive for any sputum but no pain in the chest and no shortness of breath. The pressure appeared to be under good control on the current medical regimen. He is on aspirin and he is on beta court which we will continue. I am going to obtain liver function tests and start the patient on statin if the liver function tests are back to normal. Beside that he is off heparin. He needs to undergo a heart catheterization on Sunday. The examination is remarkable for regular rhythm with distant heart sounds and b ilateral rhonchi noted. April 152023 The patient was seen and evaluated this morning. He is asymptomatic. He is hemodynamically stable with a good blood pressure on the current medical regime n. The plan is to pursue with a heart catheterization tomorrow. That was discussed with him in details. Meanwhile continue the current medical regimen Assessment Hypertension emergency Shortness of breath secondary to hypertension emergency End stage renal disease on dialysis History of noncompliance Obstructive sleep apnea Obesity Severe pulmonary hypertension Elevated cardiac enzymes Plan Continue the current medical regimen including aspirin and beta court Proceed with coronary angiogram tomorrow Objective - Vital Signs Vital signs: Vital Signs Temp 98.1 F 04/15/23 12:00 Pulse 68 04/15/23 12:00 Resp 18 04/15/23 12:00 BP 128/74 04/15/23 12:00 Pulse Ox 95 04/15/23 12:00 FiO2 50 01/11/24 12:30 Intake & Output 04/14/23 04/15/23 04/15/23 18:59 06:59 18:59 Intake Total 130 50 Output Total 200 350 0 Balance -70 -350 50 Weight 128.4 kg Intake: IV 130 50 0.9 NS 80 cefTRIAXone 2 gm In 50 50 Sodium Chloride 0.9% 50 ml @ 100 mls/hr IVPB Q24HR [facility] Rx#:[id number] Output: Urine 200 350 0 Other: Voiding Method Urinal # Voids 1 ABP, PAP, CO, CI - Last Documented Arterial Blood Pressure 141/66 - Labs CBC & Chem 7: 04/14/23 05:24 04/14/23 05:24 Labs: Microbiology - Last 24 Hours (Table) 04/11/23 10:13 Blood Culture - Preliminary Blood 04/11/23 10:13 Blood Culture - Preliminary Blood
[2023-04-15] MEDS: FUROSEMIDE 10 MG/ML 10 ML VIAL IV SCH (19:33)
[2023-04-16] MEDS: MELATONIN 3 MG TABLET PO SCH ×2 (02:57→20:46)
[2023-04-16] MEDS: carvediloL 12.5 MG TAB PO SCH ×2 (06:26→18:26)
--- NOTE | 2023-04-16 08:12 | P.PN ---
Subjective Progress Note Date: 04/16/23 42-year-old female patient end-stage renal disease on dialysis, hypertension, obesity and previous history of alcoholism. The patient was intubated for acute hypoxic respiratory failure secondary to influenza A infection and fluid overload. The patient was extubated on 04/12/2023. The patient undergoes hemodialysis 3 times a week and the patient also has a peritoneal catheter for peritoneal dialysis. During the course of the hospitalization, the patient also sustained an acute non-ST segment elevation myocardial infarction with elevated troponins. The plan is to proceed with cardiac catheterization today and this needs to be done by cardiology. For now, the patient is on Coreg 12.5 mg twice a day, clonidine point 1 mg p.o. twice daily, and losartan 100 mg p.o. daily. Patient is also taking hydralazine 100 mg p.o. 3 times daily. Patient is on IV Rocephin as an empiric antibiotic coverage and the patient is also on IV Lasix 60 mg IV every 12 hours. Blood cultures are negative. Chest x-ray from 04/13/2022 showed some mild interstitial density bilaterally although the fluid overload was essentially improving. Limited echocardiogram was done on 04/11/2023 showing concentric LVH, moderate pulmonary hypertension with estimated PA pressure of around 47 mmHg. The patient is currently on oxygen room air with a pulse ox of 95%. Breathing is nonlabored. The patient is scheduled to [facility] a cardiac catheterization today. Following that, the patient is also going to undergo a hemodialysis. He remains on room air oxygen. His most recent BP is 109/86. His labs are still pending from today. No other significant events overnight. No agitation. Remains on IV Rocephin as an em piric antibiotic coverage. Blood cultures are negative for now. Objective - Vital Signs Vital signs: Vital Signs Temp 97.6 F 04/16/23 03:56 Pulse 70 04/16/23 03:56 Resp 18 04/16/23 03:56 BP 109/86 04/16/23 03:56 Pulse Ox 97 04/16/23 03:56 FiO2 50 04/12/23 12:30 Intake & Output 04/15/23 04/16/23 04/16/23 18:59 06:59 18:59 Intake Total 50 Output Total 400 200 Balance -350 -200 Weight 127.7 kg Intake: IV 50 cefTRIAXone 2 gm In 50 Sodium Chloride 0.9% 50 ml @ 100 mls/hr IVPB Q24HR [facility] Rx#:[id number] Output: Urine 400 200 Other: Voiding Method Urinal # Voids 2 1 ABP, PAP, CO, CI - Last Documented Arterial Blood Pressure 141/66 - Exam No acute distress, awake and alert, currently on room air. HEENT examination is grossly unremarkable. Neck supple. Full range of motion. No adenopathy thyromegaly or neck vein distention. Cardiovascular examination reveals regular rhythm rate. S1-S2 normal. No S3 or S4. No discernible murmur noted. Heart rate 70 bpm. Lungs reveal scattered bilateral rhonchi. No wheezes or crackles. Breath sounds equal bilaterally. Room air saturation is 99%. Abdomen soft bowel sounds are heard. No masses or tenderness. Extremities are intact. No cyanosis clubbing or edema. Skin is without rash or lesion. Neurologic examination is brief but nonfocal. - Labs CBC & Chem 7: 04/14/23 05:24 04/14/23 05:24 Assessment and Plan Plan: Acute hypoxic respiratory failure, postintubation mechanical ventilation. R espiratory failure it was due to a combination of diastolic heart failure and influenza A infection and patient was successfully extubated the patient is currently on room air oxygen, the patient completed a course of Tamiflu Hypertension currently controlled blood pressure and a component of hypertensive encephalopathy, improving and the patient is on a combination of antihypertensive medication including Coreg, losartan, clonidine and hydralazine. Hyperlipidemia End-stage renal disease on hemodialysis and the patient is also on IV Lasix 60 mg IV every 12 hours, undergoing hemodialysis and hemodialysis session is to be done today Diabetes mellitus type 2 Obesity with a body mass index of 41.8 Acute non-ST elevation myocardial infarction with a troponin max 0.1, awaiting cardiac catheterization History of alcoholism Anemia of chronic disease, hemoglobin is stable for now Chronic anxiety/depression Plan Hemodialysis today following cardiac catheterization Cardiac catheterization to be done by cardiology Blood pressure management and the patient is currently on Coreg 12.5 mg twice a day, hydralazine 100 mg by mouth 3 times a day, losartan 100 mg by mouth daily, and he is also on Catapres 0.1 mg by mouth twice a day Continue IV Lasix Awaiting labs from today I'm not sure why the patient is still covered on antibiotics. I think this can be discontinued. Is afebrile and hemodynamically stable and his most recent chest x-ray that was done on 04/13/2023 was consistent with cardiomegaly Echocardiogram, limited view showed a concentric LVH with normal LV function, moderate degree of pulmonary hypertension and tricuspid regurgitation.
[2023-04-16] MEDS: IPRATROPIUM-ALBUTEROL 3 ML NEB INHALATION PRN ×2 (08:20→23:31)
[2023-04-16] MEDS: HEPARIN SODIUM,PORCINE 5,000 UNIT/ML 1 ML VIAL SQ SCH ×2 (08:21→20:45)
[2023-04-16] MEDS: ASPIRIN 81 MG PO SCH (08:21)
[2023-04-16] MEDS: cloNIDine HCL 0.1 MG TAB PO SCH ×2 (08:22→20:46)
[2023-04-16] MEDS: PANTOPRAZOLE 40 MG/10 ML VIAL IV SCH (08:22)
[2023-04-16] MEDS: hydrALAZINE HCL 50 MG TAB PO SCH ×2 (08:22→18:26)
[2023-04-16] MEDS: PARoxetine 10 MG TAB PO SCH (08:22)
[2023-04-16] MEDS: FUROSEMIDE 10 MG/ML 10 ML VIAL IV SCH ×2 (08:22→20:46)
[2023-04-16] MEDS: LOSARTAN 50 MG TAB PO SCH (08:22)
[2023-04-16] MEDS ORDERED: ASPIRIN 81 MG PO STA (09:14)
[2023-04-16] MEDS ORDERED: ALPRAZolam 0.25 MG TAB PO PRN (09:14)
[2023-04-16] MEDS ORDERED: ATORVASTATIN 80 MG TAB PO STA (09:14)
[2023-04-16] MEDS ORDERED: ALPRAZolam 0.5 MG TAB PO PRN (09:14)
[2023-04-16] MEDS ORDERED: NITROGLYCERIN SL TABS 0.4 MG TAB SUBLINGUAL PRN (09:14)
[2023-04-16] MEDS: SODIUM CHLORIDE 0.9% 1,000 ML in EMPTY BAG 1 BAG IV SCH ×2 (10:20→18:25)
[2023-04-16 10:48] VITALS: BMI 41.5
--- NOTE | 2023-04-16 10:58 | P.PN ---
Subjective Patient is seen in follow-up for end-stage renal disease. Denies chest pain or shortness of breath at this time. Scheduled for cardiac catheterization today. Vital signs are stable. General: NAD. HEENT: Head exam is unremarkable. LUNGS: No audible rhonchi or wheezes. HEART: Rate and Rhythm are regular. ABDOMEN: Obese, non-tender. EXTREMITITES: Trace edema. Objective - Vital Signs Vital signs: Vital Signs Temp 98.6 F 04/16/23 08:00 Pulse 70 04/16/23 08:31 Resp 20 04/16/23 08:00 BP 128/90 04/16/23 08:00 Pulse Ox 92 L 04/16/23 08:00 FiO2 50 04/12/23 12:30 Intake & Output 04/15/23 04/16/23 04/16/23 18:59 06:59 18:59 Intake Total 50 Output Total 400 200 Balance -350 -200 Weight 127.7 kg 127.7 kg Intake: IV 50 cefTRIAXone 2 gm In 50 Sodium Chloride 0.9% 50 ml @ 100 mls/hr IVPB Q24HR [facility] Rx#:[id number] Output: Urine 400 200 Other: Voiding Method Urinal # Voids 2 1 ABP, PAP, CO, CI - Last Documented Arterial Blood Pressure 141/66 - Labs CBC & Chem 7: 04/14/23 05:24 04/14/23 05:24 Assessment and Plan Plan: Assessment: 1. End-stage renal disease maintained on hemodialysis on Sunday schedule. Patient will soon transition to peritoneal dialysis. He already has a PD catheter and is in the process of being trained. 2. Influenza A. 3. Acute hypoxic respiratory failure secondary to pneumonia and fluid overload. Improved. Now on room air. 4. Elevated troponin scheduled for cardiac catheterization today. 5. Chronic diastolic CHF with moderate tricuspid regurgitation and moderate pulmonary hypertension. 6. Chronic kidney disease mineral bone disease. Plan: Hemodialysis today after cardiac catheterization. Check phosphorus level. Decrease rate of IV fluids to 50 mL an hour. Hep-Lock 4-6 hours after cardiac catheterization.
[2023-04-16] MEDS ORDERED: VERAPAMIL 2.5 MG/ML 2 ML AMP ONE (12:54)
[2023-04-16] MEDS ORDERED: LIDOCAINE 1% INJ 10MG/ML (20 ML MDV) ONE (12:54)
[2023-04-16] MEDS ORDERED: HEPARIN SODIUM 1,000 UN/ML (10ML VL) ONE (13:12)
[2023-04-16] MEDS ORDERED: fentaNYL (PF) 50 MCG/ML 2 ML AMP ONE (13:12)
[2023-04-16] MEDS ORDERED: IV FLUID CONTINUATION 1,000 ML IV ONE (13:22)
[2023-04-16] MEDS ORDERED: fentaNYL (PF) 50 MCG/1 ML VIAL IVP ONE (13:26)
[2023-04-16] MEDS ORDERED: LIDOCAINE 1% INJ 10MG/ML (20 ML MDV) SQ ONE (13:26)
[2023-04-16] MEDS ORDERED: MIDAZOLAM 2 MG/2 ML VIAL IVP ONE (13:26)
[2023-04-16] MEDS ORDERED: VERAPAMIL SYRINGE (5 MG/10 ML) INTRAARTER ONE (13:30)
[2023-04-16] MEDS ORDERED: HEPARIN SODIUM 1,000 UN/ML (10ML VL) IV ONE (13:34)
[2023-04-16] MEDS ORDERED: IOPAMIDOL-370 100ML BTL INJ ONE (13:44)
--- NOTE | 2023-04-16 13:47 | P.CARDCATH ---
Description of Procedure: PROCEDURES PERFORMED: Bilateral coronary angiography, ultrasound guided arterial access INDICATION: Non STEMI CONSENT:I have discussed the risks, benefits and alternative therapies for the above-mentioned procedure and for both sedation/analgesia as well as necessary blood product administration, if indicated, as they pertain to this patient. The patient has indicated understanding and acceptance of the risks and procedures discussed. PROCEDURE: After the risks, benefits and alternatives of the above mentioned procedure explained in detail with the patient, informed consent was obtained. Patient was taken to the catheterization lab and prepped and draped in usual fashion. Ultrasound guidance was used to assess for arterial access. 1% lidocaine was used to anesthetize the left radial artery given a shunt on the right side. A 6-Uzbek sheath was placed in the left radial artery using modified Seldinger technique and ultrasound guidance. Left coronary angiography was performed with a 5-Uzbek JL 4.5 catheter and right coronary angiography was performed with a 5-Uzbek FR5 catheter in various views. The left radial sheath was removed and a TR band was placed with hemostasis achieved. The patient tolerated the procedure well. Patient was transported back to the post catheterization holding area in stable condition. Conscious Sedation: Patient was monitored under the direct supervision of myself for conscious sedation using Versed and fentanyl for a total duration of 21 minutes HEMODYNAMICS: Aorta: 202/78o SELECTIVE CORONARY ARTERIOGRAPHY: LEFT MAIN: The left main is a large caliber vessel which bifurcates into the LAD and circumflex. There is no significant stenosis. LEFT ANTERIOR DESCENDING CORONARY ARTERY: LAD is a large caliber vessel which wraps around to the apex. There is no significant stenosis. LEFT CIRCUMFLEX CORONARY ARTERY: Left circumflex is a large caliber vessel without significant stenosis. The left circumflex gives off the PDA and is the dominant vessel. RIGHT CORONARY ARTERY: The right coronary artery is a small caliber vessel which gives off an acute marginal branch and is non dominant vessel. There is no significant stenosis. FINAL IMPRESSION: 1. Normal coronary arteries as described above. PLAN: 1. Aggressive risk factor modification per most recent ACC/AHA guidelines. 2. Follow-up in the office in 1-2 weeks.
[2023-04-16 14:56] LABS: Anisocytosis Slight; HCT 35.6 % (39.0-53.0); Hypochromasia Moderate; MCH 27.1 pg (25.0-35.0); MCHC 30.9 g/dL (31.0-37.0); MCV 87.5 fL (80.0-100.0); Mean Platelet Volume 10.3; Platelet Count 127 k/uL (150-450); RBC 4.07 m/uL (4.30-5.90); RDW 16.3 % (11.5-15.5); WBC 4.8 k/uL (3.8-10.6)
[2023-04-16 15:37] LABS: ALT 21 U/L (4-49); AST 73 U/L (17-59); African American GFR (CKD) 6 (>60 ml/min/1.73 sqM); Albumin 3.9 g/dL (3.5-5.0); Alkaline Phosphatase 57 U/L (38-126); Anion Gap 19 mmol/L; Blood Urea Nitrogen 68 mg/dL (9-20); Calcium 8.8 mg/dL (8.4-10.2); Carbon Dioxide 18 mmol/L (22-30); Chloride 101 mmol/L (98-107); Glucose 88 mg/dL (74-99); Non-African American GFR(CKD) 5 (>60 ml/min/1.73 sqM); Potassium 4.9 mmol/L (3.5-5.1); Sodium 138 mmol/L (137-145); Total Bilirubin 0.6 mg/dL (0.2-1.3); Total Protein 7.1 g/dL (6.3-8.2)
[2023-04-16 16:34] LABS: Anisocytosis (M) Present; Hypochromasia (M) Present; Lymphocytes # (M) 1.49 k/uL (1.0-4.8); Monocytes # (M) 0.43 k/uL (0-1.0); Neutrophils # (M) 2.88 k/uL (1.3-7.7); Neutrophils % (M) 60 %; Nucleated Red Blood Cells 0 /100 WBC (0-0); Target Cells Present; Tear Drop Cells Present; Total Cells Counted 100
[2023-04-16] MEDS: BENZONATATE 100 MG CAP PO PRN (21:14)
[2023-04-17] MEDS: hydrALAZINE HCL 50 MG TAB PO SCH ×2 (00:06→09:44)
[2023-04-17] MEDS: SODIUM CHLORIDE 0.9% 1,000 ML in EMPTY BAG 1 BAG IV SCH ×2 (00:29→09:36)
[2023-04-17] MEDS: carvediloL 12.5 MG TAB PO SCH (06:32)
[2023-04-17 06:34] LABS: African American GFR (CKD) 8 (>60 ml/min/1.73 sqM); Anion Gap 15 mmol/L; Blood Urea Nitrogen 46 mg/dL (9-20); Calcium 8.7 mg/dL (8.4-10.2); Carbon Dioxide 19 mmol/L (22-30); Chloride 101 mmol/L (98-107); Glucose 83 mg/dL (74-99); Non-African American GFR(CKD) 7 (>60 ml/min/1.73 sqM); Potassium 4.5 mmol/L (3.5-5.1); Sodium 135 mmol/L (137-145)
[2023-04-17] MEDS ORDERED: HEPARIN SODIUM,PORCINE 10,000 UNIT in SODIUM CHLORIDE 0.9% 1,000 ML IRRIGATION PRN (07:00)
[2023-04-17] MEDS ORDERED: HEPARIN SODIUM,PORCINE (1 ML) 2,500 UNIT in SODIUM CHLORIDE 0.9% 250 ML IRRIGATION PRN (07:00)
[2023-04-17] MEDS: IPRATROPIUM-ALBUTEROL 3 ML NEB INHALATION PRN (07:34)
--- NOTE | 2023-04-17 08:46 | P.PN ---
Subjective Progress Note Date: 04/17/23 42-year-old female patient end-stage renal disease on dialysis, hypertension, obesity and previous history of alcoholism. The patient was intubated for acute hypoxic respiratory failure secondary to influenza A infection and fluid overload. The patient was extubated on 04/12/2023. The patient undergoes hemodialysis 3 times a week and the patient also has a peritoneal catheter for peritoneal dialysis. During the course of the hospitalization, the patient also sustained an acute non-ST segment elevation myocardial infarction with elevated troponins. The plan is to proceed with cardiac catheterization today and this needs to be done by cardiology. For now, the patient is on Coreg 12.5 mg twice a day, clonidine point 1 mg p.o. twice daily, and losartan 100 mg p.o. daily. Patient is also taking hydralazine 100 mg p.o. 3 times daily. Patient is on IV Rocephin as an empiric antibiotic coverage and the patient is also on IV Lasix 60 mg IV every 12 hours. Blood cultures are negative. Chest x-ray from 04/13/2022 showed some mild interstitial density bilaterally although the fluid overload was essentially improving. Limited echocardiogram was done on 04/11/2023 showing concentric LVH, moderate pulmonary hypertension with estimated PA pressure of around 47 mmHg. The patient is currently on oxygen room air with a pulse ox of 95%. Breathing is nonlabored. The patient is scheduled to undergo a cardiac catheterization today. Following that, the patient is also going to undergo a hemodialysis. He remains on room air oxygen. His most recent BP is 109/86. His labs are still pending from today. No other significant events overnight. No agitation. Remains on IV Rocephin as an e mpiric antibiotic coverage. Blood cultures are negative for now. On 04/17/2023, I'm seeing the patient for a follow-up. The patient is post hypoxic respiratory failure secondary to influenza A infection and fluid overload. He also sustained an what we thought to be in acute non-ST segment elevation myocardial infarction and the patient had elevated troponins. The patient also was having some issues with elevated blood pressure. Noted the patient underwent a cardiac catheterization yesterday and the patient was found to have no significant for critically significant coronary artery disease. In fact, the coronaries were normal and the patient has been reassured in that regard. History of any chest pain. His blood pressure is under better control and the patient is currently on a combination of antihypertensive medication. Is taking Correctol 0.5 mg twice a day, clonidine 0.1 mg twice a day, hydralazine 100 mg 3 times a day and losartan 100 mg by mouth daily. IV heparin has been discontinued. He remains on aspirin. He remains also on Lasix 60 mg IV every 12 hours. The fluid balance is -420 mL over the past 24 hours. The patient remains on room air oxygen with a pulse ox of 94%. His calm and comfortable. His blood work from today shows a BUN of 46 with a creatinine of 8.4. Serum bicarb is at 19 with a sodium level of 135. His completed his course of Tamiflu. No fever. Objective - Vital Signs Vital signs: Vital Signs Temp 98.2 F 04/17/23 04:00 Pulse 68 04/17/23 07:44 Resp 18 04/17/23 04:00 BP 143/88 04/17/23 04:00 Pulse Ox 94 L 04/17/23 04:00 FiO2 50 04/12/23 12:30 Intake & Output 04/16/23 04/17/23 04/17/23 18:59 06:59 18:59 Intake Total 470 300 Output Total 2200 1950 Balance -1730 -1650 Weight 127.7 kg 125.3 kg Intake: IV 70 300 0.9 50 300 Hemodialysis 400 Output: Urine 0 150 Hemodialysis 2200 Other 1800 Other: Voiding Method Toilet Toilet Urinal Urinal # Voids 1 ABP, PAP, CO, CI - Last Documented Arterial Blood Pressure 141/66 - Exam No acute distress, awake and alert, currently on room air. HEENT examination is grossly unremarkable. Neck supple. Full range of motion. No adenopathy thyromegaly or neck vein distention. Cardiovascular examination reveals regular rhythm rate. S1-S2 normal. No S3 or S4. No discernible murmur noted. Lungs reveal scattered bilateral rhonchi. No wheezes or crackles. Breath sounds equal bilaterally. Abdomen soft bowel sounds are heard. No masses or tenderness. Extremities are intact. No cyanosis clubbing or edema. Skin is without rash or lesion. Neurologic examination is brief but nonfocal. - Labs CBC & Chem 7: 04/16/23 14:07 04/17/23 05:52 Labs: Abnormal Lab Results - Last 24 Hours (Table) 04/16/23 04/16/23 04/17/23 Range/Units 14:07 14:07 05:52 RBC 4.07 L (4.30-5.90) m/uL Hgb 11.0 L (13.0-17.5) gm/dL Hct 35.6 L (39.0-53.0) % MCHC 30.9 L (31.0-37.0) g/dL RDW 16.3 H (11.5-15.5) % Plt Count 127 L (150-450) k/uL Sodium 135 L (137-145) mmol/L Carbon Dioxide 18 L 19 L (22-30) mmol/L BUN 68 H 46 H (9-20) mg/dL Creatinine 11.60 H* 8.44 H* (0.66-1.25) mg/dL AST 73 H (17-59) U/L Microbiology - Last 24 Hours (Table) 04/11/23 10:13 Blood Culture - Final Blood 04/11/23 10:13 Blood Culture - Final Blood Assessment and Plan Plan: Acute hypoxic respiratory failure, postintubation mechanical ventilation. Respiratory failure it was due to a combination of diastolic heart failure and influenza A infection and patient was successfully extubated the patient is currently on room air oxygen, the patient completed a course of Tamiflu Hypertension currently controlled blood pressure and a component of hypertensive encephalopathy, improving and the patient is on a combination of antihypert ensive medication including Coreg, losartan, clonidine and hydralazine. Hyperlipidemia End-stage renal disease on hemodialysis and the patient is also on IV Lasix 60 mg IV every 12 hours, undergoing hemodialysis yesterday with ultrafiltration of 1.8 L. Diabetes mellitus type 2 Obesity with a body mass index of 41.8 Acute non-ST elevation myocardial infarction with a troponin max 0.1, cardiac catheterization showed normal coronaries. History of alcoholism Anemia of chronic disease, hemoglobin is stable for now Chronic anxiety/depression Plan Cardiac cath was normal Hemodialysis was done yesterday Blood pressure management and the patient is currently on Coreg 12.5 mg twice a day, hydralazine 100 mg by mouth 3 times a day, losartan 100 mg by mouth daily, and he is also on Catapres 0.1 mg by mouth twice a day Change Lasix to 60 mg by mouth daily, not producing much of urine output at this point in time. BID Is afebrile and hemodynamically stable and his most recent chest x-ray that was done on 04/13/2023 was consistent with cardiomegaly Echocardiogram, limited view showed a concentric LVH with normal LV function, moderate degree of pulmonary hypertension and tricuspid regurgitation. Antibiotics has been discontinued.
[2023-04-17] MEDS ORDERED: FUROSEMIDE 20 MG TAB PO SCH (09:00)
[2023-04-17] MEDS: PANTOPRAZOLE 40 MG/10 ML VIAL IV SCH (09:44)
[2023-04-17] MEDS: PARoxetine 10 MG TAB PO SCH (09:46)
[2023-04-17] MEDS: LOSARTAN 50 MG TAB PO SCH (09:46)
[2023-04-17] MEDS: cloNIDine HCL 0.1 MG TAB PO SCH (09:46)
[2023-04-17] MEDS: ASPIRIN 81 MG PO SCH (09:46)
[2023-04-17 09:53] VITALS: PULSE 65; RESP 16
[2023-04-17] MEDS: BENZONATATE 100 MG CAP PO PRN (10:11)
--- NOTE | 2023-04-17 11:16 | P.PN ---
Subjective Patient is seen in follow-up for end-stage renal disease. Denies chest pain or shortness of breath. No problems with dialysis yesterday. Wants to go home. Vital signs are stable. General: NAD. HEENT: Head exam is unremarkable. LUNGS: No audible rhonchi or wheezes. HEART: Rate and Rhythm are regular. ABDOMEN: Obese, non-tender. EXTREMITITES: Trace edema. Objective - Vital Signs Vital signs: Vital Signs Temp 98 F 04/17/23 08:00 Pulse 65 04/17/23 08:00 Resp 16 04/17/23 08:00 BP 142/93 04/17/23 08:00 Pulse Ox 95 04/17/23 08:00 FiO2 50 04/12/23 12:30 Intake & Output 04/16/23 04/17/23 04/17/23 18:59 06:59 18:59 Intake Total 470 300 Output Total 2200 1950 Balance -1730 -1650 Weight 127.7 kg 125.3 kg Intake: IV 70 300 0.9 50 300 Hemodialysis 400 Output: Urine 0 150 Hemodialysis 2200 Other 1800 Other: Voiding Method Toilet Toilet Urinal Urinal # Voids 1 ABP, PAP, CO, CI - Last Documented Arterial Blood Pressure 141/66 - Labs CBC & Chem 7: 04/16/23 14:07 04/17/23 05:52 Labs: Abnormal Lab Results - Last 24 Hours (Table) 04/16/23 04/16/23 04/17/23 Range/Units 14:07 14:07 05:52 RBC 4.07 L (4.30-5.90) m/uL Hgb 11.0 L (13.0-17.5) gm/dL Hct 35.6 L (39.0-53.0) % MCHC 30.9 L (31.0-37.0) g/dL RDW 16.3 H (11.5-15.5) % Plt Count 127 L (150-450) k/uL Sodium 135 L (137-145) mmol/L Carbon Dioxide 18 L 19 L (22-30) mmol/L BUN 68 H 46 H (9-20) mg/dL Creatinine 11.60 H* 8.44 H* (0.66-1.25) mg/dL AST 73 H (17-59) U/L Microbiology - Last 24 Hours (Table) 04/11/23 10:13 Blood Culture - Final Blood 04/11/23 10:13 Blood Culture - Final Blood Assessment and Plan Plan: Assessment: 1. End-stage renal disease maintained on hemodialysis on Sunday schedule. Patient will soon transition to peritoneal dialysis. He dolores العلي has a PD catheter and is in the process of being trained. 2. Influenza A. 3. Acute hypoxic respiratory failure secondary to pneumonia and fluid overload. Improved. Now on room air. 4. Elevated troponin status post cardiac catheterization 04/16/2023. Clean coronary arteries. 5. Chronic diastolic CHF with moderate tricuspid regurgitation and moderate pulmonary hypertension. 6. Chronic kidney disease mineral bone disease. Phosphorus level 7.4 dated 04/13/2023. Plan: Hemodialysis tomorrow. Resume PD training outpatient. Add PhosLo with meals.
[2023-04-17] MEDS ORDERED: CALCIUM ACETATE 667 MG TAB PO SCH (12:30)
[2023-04-17 12:38] VITALS: BP 137/84; TEMP 97.8
--- NOTE | 2023-04-17 15:22 | P.PN ---
Subjective Progress Note Date: 04/17/23 Hypertension emergency The patient is a pleasant 42-year-old -[place] gentleman with a past medical history significant for end stage renal disease currently the patient on hemodialysis and before that he was on peritoneal dialysis as well as systemic hypertension and obesity and obstructive sleep apnea as well as multiple comorbid conditions was admitted to the hospital with increasing shortness of breath and he was intubated in the emergency department. We are asked to see the patient as a bedside consult here in the intensive. Currently the patient is intubated and he is on mechanical ventilation. The history was taken from the chart as well as from the nurse taking care of the patient as well as from the family at bedside. Apparently the patient was experiencing increasing short ness of breath for the last 24 hours with no associated chest pain or chest discomfort associated dizziness and lightheadedness or any feeling of heart racing or fluttering or any presyncope or syncope his pressure was extremely elevated when he presented to the emergency department and he was educated and asked to be intubated at that point. Currently he is on Nitrol drip with improvement in the blood pressure. He underwent further workup including troponin came in to be mildly elevated. EKG is in process to be done. The chest x-ray did not show any acute abnormalities. Nephrology consult was placed and the patient is in process to be seen. He was seen by our service in 2021 with a chest discomfort and at that point he underwent an echo which revealed normal LV systolic function with severe pulmonary hypertension and moderate tricuspid regurgitation. On examination today he is intubated. The blood pressure is 111/64 with a heart rate of 85 bpm and heart examination reveals reg ular rhythm with distant heart sounds and chest examination revealed diminished breathing sounds bilaterally and no lower extremity edema noted the abdomen is soft and nontender April 122023 The patient was seen and evaluated this morning. He still intubated on mechanical ventilation. His pressure has improved significantly and currently is not on any Nitrol drip. The troponin came in to be slightly elevated could be related to renal failure and elevated blood pressure he is on heparin I would continue heparin for a total of 48 hours and add aspirin to the current medical regimen. He comes be on a statin because of elevated liver function tests. I would consider adding statin once the liver function test improved. He is on beta court we'll continue that. The echo showed normal LV systolic function was moderate pulmonary hypertension and moderate tricuspid regurgitation. He underwent dialysis yesterday with removal of 1.5 L. The examination is remarkable for an intubated gentleman on mechanical ventilation with stable vital signs and diminished breathing sounds bilaterally and no edema in the lower extremities 04/13/2023 The patient was seen and evaluated this morning. He was extubated. The pressure has been better. Currently he reports no pain in chest or shortness of breath. He is on aspirin. He is not on statin because of elevated liver function tests. The troponin was mildly elevated and likely secondary to renal failure for severe underlying coronary artery disease to be ruled out and the patient need to undergo a heart catheterization but unfortunately cannot lay flat and will consider doing that on Sunday was more fluid would be taking out b y dialysis. Meanwhile continue the current medical regimen. The examination is remarkable for bilateral rhonchi. April 142023 The patient was seen and evaluated this morning. He is asymptomatic beside cough appeared to be unproductive for any sputum but no pain in the chest and no shortness of breath. The pressure appeared to be under good control on the current medical regimen. He is on aspirin and he is on beta court which we will continue. I am going to obtain liver function tests and start the patient on statin if the liver function tests are back to normal. Beside that he is off heparin. He needs to undergo a heart catheterization on Sunday. The examination is remarkable for regular rhythm with distant heart sounds and bilateral rhonchi noted. April 152023 The patient was seen and evaluated this morning. He is asymptomatic. He is hemodynamically stable with a good blood pressure on the current medical regimen. The plan is to pursue with a heart catheterization tomorrow. That was discussed with him in details. Meanwhile continue the current medical regimen 2023 Was examined at bedside this a.m. Left radial arterial exercise appears to be i ntact with no signs of hematoma or bleeding. Patient denies having any active chest pain chest pressure. Blood pressure is better controlled blood pressure 142/93, pulse 68. Normal sinus rhythm. Hemoglobin 11 Assessment Hypertension emergency Mild nonobstructive coronary artery disease on cardiac catheterization Shortness of breath secondary to hypertension emergency End stage renal disease on dialysis History of noncompliance Obstructive sleep apnea Obesity Severe pulmonary hypertension Elevated cardiac enzymes, due to high blood pressure and poor renal clearance in setting of ESRD Plan Continue aspirin, losartan, hydralazine, Coreg, clonidine Okay to be discharged from cardiac vessel standpoint. Outpatient follow-up with Dr. Boyd Objective - Vital Signs Vital signs: Vital Signs Temp 97.8 F 04/17/23 12:00 Pulse 65 04/17/23 12:00 Resp 16 04/17/23 12:00 BP 137/84 04/17/23 12:00 Pulse Ox 95 04/17/23 12:00 FiO2 50 04/12/23 12:30 Intake & Output 04/16/23 04/17/23 04/17/23 18:59 06:59 18:59 Intake Total 470 300 600 Output Total 2200 1950 Balance -1730 -1650 600 Weight 127.7 kg 125.3 kg Intake: IV 70 300 0.9 50 300 Oral 600 Hemodialysis 400 Output: Urine 0 150 Hemodialysis 2200 Other 1800 Other: Voiding Method Toilet Toilet Toilet Urinal Urinal # Voids 1 ABP, PAP, CO, CI - Last Documented Arterial Blood Pressure 141/66 - Labs CBC & Chem 7: 04/16/23 14:07 04/17/23 05:52 Labs: Abnormal Lab Results - Last 24 Hours (Table) 04/16/23 04/17/23 Range/Units 14:07 05:52 Sodium 135 L (137-145) mmol/L Carbon Dioxide 18 L 19 L (22-30) mmol/L BUN 68 H 46 H (9-20) mg/dL Creatinine 11.60 H* 8.44 H* (0.66-1.25) mg/dL AST 73 H (17-59) U/L Microbiology - Last 24 Hours (Table) 04/11/23 10:13 Blood Culture - Final Blood 04/11/23 10:13 Blood Culture - Final Blood
== END 2023-04-17 15:37 | disposition home or self-care (01) | DRG 208 ==
LOC: EC 01:02 → 2SICU 04:41
PROVIDERS: ADMIT Internal Medicine; ATTEND Internal Medicine
PROC: 0BH17EZ Insertion of Endotracheal Airway into Trachea, Via Natural or Artificial Opening (ICD-10-PCS; principal; 2023-04-11)
PROC: 5A1945Z Respiratory Ventilation, 24-96 Consecutive Hours (ICD-10-PCS; principal; 2023-04-11)
PROC: 5A09357 Assistance with Respiratory Ventilation, Less than 24 Consecutive Hours, Continuous Positive Airway Pressure (ICD-10-PCS; 2023-04-11)
PROC: 5A1D70Z Performance of Urinary Filtration, Intermittent, Less than 6 Hours Per Day (ICD-10-PCS; 2023-04-11)
PROC: 03HY32Z Insertion of Monitoring Device into Upper Artery, Percutaneous Approach (ICD-10-PCS; 2023-04-11)
PROC: 4A133J1 Monitoring of Arterial Pulse, Peripheral, Percutaneous Approach (ICD-10-PCS; 2023-04-11)
PROC: 4A133B1 Monitoring of Arterial Pressure, Peripheral, Percutaneous Approach (ICD-10-PCS; 2023-04-11)
PROC: 02HV33Z Insertion of Infusion Device into Superior Vena Cava, Percutaneous Approach (ICD-10-PCS; 2023-04-11)
PROC: 0D9670Z Drainage of Stomach with Drainage Device, Via Natural or Artificial Opening (ICD-10-PCS; 2023-04-11)
PROC: 3E0G76Z Introduction of Nutritional Substance into Upper GI, Via Natural or Artificial Opening (ICD-10-PCS; 2023-04-12)
PROC: B2111ZZ Fluoroscopy of Multiple Coronary Arteries using Low Osmolar Contrast (ICD-10-PCS; 2023-04-16 13:30)
PROC: 4A023N7 Measurement of Cardiac Sampling and Pressure, Left Heart, Percutaneous Approach (ICD-10-PCS; 2023-04-16 13:30)
DX: J96.01 Acute respiratory failure with hypoxia (principal); N18.6 End stage renal disease; I50.33 Acute on chronic diastolic (congestive) heart failure; J10.00 Influenza due to other identified influenza virus with unspecified type of pneumonia; I21.A1 Myocardial infarction type 2; I67.4 Hypertensive encephalopathy; E87.3 Alkalosis; I13.2 Hypertensive heart and chronic kidney disease with heart failure and with stage 5 chronic kidney disease, or end stage renal disease; J45.901 Unspecified asthma with (acute) exacerbation; Z68.41 Body mass index [BMI] 40.0-44.9, adult; I16.1 Hypertensive emergency; I95.9 Hypotension, unspecified; I27.20 Pulmonary hypertension, unspecified; D63.1 Anemia in chronic kidney disease; E83.9 Disorder of mineral metabolism, unspecified; E11.22 Type 2 diabetes mellitus with diabetic chronic kidney disease; F10.20 Alcohol dependence, uncomplicated; Y90.0 Blood alcohol level of less than 20 mg/100 ml; I25.10 Atherosclerotic heart disease of native coronary artery without angina pectoris; J96.02 Acute respiratory failure with hypercapnia; E66.01 Morbid (severe) obesity due to excess calories; F14.90 Cocaine use, unspecified, uncomplicated; F41.9 Anxiety disorder, unspecified; G47.33 Obstructive sleep apnea (adult) (pediatric); I07.1 Rheumatic tricuspid insufficiency; Z71.3 Dietary counseling and surveillance; Z99.2 Dependence on renal dialysis; E78.2 Mixed hyperlipidemia; F17.200 Nicotine dependence, unspecified, uncomplicated; Z91.199 Patient's noncompliance with other medical treatment and regimen due to unspecified reason; Z79.899 Other long term (current) drug therapy; Z88.8 Allergy status to other drugs, medicaments and biological substances
CPT/HCPCS: 31500; 36415; 36600; 71045; 71046; 76937; 80048; 80053; 80306; 80320; 81001; 82805; 83735; 83880; 84100; 84145; 84450; 84460; 84484; 85025; 85610; 85730; 86706; 87040; 87070; 87205; 87340; 87636; 90935; 93308; 93454; 94002; 94003; 94640; 94660; 96374; 96375; 96376; 99291

== ENCOUNTER 2023-06-19 15:15 | Emergency (ER) | payer MEDICARE, OTHER ==
[2023-06-19 15:28] VITALS: TEMP 98.2
--- NOTE | 2023-06-19 15:46 | ED ---
General Adult HPI - General Chief complaint: Headache Stated complaint: Abd Pain, Headache Time Seen by Provider: 06/19/23 15:30 Source: patient, RN notes reviewed, old records reviewed Mode of arrival: wheelchair Limitations: no limitations - History of Present Illness Initial comments: This is a 42-year-old male with a past medical history significant for hypertension and renal failure. Patient states she just started hemodialysis. Patient states he was doing peritoneal dialysis but it was irritating to him so he started hemodialysis this morning. Patient states for the last 3 days has been complaining of a headache. Patient denies any blurred vision. Patient denies any neck pain. Patient denies any numbness weakness. Patient has any re cent fever chills or cough. Patient denies any new abdominal pain patient has nausea vomiting diarrhea - Related Data Home Medications Medication Instructions Recorded Confirmed Calcium Acetate [PhosLo] 667 mg PO BID PRN 02/27/23 04/11/23 Folic Acid 1 mg PO DAILY 02/27/23 04/11/23 Folic Acid/Vit B Complex and C 0.8 mg PO DAILY 02/27/23 04/11/23 [Minda-Jeremiah Tablet] Lidocaine-Prilocaine Cream [Emla 1 applic TOPICAL DAILY PRN 02/27/23 04/11/23 Cream 2.5%/2.5%] cloNIDine HCL [Catapres] 0.1 mg PO BID 02/27/23 04/11/23 hydrALAZINE HCL [Apresoline] 100 mg PO TID 02/27/23 04/11/23 levOCARNitine 330 mg PO BID PRN 02/27/23 04/11/23 Losartan [Cozaar] 50 mg PO DAILY 03/01/23 04/11/23 Previous Rx's Medication Instructions Recorded Aspirin 81 mg PO DAILY tab 04/17/23 Benzonatate [Tessalon Perles] 100 mg PO TID PRN #30 cap 04/17/23 Furosemide [Lasix] 60 mg PO BID #60 tab 04/17/23 LORazepam [Ativan] 0.5 mg PO BID PRN #6 tab 04/17/23 Losartan [Cozaar] 100 mg PO DAILY #60 tab 04/17/23 PARoxetine [Paxil] 10 mg PO DAILY #30 tab 04/17/23 carvediloL [Coreg*] 12.5 mg PO AC-BID #60 tab 04/17/23 Allergies Allergy/AdvReac Type Severity Reaction Status Date / Time amlodipine Allergy Rash/Hives/ Verified 06/19/23 15:26 Itchy Review of Systems ROS Statement: Those systems with pertinent positive or pertinent negative responses have been documented in the HPI. ROS Other: All systems not noted in ROS Statement are negative. Past Medical History Past Medical History: Dialysis, Hypertension, Renal Disease Additional Past Medical History / Comment(s): Hematoma around "belly button area", pt wanting to transition to peritoneal dialysis from hemodialysis,ESRD with hemodialysis M/W/F for 4Hrs, mineral bone disease History of Any Multi-Drug Resistant Organisms: None Reported Past Surgical History: No Surgical Hx Reported Additional Past Surgical History / Comment(s): R upper arm AV fistula,Peritoneal dialysis catheter insertion on 02-20-23 Past Anesthesia/Blood Transfusion Reactions: No Reported Reaction Past Psychological History: No Psychological Hx Reported Smoking Status: Current every day smoker Past Alcohol Use History: Occasional Past Drug Use History: Marijuana - Past Family History Father Additional Family Medical History / Comment(s): Father in a MVA. Mother Family Medical History: Cancer Additional Family Medical History / Comment(s): Mother from breast cancer. General Exam - General Exam Comments Initial Comments: GENERAL: Patient is well-developed and well-nourished. Patient is nontoxic and well- hydrated and is in mild distress. ENT: Neck is soft and supple. No significant lymphadenopathy is noted. Oropharynx is clear. Moist mucous membranes. Neck has full range of motion without eliciting any pain. EYES: The sclera were anicteric and conjunctiva were pink and moist. Extraocular movements were intact and pupils were equal round and reactive to light. Eyelids were unremarkable. PULMONARY: Unlabored respirations. Good breath sounds bilaterally. No audible rales rhonchi or wheezing was noted. CARDIOVASCULAR: There is a regular rate and rhythm without any murmurs gallops or rubs. ABDOMEN: Soft and nontender with normal bowel sounds. SKIN: Skin is clear with no lesions or rashes and otherwise unremarkable. NEUROLOGIC: Patient is alert and oriented x3. Cranial nerves II through XII are grossly intact. Motor and sensory are also intact. Normal speech, volume and content. Symmetrical smile. MUSCULOSKELETAL: Normal extremities with adequate strength and full range of motion. No lower extremity swelling or edema. No calf tenderness. LYMPHATICS: No significant lymphadenopathy is noted PSYCHIATRIC: Normal psychiatric evaluation Limitations: no limitations Course Vital Signs 06/19/23 06/19/23 06/19/23 15:21 15:43 17:44 Temperature 98.2 F Pulse Rate 80 77 79 Respiratory 18 20 18 Rate Blood Pressure 177/112 173/100 176/98 O2 Sat by Pulse 97 99 97 Oximetry 06/19/23 06/19/23 18:50 20:03 Temperature Pulse Rate 78 81 Respiratory 16 18 Rate Blood Pressure 175/102 180/106 O2 Sat by Pulse 97 98 Oximetry Medical Decision Making - Medical Decision Making EKG is interpreted by myself. EKG shows a sinus rhythm at 74 bpm parables 175 QRS is 102 QT interval is 427 QTc is 455. Patient's EKG shows no ST segment ovation or depression Was pt. sent in by a medical professional or institution (, PA, [employer], urgent care, hospital, or prison...) When possible be specific @ -No Did you speak to anyone other than the patient for history (EMS, parent, family, police, friend...)? What history was obtained from this source @ -No Did you review nursing and triage notes (agree or disagree)? Why? @ -I reviewed and agree with nursing and triage notes Were old charts reviewed (outside hosp., previous admission, EMS record, old EKG, old radiological studies, urgent care reports/EKG's, prison records)? Report findings @ -I reviewed prior charts and prior lab work on this patient Differential Diagnosis (chest pain, altered mental status, abdominal pain women, abdominal pain men, vaginal bleeding, weakness, fever, dyspnea, syncope, headache, dizziness, GI bleed, back pain, seizure, CVA, palpatations, mental health, musculoskeletal)? @ -Differential Headache: Migraine, tension, cluster, carbon monoxide, central venous thrombosis, pension karma temporal arteritis, acute closure glaucoma, intercranial hemorrhage, mastoiditis, sinusitis, head injury, this is not meant to be an all-inclusive list. EKG interpreted by me (3pts min.). @ -As above X-rays interpreted by me (1pt min.). @ -Chest x-ray shows no acute abnormality CT interpreted by me (1pt min.). @ -CT of the brain shows no acute abnormality U/S interpreted by me (1pt. min.). @ -None done What testing was considered but not performed or refused? (CT, X-rays, U/S, labs)? Why? @ -None What meds were considered but not given or refused? Why? @ -None Did you discuss the management of the patient with other professionals (professionals i.e. Dr., PA, [employer], lab, RT, psych nurse, social science analyst, program attendant, teacher, national service officer, complex case manager)? Give summary @ -I spoke with Dr. Granados and he wanted the patient to stay but patient refused to stay patient was signed out AMA. Was smoking cessation discussed for >3mins.? @ -No Was critical care preformed (if so, how long)? @ -No Were there social determinants of health that impacted care today? How? (Homelessness, low income, unemployed, alcoholism, drug addiction, trans portation, low edu. Level, literacy, decrease access to med. care, custodial, rehab)? @ -No Was there de-escalation of care discussed even if they declined (Discuss DNR or withdrawal of care, Hospice)? DNR status @ -No What co-morbidities impacted this encounter? (DM, HTN, Smoking, COPD, CAD, Cancer, CVA, ARF, Chemo, Hep., AIDS, mental health diagnosis, sleep apnea, morbid obesity)? @ -None Was patient admitted / discharged? Hospital course, mention meds given and route, prescriptions, significant lab abnormalities, going to OR and other pertinent info. @ -Patient received pain medications for the headache and it did improve it. Patient also received multiple doses of hydralazine and labetalol and the pressure still was elevated I suggested multiple times that the patient should be admitted I spoke with Dr. Granados he was in agreement with admitting the patient but the patient refused and will sign out AMA Dr. Granados said he will see the patient tomorrow patient agreed that he will see Dr. Granados tomorrow. Patient admitted to me that he does not take all of his blood pressure medications and he does drink heavily he also states he smokes marijuana. Undiagnosed new problem with uncertain prognosis? @ -No Drug Therapy requiring intensive monitoring for toxicity (Heparin, Nitro, Insulin, Cardizem)? @ -No Were any procedures done? @ -No Diagnosis/symptom? @ -Hypertensive urgency Acute, or Chronic, or Acute on Chronic? @ -Default Uncomplicated (without systemic symptoms) or Complicated (systemic symptoms)? @ -Acute complicated Side effects of treatment? @ -No Exacerbation, Progression, or Severe Exacerbation? @ -No Poses a threat to life or bodily function? How? (Chest pain, USA, CO, pneumonia, PE, COPD, DKA, ARF, appy, cholecystitis, CVA, Diverticulitis, Homicidal, Suicidal, threat to staff... and all critical care pts) @ -Yes this can lead to hypertensive emergency endorgan dysfunction - Lab Data Result diagrams: 06/19/23 15:46 06/19/23 15:46 Lab Results 06/19/23 06/19/23 06/19/23 Range/Units 15:46 15:46 15:46 WBC 7.3 (3.8-10.6) k/uL RBC 4.11 L (4.30-5.90) m/uL Hgb 10.9 L (13.0-17.5) gm/dL Hct 34.7 L (39.0-53.0) % MCV 84.4 (80.0-100.0) fL MCH 26.6 (25.0-35.0) pg MCHC 31.5 (31.0-37.0) g/dL RDW 16.3 H (11.5-15.5) % Plt Count 165 (150-450) k/uL MPV 8.9 Neutrophils % 70 % Lymphocytes % 20 % Monocytes % 6 % Eosinophils % 2 % Basophils % 0 % Neutrophils # 5.2 (1.3-7.7) k/uL Lymphocytes # 1.4 (1.0-4.8) k/uL Monocytes # 0.5 (0-1.0) k/uL Eosinophils # 0.1 (0-0.7) k/uL Basophils # 0.0 (0-0.2) k/uL Anisocytosis Slight PT 11.3 (10.0-12.5) sec INR 1.0 (<1.2) APTT 26.7 (22.0-30.0) sec Sodium 137 (137-145) mmol/L Potassium 3.9 (3.5-5.1) mmol/L Chloride 98 (98-107) mmol/L Carbon Dioxide 27 (22-30) mmol/L Anion Gap 12 mmol/L BUN 37 H (9-20) mg/dL Creatinine 7.39 H* (0.66-1.25) mg/dL Est GFR (CKD-EPI)AfAm 10 (>60 ml/min/1.73 sqM) Est GFR (CKD-EPI)NonAf 8 (>60 ml/min/1.73 sqM) Glucose 113 H (74-99) mg/dL Calcium 9.1 (8.4-10.2) mg/dL Magnesium 1.8 (1.6-2.3) mg/dL Total Bilirubin 1.2 (0.2-1.3) mg/dL AST 31 (17-59) U/L ALT 14 (4-49) U/L Alkaline Phosphatase 62 (38-126) U/L Troponin I (0.000-0.034) ng/mL Total Protein 7.4 (6.3-8.2) g/dL Albumin 4.3 (3.5-5.0) g/dL 06/19/23 Range/Units 15:46 WBC (3.8-10.6) k/uL RBC (4.30-5.90) m/uL Hgb (13.0-17.5) gm/dL Hct (39.0-53.0) % MCV (80.0-100.0) fL MCH (25.0-35.0) pg MCHC (31.0-37.0) g/dL RDW (11.5-15.5) % Plt Count (150-450) k/uL MPV Neutrophils % % Lymphocytes % % Monocytes % % Eosinophils % % Basophils % % Neutrophils # (1.3-7.7) k/uL Lymphocytes # (1.0-4.8) k/uL Monocytes # (0-1.0) k/uL Eosinophils # (0-0.7) k/uL Basophils # (0-0.2) k/uL Anisocytosis PT (10.0-12.5) sec INR (<1.2) APTT (22.0-30.0) sec Sodium (137-145) mmol/L Potassium (3.5-5.1) mmol/L Chloride (98-107) mmol/L Carbon Dioxide (22-30) mmol/L Anion Gap mmol/L BUN (9-20) mg/dL Creatinine (0.66-1.25) mg/dL Est GFR (CKD-EPI)AfAm (>60 ml/min/1.73 sqM) Est GFR (CKD-EPI)NonAf (>60 ml/min/1.73 sqM) Glucose (74-99) mg/dL Calcium (8.4-10.2) mg/dL Magnesium (1.6-2.3) mg/dL Total Bilirubin (0.2-1.3) mg/dL AST (17-59) U/L ALT (4-49) U/L Alkaline Phosphatase (38-126) U/L Troponin I 0.044 H* (0.000-0.034) ng/mL Total Protein (6.3-8.2) g/dL Albumin (3.5-5.0) g/dL Critical Care Time Critical Care Time: Yes Total Critical Care Time: 35 Disposition Clinical Impression: Hypertensive urgency, Medically noncompliant Disposition: LEFT AGAINST MEDICAL ADVICE Referrals: Pamela Granados MD [Primary Care Provider] - 1-2 days Time of Disposition: 20:33
[2023-06-19] MEDS: ACETAMINOPHEN TAB 500 MG TAB PO STA (16:09)
[2023-06-19] MEDS: hydrALAZINE HCL 20 MG/ML 1 ML VIAL IVP STA ×3 (16:47→19:19)
[2023-06-19] MEDS: HYDROmorphone 0.5 MG/0.5 ML SYRINGE IVP STA ×2 (16:48→20:46)
[2023-06-19 16:58] LABS: Anisocytosis Slight; Basophils % (A) 0 %; Eosinophils # (A) 0.1 k/uL (0-0.7); Eosinophils % (A) 2 %; HCT 34.7 % (39.0-53.0); HGB 10.9 gm/dL (13.0-17.5); Lymphocytes # (A) 1.4 k/uL (1.0-4.8); Lymphocytes % (A) 20 %; MCH 26.6 pg (25.0-35.0); MCHC 31.5 g/dL (31.0-37.0); MCV 84.4 fL (80.0-100.0); Mean Platelet Volume 8.9; Monocytes # (A) 0.5 k/uL (0-1.0); Monocytes % (A) 6 %; Neutrophils # (A) 5.2 k/uL (1.3-7.7); Neutrophils % (A) 70 %; Platelet Count 165 k/uL (150-450); RBC 4.11 m/uL (4.30-5.90); RDW 16.3 % (11.5-15.5); WBC 7.3 k/uL (3.8-10.6)
[2023-06-19 17:10] LABS: Partial Thromboplastin Time 26.7 sec (22.0-30.0); Prothrombin Time 11.3 sec (10.0-12.5)
[2023-06-19 17:20] LABS: ALT 14 U/L (4-49); AST 31 U/L (17-59); African American GFR (CKD) 10 (>60 ml/min/1.73 sqM); Albumin 4.3 g/dL (3.5-5.0); Alkaline Phosphatase 62 U/L (38-126); Anion Gap 12 mmol/L; Blood Urea Nitrogen 37 mg/dL (9-20); Calcium 9.1 mg/dL (8.4-10.2); Carbon Dioxide 27 mmol/L (22-30); Chloride 98 mmol/L (98-107); Glucose 113 mg/dL (74-99); Magnesium 1.8 mg/dL (1.6-2.3); Non-African American GFR(CKD) 8 (>60 ml/min/1.73 sqM); Potassium 3.9 mmol/L (3.5-5.1); Sodium 137 mmol/L (137-145); Total Bilirubin 1.2 mg/dL (0.2-1.3); Total Protein 7.4 g/dL (6.3-8.2)
--- NOTE | 2023-06-19 17:37 | CT ---
EXAMINATION TYPE: CT brain wo con CT DLP: 1181.4 mGycm, Automated exposure control for dose reduction was used. DATE OF EXAM: 06/19/2023 5:09 PM COMPARISON: None. CLINICAL INDICATION:Male, 42 years old with history of Headache, high blood pressure, HEADACHE, HIGH BP TECHNIQUE: Brain: Axial CT images of the brain were obtained with coronal and sagittal reformats created and rev iewed. Contrast used: None. Oral contrast used: None. FINDINGS: Brain: Extra-axial spaces: No abnormal extra-axial fluid collections. Ventricular system: Within normal limits Cerebral parenchyma: No acute intraparenchymal hemorrhage or mass effect. The perera-white junction is well differentiated. Cerebellum: Unremarkable. Mass effect: No evidence of midline shift. Intracranial vasculature: Dolichoectasia of the basilar artery. Soft tissues: Normal. Calvarium/osseous structures: No depressed skull fracture. Paranasal sinuses and mastoid air cells: Mild scattered paranasal sinus disease. Visualized orbits: Orbital contents are intact. IMPRESSION: 1. No acute intracranial process. 2. Dolichoectasia of the basilar artery.
--- NOTE | 2023-06-19 17:40 | XR ---
EXAMINATION TYPE: XR chest 2V DATE OF EXAM: 06/19/2023 5:14 PM CLINICAL INDICATION:Male, 42 years old with history of Chest Pain; [facility] COMPARISON: Chest radiographs from 04/13/2023 TECHNIQUE: XR chest 2V Frontal and lateral views of the chest. FINDINGS: Lungs/Pleura: There is no evidence of pleural effusion, focal consolidation, or pneumothorax. Pulmonary vascularity: Unremarkable. Heart/mediastinum: Cardiomediastinal silhouette is unremarkable. Musculoskeletal: No acute osseous pathology. IMPRESSION: No acute cardiopulmonary disease/process.
[2023-06-19 20:18] VITALS: RESP 18
[2023-06-19] MEDS: LABETALOL 5 MG/ML VIAL MDV IVP STA (20:47)
[2023-06-19 21:53] VITALS: BP 154/97; PULSE 73
== END 2023-06-19 21:48 | disposition left against medical advice (07) ==
LOC: EC 15:15
DX: I16.0 Hypertensive urgency (principal); I12.0 Hypertensive chronic kidney disease with stage 5 chronic kidney disease or end stage renal disease; N18.6 End stage renal disease; F17.200 Nicotine dependence, unspecified, uncomplicated; Z91.199 Patient's noncompliance with other medical treatment and regimen due to unspecified reason; Z99.2 Dependence on renal dialysis; Z88.8 Allergy status to other drugs, medicaments and biological substances; Z53.29 Procedure and treatment not carried out because of patient's decision for other reasons
CPT/HCPCS: 99291; 96374; 96375 ×2; 96376 ×3; 36415; 93005; 80053; 83735; 84484; 85025; 85610; 85730; 71046; 70450; J0360; J1170; J1920

== ENCOUNTER 2023-08-16 11:15 | Day surgery (SDC) | payer MEDICARE, OTHER ==
[2023-08-13 11:56] VITALS: BMI 41.6
[~2023-08-16 11:15] MED LIST changes: -ACETAMINOPHEN TAB 500 MG TAB PO PRN; -HEPARIN SODIUM,PORCINE/PF 5,000 UNIT/0.5 ML SYRINGE SQ PRN; +HYDROmorphone 0.5 MG/0.5 ML SYRINGE IVP PRN; +LIDOCAINE 1% (10MG/ML) FOR IV START INTRADERMA PRN; +MIDAZOLAM 2 MG/2 ML VIAL IV PRN; -Pre Op ABX Message 1 EACH MISC MISCELLANE ONE
[2023-08-16] MEDS: LACTATED RINGERS 1,000 ML IV SCH (11:42)
[2023-08-16 12:11] LABS: Basophils % (A) 0 %; Eosinophils # (A) 0.2 k/uL (0-0.7); Eosinophils % (A) 3 %; HCT 38.6 % (39.0-53.0); HGB 11.9 gm/dL (13.0-17.5); Lymphocytes % (A) 25 %; MCH 26.3 pg (25.0-35.0); MCHC 30.9 g/dL (31.0-37.0); Monocytes # (A) 0.4 k/uL (0-1.0); Monocytes % (A) 5 %; Neutrophils # (A) 5.1 k/uL (1.3-7.7); Neutrophils % (A) 65 %; Platelet Count 174 k/uL (150-450); RBC 4.53 m/uL (4.30-5.90); RDW 15.1 % (11.5-15.5); WBC 7.9 k/uL (3.8-10.6)
[2023-08-16] MEDS: SODIUM CHLORIDE 0.9% 1,000 ML IV ONE (12:15)
[2023-08-16] MEDS: HEPARIN SODIUM,PORCINE 5,000 UNIT/ML 1 ML VIAL SQ PRN (12:16)
[2023-08-16] MEDS: ACETAMINOPHEN TAB 500 MG TAB PO PRN (12:16)
[2023-08-16] MEDS: ONDANSETRON 4 MG/2 ML VIAL IVP ONE (12:16)
[2023-08-16] MEDS: DEXAMETHASONE SOD PHOSPHATE 4 MG/ML 1 ML VIAL IV ONE (12:16)
[2023-08-16 12:28] LABS: African American GFR (CKD) 9 (>60 ml/min/1.73 sqM); Anion Gap 8 mmol/L; Blood Urea Nitrogen 22 mg/dL (9-20); Calcium 9.9 mg/dL (8.4-10.2); Carbon Dioxide 29 mmol/L (22-30); Chloride 100 mmol/L (98-107); Glucose 118 mg/dL (74-99); Non-African American GFR(CKD) 8 (>60 ml/min/1.73 sqM); Potassium 4.3 mmol/L (3.5-5.1); Sodium 137 mmol/L (137-145)
[2023-08-16] MEDS ORDERED: fentaNYL (PF) 50 MCG/ML 2 ML AMP ONE (12:34)
[2023-08-16] MEDS ORDERED: PROPOFOL 10 MG/ML 20 ML VIAL IV ONE (12:34)
[2023-08-16] MEDS ORDERED: SUCCINYLCHOLINE CHLORIDE 200 MG/10 ML VIAL IV ONE (12:34)
[2023-08-16] MEDS ORDERED: KETAMINE HCL IN 0.9 % NACL 50 MG/5 ML SYRINGE ONE (12:34)
[2023-08-16] MEDS ORDERED: MIDAZOLAM 2 MG/2 ML VIAL ONE (12:34)
[2023-08-16] MEDS: ceFAZolin 3 GM in SODIUM CHLORIDE 0.9% 100 ML IVPB PRN (12:39)
--- NOTE | 2023-08-16 12:46 | P.GSHP ---
History of Present Illness H&P Date: 08/16/23 Chief Complaint: Renal failure 43-year-old male here for peritoneal dialysis catheter removal. Patient had his catheter placed quite some time ago. Unfortunately with fluid instillation he has had recurrent episodes of scrotal edema. We suspect he has a micro perforation of the peritoneum in the lower pelvis contributing to the edema present there. There is no visible hernia on exam. Patient would like to continue with only hemodialysis at this time. For that reason we are taking his catheter out. Past Medical History Past Medical History: Dialysis, Hypertension, Renal Disease, Sleep Apnea/CPAP/BIPAP Additional Past Medical History / Comment(s): ESRD with hemodialysis M/W/F, CPAP use History of Any Multi-Drug Resistant Organisms: None Reported Past Surgical History: Heart Catheterization Additional Past Surgical History / Comment(s): R upper arm AV fistula, peritoneal dialysis catheter insertion, abdominal wall hematoma evacuated Past Anesthesia/Blood Transfusion Reactions: No Reported Reaction Past Psychological History: No Psychological Hx Reported Additional Psychological History / Comment(s): . Smoking Status: Former smoker Past Alcohol Use History: Occasional Additional Past Alcohol Use History / Comment(s): Pt started smoking in 2000 and quit in 2020. past hx of alcohol abuse-approximately a fifth of vodka a day-pt now drinks occasionally Past Drug Use History: None Reported - Past Family History Father Additional Family Medical History / Comment(s): Father in a MVA. Mother Family Medical History: Cancer Additional Family Medical History / Comment(s): Mother from breast cancer. Medications and Allergies Home Medications Medication Instructions Recorded Confirmed Type Calcium Acetate [PhosLo] 667 mg PO BID-W/MEALS 02/27/23 08/16/23 History Folic Acid 1 mg PO DAILY 02/27/23 08/16/23 History Folic Acid/Vit B Complex and C 0.8 mg PO DAILY 02/27/23 08/16/23 History [Minda-Jeremiah Tablet] Lidocaine-Prilocaine Cream [Emla 1 applic TOPICAL DAILY PRN 02/27/23 08/16/23 History Cream 2.5%/2.5%] hydrALAZINE HCL [Apresoline] 100 mg PO TID 02/27/23 08/16/23 History levOCARNitine 330 mg PO BID PRN 02/27/23 08/16/23 History Losartan [Cozaar] 150 mg PO DAILY 03/01/23 08/16/23 History Furosemide [Lasix] 60 mg PO BID #60 tab 04/17/23 08/16/23 Rx carvediloL [Coreg] 6.25 mg PO BID 08/13/23 08/13/23 History Allergies Allergy/AdvReac Type Severity Reaction Status Date / Time amlodipine Allergy Rash/Hives/ Verified 08/16/23 11:39 Itchy Surgical - Exam Vital Signs Temp Pulse Resp BP Pulse Ox 97.0 F L 64 18 142/79 96 08/16/23 11:39 08/16/23 11:39 08/16/23 11:39 08/16/23 11:39 08/16/23 11:39 Physical exam: General: Well-developed, well-nourished HEENT: Normocephalic, sclerae nonicteric Abdomen: Nontender, nondistended, prior scars noted, catheter in place left- sided Extremities: No edema Neuro: Alert and oriented Results - Labs 08/16/23 12:08 08/16/23 12:08 Abnormal Lab Results - Last 24 Hours (Table) 08/16/23 08/16/23 Range/Units 12:08 12:08 Hgb 11.9 L (13.0-17.5) gm/dL Hct 38.6 L (39.0-53.0) % MCHC 30.9 L (31.0-37.0) g/dL BUN 22 H (9-20) mg/dL Creatinine 7.84 H* (0.66-1.25) mg/dL Glucose 118 H (74-99) mg/dL Diabetes panel 08/16/23 Range/Units 12:08 Sodium 137 (137-145) mmol/L Potassium 4.3 (3.5-5.1) mmol/L Chloride 100 (98-107) mmol/L Carbon Dioxide 29 (22-30) mmol/L BUN 22 H (9-20) mg/dL Creatinine 7.84 H* (0.66-1.25) mg/dL Glucose 118 H (74-99) mg/dL Calcium 9.9 (8.4-10.2) mg/dL Calcium panel 08/16/23 Range/Units 12:08 Calcium 9.9 (8.4-10.2) mg/dL Pituitary panel 08/16/23 Range/Units 12:08 Sodium 137 (137-145) mmol/L Potassium 4.3 (3.5-5.1) mmol/L Chloride 100 (98-107) mmol/L Carbon Dioxide 29 (22-30) mmol/L BUN 22 H (9-20) mg/dL Creatinine 7.84 H* (0.66-1.25) mg/dL Glucose 118 H (74-99) mg/dL Calcium 9.9 (8.4-10.2) mg/dL Adrenal panel 08/16/23 Range/Units 12:08 Sodium 137 (137-145) mmol/L Potassium 4.3 (3.5-5.1) mmol/L Chloride 100 (98-107) mmol/L Carbon Dioxide 29 (22-30) mmol/L BUN 22 H (9-20) mg/dL Creatinine 7.84 H* (0.66-1.25) mg/dL Glucose 118 H (74-99) mg/dL Calcium 9.9 (8.4-10.2) mg/dL Assessment and Plan (1) End stage renal disease Narrative/Plan: Will proceed with peritoneal dialysis catheter removal at this time. Current Visit: No Status: Acute Code(s): N18.6 - END STAGE RENAL DISEASE SNOMED Code(s): 84593709
[2023-08-16] MEDS: LIDOCAINE 1%-EPI 1:100,000 20 ML VIAL SQ ONE ×2 (12:58→13:02)
[2023-08-16] MEDS ORDERED: NALOXONE 0.4 MG/ML 1 ML VIAL IV PRN (13:48)
[2023-08-16] MEDS ORDERED: HYDROcodone/APAP 5-325MG 1 EACH TAB PO PRN (13:48)
--- NOTE | 2023-08-16 13:50 | P.OP ---
Date of Procedure: 08/16/23 Procedure(s) Performed: PREOPERATIVE DIAGNOSIS: Renal failure POSTOPERATIVE DIAGNOSIS: Same PROCEDURE: PD cath removal SURGEON: Sandra EBL: 2 mL ANESTHESIA: General COMPLICATIONS: None OPERATIVE PROCEDURE: Patient was placed in the supine position. The abdomen was prepped and draped in usual sterile fashion. The previous paramedian incision was excised after localizing the skin. The subcutaneous tissues were divided using electrocautery. Blunt dissection around the cuff that was present at the fascia and peritoneum took place. The cuff was fully mobilized. The catheter was removed from the perineal cavity. The outer cuff was dissected from the subcutaneous fascia using electrocautery. The catheter was cut on the other side of that cuff and the catheter was removed. The fascial defect was closed using a short running 0 Vicryl stitch. The subcutaneous tissues were closed using 3-0 Vicryl sutures and the skin using 4-0 Monocryl sutures. Skin glue and sterile dressings were applied. DISPOSITION: Stable to recovery room
[2023-08-16] MEDS: HYDROmorphone 0.5 MG/0.5 ML SYRINGE IVP ONE (13:53)
[2023-08-16 14:10] VITALS: TEMP 97.1
[2023-08-16 15:06] VITALS: BP 143/86; PULSE 70; RESP 16
== END 2023-08-16 14:50 | disposition home or self-care (01) ==
LOC: OR 11:15
PROVIDERS: ATTEND Surgery
DX: I12.0 Hypertensive chronic kidney disease with stage 5 chronic kidney disease or end stage renal disease (principal); N18.6 End stage renal disease; G47.33 Obstructive sleep apnea (adult) (pediatric); F10.90 Alcohol use, unspecified, uncomplicated; Z87.891 Personal history of nicotine dependence; Z88.8 Allergy status to other drugs, medicaments and biological substances; Z99.2 Dependence on renal dialysis; Z79.899 Other long term (current) drug therapy
CPT/HCPCS: 80048; 85025; 49422; J2250; J0330; J1644; J1100; J0690; J2405; J3010; J2704; J1170

== ENCOUNTER → 2023-12-01 | Outpatient (CLI) | payer MEDICARE, OTHER ==
--- NOTE | 2023-12-01 13:49 | XR ---
EXAMINATION TYPE: XR foot complete RT DATE OF EXAM: 12/01/2023 COMPARISON: None HISTORY: Pain in right foot TECHNIQUE: 3 view right foot FINDINGS: No acute fracture or dislocation evident. Mild degenerative joint changes at first metatars ophalangeal joint space. Remaining joint spaces appear preserved. Soft tissues appear normal small Ac hilles tendon calcaneal heel spurs present.. Follow up exams can be performed 7-10 days from acute tr auma for continued pain. IMPRESSION: 1. No acute osseous abnormality right foot
== END | disposition home or self-care (01) ==
LOC: RADXRMAIN 11:48
PROVIDERS: ATTEND Internal Medicine
DX: M79.671 Pain in right foot (principal)

== ENCOUNTER 2024-04-11 12:29 | Emergency (ER) | payer MEDICARE ==
--- NOTE | 2024-04-11 13:07 | ED ---
General Adult HPI - General Chief complaint: Shortness of Breath Stated complaint: short of breath Time Seen by Provider: 04/11/24 13:00 Source: patient, RN notes reviewed, old records reviewed Mode of arrival: ambulatory Limitations: no limitations - History of Present Illness Initial comments: This is a 43-year-old male who presents to the emergency department complaining that he has missed dialysis 3 times and he supposed to go today but they want blood work prior to him going so he had to come to the emergency department to get it. Patient states he is a little bit short of breath but that is typical when he misses dialysis. Patient states his blood pressure is also high and he states that is also typical when he has dialysis and when he gets dialyzed his blood pressure comes down. Patient denies any chest pain or palpitations. Patient denies any headache patient has blurred vision. Patient states he is just here to get blood work otherwise he would not be here at all. - Related Data Home Medications Medication Instructions Recorded Confirmed Calcium Acetate [PhosLo] 667 mg PO BID-W/MEALS 02/27/23 08/16/23 Folic Acid 1 mg PO DAILY 02/27/23 08/16/23 Folic Acid/Vit B Complex and C 0.8 mg PO DAILY 02/27/23 08/16/23 [Minda-Jeremiah Tablet] Lidocaine-Prilocaine Cream [Emla 1 applic TOPICAL DAILY PRN 02/27/23 08/16/23 Cream 2.5%/2.5%] hydrALAZINE HCL [Apresoline] 100 mg PO TID 02/27/23 08/16/23 levOCARNitine 330 mg PO BID PRN 02/27/23 08/16/23 Losartan [Cozaar] 150 mg PO DAILY 03/01/23 08/16/23 carvediloL [Coreg] 6.25 mg PO BID 08/13/23 08/13/23 Previous Rx's Medication Instructions Recorded Furosemide [Lasix] 60 mg PO BID #60 tab 04/17/23 HYDROcodone/APAP 5-325MG [[place] 1 tab PO Q6HR PRN 3 Days #6 tab 08/16/23 5-325] Allergies Allergy/AdvReac Type Severity Reaction Status Date / Time amlodipine Allergy Rash/Hives/ Verified 04/11/24 12:52 Itchy Review of Systems ROS Statement: Those systems with pertinent positive or pertinent negative responses have been documented in the HPI. ROS Other: All systems not noted in ROS Statement are negative. Past Medical History Past Medical History: Dialysis, Hypertension, Renal Disease, Sleep Apnea/CPAP/BIPAP Additional Past Medical History / Comment(s): ESRD with hemodialysis M/W/F, CPAP use History of Any Multi-Drug Resistant Organisms: None Reported Past Surgical History: Heart Catheterization Additional Past Surgical History / Comment(s): R upper arm AV fistula, peritoneal dialysis catheter insertion, abdominal wall hematoma evacuated Past Anesthesia/Blood Transfusion Reactions: No Reported Reaction Past Psychological History: No Psychological Hx Reported Smoking Status: Current some day smoker Past Alcohol Use History: Occasional Past Drug Use History: None Reported - Past Family History Father Additional Family Medical History / Comment(s): Father in a MVA. Mother Family Medical History: Cancer Additional Family Medical History / Comment(s): Mother from breast cancer. General Exam - General Exam Comments Initial Comments: GENERAL: Patient is well-developed and well-nourished. Patient is nontoxic and well- hydrated and is in no acute distress. ENT: Neck is soft and supple. No significant lymphadenopathy is noted. Oropharynx is clear. Moist mucous membranes. Neck has full range of motion without eliciting any pain. EYES: The sclera were anicteric and conjunctiva were pink and moist. Extraocular movements were intact and pupils were equal round and reactive to light. Eyelids were unremarkable. PULMONARY: Unlabored respirations. Good breath sounds bilaterally. No audible rales r honchi or wheezing was noted. CARDIOVASCULAR: There is a regular rate and rhythm without any murmurs gallops or rubs. ABDOMEN: Soft and nontender with normal bowel sounds. SKIN: Skin is clear with no lesions or rashes and otherwise unremarkable. NEUROLOGIC: Patient is alert and oriented x3. Cranial nerves II through XII are grossly intact. Motor and sensory are also intact. Normal speech, volume and content. Symmetrical smile. MUSCULOSKELETAL: Normal extremities with adequate strength and full range of motion. No lower extremity swelling or edema. No calf tenderness. LYMPHATICS: No significant lymphadenopathy is noted PSYCHIATRIC: Normal psychiatric evaluation. Limitations: no limitations Course Vital Signs 04/11/24 04/11/24 12:53 13:47 Temperature 98.4 F Pulse Rate 86 Respiratory 20 Rate Blood Pressure 194/125 203/103 O2 Sat by Pulse 99 Oximetry Medical Decision Making - Medical Decision Making Was pt. sent in by a medical professional or institution (VERN Soto, [employer]INE[employer], urgent care, hospital, or [place] health care facility...) When possible be specific @ -No Did you speak to anyone other than the patient for history (EMS, parent, family, police, friend...)? What history was obtained from this source @ -No Did you review nursing and triage notes (agree or disagree)? Why? @ -I reviewed and agree with nursing and triage notes Were old charts reviewed (outside hosp., previous admission, EMS record, old EKG, old radiological studies, urgent care reports/EKG's, [place] health care facility records)? Report findings @ -No old charts were reviewed Differential Diagnosis? @ -Differential Dyspnea: Coronary syndrome, arrhythmia, tamponade, asthma, COPD, pulmonary embolism, pneumonia, pneumothorax, pulmonary effusion, anaphylaxis, diabetic ketoacidosis, flailed chest, pulmonary contusion, diaphragmatic rupture, anemia, neuromuscular, this is not meant to be an all-inclusive list. EKG interpreted by me (3pts min.). @ -As above X-rays interpreted by me (1pt min.). @ -Chest x-ray shows mild pulmonary edema CT interpreted by me (1pt min.). @ -None done U/S interpreted by me (1pt. min.). @ -None done What testing was considered but not performed or refused? (CT, X-rays, U/S, labs)? Why? @ -None What meds were considered but not given or refused? Why? @ -None Did you discuss the management of the patient with other professionals (donna cain i.e. VERN Soto, PRINCIPAL CYBER ENGINEER, lab, RT, psych nurse, rn social services, breadman, teacher, corporate officer, housing case manager)? Give summary @ -I spoke with Dr. Snyder I reviewed lab work and x-ray results with Dr. Snyder and she thought it was safe to send him over to dialysis that he is scheduled for p.m. Was smoking cessation discussed for >3mins.? @ -No Was critical care preformed (if so, how long)? @ -No Were there social determinants of health that impacted care today? How? (Homelessness, low income, unemployed, alcoholism, drug addiction, transportation, low edu. Level, literacy, decrease access to med. care, assisted, rehab)? @ -No Was there de-escalation of care discussed even if they declined (Discuss DNR or withdrawal of care, Hospice)? DNR status @ -No What co-morbidities impacted this encounter? (DM, HTN, Smoking, COPD, CAD, Cancer, CVA, ARF, Chemo, Hep., AIDS, mental health diagnosis, sleep apnea, morbid obesity)? @ -None Was patient admitted / discharged? Hospital course, mention meds given and route, prescriptions, significant lab abnormalities, going to OR and other pertinent info. @ -Patient remained asymptomatic throughout the ED stay. I spoke with Dr. Snyder and she agreed that he go get dialyzed today. Undiagnosed new problem with uncertain prognosis? @ -No Drug Therapy requiring intensive monitoring for toxicity (Heparin, Nitro, Insulin, Cardizem)? @ -No Were any procedures done? @ -No Diagnosis/symptom? @ -Noncompliant dialysis Acute, or Chronic, or Acute on Chronic? @ -Acute Uncomplicated (without systemic symptoms) or Complicated (systemic symptoms)? @ -Uncomplicated Side effects of treatment? @ -No Exacerbation, Progression, or Severe Exacerbation? @ -No Poses a threat to life or bodily function? How? (Chest pain, [place], [place], pneumonia, PE, COPD, DKA, ARF, appy, cholecystitis, CVA, Diverticulitis, Homicidal, Suicidal, threat to staff... and all critical care pts) @ -No Diagnosis/symptom? @ -Hyperkalemia Acute, or Chronic, or Acute on Chronic? @ -Acute Uncomplicated (without systemic symptoms) or Complicated (systemic symptoms)? @ -Uncomplicated Side effects of treatment? @ -None Exacerbation, Progression, or Severe Exacerbation] @ -No Poses a threat to life or bodily function? @ -No Diagnosis/symptom? @ -Mild pulmonary edema Acute, or Chronic, or Acute on Chronic? @ -Acute Uncomplicated (without systemic symptoms) or Complicated (systemic symptoms)? @ -Uncomplicated Side effects of treatment? @ -None Exacerbation, Progression, or Severe Exacerbation] @ -No Poses a threat to life or bodily function? @ -No - Lab Data Result diagrams: 04/11/24 13:12 04/11/24 13:12 Lab Results 04/11/24 04/11/24 Range/Units 13:12 13:12 WBC 8.8 (3.8-10.6) k/uL RBC 3.76 L (4.30-5.90) m/uL Hgb 10.3 L (13.0-17.5) gm/dL Hct 32.6 L (39.0-53.0) % MCV 86.7 (80.0-100.0) fL MCH 27.5 (25.0-35.0) pg MCHC 31.7 (31.0-37.0) g/dL RDW 15.4 (11.5-15.5) % Plt Count 181 (150-450) k/uL MPV 9.0 Neutrophils % 67 % Lymphocytes % 23 % Monocytes % 5 % Eosinophils % 3 % Basophils % 0 % Neutrophils # 5.9 (1.3-7.7) k/uL Lymphocytes # 2.0 (1.0-4.8) k/uL Monocytes # 0.4 (0-1.0) k/uL Eosinophils # 0.2 (0-0.7) k/uL Basophils # 0.0 (0-0.2) k/uL Hypochromasia Slight Sodium 140 (137-145) mmol/L Potassium 6.0 H (3.5-5.1) mmol/L Chloride 107 (98-107) mmol/L Carbon Dioxide 15 L (22-30) mmol/L Anion Gap 18 mmol/L BUN 101 H* (9-20) mg/dL Creatinine 18.01 H* (0.66-1.25) mg/dL Est GFR (CKD-EPI)AfAm 3 (>60 ml/min/1.73 sqM) Est GFR (CKD-EPI)NonAf 3 (>60 ml/min/1.73 sqM) Glucose 100 H (74-99) mg/dL Calcium 9.6 (8.4-10.2) mg/dL Total Bilirubin 0.8 (0.2-1.3) mg/dL AST 92 H (17-59) U/L ALT 38 (4-49) U/L Alkaline Phosphatase 58 (38-126) U/L Total Protein 7.6 (6.3-8.2) g/dL Albumin 4.8 (3.5-5.0) g/dL Disposition Clinical Impression: Pulmonary edema, Hyperkalemia, Dialysis patient, noncompliant Disposition: HOME SELF-CARE Condition: Good Instructions (If sedation given, give patient instructions): Pulmonary Edema (ED) Additional Instructions: Go to dialysis immediately Is patient prescribed a controlled substance at d/c from ED?: No Referrals: Pamela Granados MD [Primary Care Provider] - 1-2 days Time of Disposition: 14:25
[2024-04-11 13:24] LABS: Basophils % (A) 0 %; Eosinophils # (A) 0.2 k/uL (0-0.7); Eosinophils % (A) 3 %; HCT 32.6 % (39.0-53.0); HGB 10.3 gm/dL (13.0-17.5); Hypochromasia Slight; Lymphocytes % (A) 23 %; MCH 27.5 pg (25.0-35.0); MCHC 31.7 g/dL (31.0-37.0); MCV 86.7 fL (80.0-100.0); Monocytes # (A) 0.4 k/uL (0-1.0); Monocytes % (A) 5 %; Neutrophils # (A) 5.9 k/uL (1.3-7.7); Neutrophils % (A) 67 %; Platelet Count 181 k/uL (150-450); RBC 3.76 m/uL (4.30-5.90); RDW 15.4 % (11.5-15.5); WBC 8.8 k/uL (3.8-10.6)
[2024-04-11 13:37] LABS: ALT 38 U/L (4-49); AST 92 U/L (17-59); Albumin 4.8 g/dL (3.5-5.0); Alkaline Phosphatase 58 U/L (38-126); Anion Gap 18 mmol/L; Calcium 9.6 mg/dL (8.4-10.2); Carbon Dioxide 15 mmol/L (22-30); Chloride 107 mmol/L (98-107); Glucose 100 mg/dL (74-99); Sodium 140 mmol/L (137-145); Total Bilirubin 0.8 mg/dL (0.2-1.3); Total Protein 7.6 g/dL (6.3-8.2)
[2024-04-11 13:43] LABS: African American GFR (CKD) 3 (>60 ml/min/1.73 sqM); Non-African American GFR(CKD) 3 (>60 ml/min/1.73 sqM)
[2024-04-11 13:48] VITALS: BP 203/103
[2024-04-11 13:52] LABS: Blood Urea Nitrogen 101 mg/dL (9-20)
--- NOTE | 2024-04-11 13:58 | XR ---
EXAMINATION TYPE: XR chest 2V DATE OF EXAM: 04/11/2024 1:40 PM COMPARISON: Chest radiographs from 06/19/2023 CLINICAL INDICATION: Male, 43 years old with history of Difficulty breathing ; [facility] TECHNIQUE: XR chest 2V Frontal and lateral views of the chest. FINDINGS: Lungs/Pleura: Trace opacities in the right lower lung. There is no evidence of pleural effusion, left focal consolidation, or pneumothorax. Pulmonary vascularity: Unremarkable. Heart/mediastinum: Cardiomediastinal silhouette is unremarkable. Musculoskeletal: No acute osseous pathology. Other findings: None Lines/Tubes: IMPRESSION: Right lower lobe airspace opacities probably for pneumonia. [facility], , 04/11/2024 1:56 PM
[2024-04-11 14:31] VITALS: PULSE 80; RESP 16; TEMP 98.7
== END 2024-04-11 14:31 | disposition home or self-care (01) ==
LOC: EC 12:29
DX: J81.1 Chronic pulmonary edema (principal); E87.5 Hyperkalemia; I12.0 Hypertensive chronic kidney disease with stage 5 chronic kidney disease or end stage renal disease; N18.6 End stage renal disease; F17.200 Nicotine dependence, unspecified, uncomplicated; Z99.2 Dependence on renal dialysis; Z88.8 Allergy status to other drugs, medicaments and biological substances
CPT/HCPCS: 36415; 71046; 80053; 85025; 99285

== ENCOUNTER 2024-05-25 16:04 | Inpatient (IN) | payer MEDICARE, OTHER ==
--- NOTE | 2024-05-25 16:14 | ED ---
SOB HPI - General Chief Complaint: Shortness of Breath Stated Complaint: stomach pain Time Seen by Provider: 05/25/24 16:13 Source: patient, RN notes reviewed, old records reviewed Mode of arrival: wheelchair Limitations: no limitations - History of Present Illness Initial Comments: This is a 43-year-old male to the ER for evaluation of multiple complaints today. Patient complains of shortness of breath. States he is a dialysis patient who missed dialysis on Sunday. Patient does admit to daily drinking, states that he does not want help with alcoholism, but having increasing weakness shortness of breath and does admit to alcohol drinking today. Patient has increasing shortness of breath worse throughout the day especially with activity. Patient's last dialysis complete was Sunday. Patient missed dialysis due to drinking on Sunday. Patient otherwise is taking medications as prescribed. Having generalized pain, weakness and shortness of breath with history of smoking MD Complaint: shortness of breath -: days(s) Severity: moderate Severity scale (1-10): 6 Consistency: constant Improves With: rest Worsens With: exertion, movement Known History Of: other (Dialysis dependent) Context: recent illness Associated Symptoms: chest pain, pain with inspiration, abdominal pain Treatments Prior to Arrival: none - Related Data Home Medications Medication Instructions Recorded Confirmed Calcium Acetate [PhosLo] 667 mg PO DIRECTED 02/27/23 05/25/24 hydrALAZINE HCL [Apresoline] 100 mg PO TID 02/27/23 05/25/24 levOCARNitine 330 mg PO DIRECTED PRN 02/27/23 05/25/24 carvediloL [Coreg] 6.25 mg PO BID 08/13/23 05/25/24 Ipratropium [place] [Atrovent Hfa] 1 puff INHALATION RT-BID PRN 05/25/24 05/25/24 Losartan [Cozaar] 50 mg PO DAILY 05/25/24 05/25/24 Vitamin B Complex 1 cap PO DAILY 05/25/24 05/25/24 Allergies Allergy/AdvReac Type Severity Reaction Status Date / Time amlodipine AdvReac Rash/Hives/ Verified 05/25/24 18:55 Itchy Review of Systems ROS Statement: Those systems with pertinent positive or pertinent negative responses have been documented in the HPI. ROS Other: All systems not noted in ROS Statement are negative. Past Medical History Past Medical History: Dialysis, Hypertension, Renal Disease, Sleep Apnea/CPAP/BIPAP Additional Past Medical History / Comment(s): ESRD with hemodialysis M/W/F, CPAP use History of Any Multi-Drug Resistant Organisms: None Reported Past Surgical History: Heart Catheterization Additional Past Surgical History / Comment(s): R upper arm AV fistula, peritoneal dialysis catheter insertion, abdominal wall hematoma evacuated Past Anesthesia/Blood Transfusion Reactions: No Reported Reaction Past Psychological History: No Psychological Hx Reported Smoking Status: Current some day smoker Past Alcohol Use History: Abuse Past Drug Use History: Marijuana - Past Family History Father Additional Family Medical History / Comment(s): Father in a MVA. Mother Family Medical History: Cancer Additional Family Medical History / Comment(s): Mother from breast cancer. General Exam Limitations: no limitations General appearance: alert, in no apparent distress Head exam: Present: atraumatic, normocephalic, normal inspection Eye exam: Present: normal appearance, PERRL, EOMI. Absent: scleral icterus, conjunctival injection, periorbital swelling ENT exam: Present: normal exam, mucous membranes moist Neck exam: Present: normal inspection. Absent: tenderness, meningismus, lymphadenopathy Respiratory exam: Present: normal lung sounds bilaterally. Absent: respiratory distress, wheezes, rales, rhonchi, stridor Cardiovascular Exam: Present: regular rate, normal rhythm, normal heart sounds. Absent: systolic murmur, diastolic murmur, rubs, gallop, clicks GI/Abdominal exam: Present: soft, normal bowel sounds. Absent: distended, tenderness, guarding, rebound, rigid Extremities exam: Present: normal inspection, full ROM, normal capillary refill. Absent: tenderness, pedal edema, joint swelling, calf tenderness Back exam: Present: normal inspection Neurological exam: Present: alert, oriented X3, CN II-XII intact Psychiatric exam: Present: normal affect, normal mood Skin exam: Present: warm, dry, intact, normal color. Absent: rash Course Vital Signs 05/25/24 05/25/24 05/25/24 16:06 16:25 16:53 Temperature 97.8 F 98.1 F Pulse Rate 84 80 80 Respiratory 22 22 18 Rate Blood Pressure 182/118 177/117 O2 Sat by Pulse 99 100 Oximetry 05/25/24 05/25/24 05/25/24 17:00 17:30 18:33 Temperature Pulse Rate 80 83 81 Respiratory 18 19 16 Rate Blood Pressure 172/91 185/108 O2 Sat by Pulse 95 95 Oximetry 05/25/24 19:00 Temperature Pulse Rate 79 Respiratory 16 Rate Blood Pressure 177/113 O2 Sat by Pulse 95 Oximetry - Reevaluation(s) Reevaluation #1: 05/25/24 16:29 Medical records reviewed Last significant admission 1 year ago heart failure hypertensive urgency emergency Reevaluation #2: 05/25/24 17:28 Elevated blood pressure is mildly improved shortness of breath unchanged Symptoms continue to improve breathing treatment improved shortness of breath Patient has elevated troponin 0.08 not increased from prior troponins, chronically elevated troponin renal failure Significant alcohol intoxication will place on alcohol withdrawal precautions Chronic abnormal renal function, with missed dialysis, potassium normal no fluid overload on x-ray Patient given 2 IV blood pressure medications as well as Catapres patch with minimal improvement in blood pressure Reevaluation #3: 05/25/24 17:51 Patient informed of results and questions answered Reevaluation #4: Was pt. sent in by a medical professional or institution (, PA, CERTIFIED OPHTHALMIC MEDICAL TECHNICIAN, urgent care, hospital, or skilled nursing...) When possible be specific @ -no Did you speak to anyone other than the patient for history (EMS, parent, family, police, friend...)? What history was obtained from this source @ -no Did you review nursing and triage notes (agree or disagree)? Why? @ -agree Are old charts reviewed (outside hosp., previous admission, EMS record, old EKG, old radiological studies, urgent care reports/EKG's, skilled nursing records)? Report findings @ -yes Differential Diagnosis (chest pain, altered mental status, abdominal pain women, abdominal pain men, vaginal bleeding, weakness, fever, dyspnea, syncope, headache, dizziness, GI bleed, back pain, seizure, CVA, palpatations, mental health, musculoskeletal)? @ -prior EKG interpreted by me (3pts min.). @ -yes X-rays interpreted by me (1pt min.). @ -yes negative for acute disease CT interpreted by me (1pt min.). @ -no U/S interpreted by me (1pt. min.). @ -no What testing was considered but not performed or refused? (CT, X-rays, U/S, labs)? Why? @ -none What meds were considered but not given or refused? Why? @ -none Did you discuss the management of the patient with other professionals (professionals i.e. , PA, CERTIFIED OPHTHALMIC MEDICAL TECHNICIAN, lab, RT, psych nurse, medical social consultant, slasher operator, teacher, hospital security officer, vocational case manager)? Give summary @ -no Was smoking cessation discussed for >3mins.? @ -no Was critical care preformed (if so, how long)? @ -no Were there social determinants of health that impacted care today? How? (Homelessness, low income, unemployed, alcoholism, drug addiction, transportation, low edu. Level, literacy, decrease access to med. care, long-term, rehab)? @ -none Was there de-escalation of care discussed even if they declined (Discuss DNR or withdrawal of care, Hospice)? DNR status @ -no What co-morbidities impacted this encounter? (DM, HTN, Smoking, COPD, CAD, Cancer, CVA, ARF, Chemo, Hep., AIDS, mental health diagnosis, sleep apnea, morbid obesity)? @ -none Was patient admitted / discharged? Hospital course, mention meds given and route, prescriptions, significant lab abnormalities, going to OR and other pertinent info. @ - Undiagnosed new problem with uncertain prognosis? @ -no Drug Therapy requiring intensive monitoring for toxicity (Heparin, Nitro, Insulin, Cardizem)? @ -no Were any procedures done? @ -no Diagnosis/symptom? @ - Acute, or Chronic, or Acute on Chronic? @ -Acute Uncomplicated (without systemic symptoms) or Complicated (systemic symptoms)? @ -Complicated Side effects of treatment? @ -no Exacerbation, Progression, or Severe Exacerbation? @ -exacerbation Poses a threat to life or bodily function? How? (Chest pain, USA, PA, pneumonia, PE, COPD, DKA, ARF, appy, cholecystitis, CVA, Diverticulitis, Homicidal, Suicidal, threat to staff... and all critical care pts) @ -yes Reevaluation #5: Differential Dyspnea: Coronary syndrome, arrhythmia, tamponade, asthma, COPD, pulmonary embolism, pneumonia, pneumothorax, pulmonary effusion, anaphylaxis, diabetic ketoacidosis, flailed chest, pulmonary contusion, diaphragmatic rupture, anemia, neuro muscular, this is not meant to be an all-inclusive list. - Consultations Consultation #1: Spoke with Dr. Granados who agrees to admit this patient Consultation #2: Also did speak with Dr. Villanueva for possible ICU evaluation, patient is not meet current need for ICU placement Consultation #3: Spoke with nephrology aware of patient needing dialysis not emergent tomorrow Dr Snyder Medical Decision Making - Medical Decision Making 43 male to ER for multiple complaints, initial complaint of shortness of breath weakness with skipped dialysis, patient will need admission for dialysis not emergent, patient also has significant alcohol intoxication with pending alcohol withdrawal and would like help for alcohol dependence - Lab Data Result diagrams: 05/25/24 16:53 05/25/24 16:53 Lab Results 05/25/24 05/25/24 05/25/24 Range/Units 16:53 16:53 16:53 WBC 9.1 (3.8-10.6) k/uL RBC 4.06 L (4.30-5.90) m/uL Hgb 10.9 L (13.0-17.5) gm/dL Hct 35.0 L (39.0-53.0) % MCV 86.2 (80.0-100.0) fL MCH 26.9 (25.0-35.0) pg MCHC 31.2 (31.0-37.0) g/dL RDW 15.3 (11.5-15.5) % Plt Count 184 (150-450) k/uL MPV 8.9 Neutrophils % 57 % Lymphocytes % 34 % Monocytes % 4 % Eosinophils % 3 % Basophils % 0 % Neutrophils # 5.1 (1.3-7.7) k/uL Lymphocytes # 3.1 (1.0-4.8) k/uL Monocytes # 0.4 (0-1.0) k/uL Eosinophils # 0.2 (0-0.7) k/uL Basophils # 0.0 (0-0.2) k/uL Hypochromasia Slight PT 10.6 (10.0-12.5) sec INR 1.0 (<1.2) APTT 19.7 L (22.0-30.0) sec Sodium 142 (137-145) mmol/L Potassium 4.3 (3.5-5.1) mmol/L Chloride 100 (98-107) mmol/L Carbon Dioxide 24 (22-30) mmol/L Anion Gap 18 mmol/L BUN 42 H (9-20) mg/dL Creatinine 12.91 H* (0.66-1.25) mg/dL Est GFR (CKD-EPI)AfAm 5 (>60 ml/min/1.73 sqM) Est GFR (CKD-EPI)NonAf 4 (>60 ml/min/1.73 sqM) Glucose 98 (74-99) mg/dL Plasma Lactic Acid [place] (0.7-2.0) mmol/L Calcium 9.7 (8.4-10.2) mg/dL Phosphorus 7.2 H (2.5-4.5) mg/dL Magnesium 2.5 H (1.6-2.3) mg/dL Total Bilirubin 0.9 (0.2-1.3) mg/dL AST 105 H (17-59) U/L ALT 57 H (4-49) U/L Alkaline Phosphatase 55 (38-126) U/L Troponin I (0.000-0.034) ng/mL NT-Pro-B Natriuret Pep 51705 pg/mL Total Protein 7.2 (6.3-8.2) g/dL Albumin 4.5 (3.5-5.0) g/dL Serum Alcohol 290 H* mg/dL 05/25/24 05/25/24 Range/Units 16:53 16:53 WBC (3.8-10.6) k/uL RBC (4.30-5.90) m/uL Hgb (13.0-17.5) gm/dL Hct (39.0-53.0) % MCV (80.0-100.0) fL MCH (25.0-35.0) pg MCHC (31.0-37.0) g/dL RDW (11.5-15.5) % Plt Count (150-450) k/uL MPV Neutrophils % % Lymphocytes % % Monocytes % % Eosinophils % % Basophils % % Neutrophils # (1.3-7.7) k/uL Lymphocytes # (1.0-4.8) k/uL Monocytes # (0-1.0) k/uL Eosinophils # (0-0.7) k/uL Basophils # (0-0.2) k/uL Hypochromasia PT (10.0-12.5) sec INR (<1.2) APTT (22.0-30.0) sec Sodium (137-145) mmol/L Potassium (3.5-5.1) mmol/L Chloride (98-107) mmol/L Carbon Dioxide (22-30) mmol/L Anion Gap mmol/L BUN (9-20) mg/dL Creatinine (0.66-1.25) mg/dL Est GFR (CKD-EPI)AfAm (>60 ml/min/1.73 sqM) Est GFR (CKD-EPI)NonAf (>60 ml/min/1.73 sqM) Glucose (74-99) mg/dL Plasma Lactic Acid George 2.0 (0.7-2.0) mmol/L Calcium (8.4-10.2) mg/dL Phosphorus (2.5-4.5) mg/dL Magnesium (1.6-2.3) mg/dL Total Bilirubin (0.2-1.3) mg/dL AST (17-59) U/L ALT (4-49) U/L Alkaline Phosphatase (38-126) U/L Troponin I 0.082 H* (0.000-0.034) ng/mL NT-Pro-B Natriuret Pep pg/mL Total Protein (6.3-8.2) g/dL Albumin (3.5-5.0) g/dL Serum Alcohol mg/dL - EKG Data -: EKG Interpreted by Me (EKG is sinus 80 TN 180 QRS 101 QTc 441) - Radiology Data Radiology results: report reviewed (Chest x-ray is negative for acute disease), image reviewed Disposition Clinical Impression: Elevated troponin, Hypertensive urgency, End stage renal disease, Alcohol intoxication Disposition: ADMITTED IP TO THIS HOSP Condition: Fair Is patient prescribed a controlled substance at d/c from ED?: No Time of Disposition: 16:00
[2024-05-25] MEDS: IPRATROPIUM-ALBUTEROL 3 ML NEB INHALATION STA (16:51)
[2024-05-25] MEDS: hydrALAZINE HCL 20 MG/ML 1 ML VIAL IVP STA ×2 (17:00→23:43)
[2024-05-25 17:09] LABS: Basophils % (A) 0 %; Eosinophils # (A) 0.2 k/uL (0-0.7); Eosinophils % (A) 3 %; HGB 10.9 gm/dL (13.0-17.5); Hypochromasia Slight; Lymphocytes # (A) 3.1 k/uL (1.0-4.8); Lymphocytes % (A) 34 %; MCH 26.9 pg (25.0-35.0); MCHC 31.2 g/dL (31.0-37.0); MCV 86.2 fL (80.0-100.0); Mean Platelet Volume 8.9; Monocytes # (A) 0.4 k/uL (0-1.0); Monocytes % (A) 4 %; Neutrophils # (A) 5.1 k/uL (1.3-7.7); Neutrophils % (A) 57 %; Platelet Count 184 k/uL (150-450); RBC 4.06 m/uL (4.30-5.90); RDW 15.3 % (11.5-15.5); WBC 9.1 k/uL (3.8-10.6)
[2024-05-25 17:20] LABS: ALT 57 U/L (4-49); AST 105 U/L (17-59); African American GFR (CKD) 5 (>60 ml/min/1.73 sqM); Albumin 4.5 g/dL (3.5-5.0); Alkaline Phosphatase 55 U/L (38-126); Anion Gap 18 mmol/L; Blood Urea Nitrogen 42 mg/dL (9-20); Calcium 9.7 mg/dL (8.4-10.2); Carbon Dioxide 24 mmol/L (22-30); Chloride 100 mmol/L (98-107); Glucose 98 mg/dL (74-99); Magnesium 2.5 mg/dL (1.6-2.3); Non-African American GFR(CKD) 4 (>60 ml/min/1.73 sqM); Phosphorus 7.2 mg/dL (2.5-4.5); Potassium 4.3 mmol/L (3.5-5.1); Sodium 142 mmol/L (137-145); Total Bilirubin 0.9 mg/dL (0.2-1.3); Total Protein 7.2 g/dL (6.3-8.2)
[2024-05-25 17:27] LABS: NT-Pro-B-Type Natriuretic Pept 21400 pg/mL
[2024-05-25 17:32] LABS: Prothrombin Time 10.6 sec (10.0-12.5)
[2024-05-25 17:36] LABS: Partial Thromboplastin Time 19.7 sec (22.0-30.0)
--- NOTE | 2024-05-25 17:39 | XR ---
EXAMINATION TYPE: XR chest 2V DATE OF EXAM: 05/25/2024 5:20 PM COMPARISON: Chest radiographs from 04/11/2024 CLINICAL INDICATION: Male, 43 years old with history of Weakness; TECHNIQUE: XR chest 2V Frontal and lateral views of the chest. FINDINGS: Lungs/Pleura: Improved aeration of the right medial lung. There is no evidence of pleural effusion, f ocal consolidation, or pneumothorax. Pulmonary vascularity: Unremarkable. Heart/mediastinum: Cardiomediastinal silhouette is unremarkable. Musculoskeletal: No acute osseous pathology. Other findings: Non IMPRESSION: No acute cardiopulmonary disease/process. [facility], , 05/25/2024 5:37 PM
[2024-05-25 17:41] LABS: Alcohol 290 mg/dL
[2024-05-25] MEDS ORDERED: LORazepam 2 MG/ML INJ IV PRN ×3 (18:20)
[2024-05-25] MEDS ORDERED: LORazepam 1 MG TAB PO PRN ×3 (18:20)
[2024-05-25] MEDS ORDERED: NALOXONE 0.4 MG/ML 1 ML VIAL IV PRN (18:25)
[2024-05-25] MEDS: MORPHINE SULFATE 4 MG/ML SYRINGE IV PRN (18:38)
[2024-05-25] MEDS: LABETALOL 5 MG/ML VIAL MDV IVP STA (18:39)
[2024-05-25] MEDS: SODIUM CHLORIDE 0.9% 1,000 ML IV SCH (19:27)
[2024-05-25] MEDS: cloNIDine 0.3 MG/24HR PATCH TRANSDERM STA (19:31)
--- NOTE | 2024-05-25 20:28 | CT ---
EXAMINATION TYPE: CT brain wo con DATE OF EXAM: 05/25/2024 8:04 PM COMPARISON: 06/19/2023 CLINICAL INDICATION: Male, 43 years old with history of pain, missed dialysis appointment/ not feelin g good/ etoh abuse TECHNIQUE: CT of the brain is performed utilizing 3 mm thick sections through the posterior fossa and 3 mm thick sections through the remaining calvarium. Study is performed within 24 hours of arrival to the hospital. Contrast used: mL of , (none if empty) CT DLP: 1098.8 mGycm, Automated exposure control for dose reduction was used. FINDINGS: No abnormal hyperdensity is present to suggest an acute intracranial hemorrhage. No mass lesion is evident. No acute infarcts are evident. Ventricles and sulci are appropriate for the patient age. Paranasal sinuses and mastoid air cells within the [id number] are clear. IMPRESSION: 1. No acute intracranial process. Follow up MRI can be performed as clinically indicated. [facility], , 05/25/2024 8:25 PM
--- NOTE | 2024-05-25 20:36 | CT ---
EXAMINATION TYPE: CT abdomen pelvis wo con DATE OF EXAM: 05/25/2024 8:04 PM COMPARISON: None. CLINICAL INDICATION: Male, 43 years old with history of pain, missed dialysis appointment/ not feelin g good/ etoh abuse TECHNIQUE: Axial images were obtained from above the diaphragm to the pubic rami in the axial plane a t 5 mm thick sections. Reconstructed images are reviewed on the computer in the coronal plane. CONTRAST: mL of . Study performed without Oral Contrast DLP: 1985.7 mGycm, Automated exposure control for dose reduction was used. FINDINGS: Limited CT sections are obtained the lung bases. The lung bases are clear. CT ABDOMEN: Liver: Normal Spleen: Normal Pancreas: Normal Adrenal glands: The adrenal glands are normal. Gallbladder: Normal Kidneys: No masses are evident. No hydronephrosis is present. No cysts are present. No renal stone s are evident. Aorta: Vascular calcification is within the aorta. Inferior vena cava: Normal. CT PELVIS: Loops of bowel within the abdomen and pelvis are normal. Diverticulosis without acute diverticulitis is present within the sigmoid colon. There are loops of bowel which are incompletely distended or lack oral contrast limiting their evaluation. Appendix: Normal as visualized. Urinary bladder: Prostate is normal. Genitourinary structures: Osseous structures: No suspicious lytic or sclerotic lesions. IMPRESSION: 1. Diverticulosis without acute diverticulitis. [facility], , 05/25/2024 8:34 PM
[2024-05-25] MEDS ORDERED: NON FORMULARY DRUG (Levocarnitine [Levocarnitine] 330 MG Tablet) PO PRN (23:30)
[2024-05-25] MEDS ORDERED: IPRATROPIUM 0.5 MG/2.5 ML NEBU INHALATION PRN (23:30)
[2024-05-25] MEDS: CALCIUM ACETATE 667 MG TAB PO SCH (23:35)
[2024-05-26] MEDS: LABETALOL 5 MG/ML VIAL MDV IVP STA (00:08)
[2024-05-26] MEDS: carvediloL 6.25 MG TAB PO SCH (06:54)
[2024-05-26] MEDS ORDERED: hydrALAZINE HCL 20 MG/ML 1 ML VIAL IVP PRN (08:53)
--- NOTE | 2024-05-26 08:54 | P.NPCON ---
History of Present Illness - Reason for Consult end stage renal disease - History of Present Illness Reason for consultation: End-stage renal disease History of present illness: Patient is a 43-year-old male seen in renal consultation for end-stage renal disease. Patient was seen and examined in the emergency room. He is maintained on hemodialysis on Sunday schedule. Patient states he missed hemodialysis treatment on Sunday. Patient came to the hospital due to abdominal discomfort. Patient states he has been drinking 7-8 liquor shots daily. He states he is trying to quit but is hard to do. Patient admits to loose bowel movements for about 1 week. He denies any vomiting. Denies fever or chills. Denies chest pain. Does admit to dyspnea as he missed dialysis. Currently on room air. Denies history of diabetes or coronary artery disease. He does make urine. Vital signs are stable. General: No acute distress. HEENT: Head exam is unremarkable. LUNGS: No audible rhonchi or wheezes. HEART: Rate and Rhythm are regular. ABDOMEN: Obese, nontender. EXTREMITITES: Trace edema. Past Medical History Past Medical History: Dialysis, Hypertension, Renal Disease, Sleep Apnea/CPAP/BIPAP Additional Past Medical History / Comment(s): ESRD with hemodialysis M/W/F, CPAP use History of Any Multi-Drug Resistant Organisms: None Reported Past Surgical History: Heart Catheterization Additional Past Surgical History / Comment(s): R upper arm AV fistula, peritoneal dialysis catheter insertion, abdominal wall hematoma evacuated Past Anesthesia/Blood Transfusion Reactions: No Reported Reaction Past Psychological History: No Psychological Hx Reported Smoking Status: Current some day smoker Past Alcohol Use History: Abuse Past Drug Use History: Marijuana - Past Family History Father Additional Family Medical History / Comment(s): Father in a MVA. Mother Family Medical History: Cancer Additional Family Medical History / Comment(s): Mother from breast cancer. Medications and Allergies Home Medications Medication Instructions Recorded Confirmed Type Calcium Acetate [PhosLo] 667 mg PO DIRECTED 02/27/23 05/25/24 History hydrALAZINE HCL [Apresoline] 100 mg PO TID 02/27/23 05/25/24 History levOCARNitine 330 mg PO DIRECTED PRN 02/27/23 05/25/24 History carvediloL [Coreg] 6.25 mg PO BID 08/13/23 05/25/24 History Ipratropium [place] [Atrovent Hfa] 1 puff INHALATION RT-BID PRN 05/25/24 05/25/24 History Losartan [Cozaar] 50 mg PO DAILY 05/25/24 05/25/24 History Vitamin B Complex 1 cap PO DAILY 05/25/24 05/25/24 History Allergies Allergy/AdvReac Type Severity Reaction Status Date / Time amlodipine AdvReac Rash/Hives/ Verified 05/25/24 18:55 Itchy Physical Exam Vitals: Vital Signs Temp Pulse Resp BP Pulse Ox 05/26/24 07:51 16 05/26/24 06:55 73 18 198/114 97 05/26/24 05:44 98.2 F 71 18 181/96 99 05/26/24 03:00 70 16 176/91 97 05/26/24 01:50 69 16 176/99 95 05/26/24 01:00 70 16 170/100 96 05/26/24 00:04 72 16 167/101 97 05/25/24 23:41 71 18 201/117 96 05/25/24 23:19 76 18 180/112 96 05/25/24 19:28 73 19 153/91 97 05/25/24 19:00 79 16 177/113 95 05/25/24 18:33 81 16 185/108 95 05/25/24 17:30 83 19 172/91 95 05/25/24 17:00 80 18 05/25/24 16:53 80 18 05/25/24 16:25 98.1 F 80 22 177/117 100 05/25/24 16:06 97.8 F 84 22 182/118 99 Intake and Output 05/25/24 05/26/24 05/26/24 22:59 06:59 14:59 Other: Weight 120 kg Results - Lab Results Most recent lab results Calcium 9.7 mg/dL (8.4-10.2) 05/25/24 16:53 Phosphorus 7.2 mg/dL (2.5-4.5) H 05/25/24 16:53 Magnesium 2.5 mg/dL (1.6-2.3) H 05/25/24 16:53 05/25/24 16:53 05/25/24 16:53 Assessment and Plan Plan: Assessment: 1. End-stage renal disease maintained on hemodialysis on Sunday schedule. 2. Hypertension with chronic kidney disease. 3. Chronic kidney disease mineral bone disease maintained on PhosLo. 4. Alcohol abuse. 5. Diverticulosis. Plan: Hemodialysis today. Home antihypertensives resumed. Add as needed hydralazine. Follow-up echocardiogram. Thank you for the consultation. I will continue to follow the patient with you during his hospital stay.
[2024-05-26] MEDS ORDERED: LOSARTAN 50 MG TAB PO SCH (09:00)
[2024-05-26] MEDS ORDERED: NON FORMULARY DRUG (Vitamin B Complex [Vitamin B Complex] 1 EACH Capsule) PO SCH (09:00)
[2024-05-26] MEDS: hydrALAZINE HCL 50 MG TAB PO SCH (09:02)
[2024-05-26] MEDS: THIAMINE 100 MG TAB PO SCH (09:02)
[2024-05-26] MEDS: ATORVASTATIN 40 MG TAB PO SCH (09:02)
[2024-05-26] MEDS: FOLIC ACID 1 MG TAB PO SCH (09:02)
[2024-05-26] MEDS: MULTIVITAMINS, THERA 1 EACH TAB PO SCH (09:02)
[2024-05-26] MEDS: LOSARTAN 50 MG TAB PO SCH (09:02)
[2024-05-26] MEDS: PANTOPRAZOLE 40 MG/10 ML VIAL IV SCH (09:02)
[2024-05-26 09:43] LABS: Amphetamine Screen,Urine Not Detected (NotDetected); Barbiturate Screen,Urine Not Detected (NotDetected); Benzodiazepines Screen,Urine Not Detected (NotDetected); Cocaine Screen,Urine Not Detected (NotDetected); Methadone Screen, Urine Not Detected (NotDetected); Opiate Screen,Urine Detected (NotDetected); Oxycodone Screen, Urine Not Detected (NotDetected); Phencyclidine Screen,Urine Not Detected (NotDetected); Tricyclic Antidepressant,Urine Not Detected (NotDetected); Urn Cannabinoid Scrn Not Detected (NotDetected)
[2024-05-26] MEDS: HEPARIN SODIUM,PORCINE 5,000 UNIT/ML 1 ML VIAL SQ SCH (10:20)
[2024-05-26] MEDS: FUROSEMIDE 80 MG TAB PO SCH (11:43)
--- NOTE | 2024-05-26 12:04 | P.HPIM ---
History of Present Illness H&P Date: 05/26/24 Chief Complaint: Impending DTs/missed dialysis HISTORY OF PRESENT ILLNESS: This is a 43-year-old -Greek gentleman with a previous medical history significant for hypertension and hypertensive cardiovascular disease, hyperlipidemia, diabetes mellitus type 2, end-stage renal disease on hemodialysis Sunday and Sunday, chronic alcohol use and dependence, n oncompliance, patient has been not been seen in the office for at least a year and a half, patient presented to the emergency department at [facility] because is not feeling well he was extremely hypertensive, he did receive hydralazine as well as labetalol in the emergency department, not sure was going on he stated that he needed some help due to his alcohol abuse, patient had missed his dialysis Sunday and Sunday, his phosphorus was elevated magnesium was elevated was not in fluid overload, he was in accelerated hypertension that was treated with labetalol and hydralazine, patient appears to be tachycardic, initially I thought the patient need to be admitted to the inte nsive care unit, but after the patient blood pressure improves the decision was made [facility], patient will be admitted to hospital for further evaluation and treatment, monitor the patient very closely to avoid delirium tremens as well as seizure we will follow-up with the patient very closely, will consult psychiatry to try to help the patient with his chronic alcohol use and dependence. I will consult nephrology as well for hemodialysis orderes REVIEW OF SYSTEMS: Constitutional: No documented fever, no chills, no night sweats. No weight change. No weakness, fatigue or lethargy. No daytime sleepiness. EENT: No headache. No blurred vision or double vision, no loss of vision. No loss of Hearing, no ringing in the ears, no dizziness. No nasal drainage or congestion. No epistaxis. No sore throat. Lungs: positive for shortness of breath, no cough cough, no sputum production. no wheezing. Reports dyspnea with activity. Cardiovascular: No chest pain, no lower extremity edema. Positive for palpitations. No paroxysmal nocturnal dyspnea. No orthopnea. No lightheadedness or dizziness. No syncopal episodes. Abdominal: Reports abdominal pain. No nausea, vomiting. positive for diarrhea. No constipation. No bloody or tarry stools reports loss of appetite. Genitourinary: No dysuria, increased frequency, urgency. No urinary retention. Musculoskeletal: No myalgias. No muscle weakness, no gait dysfunction, no frequent falls. No back pain. No neck pain. Integumentary: No wounds, no lesions. No rash or pruritus. No unusual bruisi ng. No change in hair or nails. Neurologic: No aphasia. No facial droop. No change in mentation. No head injury. No headache. No paralysis. No paresthesia. Psychiatric: Positive for depression. Positive for anxiety. No mood swings. Endocrine: No abnormal blood sugars. No weight change. PAST MEDICAL HISTORY: Hypertension and hypertensive cardio vascular disease. Hyperlipidemia. Diabetes mellitus type 2. ALLERGIC rhinitis. End-stage renal disease on hemodialysis Chronic alcohol use and dependence. Polysubstance abuse. PAST SURGICAL HISTORY: Joshua catheter placement and removal Left heart catheterization 04/16/2023 normal SOCIAL HISTORY: Patient drinks alcohol on a regular basis, he drinks at least a fifth every day, he uses cocaine as well, he does smoke tobacco. FAMILY HISTORY: Father at age 36 recurrent accident, mother at age of 37 from breast cancer, patient had one brother who at age of 36 from gunshot wound PHYSICAL EXAMINATION: General: 43-year-old -Greek male who is laying down in bed in no apparent distress HEENT: Head is atraumatic, normocephalic, pupils were equal round reactive to light and accommodation, extraocular muscle movements are intact. Mucous membranes of the mouth are somewhat dry Neck: Supple, no JVP, normal carotid upstroke bilaterally, no lymphadenopathy. Chest: Decreased breath sounds at the bases, few rhonchi, no expiratory wheezes, no chest wall tenderness, no intercostal retractions. Heart: First heart sound is normal, second heart sound is normal, there is no gallop or murmur. Abdomen: Soft, nontender, nondistended, positive bowel sounds. Extremities: There is no edema no calf tenderness DP +2 bilaterally. Neurologic examination: patient is awake alert and oriented x 3, cranial nerves III to XII appear gross intact, muscle power 5 out of 5 in upper and lower extremities bilaterally. ASSESSMENT AND PLAN: 1. Alcohol intoxication with impending DTs. She will be monitored in the hospital start the patient on CIWA protocol, follow-up with the patient very closely. Admit the patient to telemetry unit. Consult psychiatry for further evaluation recommendation patient may need to go to [place] for further recommendation. 2. Accelerated hypertension Continue patient on carvedilol 6.25 mg orally twice every day, continue losartan 100 mg every day, clonidine 0.1 mg twice every day and hydralazine 100 mg orally 3 times every day, monitor the patient blood pressure very closely, add labetalol 10 mg IV push every 4 hours as needed for systolic blood pressure greater than or equal to 160 mg of mercury monitor the patient blood pressure very closely. 3. Mixed hyperlipidemia. Start the patient on atorvastatin 40 mg once every day. 4. End-stage renal disease on hemodialysis. Consulted nephrology for hemodialysis. 5. Diabetes mellitus type 2. Continue patient on sliding scale insulin. 6. Chronic alcohol use and dependence. We will monitor for DTs. Continue CIWA protocol, consult mental health unit team for further evaluation recommendation. 7. Polysubstance abuse. We will obtain urine drug screen. 8. DVT prophylaxis. Heparin 5000 units subcutaneously every 12 hours. 9. GI prophylaxis. Continue patient on Protonix 40 mg IV push every 24 hours. 10. Admitted to inpatient. Estimated length of stay 2 midnights. 11. Full code. Past Medical History Past Medical History: Dialysis, Hypertension, Renal Disease, Sleep Apnea/CPAP/BIPAP Additional Past Medical History / Comment(s): ESRD with hemodialysis M/W/F, CPAP use History of Any Multi-Drug Resistant Organisms: None Reported Past Surgical History: Heart Catheterization Additional Past Surgical History / Comment(s): R upper arm AV fistula, peritoneal dialysis catheter insertion, abdominal wall hematoma evacuated Past Anesthesia/Blood Transfusion Reactions: No Reported Reaction Past Psychological History: No Psychological Hx Reported Smoking Status: Current some day smoker Past Alcohol Use History: Abuse Past Drug Use History: Marijuana - Past Family History Father Additional Family Medical History / Comment(s): Father in a MVA. Mother Family Medical History: Cancer Additional Family Medical History / Comment(s): Mother from breast cancer. Medications and Allergies Home Medications Medication Instructions Recorded Confirmed Type Calcium Acetate [PhosLo] 667 mg PO DIRECTED 02/27/23 05/25/24 History hydrALAZINE HCL [Apresoline] 100 mg PO TID 02/27/23 05/25/24 History levOCARNitine 330 mg PO DIRECTED PRN 02/27/23 05/25/24 History carvediloL [Coreg] 6.25 mg PO BID 08/13/23 05/25/24 History Ipratropium [place] [Atrovent Hfa] 1 puff INHALATION RT-BID PRN 05/25/24 05/25/24 History Losartan [Cozaar] 50 mg PO DAILY 05/25/24 05/25/24 History Vitamin B Complex 1 cap PO DAILY 05/25/24 05/25/24 History Allergies Allergy/AdvReac Type Severity Reaction Status Date / Time amlodipine AdvReac Rash/Hives/ Verified 05/25/24 18:55 Itchy Physical Exam Vitals: Vital Signs Temp Pulse Resp BP Pulse Ox 05/26/24 05:44 98.2 F 71 18 181/96 99 05/26/24 03:00 70 16 176/91 97 05/26/24 01:50 69 16 176/99 95 05/26/24 01:00 70 16 170/100 96 05/26/24 00:04 72 16 167/101 97 05/25/24 23:41 71 18 201/117 96 05/25/24 23:19 76 18 180/112 96 05/25/24 19:28 73 19 153/91 97 05/25/24 19:00 79 16 177/113 95 05/25/24 18:33 81 16 185/108 95 05/25/24 17:30 83 19 172/91 95 05/25/24 17:00 80 18 05/25/24 16:53 80 18 05/25/24 16:25 98.1 F 80 22 177/117 100 05/25/24 16:06 97.8 F 84 22 182/118 99 Intake and Output 05/25/24 05/25/24 05/26/24 14:59 22:59 06:59 Other: Weight 120 kg Results CBC & Chem 7: 05/25/24 16:53 05/25/24 16:53 Labs: Abnormal Lab Results - Last 24 Hours (Table) 05/25/24 05/25/24 05/25/24 Range/Units 16:53 16:53 16:53 RBC 4.06 L (4.30-5.90) m/uL Hgb 10.9 L (13.0-17.5) gm/dL Hct 35.0 L (39.0-53.0) % APTT 19.7 L (22.0-30.0) sec BUN 42 H (9-20) mg/dL Creatinine 12.91 H* (0.66-1.25) mg/dL Phosphorus 7.2 H (2.5-4.5) mg/dL Magnesium 2.5 H (1.6-2.3) mg/dL AST 105 H (17-59) U/L ALT 57 H (4-49) U/L Troponin I (0.000-0.034) ng/mL Serum Alcohol 290 H* mg/dL 05/25/24 Range/Units 16:53 RBC (4.30-5.90) m/uL Hgb (13.0-17.5) gm/dL Hct (39.0-53.0) % APTT (22.0-30.0) sec BUN (9-20) mg/dL Creatinine (0.66-1.25) mg/dL Phosphorus (2.5-4.5) mg/dL Magnesium (1.6-2.3) mg/dL AST (17-59) U/L ALT (4-49) U/L Troponin I 0.082 H* (0.000-0.034) ng/mL Serum Alcohol mg/dL
--- NOTE | 2024-05-26 14:17 | P.CN ---
Psychiatric Consult - . Consult date: 05/26/24 Consult:: 05/26/24 14:04 IDENTIFYING DATA: This patient is a 43-year-old male, single, on disability and working part-time REASON FOR REFERRAL: Psychiatry was consulted for alcohol abuse HISTORY OF PRESENT ILLNESS: The patient presented to the hospital with shortness of breath, alcohol use. Patient is currently on dialysis for end-stage renal disease and reportedly missed his Sunday dialysis due to drinking. Alcohol was elevated to 90 in the ED, LFTs mildly elevated. He was placed on CIWA with nephrology consult. Patient seen and evaluated in his room. He denied any past psychiatric history however does report long-term alcohol use. He reports drinking 7-8 shots of hard liquor per day, denying any past rehab or treatment for this. Patient appears contemplative and that he realizes this is an issue for him, expressing a desire to decrease his use given its impact on his health. Patient was weary about inpatient substance use stating he has a job and that he does not want any repercussions with this. Patient did appear to be more open to outpatient substance use treatment as well as possibly starting naltrexone in the upcoming days pending more stability in terms of nausea and LFTs and thus he was encouraged to follow-up with his outpatient doctor regarding possibly starting this medication for alcohol use. He mentions his longest period of sobriety was for a year and a half however did mention this to be due to being on probation at that time. He denied any sleep or appetite changes but does report low energy and anhedonia. He does report intermittent passive suicidal ideations, no plan or intent and vehemently denies any suicidal ideations at this time. At this time patient denies any homicidal ideations, intent or plan. Patient denies any auditory, visual hallucinations and denies any paranoia or delusions. Patients admits to using alcohol daily, occasional cannabis and nicotine daily. PAST PSYCHIATRIC HISTORY: Patient has no past psych history. Patient denies being on any psychiatric medications. Patient denies any previous psychiatric hospitalizations. Patient denies any psychiatric outpatient follow-up. Patient denies any history of suicide attempts in the past. PAST MEDICAL HISTORY: End-stage renal disease on dialysis. ALLERGIES: as per EMR. CHEMICAL DEPENDENCY HISTORY: as per HPI. FAMILY PSYCHIATRIC/SUBSTANCE USE HISTORY: Denies SOCIAL HISTORY: Patient single and have no children, living alone. He works part-time but is also on SSD. He completed some college. MENTAL STATUS EXAM: General Appearance: Patient appears to be stated age is alert, pleasant, and cooperative. Patient appears to have fair hygiene and grooming wearing hospital gown with fair eye contact. Behavior: Patient is calmly sitting next to bed without any agitated behavior. Speech: Patient's speech is fluent and nonpressured. Mood/Affect: Patient reports their mood is "better", affect is congruent, reactive Suicidality/Homicidality: Patient denies having any suicidal or homicidal ideation intent or plan. Perceptions: Patient denies any visual hallucinations and denies any auditory hallucinations Though content/process: There is no evidence of any delusional thought content and thought process is linear and goal-directed. Memory and concentration: AOX3, grossly intact for the purposes of this session. Can spell "WORLD" backwards Judgment and insight: Poor IMPRESSIONS: Alcohol use disorder, severe, in withdrawal Substance-induced mood disorder PLAN: -At this time patient DOES NOT meet criteria for inpatient psychiatric admission. -Would recommend the following medication changes/additions: Discussed with patient at length regarding the possibility of start naltrexone 25 mg for alcohol abuse however patient was concerned regarding the possibility of having adverse effects of this medication thus this will be deferred to his outpatient provider upon discharge. Patient did appear agreeable with outpatient substance use and possibly therapy as he declined inpatient rehab -CIWA protocol with PRN Ativan for alcohol withdrawal. Continue to monitor vital signs. -shellfish bed worker to provide patient with outpatient mental health/psychiatry resources for appropriate follow up upon discharge -Alteration Hand spoke with patient about substance abuse and the harmful effects on medical and mental health, patient verbally understood and agreed. -shellfish bed worker to provide patient substance use treatment resources including AA/NA meetings in the community. -Psychiatry will sign off at this time -Please contact with any questions.
--- NOTE | 2024-05-26 15:06 | P.CNPUL ---
History of Present Illness Consult date: 05/26/24 Requesting physician: Pamela Granados Reason for consult: dyspnea, abnormal CXR/CT, other (Possible ICU admission) Chief complaint: EtOH, hypertension History of present illness: This is a 43-year-old male patient with a known history of end-stage renal disease receiving hemodialysis, hypertension, obstructive sleep apnea, chronic tobacco dependence, history of alcohol abuse, marijuana use. The patient apparently had missed his dialysis on Sunday and had been drinking most of the weekend and presented to the emergency room yesterday afternoon with shortness of breath. Chest x-ray revealed no acute cardiopulmonary process. CT scan of the brain revealed no acute intracranial process. CT scan of the abdomen revealed diverticulosis without acute diverticulitis. White count 9.1. Hemoglobin 10.9. Platelets 184. Sodium 142. Potassium 4.3. Bicarb 24. BUN 42. Creatinine 12.9. Glucose 98. AST 105. ALT 57. Troponin 0.082. proBNP 21,400. Drug screen positive for opiates. Serum alcohol level 290. He is seen today in consultation in the emergency department. He was possibly requiring ICU admission for hypertensive emergency. His current blood pressure was 213/117. He is afebrile. He is maintaining O2 saturations in the 90s on room air. He is sitting up in a chair. He denies any headache, dizziness or lightheadedness. He is currently on Coreg, hydralazine, labetalol, losartan, Lasix. Plan is for urgent hemodialysis today. Review of Systems REVIEW OF SYSTEMS: CONSTITUTIONAL: Denies any recent significant weight loss or weight gain. EYES: Denies change in vision. EARS, NOSE, MOUTH, THROAT: Denies headaches, denies sore throat. CARDIOVASCULAR: Denies chest pain, palpitations or syncopal episodes. RESPIRATORY: Positive for shortness of breath, no cough, congestion or hemoptysis. GASTROINTESTINAL: Denies change in appetite, denies abdominal pain GENITOURINARY: Denies hematuria, denies infections. MUSKULOSKELETAL: Denies pain, denies swelling. INTEGUMENTARY: Denies rash, denies eczema. NEUROLOGICAL: Denies recent memory loss, no recent seizure activity. PSYCHIATRIC: Denies anxiety, denies depression. HEMATOLOGIC/LYMPHATIC: Denies anemia, denies enlarged lymph nodes. Past Medical History Past Medical History: Dialysis, Hypertension, Renal Disease, Sleep Apnea/CPAP/BIPAP Additional Past Medical History / Comment(s): ESRD with hemodialysis M/W/F, CPAP use History of Any Multi-Drug Resistant Organisms: None Reported Past Surgical History: Heart Catheterization Additional Past Surgical History / Comment(s): R upper arm AV fistula, peritoneal dialysis catheter insertion, abdominal wall hematoma evacuated Past Anesthesia/Blood Transfusion Reactions: No Reported Reaction Past Psychological History: No Psychological Hx Reported Additional Psychological History / Comment(s): . Smoking Status: Current some day smoker Past Alcohol Use History: Abuse Additional Past Alcohol Use History / Comment(s): Pt started smoking in 2000 and is currently attempting to quit smoking. past hx of alcohol abuse-approximately 8-10 shots of vodka daily Past Drug Use History: Marijuana - Past Family History Father Additional Family Medical History / Comment(s): Father in a MVA. Mother Family Medical History: Cancer Additional Family Medical History / Comment(s): Mother from breast cancer. Medications and Allergies Home Medications Medication Instructions Recorded Confirmed Type Calcium Acetate [PhosLo] 667 mg PO TID-W/MEALS 02/27/23 05/26/24 History hydrALAZINE HCL [Apresoline] 100 mg PO TID 02/27/23 05/25/24 History levOCARNitine 330 mg PO BID PRN 02/27/23 05/26/24 History carvediloL [Coreg] 6.25 mg PO BID 08/13/23 05/25/24 History Ipratropium [place] [Atrovent Hfa] 1 puff INHALATION RT-BID PRN 05/25/24 05/25/24 History Losartan [Cozaar] 50 mg PO DAILY 05/25/24 05/25/24 History Vitamin B Complex 1 cap PO DAILY 05/25/24 05/25/24 History Allergies Allergy/AdvReac Type Severity Reaction Status Date / Time amlodipine AdvReac Rash/Hives/ Verified 05/25/24 18:55 Itchy Physical Exam Vitals: Vital Signs Temp Pulse Pulse Resp BP BP Pulse Ox 05/26/24 12:45 97.7 F 74 16 213/117 98 05/26/24 12:23 98.2 F 78 16 194/120 97 05/26/24 10:36 188/107 05/26/24 08:58 98.0 F 71 17 193/119 96 05/26/24 07:51 16 05/26/24 06:55 73 18 198/114 97 05/26/24 05:44 98.2 F 71 18 181/96 99 05/26/24 03:00 70 16 176/91 97 05/26/24 01:50 69 16 176/99 95 05/26/24 01:00 70 16 170/100 96 05/26/24 00:04 72 16 167/101 97 05/25/24 23:41 71 18 201/117 96 05/25/24 23:19 76 18 180/112 96 05/25/24 19:28 73 19 153/91 97 05/25/24 19:00 79 16 177/113 95 05/25/24 18:33 81 16 185/108 95 05/25/24 17:30 83 19 172/91 95 05/25/24 17:00 80 18 05/25/24 16:53 80 18 05/25/24 16:25 98.1 F 80 22 177/117 100 05/25/24 16:06 97.8 F 84 22 182/118 99 Intake and Output 05/25/24 05/26/24 05/26/24 22:59 06:59 14:59 Intake Total 180 Balance 180 Intake: Oral 180 Other: Weight 120 kg 120 kg GENERAL EXAM: Alert, obese 43-year-old male patient, on room air, fairly comfortable in no apparent distress. HEAD: Normocephalic. EYES: Normal reaction of pupils, equal size. NOSE: Clear with pink turbinates. THROAT: No erythema or exudates. NECK: No masses, no JVD. CHEST: No chest wall deformity. LUNGS: Equal air entry with no crackles, wheeze, rhonchi or dullness. CVS: S1 and S2 normal with no audible murmur, regular rhythm. ABDOMEN: No hepatosplenomegaly, normal bowel sounds, no guarding or rigidity. SPINE: No scoliosis or deformity SKIN: No rashes CENTRAL NERVOUS SYSTEM: No focal deficits, tone is normal in all 4 extremities. EXTREMITIES: Upper extremity AV fistula. There is 1+ peripheral edema. No cl ubbing, no cyanosis. Peripheral pulses are intact. Results - Laboratory Findings CBC and BMP: 05/25/24 16:53 05/25/24 16:53 PT/INR, D-dimer PT 10.6 sec (10.0-12.5) 05/25/24 16:53 INR 1.0 (<1.2) 05/25/24 16:53 Abnormal lab findings: Abnormal Labs 05/25/24 05/25/24 05/25/24 16:53 16:53 16:53 RBC 4.06 L Hgb 10.9 L Hct 35.0 L APTT 19.7 L BUN 42 H Creatinine 12.91 H* Phosphorus 7.2 H Magnesium 2.5 H AST 105 H ALT 57 H Troponin I Urine Opiates Screen Serum Alcohol 290 H* 05/25/24 05/26/24 16:53 09:17 RBC Hgb Hct APTT BUN Creatinine Phosphorus Magnesium AST ALT Troponin I 0.082 H* Urine Opiates Screen Detected H Serum Alcohol - Diagnostic Findings Chest x-ray: image reviewed Assessment and Plan Assessment: Dyspnea secondary to fluid volume overload secondary to missed hemodialysis Acute alcohol intoxication History of alcoholism drinking 7-8 liquor shots per day last drink 05/25/2024 End-stage renal disease to receive hemodialysis Sunday Hypertensive urgency secondary to missed hemodialysis History of hypertension Hyperlipidemia Diabetes mellitus, type II History of polysubstance abuse Obstructive sleep apnea Marijuana use Plan: The patient was seen and evaluated Imaging, labs and medications reviewed Currently stable for 3 S. admission Monitor closely for alcohol withdrawal symptoms Initiated on the [facility] protocol To receive hemodialysis today Resume patient's home antihypertensive medications Labetalol 20 mg IVP every 4 hours as needed Heparin for DVT prophylaxis Continued on oral diuretics We will continue to follow and make further recommendations based on his clinical status I have personally seen and examined the patient, performed the documentation and the assessment and plan as written. Number of minutes spent on the visit: 20 Dictation was produced using [email or web address] software. Please excuse any grammatical, word or spelling errors.
[2024-05-26] MEDS: LABETALOL 5 MG/ML VIAL MDV IVP PRN (18:41)
[2024-05-26 19:13] LABS: Basophils % (A) 0 %; Eosinophils # (A) 0.2 k/uL (0-0.7); Eosinophils % (A) 3 %; HCT 37.7 % (39.0-53.0); HGB 11.3 gm/dL (13.0-17.5); Hypochromasia Marked; Lymphocytes # (A) 1.2 k/uL (1.0-4.8); Lymphocytes % (A) 17 %; MCH 26.3 pg (25.0-35.0); MCHC 29.9 g/dL (31.0-37.0); MCV 88.2 fL (80.0-100.0); Mean Platelet Volume 8.5; Monocytes # (A) 0.3 k/uL (0-1.0); Monocytes % (A) 5 %; Neutrophils # (A) 5.1 k/uL (1.3-7.7); Neutrophils % (A) 74 %; Platelet Count 154 k/uL (150-450); RBC 4.27 m/uL (4.30-5.90); RDW 14.7 % (11.5-15.5); WBC 6.9 k/uL (3.8-10.6)
[2024-05-26 19:29] LABS: ALT 46 U/L (4-49); AST 72 U/L (17-59); African American GFR (CKD) 9 (>60 ml/min/1.73 sqM); Albumin 4.6 g/dL (3.5-5.0); Alkaline Phosphatase 66 U/L (38-126); Anion Gap 14 mmol/L; Blood Urea Nitrogen 30 mg/dL (9-20); Calcium 9.3 mg/dL (8.4-10.2); Carbon Dioxide 26 mmol/L (22-30); Chloride 97 mmol/L (98-107); Glucose 97 mg/dL (74-99); Lipase 302 U/L (23-300); Non-African American GFR(CKD) 8 (>60 ml/min/1.73 sqM); Phosphorus 4.7 mg/dL (2.5-4.5); Potassium 4.2 mmol/L (3.5-5.1); Sodium 137 mmol/L (137-145); Total Bilirubin 1.5 mg/dL (0.2-1.3); Total Protein 7.8 g/dL (6.3-8.2)
[2024-05-26 20:39] VITALS: RESP 16; TEMP 98
[2024-05-26] MEDS: LORazepam 0.5 MG TAB PO PRN (21:01)
[2024-05-27 07:31] LABS: Basophils % (A) 0 %; Eosinophils # (A) 0.2 k/uL (0-0.7); Eosinophils % (A) 2 %; HCT 34.7 % (39.0-53.0); HGB 10.4 gm/dL (13.0-17.5); Hypochromasia Marked; Lymphocytes # (A) 1.4 k/uL (1.0-4.8); Lymphocytes % (A) 21 %; MCH 26.5 pg (25.0-35.0); MCHC 29.9 g/dL (31.0-37.0); MCV 88.7 fL (80.0-100.0); Mean Platelet Volume 8.7; Monocytes # (A) 0.4 k/uL (0-1.0); Monocytes % (A) 5 %; Neutrophils # (A) 4.9 k/uL (1.3-7.7); Neutrophils % (A) 70 %; Platelet Count 142 k/uL (150-450); RBC 3.91 m/uL (4.30-5.90); RDW 14.6 % (11.5-15.5); WBC 6.9 k/uL (3.8-10.6)
[2024-05-27 07:44] LABS: ALT 42 U/L (4-49); AST 59 U/L (17-59); African American GFR (CKD) 7 (>60 ml/min/1.73 sqM); Albumin 4.3 g/dL (3.5-5.0); Alkaline Phosphatase 55 U/L (38-126); Anion Gap 15 mmol/L; Blood Urea Nitrogen 35 mg/dL (9-20); Calcium 9.2 mg/dL (8.4-10.2); Carbon Dioxide 26 mmol/L (22-30); Chloride 97 mmol/L (98-107); Glucose 92 mg/dL (74-99); Non-African American GFR(CKD) 6 (>60 ml/min/1.73 sqM); Potassium 4.2 mmol/L (3.5-5.1); Sodium 138 mmol/L (137-145); Total Bilirubin 1.5 mg/dL (0.2-1.3); Total Protein 7.1 g/dL (6.3-8.2)
--- NOTE | 2024-05-27 09:21 | CA ---
Transthoracic Echo Report Name: Jeremy Vides Age: 43 Gender: M : 1980 Exam Date: 05/27/2024 07:30 Exam Location: [place] [facility] Ht (in): 69 Wt (lb): 264 Ordering Physician: Pamela Granados MD Attending/Referring Phys: [employer] Officer Serena Winkler RDCS Procedure CPT: Indications: Hypertensive cardiovascular disease Cardiac Hx: DM, HTN Technical Quality: Fair Contrast 1: Total Dose (mL): Contrast 2: Total Dose (mL): MEASUREMENTS (Male / Female) Normal Values 2D ECHO LV Diastolic Diameter PLAX 5.9 cm 4.2 - 5.9 / 3.9 - 5.3 cm LV Systolic Diameter PLAX 3.7 cm IVS Diastolic Thickness 1.9 cm 0.6 - 1.0 / 0.6 - 0.9 cm LVPW Diastolic Thickness 1.8 cm 0.6 - 1.0 / 0.6 - 0.9 cm LV Relative Wall Thickness 0.6 RV Internal Dim ED PLAX 3.8 cm LA Systolic Diameter LX 4.9 cm 3.0 - 4.0 / 2.7 - 3.8 cm LV Diastolic Volume MOD BP 230.3 cm??? 67 - 155 / 56 - 104 cm??? LV Systolic Volume MOD BP 121.8 cm??? 22 - 58 / 19 - 49 cm??? LV Ejection Fraction MOD BP 47.1 % >= 55 % LV Cardiac Index MOD BP 3035.1 cm???/min???m??? LV Diastolic Volume MOD 4C 230.8 cm??? LV Systolic Volume MOD 4C 99.6 cm??? LV Ejection Fraction MOD 4C 56.9 % LV Cardiac Index MOD 4C 3671.1 cm???/min???m??? LV Diastolic Length 4C 8.6 cm LV Systolic Length 4C 8.0 cm LV Diastolic Volume MOD 2C 222.3 cm??? LV Systolic Volume MOD 2C 130.5 cm??? LV Ejection Fraction MOD 2C 41.3 % LV Cardiac Index MOD 2C 2570.7 cm???/min???m??? LV Diastolic Length 2C 9.0 cm LV Systolic Length 2C 9.6 cm M-MODE Aortic Root Diameter MM 4.1 cm DOPPLER AV Peak Velocity 182.9 cm/s AV Peak Gradient 13.4 mmHg AI Peak Velocity 486.5 cm/s AI Peak Gradient 94.7 mmHg AI Pressure Half Time 902.1 ms MR Peak Velocity 174.6 cm/s MR Peak Gradient 12.2 mmHg Mitral E Point Velocity 159.7 cm/s Mitral A Point Velocity 82.1 cm/s Mitral E to A Ratio 1.9 MV Deceleration Time 156.5 ms MV E' Velocity 4.9 cm/s Mitral E to MV E' Ratio 32.8 TR Peak Velocity 334.8 cm/s TR Peak Gradient 44.8 mmHg Right Ventricular Systolic Press 55.3 mmHg FINDINGS Left Ventricle Left ventricular ejection fraction is estimated at 50-55 %. Severely increased septal wall thickness. Severely increased left ventricular diastolic volume. Severely increased left ventricular systolic volume. Mildly decreased left ventricular ejection fraction. Right Ventricle Moderate right ventricular dilatation. Severe pulmonary hypertension. Right ventricular systolic pressure estimated at 55 mm hg. Right Atrium Normal right atrial size. No right atrial thrombus or mass seen. Left Atrium Moderately increased left atrial diameter. No left atrial thrombus or mass present. Mitral Valve Structurally normal mitral valve. No mitral stenosis, regurgitation or prolapse. Aortic Valve Trileaflet aortic valve. Mild aortic regurgitation. Thickened aortic valve without stenosis. Tricuspid Valve Structurally normal tricuspid valve. [id number] tricuspid regurgitation. Pulmonic Valve Structurally normal pulmonic valve. Mild pulmonic regurgitation. Pericardium No pericardial effusion. Aorta Moderate aortic dilatation at the level of the sinuses of valsalva 41 mm CONCLUSIONS Left ventricular ejection fraction is estimated at 50-55 %. Severely increased septal wall thickness. Moderately increased left atrial diameter. [id number] tricuspid regurgitation. Moderate right ventricular dilatation. Severe pulmonary hypertension. RVSP estimated at 55 mm hg. Previewed by: Dr Tramaine Castellanos (Electronically Signed) Final Date: 27 May 2024 09:21
[2024-05-27 10:49] VITALS: PULSE 69
[2024-05-27] MEDS: BACLOFEN 10 MG TAB PO PRN (11:16)
--- NOTE | 2024-05-27 11:46 | P.PN ---
Subjective Progress Note Date: 05/27/24 Patient seen for follow-up for end-stage renal disease, after missing dialysis on 05/23/2024. Maintain normally on // dialysis schedule. Patient is comfortable. No acute complaints this time. He underwent dialysis in the hospital yesterday with 1.4 L removed. Endorses producing small amounts of urine. Objective - Vital Signs Vital signs: Vital Signs Temp 98.0 F 05/26/24 20:00 Pulse 68 05/27/24 04:00 Resp 16 05/27/24 04:00 BP 158/92 05/27/24 04:00 Pulse Ox 98 05/27/24 04:00 FiO2 Intake & Output 05/26/24 05/27/24 05/27/24 18:59 06:59 18:59 Intake Total 860 Output Total 3500 Balance -2640 Weight 120 kg 120.7 kg Intake: Oral 360 Hemodialysis 500 Output: Urine 200 Hemodialysis 1900 Hemodialysis Net Amount 1400 - Exam Patient is awake, comfortable, no acute distress. Heart: S1 and S2 heard Lungs: Bilateral breath sounds are heard Abdomen: Soft and nontender Lower extremities: Trace edema BOX ANNEALER: grossly intact - Labs CBC & Chem 7: 05/27/24 07:10 05/27/24 07:10 Labs: Abnormal Lab Results - Last 24 Hours (Table) 05/26/24 05/26/24 05/27/24 Range/Units 18:43 18:43 07:10 RBC 4.27 L 3.91 L (4.30-5.90) m/uL Hgb 11.3 L 10.4 L (13.0-17.5) gm/dL Hct 37.7 L 34.7 L (39.0-53.0) % MCHC 29.9 L 29.9 L (31.0-37.0) g/dL Plt Count 142 L (150-450) k/uL Chloride 97 L (98-107) mmol/L BUN 30 H (9-20) mg/dL Creatinine 7.95 H* (0.66-1.25) mg/dL Phosphorus 4.7 H (2.5-4.5) mg/dL Total Bilirubin 1.5 H (0.2-1.3) mg/dL AST 72 H (17-59) U/L Lipase 302 H (23-300) U/L 05/27/24 Range/Units 07:10 RBC (4.30-5.90) m/uL Hgb (13.0-17.5) gm/dL Hct (39.0-53.0) % MCHC (31.0-37.0) g/dL Plt Count (150-450) k/uL Chloride 97 L (98-107) mmol/L BUN 35 H (9-20) mg/dL Creatinine 9.57 H* (0.66-1.25) mg/dL Phosphorus (2.5-4.5) mg/dL Total Bilirubin 1.5 H (0.2-1.3) mg/dL AST (17-59) U/L Lipase (23-300) U/L Assessment and Plan Assessment: #End-stage renal disease maintained on hemodialysis M/W/F schedule #Hypertension w/CKD #CKD bone mineral disease maintained on PhosLo #Alcohol abuse #Diverticulosis Plan: -Underwent hemodialysis yesterday with 1.4 L UF removed -80 mg Lasix daily -Resume home hypertension medication -As needed hydralazine added -Avoid nephrotoxic agents -Patient is stable for discharge from nephrology standpoint. Upon discharge, resume M/W/F dialysis schedule. I have seen and examined the patient with resident and agree with A&P as written.
[2024-05-27 12:03] VITALS: BP 174/108
--- NOTE | 2024-05-27 15:17 | P.PN ---
Subjective Progress Note Date: 05/27/24 Principal diagnosis: Acute hypertensive urgency and fluid overload secondary to missed hemodialysis. And acute alcohol intoxication. This is a 43-year-old male patient with a known history of end-stage renal disease receiving hemodialysis, hypertension, obstructive sleep apnea, chronic tobacco dependence, history of alcohol abuse, marijuana use. The patient apparently had missed his dialysis on Sunday and had been drinking most of the weekend and presented to the emergency room yesterday afternoon with shortness of breath. Chest x-ray revealed no acute cardiopulmonary process. CT scan of the brain revealed no acute intracranial process. CT scan of the abdomen revea led diverticulosis without acute diverticulitis. White count 9.1. Hemoglobin 10.9. Platelets 184. Sodium 142. Potassium 4.3. Bicarb 24. BUN 42. Creatinine 12.9. Glucose 98. AST 105. ALT 57. Troponin 0.082. proBNP 21,400. Drug screen positive for opiates. Serum alcohol level 290. He is seen today in consultation in the emergency department. He was possibly requiring ICU admission for hypertensive emergency. His current blood pressure was 213/117. He is afebrile. He is maintaining O2 saturations in the 90s on room air. He is sitting up in a chair. He denies any headache, dizziness or lightheadedness. He is currently on Coreg, hydralazine, labetalol, losartan, Lasix. Plan is for urgent hemodialysis today. Patient was seen today on 05/27/2024, patient is feeling better, breathing easier, on room air, not in any distress, patient underwent hemodialysis twice since admission. Blood pressure remains in the 170 systolic range, but the patient is asymptomatic, he is on multiple medications for blood pressure. Labs today reviewed WBC count 6.9 hemoglobin 10.4 electrolytes are normal BUN is 35 creatinine 9.57, drug screen on admission was positive for alcohol and positive for opiates. Objective - Vital Signs Vital signs: Vital Signs Temp 98.0 F 05/26/24 20:00 Pulse 69 05/27/24 11:20 Resp 16 05/27/24 11:20 BP 174/108 05/27/24 11:20 Pulse Ox 98 05/27/24 11:20 FiO2 Intake & Output 05/26/24 05/27/24 05/27/24 18:59 06:59 18:59 Intake Total 860 360 Output Total 3500 Balance -2640 360 Weight 120 kg 120.7 kg Intake: Oral 360 360 Hemodialysis 500 Output: Urine 200 Hemodialysis 1900 Hemodialysis Net Amount 1400 Other: # Voids 1 - Exam GENERAL EXAM: Revealed a 43-year-old male in no distress HEAD: Normocephalic. EYES: Normal reaction of pupils, equal size. NOSE: Clear with pink turbinates. THROAT: No erythema or exudates. NECK: No masses, no JVD. CHEST: No chest wall deformity. LUNGS: Clear bilaterally no rhonchi no wheezes CVS: S1 and S2 normal with no audible murmur, regular rhythm. ABDOMEN: No hepatosplenomegaly, normal bowel sounds, no guarding or rigidity. SKIN: No rashes CENTRAL NERVOUS SYSTEM: Alert oriented x 3 no focal deficit EXTREMITIES: Upper extremity AV fistula. There is 1+ peripheral edema. No clubbing, no cyanosis. Peripheral pulses are intact. - Labs CBC & Chem 7: 05/27/24 07:10 05/27/24 07:10 Labs: Abnormal Lab Results - Last 24 Hours (Table) 05/26/24 05/26/24 05/27/24 Range/Units 18:43 18:43 07:10 RBC 4.27 L 3.91 L (4.30-5.90) m/uL Hgb 11.3 L 10.4 L (13.0-17.5) gm/dL Hct 37.7 L 34.7 L (39.0-53.0) % MCHC 29.9 L 29.9 L (31.0-37.0) g/dL Plt Count 142 L (150-450) k/uL Chloride 97 L (98-107) mmol/L BUN 30 H (9-20) mg/dL Creatinine 7.95 H* (0.66-1.25) mg/dL Phosphorus 4.7 H (2.5-4.5) mg/dL Total Bilirubin 1.5 H (0.2-1.3) mg/dL AST 72 H (17-59) U/L Lipase 302 H (23-300) U/L 05/27/24 Range/Units 07:10 RBC (4.30-5.90) m/uL Hgb (13.0-17.5) gm/dL Hct (39.0-53.0) % MCHC (31.0-37.0) g/dL Plt Count (150-450) k/uL Chloride 97 L (98-107) mmol/L BUN 35 H (9-20) mg/dL Creatinine 9.57 H* (0.66-1.25) mg/dL Phosphorus (2.5-4.5) mg/dL Total Bilirubin 1.5 H (0.2-1.3) mg/dL AST (17-59) U/L Lipase (23-300) U/L Assessment and Plan Assessment: Impression Dyspnea secondary to fluid volume overload secondary to missed hemodialysis Acute alcohol intoxication History of alcoholism drinking 7-8 liquor shots per day last drink 05/25/2024 End-stage renal disease to receive hemodialysis Sunday Hypertensive urgency secondary to missed hemodialysis History of hypertension Hyperlipidemia Diabetes mellitus, type II History of polysubstance abuse Obstructive sleep apnea Marijuana use Blu trevizo I did History unusual detail evaluated about assessment of the left lower lobe of the liver had a lot of pulmonology [place] consult will consult in [place] to have seen moderate Recommendation: Continue present blood pressure medications Patient to be more compliant with hemodialysis on outpatient basis Counseled regarding alcohol drinking Could be discharged home today if cleared by other consultants Time with Patient: Less than 30
--- NOTE | 2024-05-31 11:42 | P.PN ---
Subjective Progress Note Date: 05/27/24 HISTORY OF PRESENT ILLNESS: This is a 43-year-old -I[place]ian gentleman with a previous medical history significant for hypertension and hypertensive cardiovascular disease, hyperlipidemia, diabetes mellitus type 2, end-stage renal disease on hemodialysis Sunday and Sunday, chronic alcohol use and dependence, noncompliance, patient has been not been seen in the office for at least a year and a half, patient presented to the emergency department at [facility] because is not feeling well he was extremely hypertensive, he did receive hydralazine as well as labetalol in the emergency department, not sure was going on he stated that he needed some help due to his alcohol abuse, patient had missed his dialysis Sunday and Sunday, his phosphorus was elevated magnesium was elevated was not in fluid overload, he was in accelerated hypertension that was treated with labetalol and hydralazine, patient appears to be tachycardic, initially I thought the patient need to be admitted to the intensive care unit, but after the patient blood pressure improves the decision was made to admit the patient to the [facility] care, patient will be admitted to hospital for further evaluation and treatment, monitor the patient very closely to avoid delirium tremens as well as seizure we will follow-up with the patient very closely, will consult psychiatry to try to help the patient with his chronic alcohol use and dependence. I will consult nephrology as well for hemodialysis orderes 05/27: Sitting up in bed in no apparent distress, stated he is feeling better today, he was seen yesterday in consultation by pulmonary medicine's, he was also seen in consultation by psychiatry, will continue current treatment plan, continue supportive care, follow-up with the patient very closely. Patient was instructed about the importance of abstinence from alcohol at this point in t [place], continue with CIWA protocol, continue to follow-up with the patient very closely, he will need to have follow-up as an outpatient. REVIEW OF SYSTEMS: Constitutional: No documented fever, no chills, no night sweats. No weight change. No weakness, fatigue or lethargy. No daytime sleepiness. EENT: No headache. No blurred vision or double vision, no loss of vision. No loss of Hearing, no ringing in the ears, no dizziness. No nasal drainage or congestion. No epistaxis. No sore throat. Lungs: positive for shortness of breath, no cough cough, no sputum production. no wheezing. Reports dyspnea with activity. Cardiovascular: No chest pain, no lower extremity edema. Positive for pa lpitations. No paroxysmal nocturnal dyspnea. No orthopnea. No lightheadedness or dizziness. No syncopal episodes. Abdominal: Reports abdominal pain. No nausea, vomiting. positive for diarrhea. No constipation. No bloody or tarry stools reports loss of appetite. Genitourinary: No dysuria, increased frequency, urgency. No urinary retention. Musculoskeletal: No myalgias. No muscle weakness, no gait dysfunction, no frequent falls. No back pain. No neck pain. Integumentary: No wounds, no lesions. No rash or pruritus. No unusual bruising. No change in hair or nails. Neurologic: No aphasia. No facial droop. No change in mentation. No head injury. No headache. No paralysis. No paresthesia. Psychiatric: Positive for depression. Positive for anxiety. No mood swings. Endocrine: No abnormal blood sugars. No weight change. PHYSICAL EXAMINATION: General: 43-year-old -[place]ian male who is laying down in bed in no apparent distress HEENT: Head is atraumatic, normocephalic, pupils were equal round reactive to light and accommodation, extraocular muscle movements are intact. Mucous membranes of the mouth are somewhat dry Neck: Supple, no JVP, normal carotid upstroke bilaterally, no lymphadenopathy. Chest: Decreased breath sounds at the bases, few rhonchi, no expiratory wheezes, no chest wall tenderness, no intercostal retractions. Heart: First heart sound is normal, second heart sound is normal, there is no gallop or murmur. Abdomen: Soft, nontender, nondistended, positive bowel sounds. Extremities: There is no edema no calf tenderness DP +2 bilaterally. Neurologic examination: patient is awake alert and oriented x 3, cranial nerves III to XII appear gross intact, muscle power 5 out of 5 in upper and lower extremities bilaterally. ASSESSMENT AND PLAN: 1. Alcohol intoxication with impending DTs. She will be monitored in the hospital start the patient on CIWA protocol, follow-up with the patient very closely. Admit the patient to telemetry unit. Consult psychiatry for further evaluation recommendation patient may need to go to [place] for further recommendation. 2. Accelerated hypertension Continue patient on carvedilol 6.25 mg orally twice every day, continue losartan 100 mg every day, clonidine 0.1 mg twice every day and hydralazine 100 mg orally 3 times every day, monitor the patient blood pressure very closely, add labetalol 10 mg IV push every 4 hours as needed for systolic blood pressure greater than or equal to 160 mg of mercury monitor the patient blood pressure very closely. 3. Mixed hyperlipidemia. Start the patient on atorvastatin 40 mg once every day. 4. End-stage renal disease on hemodialysis. Consulted nephrology for hemodialysis. 5. Diabetes mellitus type 2. Continue patient on sliding scale insulin. 6. Chronic alcohol use and dependence. We will monitor for DTs. Continue [facility] protocol, consult mental health unit team for further evaluation recommendation. 7. Polysubstance abuse. We will obtain urine drug screen. 8. DVT prophylaxis. Heparin 5000 units subcutaneously every 12 hours. 9. GI prophylaxis. Continue patient on Protonix 40 mg IV push every 24 hours. Objective - Vital Signs Vital signs: Vital Signs Temp 98.0 F 05/26/24 20:00 Pulse 68 05/27/24 04:00 Resp 16 05/27/24 04:00 BP 158/92 05/27/24 04:00 Pulse Ox 98 05/27/24 04:00 FiO2 Intake & Output 05/26/24 05/27/24 05/27/24 18:59 06:59 18:59 Intake Total 860 Output Total 3500 Balance -2640 Weight 120 kg 120.7 kg Intake: Oral 360 Hemodialysis 500 Output: Urine 200 Hemodialysis 1900 Hemodialysis Net Amount 1400 - Labs CBC & Chem 7: 05/26/24 18:43 05/26/24 18:43 Labs: Abnormal Lab Results - Last 24 Hours (Table) 05/26/24 05/26/24 05/26/24 Range/Units 09:17 18:43 18:43 RBC 4.27 L (4.30-5.90) m/uL Hgb 11.3 L (13.0-17.5) gm/dL Hct 37.7 L (39.0-53.0) % MCHC 29.9 L (31.0-37.0) g/dL Chloride 97 L (98-107) mmol/L BUN 30 H (9-20) mg/dL Creatinine 7.95 H* (0.66-1.25) mg/dL Phosphorus 4.7 H (2.5-4.5) mg/dL Total Bilirubin 1.5 H (0.2-1.3) mg/dL AST 72 H (17-59) U/L Lipase 302 H (23-300) U/L Urine Opiates Screen Detected H (NotDetected)
--- NOTE | 2024-05-31 11:46 | P.DS ---
Providers Date of admission: 05/25/24 18:25 Expected date of discharge: 05/31/24 Attending physician: Pamela Granados Consults: 05/25/24 18:25 Consult Physician Routine Consulting Provider: Gudelia Snyder Consult Reason/Comments: CKDonHD Do you want consulting provider notified?: Yes 05/25/24 19:08 Consult Physician Routine Consulting Provider: Lacey Hernandez Consult Reason/Comments: ICUeval Do you want consulting provider notified?: Yes 05/26/24 06:41 Consult Physician Routine Consulting Provider: Psychiatry - [facility] Psychiatry Consult Reason/Comments: Alcohol Abuse Do you want consulting provider notified?: Already Contacted Primary care physician: Pamela Granados [facility] Course: This is a 43-year-old -[place]ese gentleman with a previous medical history significant for hypertension and hypertensive cardiovascular disease, hyperlipidemia, diabetes mellitus type 2, end-stage renal disease on hemodialysis Sunday and Sunday, chronic alcohol use and dependence, noncompliance, patient has been not been seen in the office for at least a year and a half, patient presented to the emergency department at [facility] because is not feeling well he was extremely hypertensive, he did receive hydralazine as well as labetalol in the emergency department, not sure was going on he stated that he needed some help due to his alcohol abuse, patient had missed his dialysis Sunday and Sunday, his phosphorus was elevated magnesium was elevated was not in fluid overload, he was in accelerated hypertension that was treated with labetalol and hydralazine, patient appears to be tachycardic, initially I thought the patient need to be admitted to the intensive care unit, but after the patient blood pressure improves the decision was made to admit the patient to the selective care, patient will be admitted to hospital for further evaluation and treatment, monitor the patient very closely to avoid delirium tremens as well as seizure we will follow-up with the patient very closely, will consult psychiatry to try to help the patient with his chronic alcohol use and dependence. I will consult nephrology as well for hemodialysis orderes 05/27: Sitting up in bed in no apparent distress, stated he is feeling better today, he was seen yesterday in consultation by pulmonary medicine's, he was also seen in consultation by psychiatry, will continue current treatment plan, continue supportive care, follow-up with the patient very closely. Patient was instructed about the importance of abstinence from alcohol at this point in time, continue with CIWA protocol, continue to follow-up with the patient very closely, he will need to have follow-up as an outpatient, patient is cleared by nephrology as well as by pulmonary medicine, therefore he will be discharged home and follow-up with me as an outpatient next week. Discharge diagnoses: 1. Alcohol intoxication with impending DTs. 2. Accelerated hypertension 3. Resistant hypertension and hypertensive cardiovascular disease. 4. Mixed hyperlipidemia. 5. End-stage renal disease on hemodialysis. 6. Diabetes mellitus type 2. 7. Chronic alcohol use and dependence. 8. Polysubstance abuse. 9. Noncompliance. Patient Condition at Discharge: Fair Plan - Discharge Summary Discharge Rx Participant: Yes New Discharge Prescriptions: New Baclofen [Lioresal] 10 mg PO BID PRN #60 tab PRN Reason: Muscle Spasm Losartan Potassium [Cozaar] 100 mg PO DAILY #30 tab Furosemide [Lasix] 80 mg PO DAILY #30 tab Atorvastatin [Lipitor] 40 mg PO DAILY #30 tab Multivitamins, Thera [Multivitamin (formulary)] 1 each PO DAILY tab Continue Calcium Acetate [PhosLo] 667 mg PO TID-W/MEALS hydrALAZINE HCL [Apresoline] 100 mg PO TID carvediloL [Coreg] 6.25 mg PO BID levOCARNitine 330 mg PO BID PRN PRN Reason: cramping Vitamin B Complex 1 cap PO DAILY Ipratropium Temple [Atrovent Hfa] 1 puff INHALATION RT-BID PRN PRN Reason: Shortness Of Breath Discontinued Losartan [Cozaar] 50 mg PO DAILY Discharge Medication List Calcium Acetate [PhosLo] 667 mg PO TID-W/MEALS 02/27/23 [History] hydrALAZINE HCL [Apresoline] 100 mg PO TID 02/27/23 [History] levOCARNitine 330 mg PO BID PRN 02/27/23 [History] carvediloL [Coreg] 6.25 mg PO BID 08/13/23 [History] Ipratropium Temple [Atrovent Hfa] 1 puff INHALATION RT-BID PRN 05/25/24 [History] Vitamin B Complex 1 cap PO DAILY 05/25/24 [History] Atorvastatin [Lipitor] 40 mg PO DAILY #30 tab 02/25/25 [Rx] Baclofen [Lioresal] 10 mg PO BID PRN #60 tab 05/27/24 [Rx] Furosemide [Lasix] 80 mg PO DAILY #30 tab 05/27/24 [Rx] Losartan Potassium [Cozaar] 100 mg PO DAILY #30 tab 05/27/24 [Rx] Multivitamins, Thera [Multivitamin (formulary)] 1 each PO DAILY tab 05/27/24 [Rx] Follow up Appointment(s)/Referral(s): Pamela Granados MD [Primary Care Provider] - 1 Week (Please call to schedule follow up. ) Patient Instructions/Handouts: Chronic Hypertension (DC) Discharge Disposition: HOME SELF-CARE
== END 2024-05-27 14:47 | disposition home or self-care (01) | DRG 682 ==
LOC: EC 16:04 → 3SCARD 18:25
PROVIDERS: ADMIT Internal Medicine; ATTEND Internal Medicine
PROC: 5A1D70Z Performance of Urinary Filtration, Intermittent, Less than 6 Hours Per Day (ICD-10-PCS; principal; 2024-05-26)
DX: I13.11 Hypertensive heart and chronic kidney disease without heart failure, with stage 5 chronic kidney disease, or end stage renal disease (principal); N18.6 End stage renal disease; Z99.2 Dependence on renal dialysis; F10.239 Alcohol dependence with withdrawal, unspecified; E11.22 Type 2 diabetes mellitus with diabetic chronic kidney disease; I16.0 Hypertensive urgency; I08.2 Rheumatic disorders of both aortic and tricuspid valves; R45.851 Suicidal ideations; F10.229 Alcohol dependence with intoxication, unspecified; F14.94 Cocaine use, unspecified with cocaine-induced mood disorder; E78.2 Mixed hyperlipidemia; E87.70 Fluid overload, unspecified; G47.33 Obstructive sleep apnea (adult) (pediatric); K57.30 Diverticulosis of large intestine without perforation or abscess without bleeding; M89.8X8 Other specified disorders of bone, other site; Y90.8 Blood alcohol level of 240 mg/100 ml or more; Z79.899 Other long term (current) drug therapy; Z91.199 Patient's noncompliance with other medical treatment and regimen due to unspecified reason
CPT/HCPCS: 36415; 70450; 71046; 74176; 80053; 80306; 80320; 83605; 83690; 83735; 83880; 84100; 84484; 85025; 85610; 85730; 90935; 93005; 93306; 94640; 96361; 96372; 96374; 96375; 96376; 99283; 99285